=== PATIENT | male | born 1970 | race Caucasian/White ===

== ENCOUNTER → 2020-06-15 10:53 | Outpatient (BNVA) | payer MEDICARE, MEDICAID, SELFPAY | PROVIDERS: PCP Internal Medicine; Referring Provider Internal Medicine; Visit Provider Internal Medicine Gastroenterology | DX: Z76.89 Persons encountering health services in other specified circumstances (principal) | CPT/HCPCS: 99213 ==

== ENCOUNTER → 2020-07-08 14:54 | Outpatient (BNVA) | payer MEDICARE, MEDICAID, SELFPAY | PROVIDERS: PCP Internal Medicine; Referring Provider Internal Medicine; Visit Provider Surgery | DX: K40.90 Unilateral inguinal hernia, without obstruction or gangrene, not specified as recurrent (principal) | CPT/HCPCS: 99212 ==

== ENCOUNTER 2020-09-02 16:55 | Emergency (ER) | payer MEDICARE, MEDICAID, SELFPAY ==
[2020-09-02 16:59] VITALS: BP 176/66; PULSE 66; RESP 18; TEMP 36.9; O2SAT 95; BMI 48.8
--- NOTE | 2020-09-02 17:53 | ED_ITS ---
HPI - Extremity Problem General Chief complaint: Extremity Problem Stated complaint: leg numbness Time Seen by Provider: 09/02/20 17:50 Source: patient Mode of arrival: ambulatory Limitations: no limitations History of Present Illness HPI Narrative: 50yo male with past medical history of arthritis, chronic venous stasis, depression, diabetes, hypertension, obesiy, YANDY, here with right dorsal foot numbness since this morning. He tells me 2 days ago he completed a [address] No SOB/CP. H/o neuropathy, not on gabapentin. No h/o blood clots. MD Complaint: extremity pain Onset (ago): hour(s) Pain Consistency: other (improving) Location: right and lower extremity Quality: burning Radiation: none Relieving factors: nothing Exacerbating factors: nothing Associated symptoms: denies other symptoms Context: recent travel (long car drive >10 hrs 2 days ago) Related Data Home Medications Medication Instructions Recorded Confirmed albuterol sulfate 90 mcg/actuation 2 puff INHALATION Q4-6H PRN 06/13/20 08/04/20 aerosol inhaler atorvastatin 40 mg tablet 40 mg PO DAILY 06/13/20 08/04/20 bupropion HCl 150 mg tablet,12 hr 150 mg PO BID 06/13/20 08/04/20 sustained-release furosemide 20 mg tablet 40 mg PO DAILY 06/13/20 08/04/20 metformin 1,000 mg tablet 1,000 mg PO BID 06/13/20 08/04/20 methadone 40 mg soluble tablet 125 mg PO DAILY tab 06/13/20 08/04/20 Previous Rx's Medication Instructions Recorded bisacodyl 5 mg tablet,delayed 10 mg PO ONCE 1 Days #2 tab 08/05/20 release polyethylene glycol 3350 17 238 g PO .COMPLEX 1 Days #238 g 08/05/20 gram/dose oral powder Allergies Allergy/AdvReac Type Severity Reaction Status Date / Time No Known Allergies Allergy Unknown UNKNOWN Verified 07/08/20 15:17 Review of Systems Review of Systems: Yes all other systems are reviewed and are negative Constitutional: Constitutional: Reports no additional constitutional complaints, Denies body ache(s), Denies chills, Denies fever(s), Denies h eadache(s) and Denies weakness Eyes: Eyes: Reports no additional eye complaints and Denies change in vision ENT: Reports system reviewed and no additional complaints, except as documented, Denies dizziness, Denies headache(s), Denies nasal congestion, Denies nasal discharge and Denies neck pain Cardiovascular: Cardiovascular: Reports no additional cardiovascular complaints, Denies chest pain, Denies leg edema and Denies dyspnea Respiratory: Respiratory: Reports no additional respiratory complaints, Denies cough and Denies dyspnea Gastrointestinal: Gastrointestinal: Reports no additional gastrointestinal complaints, Denies abdominal pain, Denies diarrhea, Denies nausea and Denies vomiting Genitourinary: Genitourinary: Denies urinary incontinence Musculoskeletal: Musculoskeletal: Reports no additional musculoskeletal complaints, Denies back pain, Denies arthralgias, Denies joint swelling, Denies neck pain, Reports numbness and Denies tingling Integumentary/Breasts: Skin/Breast: Reports system reviewed and no additional complaints, except as docu and Denies rash Neurologic: Reports system reviewed and no additional complaints, except as documented, Denies Abnormal speech present, Denies dizziness, Denies headache(s), Reports numbness, Denies tingling and Denies weakness PMFSH Past Medical History Attestation statement: The following information was validated with the patient. Source: old records reviewed and nursing notes reviewed Medical History Arthritis Chronic venous stasis Depression Diabetes Exposure to COVID-19 virus Full dentures Hypertension Methadone use Morbid obesity Shortness of breath on exertion Sleep apnea Type 2 diabetes mellitus Wears partial dentures Surgical History H/O wisdom tooth extraction History of arthroscopic knee surgery History of carpal tunnel release History of umbilical hernia repair Family History Family History Father Diabetes Mother Diabetes 1.5, managed as type 2 HTN (hypertension) Hypercholesteremia Paternal Grandmother Diabetes 1.5, managed as type 2 Maternal Grandmother Lung cancer Maternal Grandfather Prostate cancer Sister No problems noted. Daughter No problems noted. Social History Social History Alcohol intake: never Smoking Status: Current every day smoker Tobacco Type: Cigarette Packs Per Day: 0.5 Cigarettes Per Day: 10.0 Years Smoked: 36 Substance Use Type: Marijuana and Opiates Advance Directives: No Advance Directives Information Provided: Yes Physical Exam Vital Signs: Vital Signs: Last Vital Signs Temp 98.3 F 09/02/20 18:09 Pulse 64 09/02/20 18:09 Resp 18 09/02/20 18:09 BP 131/51 L 09/02/20 18:09 Pulse Ox 94 09/02/20 18:09 Body Mass Index 48.8 Const: General: cooperative, healthy appearing, comfortable and no acute distress Orientation/consciousness: patient oriented x3 Limitations: no limitations HENMT: Head: Yes normal to inspection Ears: hearing grossly normal bilaterally General nose exam: Normal external nose present Face and si nus: Yes normal facial exam Mouth: Normal oral and palatal mucosa present Throat: Yes posterior oropharynx normal Eyes: General: appearance normal, both eyes and all related structures Pupils: Equal, round and reactive pupils present Neck: Neck: Yes normal visual inspection Chest: Chest palpation & inspection: normal inspection of the chest Resp: Effort & Inspection: normal respiratory effort Auscultation: clear to auscultation bilaterally Cardio: Rate: regular rate Rhythm: regular rhythm Peripheral pulses: Peripheral pulses 2+ throughout GI: Inspection: Yes normal to inspection Palpation (GI): Soft to palpation and nontender Auscultation: normal bowel sounds Back/Spine/Pelvis: Thoracic/Lumbar Spine: thoracic and lumbar spine normal to inspection Skin: General skin exam: no rashes or lesions noted Neuro: General: patient oriented x3, no focal motor deficits and normal sensation to monofilament Cranial nerves: Yes Equal, round and reactive pupils present Cognition (Neuro): normal cognition Speech: No Abnormal speech present Gait exam (Neuro): Normal gait present Motor exam (neuro): 5/5 motor strength present throughout Extrem: Other: chronic venous stasis changes bilateral LE, multiple varicose veins. No calf tenderness, swelling or redness. There is discoloration to both lower legs which appears chronic in nature. The patient is reporting some dorsal foot swelling on the right side over the 4th and 5th PIP. Palpable pedal pulses noted. Skin is warm pink and dry Course Reevaluation(s) Reevaluation #2: 50-year-old male here with right foot numbness noted this morning. Recent long travel in a car. Will check ultrasound to rule out DVT MDM - Extremity (Nontraumatic) Medical Records Attestation: I reviewed the patient's medical records. Lab Data Attestation: I reviewed the patient's lab results. Imaging Data Venous US: Attestation: I personally reviewed and interpreted this imaging study as follows: Radiologist's impression: EXAMINATION: US VENOUS ULTRASOUND WITH DOPPLER LOWER EXTREMITY, RIGHT CLINICAL INFORMATION: 50-year-old male patient with right lower extremity pain. COMPARISON: Last triplex scan of the right lower extremity on 07/08/2019. (No DVT). TECHNIQUE: Ultrasound of the deep veins is performed from the hip to the calf with compression sonography and color and pulse Doppler assessment. Spectral analysis with color-flow imaging is performed. FINDINGS: There is normal venous compression and respiratory variation and augmented flow. The visualized common femoral vein, superficial femoral vein, profunda femoral vein, popliteal vein, and the trifurcation region shows no evidence of deep venous thrombosis. A popliteal cyst is present measuring 2.3 x 1.2 x 6.2 cm. A compressible varicose vein is seen in the right thigh. US/US venous duplex LE RT IMPRESSION: No DVT demonstrated in the right lower extremity. Exam is positive for a right popliteal cyst. Discharge Plan Discharge Clinical Impression: Popliteal cyst Qualifiers: Laterality: right Qualified Code(s): M71.21 - Synovial cyst of popliteal space [[place]], right knee Patient Disposition: Home, Self-Care Instructions: Bakers Cyst (ED) Prescriptions: No Action polyethylene glycol 3350 [Miralax] 17 gram/dose powder 238 g PO .COMPLEX 1 Days Qty: 238 RF: 0 bisacodyl [Dulcolax (bisacodyl)] 5 mg tablet,delayed release (DR/EC) 10 mg PO ONCE 1 Days Qty: 2 RF: 0 albuterol sulfate 90 mcg/actuation HFA aerosol inhaler 2 puff inhalation Q4-6H PRN (Reason: Shortness Of Breath) RF: 0 bupropion HCl 150 mg tablet sustained-release 12 hr 150 mg PO BID RF: 0 metformin 1,000 mg tablet 1,000 mg PO BID RF: 0 furosemide 20 mg tablet 40 mg PO DAILY RF: 0 atorvastatin 40 mg tablet 40 mg PO DAILY RF: 0 methadone 40 mg tablet,soluble 125 mg PO DAILY RF: 0 Referrals: Moise Flaherty MD [Physician] - 2 days
--- NOTE | 2020-09-02 18:00 | US_ITS ---
EXAMINATION: US VENOUS ULTRASOUND WITH DOPPLER LOWER EXTREMITY, RIGHT CLINICAL INFORMATION: 50-year-old male patient with right lower extremity pain. COMPARISON: Last triplex scan of the right lower extremity on 07/08/2019. (No DVT). TECHNIQUE: Ultrasound of the deep veins is performed from the hip to the calf with compression sonography and color and pulse Doppler assessment. Spectral analysis with color-flow imaging is performed. FINDINGS: There is normal venous compression and respiratory variation and augmented flow. The visualized common femoral vein, superficial femoral vein, profunda femoral vein, popliteal vein, and the trifurcation region shows no evidence of deep venous thrombosis. A popliteal cyst is present measuring 2.3 x 1.2 x 6.2 cm. A compressible varicose vein is seen in the right thigh. US/US venous duplex LE RT IMPRESSION: No DVT demonstrated in the right lower extremity. Exam is positive for a right popliteal cyst.
[2020-09-02 18:09] VITALS: BP 131/51; PULSE 64; RESP 18; TEMP 36.8; O2SAT 94
--- NOTE | 2020-09-02 18:43 | PC.NURSE ---
patient returned from [facility]
--- NOTE | 2020-09-02 19:14 | PC.NURSE ---
pt had misunderstood radiology specialist and thought he was ok'd to discharge and left. provider called patient at home spoke with him about the radiology findings and gave verbal discharge instructions over the phone.
== END 2020-09-02 19:16 | disposition home or self-care (01) ==
PROVIDERS: Emergency Provider Emergency Medicine; PCP Internal Medicine
DX: M71.21 Synovial cyst of popliteal space [Baker], right knee (principal); M79.661 Pain in right lower leg; E11.9 Type 2 diabetes mellitus without complications; I10 Essential (primary) hypertension; Z79.899 Other long term (current) drug therapy; Z79.84 Long term (current) use of oral hypoglycemic drugs
CPT/HCPCS: 93971; 99284

== ENCOUNTER 2020-10-10 17:51 | Emergency (ER) | payer OTHER, SELFPAY ==
--- NOTE | 2020-10-10 | ECG_ITS ---
Test Reason : CHEST PAIN Blood Pressure : / mmHG Vent. Rate : 059 BPM Atrial Rate : 059 BPM P-R Int : 158 ms QRS Dur : 096 ms QT Int : 428 ms P-R-T Axes : 016 041 045 degrees QTc Int : 423 ms Sinus bradycardia Otherwise normal ECG When compared with ECG of 18-FEB-2015 15:43, No significant change was found Referred By: Generic ED Physician Electronically Signed By:Raghavendra Carlson
[2020-10-10 18:04] VITALS: BP 145/67; PULSE 60; RESP 18; TEMP 36.8; O2SAT 94; BMI 49.4
[2020-10-10 18:53] LABS: MANUAL DIFF FLAG NO
[2020-10-10 18:55] LABS: Basophils Percent Auto 0.1 % (0-2); Eosinophils Absolute Auto 0.2 X10*3/uL (0.0-0.4); Eosinophils Percent Auto 2.2 % (0-4); Hematocrit 48.3 % (42-52); Hemoglobin 16.1 g/dl (14.0-18.0); Imm Gran Abs Auto 0.05 X10*3/uL (0.00-0.03); Imm Gran Pct Auto 0.6 % (0.0-0.4); Lymphocytes Absolute Auto 1.7 X10*3/uL (1.2-4.9); Lymphocytes Percent Auto 20.8 % (20-40); Mean Corpuscular HGB Conc 33.3 g/dl (31.0-36.0); Mean Corpuscular Hemoglobin 31.1 pg (27.0-33.0); Mean Corpuscular Volume 93.2 fL (80-98); Mean Platelet Volume 10.8 fL (9.4-12.4); Monocytes Absolute Auto 0.6 X10*3/uL (0.1-1.2); Monocytes Percent Auto 7.6 % (2-11); Neutrophils Absolute Auto 5.6 X10*3/uL (2.0-8.3); Neutrophils Percent Auto 68.7 % (45-73); Platelet Count 171 X10*3/uL (160-400); Red Blood Count 5.18 X10*6/uL (4.60-5.80); Red Cell Distribution Width 13.7 % (11.0-16.0); White Blood Count 8.2 X10*3/uL (4.8-10.8)
[2020-10-10 19:20] LABS: Anion Gap 14 (12-20); Blood Urea Nitrogen 15 mg/dL (9-16); Calcium 9.3 mg/dL (8.4-10.2); Carbon Dioxide 33 mmol/L (22-29); Chloride 97 mmol/L (96-108); Creatinine Clr Calc Pharmacy 151.2; Estimated Glomerular Filt Rate > 60; Glucose Random 168 mg/dL (60-115); Potassium 4.2 mmol/L (3.3-5.1); Sodium 140 mmol/L (135-145)
[2020-10-10 19:25] LABS: Troponin-I High Sensitivity 5.7 ng/L (<3.5-35.0)
--- NOTE | 2020-10-10 20:43 | CT_ITS ---
EXAMINATION: CT ABDOMEN AND PELVIS WITHOUT CONTRAST CLINICAL INFORMATION: Right upper quadrant, left lower quadrant and left flank pain. COMPARISON: 04/02/2019 TECHNIQUE: Multidetector volumetric imaging was performed from the superior aspect of the liver through the pubic symphysis. Sagittal and coronal reformatted images were obtained on the technologist's workstation. This CT examination was performed using dose optimization techniques as appropriate, variously including the following: *Automated exposure control. *Adjustment of mA and/or kV according to patient size (this includes techniques or standardized protocols for targeted exams where dose is matched to indication/reason for exam; i.e. extremities or head). *Use of iterative reconstruction technique. DLP: 1507 mGy-cm FINDINGS: LUNG BASES: The visualized lung bases are unremarkable. LIVER, GALLBLADDER, AND BILIARY TREE: Hepatomegaly. Hepatic steatosis. No focal lesions. No biliary duct dilatation. Gallbladder appears unremarkable. PANCREAS: Unremarkable. SPLEEN: Unremarkable. ADRENAL GLANDS: Unremarkable. KIDNEYS AND URETERS: The kidneys are normal in size, shape, and attenuation. No hydronephrosis, hydroureter, or calculi seen. No perinephric stranding. BLADDER: Underdistended without gross abnormality. GASTROINTESTINAL TRACT: The small and large bowel are unremarkable. No acute inflammatory changes seen. The appendix is unremarkable. No free fluid. ABDOMINAL WALL: Small fat-containing umbilical hernia. There is induration in the periumbilical fat. LYMPH NODES: Normal. VASCULAR: Normal caliber aorta. Portal vein measures AP 2.1 cm today. As seen previously, there are collateral vessels noted in the anterior abdominal wall. PELVIC VISCERA: Unremarkable. OSSEOUS STRUCTURES: Thoracolumbar spondylosis. No acute fracture. CT/CT abdomen pelvis wo con IMPRESSION: 1. No acute findings identified in the abdomen or pelvis. 2. No evidence of renal or ureteral calculi. No hydronephrosis. 3. Hepatomegaly. Hepatic steatosis. Question of portal hypertension, with the prominence of the portal vein and some vessels in the abdominal wall. 4. Small fat-containing umbilical hernia. There is some induration in the fat adjacent to the hernia.
[2020-10-10 20:51] VITALS: BP 147/61; PULSE 53; RESP 19; TEMP 36.4; O2SAT 93
--- NOTE | 2020-10-10 21:07 | PC.NURSE ---
iv inserted labs drawn, ct scan came to take the patient prior to being medicated, pt will be medicated upon his return
[2020-10-10 21:15] LABS: INTERNATIONAL NORM RATIO 0.9 (0.9-1.1); Prothrombin Time 11.1 SEC (10.8-13.0)
[2020-10-10 21:17] LABS: Partial Thromboplastin Time 31.4 SEC (24.1-38.0)
[2020-10-10] MEDS: 0.9 % Sodium Chloride 1,000 ML 999 ML IVCONT (21:22)
[2020-10-10] MEDS: Ketorolac Tromethamine 30 MG/ML VIAL IVPUSH (21:22)
[2020-10-10] MEDS: Morphine Sulfate 2 MG/ML CARTRIDGE IVPUSH (21:23)
--- NOTE | 2020-10-10 21:24 | ED_ITS ---
HPI - Chest Pain General Chief Complaint: Chest Pain Stated Complaint: cp Time Seen by Provider: 10/10/20 20:33 Source: patient Mode of arrival: ambulatory Limitations: no limitations History of Present Illness HPI narrative: 50-year-old male with past medical history of arthritis, venous stasis, depression, type 2 diabetes, hypertension, on methadone, morbid obesity, obstructive sleep apnea on CPAP, presents with 3 days of left lower chest and arm pain accompanied with right upper quadrant, left lower quadrant and left flank abdominal pain. The pain has not resolved, has not increased in intensity since onset but changes when he moves his arm. He does not report any trauma, palpitations, shortness of breath, abdominal distention, dysuria, hematuria, fevers or chills. MD complaint: chest pain Onset (ago): day(s) (3) Timing of current episode: constant Prior episodes: No Onset: during rest Pain location: left chest Pain radiation: left arm Severity: moderate Pain scale (0-10): 5 Quality: aching Relieving factors: nothing Exacerbating factors: exertion and movement Associated symptoms: other Risk Factors Coronary artery disease risk factors: diabetes, hyperlipidemia and hypertension Thoracic aortic dissection risk factors: longstanding hypertension Related Data Home Medications Medication Instructions Recorded Confirmed albuterol sulfate 90 mcg/actuation 2 puff INHALATION Q4-6H PRN 06/13/20 08/04/20 aerosol inhaler atorvastatin 40 mg tablet 40 mg PO DAILY 06/13/20 08/04/20 bupropion HCl 150 mg tablet,12 hr 150 mg PO BID 06/13/20 08/04/20 sustained-release furosemide 20 mg tablet 40 mg PO DAILY 06/13/20 08/04/20 metformin 1,000 mg tablet 1,000 mg PO BID 06/13/20 08/04/20 methadone 40 mg soluble tablet 125 mg PO DAILY tab 06/13/20 08/04/20 Previous Rx's Medication Instructions Recorded bisacodyl 5 mg tablet,delayed 10 mg PO ONCE 1 Days #2 tab 08/05/20 release polyethylene glycol 3350 17 238 g PO .COMPLEX 1 Days #238 g 08/05/20 gram/dose oral powder Allergies Allergy/AdvReac Type Severity Reaction Status Date / Time No Known Allergies Allergy Unknown UNKNOWN Verified 07/08/20 15:17 Review of Systems Review of Systems: Constitutional: No Weight loss, No Fever, No Chills, No Night Sweats, No Fatigue, No Malaise ENT/Mouth: No Hearing loss, No Ear Pain, No Nasal Congestion, No Sinus Pain, No Hoarseness, No sore throat, No Rhinorrhea, No Swallowing Difficulty Eyes: No Eye Pain, No Swelling, No Redness, No Foreign Body, No Discharge, No Vision Changes Cardiovascular: Positive Chest Pain, no SOB, no Dyspnea on Exertion, No Orthopnea, No Edema, No Palpitations Respiratory: No Cough, No Sputum, No Wheezing, No Smoke Exposure, No Dyspnea Gastrointestinal: No Nausea, No Vomiting, No Diarrhea, positive abdominal Pain, No Hematochezia, No Melena Genitourinary: No irregular bleeding, No Dysuria, No Urinary Frequency, No Hematuria, No Urinary Incontinence, No Urgency, No Flank Pain, No Urinary Flow Changes, No Hesitancy Musculoskeletal: No joint pain, No Myalgias, No Joint Swelling Skin: No Skin Lesions, No rash Neuro: No Weakness, No Numbness, No Paresthesias, No Loss of Consciousness, No Dizziness, No Headache Psych: No Anxiety/Panic, No Depression, No SI/HI/AH/VH Heme/Lymph: No Bruising, No Bleeding,No Lymphadenopathy Endocrine: No Polyuria, No Polydipsia, No Temperature Intolerance Yes all other systems are reviewed and are negative PMFSH Past Medical History Attestation statement: The following information was validated with the patient. Source: old records reviewed Medical History Arthritis Chronic venous stasis Depression Diabetes Exposure to COVID-19 virus Full dentures Hypertension Methadone use Morbid obesity Shortness of breath on exertion Sleep apnea Type 2 diabetes mellitus Wears partial dentures Surgical History H/O wisdom tooth extraction History of arthroscopic knee surgery History of carpal tunnel release History of umbilical hernia repair Family History Family History Father Diabetes Mother Diabetes 1.5, managed as type 2 HTN (hypertension) Hypercholesteremia Paternal Grandmother Diabetes 1.5, managed as type 2 Maternal Grandmother Lung cancer Maternal Grandfather Prostate cancer Sister No problems noted. Daughter No problems noted. Social History Social History Alcohol intake: never Smoking Status: Current every day smoker Tobacco Type: Cigarette Packs Per Day: 0.5 Cigarettes Per Day: 10.0 Years Smoked: 36 Use of substances other than those prescribed or required for medical reasons: Yes Substance Use Type: Marijuana Substance Use Frequency: Occasionally Advance Directives: No Advance Directives Information Provided: No Physical Exam Vital Signs: Vital Signs: Last Vital Signs Temp 97.6 F 10/10/20 20:51 Pulse 53 10/10/20 20:51 Resp 19 10/10/20 20:51 BP 147/61 H 10/10/20 20:51 Pulse Ox 93 10/10/20 20:51 Body Mass Index 49.4 Appearance: Alert. Oriented X3. No acute distress. Eyes: Pupils equal, round and reactive to light. ENT: Pharynx normal. Neck: Normal inspection. Neck supple. CVS: Normal heart rate and rhythm. Pulses normal. Respiratory: No respiratory distress. Breath sounds normal. Abdomen: Soft and positive tenderness to palpation of the right upper and left lower quadrants. Skin: Skin warm and dry. Normal skin color. Normal skin turgor. Extremities: No lower extremity edema. Neuro: No motor deficit. No sensory deficit. Course Course Course Narrative: 50-year-old male with arthritis, venous stasis, depression, type 2 diabetes, hypertension on methadone for prior opioid addiction, morbid obesity, obstructive sleep apnea presents with 3 days of left-sided chest pain with right upper quadrant and left lower quadrant abdominal pain. Plan of care to rule out ACS and acute abdomen. Troponin 5.7 will repeat 2nd troponin time 9:45 p.m., CBC Chem 7 unremarkable. EKG sinus Aldo without indication of ST elevation or depression. Second troponin 6.8, CT scan of abdomen indicates hepato stasis with high suspicion portal hypertensive gastropathy. These findings were discussed in detail with the patient, he does understand that he must follow up with Gastroenterology for further study. Patient was referred to Dr. Gibbs. Patient verbalized understanding of and agrees plan of care discharge home. MDM - Chest Pain Differential Diagnosis Differential diagnosis: Likely fracture of rib, pneumothorax, stable angina, unstable angina pectoris, atypical chest pain, st elevation myocardial infarction, costochondritis, chest pain and biliary colic Medical Records Data Attestation: I reviewed the patient's medical records. Lab Data Attestation: I reviewed the patient's lab results. Result diagrams: 10/10/20 18:45 10/10/20 18:45 Labs: Lab Results 10/10/20 10/10/20 10/10/20 Range/Units 18:45 18:45 18:45 WBC 8.2 (4.8-10.8) X10*3/uL RBC 5.18 (4.60-5.80) X10*6/uL Hgb 16.1 (14.0-18.0) g/dl Hct 48.3 (42-52) % MCV 93.2 (80-98) fL MCH 31.1 (27.0-33.0) pg MCHC 33.3 (31.0-36.0) g/dl RDW 13.7 (11.0-16.0) % Plt Count 171 (160-400) X10*3/uL MPV 10.8 (9.4-12.4) fL Immature Gran % (Auto) 0.6 H (0.0-0.4) % Neut % (Auto) 68.7 (45-73) % Lymph % (Auto) 20.8 (20-40) % [place] % (Auto) 7.6 (2-11) % Eos % (Auto) 2.2 (0-4) % Baso % (Auto) 0.1 (0-2) % Lymph # (Auto) 1.7 (1.2-4.9) X10*3/uL [place] # (Auto) 0.6 (0.1-1.2) X10*3/uL Eos # (Auto) 0.2 (0.0-0.4) X10*3/uL Baso # (Auto) 0.0 (0.0-0.2) X10*3/uL Abs Immat Gran (auto) 0.05 H (0.00-0.03) X10*3/uL Absolute Neuts (auto) 5.6 (2.0-8.3) X10*3/uL Absolute Nucleated RBC 0.000 (0.0-0.012) X10*3/uL Nucleated RBC % (auto) 0.0 (0.0-0.2) /100WBC PT (10.8-13.0) SEC INR (0.9-1.1) APTT (24.1-38.0) SEC Hold Blue Top SEE NOTE Sodium 140 (135-145) mmol/L Potassium 4.2 (3.3-5.1) mmol/L Chloride 97 (96-108) mmol/L Carbon Dioxide 33 H (22-29) mmol/L Anion Gap 14 (12-20) BUN 15 (9-16) mg/dL Creatinine 0.98 (0.5-1.4) mg/dL Estim Creat Clear Calc 151.2 Estimated GFR > 60 Random Glucose 168 H (60-115) mg/dL Calcium 9.3 (8.4-10.2) mg/dL Total Bilirubin (0.0-1.0) mg/dL Direct Bilirubin (0.0-0.5) mg/dL AST (5-37) U/L ALT (0-40) U/L Alkaline Phosphatase (39-117) U/L Troponin I High Sens (<3.5-35.0) ng/L Total Protein (6.5-8.0) g/dL Albumin (3.5-5.0) g/dL Lipase (8-78) U/L 10/10/20 10/10/20 10/10/20 Range/Units 18:45 21:03 21:03 WBC (4.8-10.8) X10*3/uL RBC (4.60-5.80) X10*6/uL Hgb (14.0-18.0) g/dl Hct (42-52) % MCV (80-98) fL MCH (27.0-33.0) pg MCHC (31.0-36.0) g/dl RDW (11.0-16.0) % Plt Count (160-400) X10*3/uL MPV (9.4-12.4) fL Immature Gran % (Auto) (0.0-0.4) % Neut % (Auto) (45-73) % Lymph % (Auto) (20-40) % [place] % (Auto) (2-11) % Eos % (Auto) (0-4) % Baso % (Auto) (0-2) % Lymph # (Auto) (1.2-4.9) X10*3/uL [place] # (Auto) (0.1-1.2) X10*3/uL Eos # (Auto) (0.0-0.4) X10*3/uL Baso # (Auto) (0.0-0.2) X10*3/uL Abs Immat Gran (auto) (0.00-0.03) X10*3/uL Absolute Neuts (auto) (2.0-8.3) X10*3/uL Absolute Nucleated RBC (0.0-0.012) X10*3/uL Nucleated RBC % (auto) (0.0-0.2) /100WBC PT 11.1 (10.8-13.0) SEC INR 0.9 (0.9-1.1) APTT 31.4 (24.1-38.0) SEC Hold Blue Top Sodium (135-145) mmol/L Potassium (3.3-5.1) mmol/L Chloride (96-108) mmol/L Carbon Dioxide (22-29) mmol/L Anion Gap (12-20) BUN (9-16) mg/dL Creatinine (0.5-1.4) mg/dL Estim Creat Clear Calc Estimated GFR Random Glucose (60-115) mg/dL Calcium (8.4-10.2) mg/dL Total Bilirubin (0.0-1.0) mg/dL Direct Bilirubin (0.0-0.5) mg/dL AST (5-37) U/L ALT (0-40) U/L Alkaline Phosphatase (39-117) U/L Troponin I High Sens 5.7 6.8 (<3.5-35.0) ng/L Total Protein (6.5-8.0) g/dL Albumin (3.5-5.0) g/dL Lipase (8-78) U/L 10/10/20 Range/Units 21:03 WBC (4.8-10.8) X10*3/uL RBC (4.60-5.80) X10*6/uL Hgb (14.0-18.0) g/dl Hct (42-52) % MCV (80-98) fL MCH (27.0-33.0) pg MCHC (31.0-36.0) g/dl RDW (11.0-16.0) % Plt Count (160-400) X10*3/uL MPV (9.4-12.4) fL Immature Gran % (Auto) (0.0-0.4) % Neut % (Auto) (45-73) % Lymph % (Auto) (20-40) % [place] % (Auto) (2-11) % Eos % (Auto) (0-4) % Baso % (Auto) (0-2) % Lymph # (Auto) (1.2-4.9) X10*3/uL [place] # (Auto) (0.1-1.2) X10*3/uL Eos # (Auto) (0.0-0.4) X10*3/uL Baso # (Auto) (0.0-0.2) X10*3/uL Abs Immat Gran (auto) (0.00-0.03) X10*3/uL Absolute Neuts (auto) (2.0-8.3) X10*3/uL Absolute Nucleated RBC (0.0-0.012) X10*3/uL Nucleated RBC % (auto) (0.0-0.2) /100WBC PT (10.8-13.0) SEC INR (0.9-1.1) APTT (24.1-38.0) SEC Hold Blue Top Sodium (135-145) mmol/L Potassium (3.3-5.1) mmol/L Chloride (96-108) mmol/L Carbon Dioxide (22-29) mmol/L Anion Gap (12-20) BUN (9-16) mg/dL Creatinine (0.5-1.4) mg/dL Estim Creat Clear Calc Estimated GFR Random Glucose (60-115) mg/dL Calcium (8.4-10.2) mg/dL Total Bilirubin 0.4 (0.0-1.0) mg/dL Direct Bilirubin 0.2 (0.0-0.5) mg/dL AST 25 (5-37) U/L ALT 41 H (0-40) U/L Alkaline Phosphatase 92 (39-117) U/L Troponin I High Sens (<3.5-35.0) ng/L Total Protein 6.9 (6.5-8.0) g/dL Albumin 4.2 (3.5-5.0) g/dL Lipase 48 (8-78) U/L Imaging Data CT scan - abdomen: Attestation: I personally reviewed and interpreted this imaging study as follows: Radiologist's impression: EXAMINATION: CT ABDOMEN AND PELVIS WITHOUT CONTRAST CLINICAL INFORMATION: Right upper quadrant, left lower quadrant and left flank pain. COMPARISON: 04/02/2019 TECHNIQUE: Multidetector volumetric imaging was performed from the superior aspect of the liver through the pubic symphysis. Sagittal and coronal reformatted images were obtained on the technologist's workstation. This CT examination was performed using dose optimization techniques as appropriate, variously including the following: *Automated exposure control. *Adjustment of mA and/or kV according to patient size (this includes techniques or standardized protocols for targeted exams where dose is matched to indication/reason for exam; i.e. extremities or head). *Use of iterative reconstruction technique. DLP: 1507 mGy-cm FINDINGS: LUNG BASES: The visualized lung bases are unremarkable. LIVER, GALLBLADDER, AND BILIARY TREE: Hepatomegaly. Hepatic steatosis. No focal lesions. No biliary duct dilatation. Gallbladder appears unremarkable. PANCREAS: Unremarkable. SPLEEN: Unremarkable. ADRENAL GLANDS: Unremarkable. KIDNEYS AND URETERS: The kidneys are normal in size, shape, and attenuation. No hydronephrosis, hydroureter, or calculi seen. No perinephric stranding. BLADDER: Underdistended without gross abnormality. GASTROINTESTINAL TRACT: The small and large bowel are unremarkable. No acute inflammatory changes seen. The appendix is unremarkable. No free fluid. ABDOMINAL WALL: Small fat-containing umbilical hernia. There is induration in the periumbilical fat. LYMPH NODES: Normal. VASCULAR: Normal caliber aorta. Portal vein measures AP 2.1 cm today. As seen previously, there are collateral vessels noted in the anterior abdominal wall. PELVIC VISCERA: Unremarkable. OSSEOUS STRUCTURES: Thoracolumbar spondylosis. No acute fracture. CT/CT abdomen pelvis wo con IMPRESSION: 1. No acute findings identified in the abdomen or pelvis. 2. No evidence of renal or ureteral calculi. No hydronephrosis. 3. Hepatomegaly. Hepatic steatosis. Question of portal hypertension, with the prominence of the portal vein and some vessels in the abdominal wall. 4. Small fat-containing umbilical hernia. There is some induration in the fat adjacent to the hernia. ECG Data ECG #1: Attestation: I personally reviewed and interpreted this ECG as follows: ECG interpretation date: 10/10/20 ECG interpretation time: 17:58 Interpretation: Vent. rate 59 BPM MS interval 158 ms QRS duration 96 ms QT/QTc 428/423 ms P-R-T axes 16 41 45 Sinus bradycardia Otherwise normal ECG When compared with ECG of 18-FEB-2015 15:43, No significant change was found Discharge Plan Discharge Clinical Impression: Hepatomegaly, Portal hypertension, Morbid obesity Chest pain Qualifiers: Chest pain type: unspecified Qualified Code(s): R07.9 - Chest pain, unspecified Patient Disposition: Home, Self-Care Instructions: Portal Hypertension (ED), Noncardiac Chest Pain (ED) Additional Instructions: You were evaluated for chest pain. EKG is normal sinus rhythm, troponin was normal, CT scan of the abdomen shows enlarged liver with high suspicion for portal hypertensive gastropathy. You must follow-up with Gastroenterology. Please call and make an appointment. Thank you for choosing this emergency department for evaluation. Please follow-up with primary care physician as needed. Return to the emergency department for any new, concerning, or worsening symptoms. Prescriptions: No Action polyethylene glycol 3350 [Miralax] 17 gram/dose powder 238 g PO .COMPLEX 1 Days Qty: 238 RF: 0 bisacodyl [Dulcolax (bisacodyl)] 5 mg tablet,delayed release (DR/EC) 10 mg PO ONCE 1 Days Qty: 2 RF: 0 albuterol sulfate 90 mcg/actuation HFA aerosol inhaler 2 puff inhalation Q4-6H PRN (Reason: Shortness Of Breath) RF: 0 bupropion HCl 150 mg tablet sustained-release 12 hr 150 mg PO BID RF: 0 metformin 1,000 mg tablet 1,000 mg PO BID RF: 0 furosemide 20 mg tablet 40 mg PO DAILY RF: 0 atorvastatin 40 mg tablet 40 mg PO DAILY RF: 0 methadone 40 mg tablet,soluble 125 mg PO DAILY RF: 0 Referrals: Jorge Gibbs MD [Physician] - 2 days (Hepatomegaly with suspected portal hypertensive gastropathy on CT scan.) Interventions: ED Discharge Assessment Last Done: 10/10/20 22:46
--- NOTE | 2020-10-10 21:26 | PC.NURSE ---
patient a&ox3, hand flatwork finisher sinus quincy vss, ivf hanging per order, pt medicated per order, urine obtained, will continue to monitor.
[2020-10-10 21:40] LABS: Alanine Aminotransferase 41 U/L (0-40); Albumin Level 4.2 g/dL (3.5-5.0); Alkaline Phosphatase 92 U/L (39-117); Aspartate Amino Transferase 25 U/L (5-37); Bilirubin Direct 0.2 mg/dL (0.0-0.5); Bilirubin Total 0.4 mg/dL (0.0-1.0); Lipase 48 U/L (8-78); Total Protein 6.9 g/dL (6.5-8.0)
[2020-10-10 21:46] LABS: Troponin-I High Sensitivity 6.8 ng/L (<3.5-35.0)
== END 2020-10-10 23:02 | disposition home or self-care (01) ==
PROVIDERS: Nurse Practitioner Family; Emergency Provider Internal Medicine; PCP Internal Medicine
DX: R07.9 Chest pain, unspecified (principal); R16.0 Hepatomegaly, not elsewhere classified; K76.6 Portal hypertension; E66.01 Morbid (severe) obesity due to excess calories; E11.9 Type 2 diabetes mellitus without complications; I10 Essential (primary) hypertension; F11.20 Opioid dependence, uncomplicated; F17.210 Nicotine dependence, cigarettes, uncomplicated; Z79.84 Long term (current) use of oral hypoglycemic drugs; Z79.899 Other long term (current) drug therapy
CPT/HCPCS: 36415; 74176; 80048; 80076; 83690; 84484; 85025; 85610; 85730; 87086; 93005; 96361; 96374; 96375; 99284; J1885; J2270

== ENCOUNTER 2020-10-13 09:37 | Outpatient (REF) | payer OTHER, SELFPAY ==
--- NOTE | 2020-10-13 09:41 | FL_ITS ---
EXAMINATION: FL BARIUM SWALLOW CLINICAL INFORMATION: Dysphagia and hoarseness. COMPARISON: None TECHNIQUE: Barium swallow examination is performed using fluoroscopic evaluation in addition to multiple fluoroscopic spot views. The patient is imaged both upright and prone and using both thick and thin sulfate along with effervescent granules. Fluoroscopy time: 1.2 minutes DAP: 33.012 Gycm2 Images: 36 FINDINGS: Following oral administration of thick barium and barium-coated turkey, there is normal propagation of bolus from the oral cavity through the pharynx, esophagus into stomach without any evidence of obstruction, narrowing or stricture. Placing the patient supine and prone lying and oral administration of thin barium, there is good distention of the entire esophagus without an intrinsic or extrinsic impression. There is a small sliding hiatal hernia seen. No gastroesophageal reflux noted. FL/FL barium swallow IMPRESSION: Unremarkable barium swallow examination.
== END 2020-10-13 09:38 | disposition home or self-care (01) ==
LOC: HO.XRAY 09:37
PROVIDERS: PCP Internal Medicine; Visit Provider Otolaryngology
DX: R13.10 Dysphagia, unspecified (principal)
CPT/HCPCS: 74220

== ENCOUNTER 2020-10-15 07:49 | Outpatient (REF) | payer OTHER, SELFPAY | END 2020-10-15 07:50 | disposition home or self-care (01) | LOC: HO.HOSX 07:49 | PROVIDERS: Visit Provider Orthopaedic Surgery | DX: M71.21 Synovial cyst of popliteal space [Baker], right knee (principal); E66.01 Morbid (severe) obesity due to excess calories; Z68.42 Body mass index [BMI] 45.0-49.9, adult; E11.9 Type 2 diabetes mellitus without complications; I87.8 Other specified disorders of veins | CPT/HCPCS: 99202 ==

== ENCOUNTER → 2020-11-05 12:33 | Outpatient (BNVA) | payer OTHER, SELFPAY | PROVIDERS: PCP Internal Medicine; Visit Provider Surgery | DX: Z01.818 Encounter for other preprocedural examination (principal); E66.01 Morbid (severe) obesity due to excess calories; R06.02 Shortness of breath; Z68.43 Body mass index [BMI] 50.0-59.9, adult | CPT/HCPCS: 99202 ==

== ENCOUNTER → 2020-11-19 07:57 | Outpatient (BNVA) | payer OTHER, SELFPAY | PROVIDERS: PCP Internal Medicine; Visit Provider Surgery | DX: E66.01 Morbid (severe) obesity due to excess calories (principal); Z68.43 Body mass index [BMI] 50.0-59.9, adult | CPT/HCPCS: Q3014 ==

== ENCOUNTER → 2020-12-10 14:26 | Outpatient (BNVA) | payer OTHER, SELFPAY | PROVIDERS: PCP Internal Medicine; Visit Provider Dietitian, Registered ==

== ENCOUNTER → 2020-12-17 08:08 | Outpatient (BNVA) | payer OTHER, SELFPAY | PROVIDERS: PCP Internal Medicine; Visit Provider Dietitian, Registered | DX: E66.01 Morbid (severe) obesity due to excess calories (principal); Z68.43 Body mass index [BMI] 50.0-59.9, adult | CPT/HCPCS: 97802; 99212 ==

== ENCOUNTER → 2020-12-31 08:10 | Outpatient (BNVA) | payer OTHER, SELFPAY | PROVIDERS: PCP Internal Medicine; Visit Provider Dietitian, Registered ==

== ENCOUNTER 2021-01-07 09:52 | Outpatient (REF) | payer OTHER, SELFPAY ==
--- NOTE | ~2021-01-07 | XR_ITS ---
EXAMINATION: XR BILATERAL KNEES XR RIGHT KNEE CLINICAL INFORMATION: Pain COMPARISON: CT right femur 07/05/2017 TECHNIQUE: AP bilateral knees one view. Right knee 2 views. FINDINGS: Right Knee: Severe medial compartment arthritis, marked joint space loss, osteophytes. Mild patellofemoral arthritis. Marginal spurring in the lateral compartment. Genu varum. No acute fracture or dislocation. Left Knee: Mild medial compartment arthritis. XR/XR knee RT 2V IMPRESSION: Right Knee: Osteoarthritis present. Severe medial compartment arthritis. Left Knee: Mild medial compartment arthritis.
--- NOTE | ~2021-01-07 | XR_ITS ---
EXAMINATION: XR BILATERAL KNEES XR RIGHT KNEE CLINICAL INFORMATION: Pain COMPARISON: CT right femur 07/05/2017 TECHNIQUE: AP bilateral knees one view. Right knee 2 views. FINDINGS: Right Knee: Severe medial compartment arthritis, marked joint space loss, osteophytes. Mild patellofemoral arthritis. Marginal spurring in the lateral compartment. Genu varum. No acute fracture or dislocation. Left Knee: Mild medial compartment arthritis. XR/XR knee standing BI IMPRESSION: Right Knee: Osteoarthritis present. Severe medial compartment arthritis. Left Knee: Mild medial compartment arthritis.
[2021-01-07 10:45] LABS: MANUAL DIFF FLAG NO
[2021-01-07 10:51] LABS: Basophils Percent Auto 0.1 % (0-2); Eosinophils Absolute Auto 0.1 X10*3/uL (0.0-0.4); Eosinophils Percent Auto 1.8 % (0-4); Hematocrit 50.3 % (42-52); Hemoglobin 16.7 g/dl (14.0-18.0); Imm Gran Abs Auto 0.04 X10*3/uL (0.00-0.03); Imm Gran Pct Auto 0.6 % (0.0-0.4); Lymphocytes Absolute Auto 1.4 X10*3/uL (1.2-4.9); Lymphocytes Percent Auto 21.3 % (20-40); Mean Corpuscular HGB Conc 33.2 g/dl (31.0-36.0); Mean Corpuscular Volume 90.5 fL (80-98); Mean Platelet Volume 11.7 fL (9.4-12.4); Monocytes Absolute Auto 0.5 X10*3/uL (0.1-1.2); Monocytes Percent Auto 7.9 % (2-11); Neutrophils Absolute Auto 4.6 X10*3/uL (2.0-8.3); Neutrophils Percent Auto 68.3 % (45-73); Platelet Count 167 X10*3/uL (160-400); Red Blood Count 5.56 X10*6/uL (4.60-5.80); Red Cell Distribution Width 13.1 % (11.0-16.0); White Blood Count 6.7 X10*3/uL (4.8-10.8)
[2021-01-07 11:15] LABS: Alanine Aminotransferase 38 U/L (0-40); Albumin Level 4.3 g/dL (3.5-5.0); Alkaline Phosphatase 103 U/L (39-117); Anion Gap 14 (12-20); Aspartate Amino Transferase 27 U/L (5-37); Bilirubin Total 0.7 mg/dL (0.0-1.0); Blood Urea Nitrogen 17 mg/dL (9-16); C Reactive Protein 0.27 mg/dL (< or = 0.50); Calcium 9.6 mg/dL (8.4-10.2); Carbon Dioxide 32 mmol/L (22-29); Chloride 94 mmol/L (96-108); Cholesterol 223 mg/dL; Estimated Glomerular Filt Rate > 60; Glucose Fasting 361 mg/dL (60-99); HDL Cholesterol 28 mg/dL; Iron 121 mcg/dL (45-160); Percent Iron Saturation 32 % (15-50); Potassium 4.7 mmol/L (3.3-5.1); Sodium 135 mmol/L (135-145); Total Iron Binding Capacity 376 mcg/dL (228-428); Total Protein 7.1 g/dL (6.5-8.0); Triglycerides 534 mg/dL; Unsaturated Iron Binding 255 ug/dL
[2021-01-07 11:28] LABS: Thyroid Stimulating Hormone 0.72 uIU/mL (0.32-4.0); Vitamin D 25-OH Total 12.7 ng/mL (>30)
[2021-01-07 11:33] LABS: Estimated Average Glucose 295 mg/dL; Hemoglobin A1c % 11.9 %
[2021-01-07 11:39] LABS: Vitamin B12 246 pg/mL (200-900)
[2021-01-07 11:51] LABS: Glucose Urine UA 500 MG/DL (NEG); Leukocyte Esterase Urine NEG (NEG); Nitrite Urine NEG (NEG); Specific Gravity - Urine >= 1.030 (1.005-1.025); Urine Blood NEG (NEG); Urine Ketones NEG (NEG); Urine Protein NEG (NEG-TRACE)
[2021-01-07 11:53] LABS: Appearance Urine HAZY; Color Urine YELLOW
[2021-01-07 12:03] LABS: Bacteria Urine TRACE /LPF; RBC Urine 0 /HPF (0); Squamous Epithelial Cell Urine 4+ /LPF; WBC Urine 0-2 /HPF (0-4)
[2021-01-07 12:41] LABS: Creatinine Urine 249.45 mg/dL; Microalbum/Creatinine Ratio Ur 20.4 ug/mg cr
[2021-01-08 13:31] LABS: Calcium (PTHI) 9.8 mg/dL (8.6-10.3); PTHI 37 pg/mL (14-64)
[2021-01-10 15:52] LABS: Zinc 94 mcg/dL (60-130)
[2021-01-12 15:17] LABS: Vitamin A 46 mcg/dL (38-98)
[2021-01-13 13:51] LABS: Vitamin B1 8 nmol/L (8-30)
== END 2021-01-07 09:53 | disposition home or self-care (01) ==
LOC: HO.LAB 09:52
PROVIDERS: Absent Provider Internal Medicine; PCP Internal Medicine; Visit Provider Surgery
DX: E11.42 Type 2 diabetes mellitus with diabetic polyneuropathy (principal); F32.9 Major depressive disorder, single episode, unspecified; I83.813 Varicose veins of bilateral lower extremities with pain; M25.561 Pain in right knee
CPT/HCPCS: 36415; 73560; 73565; 80053; 80061; 81001; 82043; 82306; 82607; 83036; 83540; 83970; 84425; 84443; 84590; 84630; 85025; 86140

== ENCOUNTER → 2021-01-21 08:08 | Outpatient (BNVA) | payer OTHER, SELFPAY | PROVIDERS: PCP Internal Medicine; Visit Provider Dietitian, Registered ==

== ENCOUNTER 2021-01-22 22:06 | Emergency (ER) | payer OTHER, SELFPAY ==
--- NOTE | 2021-01-22 | ECG_ITS ---
Test Reason : DIZZINESS Blood Pressure : / mmHG Vent. Rate : 053 BPM Atrial Rate : 053 BPM P-R Int : 162 ms QRS Dur : 094 ms QT Int : 444 ms P-R-T Axes : 011 031 031 degrees QTc Int : 416 ms Sinus bradycardia with sinus arrhythmia Nonspecific T wave abnormality Abnormal ECG When compared with ECG of 10-OCT-2020 17:58, No significant change was found Referred By: Generic ED Physician Electronically Signed By:Raghavendra Carlson
--- NOTE | ~2021-01-22 | XR_ITS ---
EXAMINATION: XR CHEST CLINICAL INFORMATION: Dizziness COMPARISON: Previous chest x-ray October 2013 TECHNIQUE: 2 views of the chest were obtained. FINDINGS: The cardiac and mediastinal contours are stable. The lungs are clear. There is no pleural effusion or pneumothorax. Bony structures are unremarkable. XR/XR chest 2V IMPRESSION: Unremarkable examination.
--- NOTE | ~2021-01-22 | CT_ITS ---
EXAMINATION: CT HEAD WITHOUT CONTRAST CLINICAL INFORMATION: Left-sided headache with lightheadedness COMPARISON: 03/23/2017 TECHNIQUE: Contiguous axial imaging was performed from the skull base to vertex without intravenous administration of contrast. This CT examination was performed using dose optimization techniques as appropriate, variously including the following: *Automated exposure control *Adjustment of mA and/or kV according to patient size (this includes techniques or standardized protocols for targeted exams where dose is matched to indication/reason for exam; i.e. extremities or head) *Use of iterative reconstruction technique DLP: 790 mGy-cm FINDINGS: There is no evidence of acute intracranial hemorrhage or territorial infarction. No abnormal mass effect or midline shift is seen. [place] to white matter differentiation is well preserved. No extra-axial fluid collections are identified. The ventricles are normal in size. There is no abnormal attenuation within the brain parenchyma. The osseous structures and soft tissues are normal. The mastoid air cells and visualized portions of the paranasal sinuses are well aerated. CT/CT head/brain wo con IMPRESSION: No acute intracranial pathology.
[2021-01-22 22:20] VITALS: BP 132/42; PULSE 53; RESP 18; TEMP 36.6; O2SAT 92; BMI 52.1
[2021-01-22 22:45] LABS: MANUAL DIFF FLAG NO
[2021-01-22 22:46] LABS: Basophils Percent Auto 0.3 % (0-2); Eosinophils Absolute Auto 0.2 X10*3/uL (0.0-0.4); Eosinophils Percent Auto 2.6 % (0-4); Hematocrit 50.2 % (42-52); Hemoglobin 17.1 g/dl (14.0-18.0); Imm Gran Abs Auto 0.02 X10*3/uL (0.00-0.03); Imm Gran Pct Auto 0.3 % (0.0-0.4); Lymphocytes Absolute Auto 2.2 X10*3/uL (1.2-4.9); Lymphocytes Percent Auto 32.5 % (20-40); Mean Corpuscular HGB Conc 34.1 g/dl (31.0-36.0); Mean Corpuscular Hemoglobin 30.6 pg (27.0-33.0); Monocytes Absolute Auto 0.5 X10*3/uL (0.1-1.2); Monocytes Percent Auto 7.9 % (2-11); Neutrophils Absolute Auto 3.7 X10*3/uL (2.0-8.3); Neutrophils Percent Auto 56.4 % (45-73); Platelet Count 148 X10*3/uL (160-400); Red Blood Count 5.58 X10*6/uL (4.60-5.80); Red Cell Distribution Width 12.8 % (11.0-16.0); White Blood Count 6.6 X10*3/uL (4.8-10.8)
[2021-01-22 22:51] LABS: INTERNATIONAL NORM RATIO 0.9 (0.9-1.1); Prothrombin Time 11.2 SEC (10.8-13.0)
[2021-01-22 22:54] LABS: Partial Thromboplastin Time 30.7 SEC (24.1-38.0)
[2021-01-22 23:11] LABS: Alanine Aminotransferase 45 U/L (0-40); Albumin Level 4.2 g/dL (3.5-5.0); Alkaline Phosphatase 112 U/L (39-117); Anion Gap 12 (12-20); Aspartate Amino Transferase 19 U/L (5-37); Bilirubin Total 0.4 mg/dL (0.0-1.0); Blood Urea Nitrogen 17 mg/dL (9-16); Calcium 9.5 mg/dL (8.4-10.2); Carbon Dioxide 30 mmol/L (22-29); Chloride 96 mmol/L (96-108); Creatinine Clr Calc Pharmacy 140.2; Estimated Glomerular Filt Rate > 60; Glucose Random 333 mg/dL (60-115); Potassium 4.4 mmol/L (3.3-5.1); Sodium 134 mmol/L (135-145); Total Protein 7.1 g/dL (6.5-8.0)
[2021-01-22 23:17] LABS: Troponin-I High Sensitivity 8.4 ng/L (<3.5-35.0)
--- NOTE | 2021-01-22 23:39 | ED.DIZZY ---
HPI - Dizziness General Chief Complaint: Dizziness Stated Complaint: Dizziness/Blurry vision Time Seen by Provider: 01/22/21 23:39 Source: patient Mode of arrival: ambulatory Limitations: no limitations History of Present Illness HPI Narrative: Patient mostly with left sided headache with associated lightheadedness. patient denies prior history of headache, states that his sugars have been running high lately and he was just started on glyburide MD elicited complaint: dizziness Onset (ago): hour(s) Timing: sudden onset Severity: mild Description: lightheadedness Associated symptoms: nausea and other (headache) Related Data Home Medications Medication Instructions Recorded Confirmed albuterol sulfate 90 mcg/actuation 2 puff INHALATION Q4-6H PRN 06/13/20 12/17/20 aerosol inhaler atorvastatin 40 mg tablet 40 mg PO DAILY 06/13/20 12/17/20 bupropion HCl 150 mg tablet,12 hr 150 mg PO BID 06/13/20 12/17/20 sustained-release metformin 1,000 mg tablet 1,000 mg PO BID 06/13/20 12/17/20 methadone 40 mg soluble tablet 125 mg PO DAILY tab 06/13/20 12/17/20 furosemide 20 mg tablet 40 mg PO DAILY PRN 12/17/20 12/17/20 Previous Rx's Medication Instructions Recorded cholecalciferol (vitamin D3) 1,250 1,250 mcg PO QWEEK #4 cap 01/07/21 mcg (50,000 unit) capsule naproxen [Naprosyn] 500 mg PO BID #20 tab 01/23/21 Allergies Allergy/AdvReac Type Severity Reaction Status Date / Time No Known Allergies Allergy Unknown UNKNOWN Verified 01/22/21 22:20 Review of Systems Constitutional: Constitutional: Reports no additional constitutional complaints Eyes: Eyes: Reports no additional eye complaints ENT: Denies dizziness Cardiovascular: Cardiovascular: Reports no additional cardiovascular complaints Respiratory: Respiratory: Reports as per HPI Gastrointestinal: Gastrointestinal: Reports no additional gastrointestinal complaints Musculoskeletal: Musculoskeletal: Reports no additional musculoskeletal complaints Integumentary/Breasts: Skin/Breast: Denies rash Neurologic: Reports system reviewed and no additional complaints, except as documented, Denies dizziness and Denies Sensory deficit (Neuro) Psychiatric: Psychiatric: Denies anxiety PMFSH Past Medical History Medical History Arthritis Chronic venous stasis Depression Diabetes Exposure to COVID-19 virus Full dentures Hypertension Methadone use Morbid obesity Shortness of breath on exertion Sleep apnea Type 2 diabetes mellitus Wears partial dentures Surgical History H/O wisdom tooth extraction History of arthroscopic knee surgery History of carpal tunnel release History of retained foreign body fully removed History of umbilical hernia repair Status post ablation of incompetent vein using laser Family History Family History Father Diabetes Mother Diabetes 1.5, managed as type 2 HTN (hypertension) Hypercholesteremia Paternal Grandmother Diabetes 1.5, managed as type 2 Maternal Grandmother Lung cancer Maternal Grandfather Prostate cancer Sister No problems noted. Daughter No problems noted. Daughter No problems noted. Daughter No problems noted. Daughter No problems noted. Social History Social History Alcohol intake: never Smoking Status: Current every day smoker Tobacco Type: Cigarette Packs Per Day: 0.5 Cigarettes Per Day: 10.0 Years Smoked: 36 Substance Use Type: Marijuana Advance Directives: No Advance Directives Information Provided: No Current occupational status: disabled Current occupation: right handed Physical Exam Vital Signs: Vital Signs: Last Vital Signs Temp 97.8 F 01/22/21 22:20 Pulse 44 L 01/23/21 00:00 Resp 18 01/23/21 00:00 BP 119/53 L 01/23/21 00:00 Pulse Ox 93 01/23/21 00:00 Body Mass Index 52.1 Const: Other: obese male chronically ill Orientation/consciousness: oriented to person and patient oriented x3 Limitations: no limitations HENMT: Head: Yes normal to inspection Ears: external ears normal General nose exam: Normal external nose present Mouth: Normal oral and palatal mucosa present and oropharynx normal Throat: Yes posterior oropharynx normal Eyes: General: appearance normal, both eyes and all related structures Neck: Other: supple Neck: Yes normal visual inspection Chest: Chest palpation & inspection: normal inspection of the chest Resp: Auscultation: clear to auscultation bilaterally Cardio: Jugular venous distension: no JVD Rate: regular rate Rhythm: regular rhythm Heart sounds: S1 normal heart sound present and S2 normal heart sound present GI: Inspection: Yes normal to inspection Palpation (GI): Soft to palpation, nontender and No hepatosplenomegaly present Auscultation: normal bowel sounds : General: Yes no CVA tenderness Back/Spine/Pelvis: Back: no CVA tenderness Skin: General skin exam: no rashes or lesions noted Neuro: General: oriented to person and patient oriented x3 Cranial nerves: Yes CN's II-XII intact bilaterally Motor exam (neuro): 5/5 motor strength present throughout Sensory Exam: No Sensory deficit (Neuro) Extrem: General: Yes normal to inspection Psych: Appearance: grossly normal Course Course Course Narrative: sleeping, no headache MDM - Dizziness MDM Narrative Medical decision making narrative: Patient head ct is negative, headache improved with medication, Impression is migraine Lab Data Result diagrams: 01/22/21 22:39 01/22/21 22:39 Labs: Lab Results 01/22/21 01/22/21 01/22/21 Range/Units 22:39 22:39 22:39 WBC 6.6 (4.8-10.8) X10*3/uL RBC 5.58 (4.60-5.80) X10*6/uL Hgb 17.1 (14.0-18.0) g/dl Hct 50.2 (42-52) % MCV 90.0 (80-98) fL MCH 30.6 (27.0-33.0) pg MCHC 34.1 (31.0-36.0) g/dl RDW 12.8 (11.0-16.0) % Plt Count 148 L (160-400) X10*3/uL MPV 12.0 (9.4-12.4) fL Immature Gran % (Auto) 0.3 (0.0-0.4) % Neut % (Auto) 56.4 (45-73) % Lymph % (Auto) 32.5 (20-40) % [place] % (Auto) 7.9 (2-11) % Eos % (Auto) 2.6 (0-4) % Baso % (Auto) 0.3 (0-2) % Lymph # (Auto) 2.2 (1.2-4.9) X10*3/uL [place] # (Auto) 0.5 (0.1-1.2) X10*3/uL Eos # (Auto) 0.2 (0.0-0.4) X10*3/uL Baso # (Auto) 0.0 (0.0-0.2) X10*3/uL Abs Immat Gran (auto) 0.02 (0.00-0.03) X10*3/uL Absolute Neuts (auto) 3.7 (2.0-8.3) X10*3/uL Absolute Nucleated RBC 0.000 (0.0-0.012) X10*3/uL Nucleated RBC % (auto) 0.0 (0.0-0.2) /100WBC PT 11.2 (10.8-13.0) SEC INR 0.9 (0.9-1.1) APTT 30.7 (24.1-38.0) SEC Sodium 134 L (135-145) mmol/L Potassium 4.4 (3.3-5.1) mmol/L Chloride 96 (96-108) mmol/L Carbon Dioxide 30 H (22-29) mmol/L Anion Gap 12 (12-20) BUN 17 H (9-16) mg/dL Creatinine 1.03 (0.5-1.4) mg/dL Estim Creat Clear Calc 140.2 Estimated GFR > 60 Random Glucose 333 H D (60-115) mg/dL Calcium 9.5 (8.4-10.2) mg/dL Total Bilirubin 0.4 (0.0-1.0) mg/dL AST 19 (5-37) U/L ALT 45 H (0-40) U/L Alkaline Phosphatase 112 (39-117) U/L Troponin I High Sens (<3.5-35.0) ng/L Total Protein 7.1 (6.5-8.0) g/dL Albumin 4.2 (3.5-5.0) g/dL 01/22/21 Range/Units 22:39 WBC (4.8-10.8) X10*3/uL RBC (4.60-5.80) X10*6/uL Hgb (14.0-18.0) g/dl Hct (42-52) % MCV (80-98) fL MCH (27.0-33.0) pg MCHC (31.0-36.0) g/dl RDW (11.0-16.0) % Plt Count (160-400) X10*3/uL MPV (9.4-12.4) fL Immature Gran % (Auto) (0.0-0.4) % Neut % (Auto) (45-73) % Lymph % (Auto) (20-40) % [place] % (Auto) (2-11) % Eos % (Auto) (0-4) % Baso % (Auto) (0-2) % Lymph # (Auto) (1.2-4.9) X10*3/uL [place] # (Auto) (0.1-1.2) X10*3/uL Eos # (Auto) (0.0-0.4) X10*3/uL Baso # (Auto) (0.0-0.2) X10*3/uL Abs Immat Gran (auto) (0.00-0.03) X10*3/uL Absolute Neuts (auto) (2.0-8.3) X10*3/uL Absolute Nucleated RBC (0.0-0.012) X10*3/uL Nucleated RBC % (auto) (0.0-0.2) /100WBC PT (10.8-13.0) SEC INR (0.9-1.1) APTT (24.1-38.0) SEC Sodium (135-145) mmol/L Potassium (3.3-5.1) mmol/L Chloride (96-108) mmol/L Carbon Dioxide (22-29) mmol/L Anion Gap (12-20) BUN (9-16) mg/dL Creatinine (0.5-1.4) mg/dL Estim Creat Clear Calc Estimated GFR Random Glucose (60-115) mg/dL Calcium (8.4-10.2) mg/dL Total Bilirubin (0.0-1.0) mg/dL AST (5-37) U/L ALT (0-40) U/L Alkaline Phosphatase (39-117) U/L Troponin I High Sens 8.4 (<3.5-35.0) ng/L Total Protein (6.5-8.0) g/dL Albumin (3.5-5.0) g/dL Imaging Data CT scan - head: Radiologist's impression: no acute changes Discharge Plan Discharge Clinical Impression: Migraine Qualifiers: Migraine type: with aura Status migrainosus presence: without status migrainosus Intractability: intractable Qualified Code(s): G43.119 - Migraine with aura, intractable, without status migrainosus Patient Disposition: Home, Self-Care Instructions: Migraine Headache (ED) Prescriptions: New naproxen [Naprosyn] 500 mg tablet 500 mg PO BID Qty: 20 RF: 0 No Action cholecalciferol (vitamin D3) 1,250 mcg (50,000 unit) capsule 1,250 mcg PO QWEEK Qty: 4 RF: 2 albuterol sulfate 90 mcg/actuation HFA aerosol inhaler 2 puff inhalation Q4-6H PRN (Reason: Shortness Of Breath) RF: 0 bupropion HCl 150 mg tablet sustained-release 12 hr 150 mg PO BID RF: 0 metformin 1,000 mg tablet 1,000 mg PO BID RF: 0 atorvastatin 40 mg tablet 40 mg PO DAILY RF: 0 furosemide 20 mg tablet 40 mg PO DAILY PRNRF: 0 methadone 40 mg tablet,soluble 125 mg PO DAILY RF: 0 Referrals: Abe Rivero MD, DO [Primary Care Provider] - 1 week
[2021-01-23] VITALS: BP 119/53; PULSE 44; RESP 18; O2SAT 93
[2021-01-23] MEDS: 0.9 % Sodium Chloride 1,000 ML 999 ML IVCONT ×2 (00:23→01:24)
[2021-01-23] MEDS: Insulin Regular, Human 100 UNIT/ML 3 ML VIAL SUBCUT (00:30)
[2021-01-23] MEDS: Ketorolac Tromethamine 30 MG/ML VIAL IVPUSH (00:31)
== END 2021-01-23 02:33 | disposition home or self-care (01) ==
PROVIDERS: Emergency Provider Emergency Medicine; PCP Internal Medicine
DX: G43.119 Migraine with aura, intractable, without status migrainosus (principal); R42 Dizziness and giddiness; R11.0 Nausea; F17.210 Nicotine dependence, cigarettes, uncomplicated; Z79.899 Other long term (current) drug therapy; Z71.6 Tobacco abuse counseling
CPT/HCPCS: 36415; 70450; 71046; 80053; 84484; 85025; 85610; 85730; 93005; 96365; 96372; 96375; 99284; J1885; J2550

== ENCOUNTER → 2021-02-10 08:09 | Outpatient (BNVA) | payer OTHER, SELFPAY | PROVIDERS: PCP Internal Medicine; Visit Provider Dietitian, Registered ==

== ENCOUNTER 2021-03-11 14:17 | Emergency (ER) | payer OTHER, SELFPAY ==
[2021-03-11 14:39] VITALS: BP 119/78; PULSE 76; RESP 20; TEMP 37.1; O2SAT 96; BMI 47.5
[2021-03-11 14:51] LABS: Glucose, Whole Blood 319 mg/dL (60-115)
[2021-03-11 16:26] LABS: Hematocrit 48.5 % (42-52); Hemoglobin 16.4 g/dl (14.0-18.0); Mean Corpuscular HGB Conc 33.8 g/dl (31.0-36.0); Mean Corpuscular Hemoglobin 30.2 pg (27.0-33.0); Mean Corpuscular Volume 89.3 fL (80-98); Mean Platelet Volume 11.8 fL (9.4-12.4); Platelet Count 158 X10*3/uL (160-400); Red Blood Count 5.43 X10*6/uL (4.60-5.80); Red Cell Distribution Width 13.3 % (11.0-16.0); White Blood Count 7.7 X10*3/uL (4.8-10.8)
--- NOTE | 2021-03-11 16:30 | ED.GENADULT ---
HPI - General Adult General Chief complaint: Recheck/Abnormal Lab/Rx Stated complaint: elevated sugar Time Seen by Provider: 03/11/21 16:30 Source: patient Mode of arrival: ambulatory Limitations: no limitations History of Present Illness HPI narrative: patient's history of diabetes for last 2 years morbidly obese on metformin 1000 mg twice daily started on glipizide 10 mg twice daily 1 month ago for increased blood sugar comes here as blood sugar still running more than 300 all the time feels weak and tired increased thirst or increased urination no fever no chills no nausea no vomiting no abdominal pain no fever patient is fairly diet compliant. Patient PCP planning to start him on insulin Related Data Home Medications Medication Instructions Recorded Confirmed albuterol sulfate 90 mcg/actuation 2 puff INHALATION Q4-6H PRN 06/13/20 12/17/20 aerosol inhaler atorvastatin 40 mg tablet 40 mg PO DAILY 06/13/20 12/17/20 bupropion HCl 150 mg tablet,12 hr 150 mg PO BID 06/13/20 12/17/20 sustained-release metformin 1,000 mg tablet 1,000 mg PO BID 06/13/20 12/17/20 methadone 40 mg soluble tablet 125 mg PO DAILY tab 06/13/20 12/17/20 furosemide 20 mg tablet 40 mg PO DAILY PRN 12/17/20 12/17/20 Previous Rx's Medication Instructions Recorded cholecalciferol (vitamin D3) 1,250 1,250 mcg PO QWEEK #4 cap 01/07/21 mcg (50,000 unit) capsule naproxen [Naprosyn] 500 mg PO BID #20 tab 01/23/21 Allergies Allergy/AdvReac Type Severity Reaction Status Date / Time No Known Allergies Allergy Unknown UNKNOWN Verified 01/22/21 22:20 Review of Systems Review of Systems: Yes all other systems are reviewed and are negative PMFSH Past Medical History Medical History Arthritis Chronic venous stasis Depression Diabetes Exposure to COVID-19 virus Full dentures Hypertension Methadone use Morbid obesity Shortness of breath on exertion Sleep apnea Type 2 diabetes mellitus Wears partial dentures Surgical History H/O wisdom tooth extraction History of arthroscopic knee surgery History of carpal tunnel release History of retained foreign body fully removed History of umbilical hernia repair Status post ablation of incompetent vein using laser Family History Family History Father Diabetes Mother Diabetes 1.5, managed as type 2 HTN (hypertension) Hypercholesteremia Paternal Grandmother Diabetes 1.5, managed as type 2 Maternal Grandmother Lung cancer Maternal Grandfather Prostate cancer Sister No problems noted. Daughter No problems noted. Daughter No problems noted. Daughter No problems noted. Daughter No problems noted. Social History Social History Alcohol intake: never Cigarette Packs Per Day: 0.5 Cigarettes Per Day: 10.0 Years Smoked: 36 Substance Use Type: Marijuana Advance Directives: No Advance Directives Information Provided: Yes Current occupational status: disabled Current occupation: right handed Physical Exam Vital Signs: Vital Signs: Last Vital Signs Temp 98.7 F 03/11/21 14:39 Pulse 76 03/11/21 14:39 Resp 20 03/11/21 14:39 BP 119/78 03/11/21 14:39 Pulse Ox 96 03/11/21 14:39 Body Mass Index 47.5 Appearance: Alert. Oriented X3. No acute distress. morbidly obese Eyes: PERRLA, No Nystagmus ENT: Pharynx normal. Oral Mucosa moist Neck: Normal inspection. Neck supple. CVS: Normal heart rate and rhythm. Pulses normal. Respiratory: No respiratory distress. Equal air entry bilateral, no wheezing/rales/rhonchi Abdomen: Soft and nontender. Bowel sounds are present, no mass palpable, no CVA tenderness Skin: Skin warm and dry. Normal skin color. Normal skin turgor. Extremities: No lower extremity edema. No calf tenderness Neuro: Oriented X 3. No motor deficit. sensory intact Medical Decision Making MDM Narrative Medical decision making narrative: patient type 2 diabetic last HB A1c done on 01/07 was 11.9 patient fairly diet compliant on max dose of metformin and glipizide will start him on Lantus 20 units in the nighttime along with to continue his other medication. Patient advised to follow with his PCP Lab Data Lab results reviewed: Yes I reviewed the patient's lab results. Result diagrams: 03/11/21 16:19 03/11/21 16:19 Labs: Lab Results 03/11/21 03/11/21 03/11/21 Range/Units 14:46 16:19 16:19 WBC 7.7 (4.8-10.8) X10*3/uL RBC 5.43 (4.60-5.80) X10*6/uL Hgb 16.4 (14.0-18.0) g/dl Hct 48.5 (42-52) % MCV 89.3 (80-98) fL MCH 30.2 (27.0-33.0) pg MCHC 33.8 (31.0-36.0) g/dl RDW 13.3 (11.0-16.0) % Plt Count 158 L (160-400) X10*3/uL MPV 11.8 (9.4-12.4) fL Absolute Nucleated RBC 0.000 (0.0-0.012) X10*3/uL Nucleated RBC % (auto) 0.0 (0.0-0.2) /100WBC Sodium 135 (135-145) mmol/L Potassium 4.4 (3.3-5.1) mmol/L Chloride 94 L (96-108) mmol/L Carbon Dioxide 30 H (22-29) mmol/L Anion Gap 15 (12-20) BUN 13 (9-16) mg/dL Creatinine 1.05 (0.5-1.4) mg/dL Estim Creat Clear Calc 133.9 Estimated GFR > 60 POC Glucose 319 H (60-115) mg/dL Random Glucose 296 H (60-115) mg/dL Calcium 9.9 (8.4-10.2) mg/dL Acetone, Qual Negative (Negative) Discharge Plan Discharge Prescriptions: No Action cholecalciferol (vitamin D3) 1,250 mcg (50,000 unit) capsule 1,250 mcg PO QWEEK Qty: 4 RF: 2 naproxen [Naprosyn] 500 mg tablet 500 mg PO BID Qty: 20 RF: 0 albuterol sulfate 90 mcg/actuation HFA aerosol inhaler 2 puff inhalation Q4-6H PRN (Reason: Shortness Of Breath) RF: 0 bupropion HCl 150 mg tablet sustained-release 12 hr 150 mg PO BID RF: 0 metformin 1,000 mg tablet 1,000 mg PO BID RF: 0 atorvastatin 40 mg tablet 40 mg PO DAILY RF: 0 furosemide 20 mg tablet 40 mg PO DAILY PRNRF: 0 methadone 40 mg tablet,soluble 125 mg PO DAILY RF: 0
[2021-03-11 16:44] LABS: Acetone, serum QL Negative (Negative); Anion Gap 15 (12-20); Blood Urea Nitrogen 13 mg/dL (9-16); Calcium 9.9 mg/dL (8.4-10.2); Carbon Dioxide 30 mmol/L (22-29); Chloride 94 mmol/L (96-108); Creatinine Clr Calc Pharmacy 133.9; Estimated Glomerular Filt Rate > 60; Glucose Random 296 mg/dL (60-115); Potassium 4.4 mmol/L (3.3-5.1); Sodium 135 mmol/L (135-145)
[2021-03-11] MEDS: Insulin Glargine,Hum.rec.anlog 100 UNIT/ML 10 ML VIAL 20 UNIT SUBCUT (17:21)
== END 2021-03-11 17:59 | disposition home or self-care (01) ==
PROVIDERS: Emergency Provider Internal Medicine; PCP Internal Medicine
DX: E11.65 Type 2 diabetes mellitus with hyperglycemia (principal); I10 Essential (primary) hypertension; E66.01 Morbid (severe) obesity due to excess calories; Z68.42 Body mass index [BMI] 45.0-49.9, adult; Z79.84 Long term (current) use of oral hypoglycemic drugs; Z79.899 Other long term (current) drug therapy
CPT/HCPCS: 36415; 80048; 82009; 82947; 85027; 99282

== ENCOUNTER → 2021-03-19 14:53 | Outpatient (BNVA) | payer OTHER, SELFPAY | PROVIDERS: PCP Internal Medicine; Visit Provider Urology | DX: N52.01 Erectile dysfunction due to arterial insufficiency (principal) | CPT/HCPCS: 99202 ==

== ENCOUNTER 2021-04-20 09:44 | Emergency (ER) | payer OTHER, SELFPAY ==
--- NOTE | 2021-04-20 | ECG_ITS ---
Test Reason : DIZZINESS Blood Pressure : / mmHG Vent. Rate : 051 BPM Atrial Rate : 051 BPM P-R Int : 178 ms QRS Dur : 096 ms QT Int : 448 ms P-R-T Axes : 037 035 029 degrees QTc Int : 412 ms Sinus bradycardia Nonspecific ST abnormality Abnormal ECG When compared with ECG of 22-JAN-2021 22:49, No significant change was found Referred By: Generic ED Physician Electronically Signed By:CECELIA CA MD
--- NOTE | ~2021-04-20 | XR_ITS ---
EXAMINATION: XR CHEST CLINICAL INFORMATION: Cough and shortness of breath COMPARISON: Chest 01/22/2021 TECHNIQUE: 2 views of the chest were obtained. FINDINGS: The lungs are well-expanded and clear. The heart size and pulmonary vascularity is normal. No gross bony abnormality seen. XR/XR chest 2V IMPRESSION: Unremarkable chest exam.
[2021-04-20 11:31] VITALS: BP 121/58; PULSE 59; RESP 18; TEMP 36.6; O2SAT 94; BMI 47.0
[2021-04-20 11:44] LABS: Glucose, Whole Blood 407 mg/dL (60-115)
[2021-04-20 11:55] LABS: MANUAL DIFF FLAG NO
[2021-04-20 11:56] LABS: Basophils Percent Auto 0.3 % (0-2); Eosinophils Absolute Auto 0.2 X10*3/uL (0.0-0.4); Eosinophils Percent Auto 2.2 % (0-4); Hematocrit 46.2 % (42-52); Hemoglobin 15.6 g/dl (14.0-18.0); Imm Gran Abs Auto 0.06 X10*3/uL (0.00-0.03); Imm Gran Pct Auto 0.9 % (0.0-0.4); Lymphocytes Absolute Auto 1.5 X10*3/uL (1.2-4.9); Lymphocytes Percent Auto 21.8 % (20-40); Mean Corpuscular HGB Conc 33.8 g/dl (31.0-36.0); Mean Corpuscular Hemoglobin 30.6 pg (27.0-33.0); Mean Corpuscular Volume 90.6 fL (80-98); Mean Platelet Volume 11.3 fL (9.4-12.4); Monocytes Absolute Auto 0.5 X10*3/uL (0.1-1.2); Monocytes Percent Auto 7.4 % (2-11); Neutrophils Absolute Auto 4.6 X10*3/uL (2.0-8.3); Neutrophils Percent Auto 67.4 % (45-73); Platelet Count 165 X10*3/uL (160-400); Red Cell Distribution Width 13.8 % (11.0-16.0); White Blood Count 6.9 X10*3/uL (4.8-10.8)
[2021-04-20 12:02] LABS: Glucose Urine UA >=1000 MG/DL (NEG); Leukocyte Esterase Urine NEG (NEG); Nitrite Urine NEG (NEG); Urine Blood NEG (NEG); Urine Ketones NEG (NEG); Urine Protein NEG (NEG-TRACE)
[2021-04-20 12:03] LABS: Appearance Urine HAZY; Color Urine YELLOW
[2021-04-20 12:19] LABS: RBC Urine 0 /HPF (0); Squamous Epithelial Cell Urine 1+ /LPF; WBC Urine 0 /HPF (0-4)
[2021-04-20 12:23] LABS: Acetone, serum QL Negative (Negative)
--- NOTE | 2021-04-20 12:39 | ED_ITS ---
HPI - General Adult General Chief complaint: General Medical Stated complaint: Sugar level at 456 cant stay awake Time Seen by Provider: 04/20/21 12:16 Source: patient Mode of arrival: ambulatory Limitations: no limitations History of Present Illness HPI narrative: 51-year-old male who presents emergency department for evaluation of elevated glucose, sinus infection shortness of breath. The patient has a history of type 2 diabetes managed with metformin and glipizide. He states approximately 2 weeks prior he was seen here in the emergency department for elevated glucose. In reviewing the records, the patient was started on Lantus 20 units at night. Patient states that his glucose did come down to the 200 range but over the past week his glucose is now been in the 300-350 range. He has had increased thirst and increased urinary frequency. also states that over the past week he has had a sinus infection. He states that he has a postnasal discharge, rhinorrhea and pressure behind his anterior face in the maxillary area. He is also complaining of shortness of breath and a cough which is productive of mendez to brown sputum. He has had intermittent, pleuritic chest pain, which is worse with breathing and with movement. He denied fever, chills, nausea, vomiting. The patient states that his doctor sent him to [facility] for a chest x-ray and sinus x-rays. He also states that his PCP started him on an antibiotic she has not picked up yet at the pharmacy. Incidentally, patient states that he was having intercourse about 1 month prior and injured his penis The patient was seen by Dr. Grullon and diagnosed with a penile dysfunction. The patient states that his PCPs referring him to a another urologist for a 2nd opinion. Related Data Home Medications Medication Instructions Recorded Confirmed albuterol sulfate 90 mcg/actuation 2 puff INHALATION Q4-6H PRN 06/13/20 12/17/20 aerosol inhaler atorvastatin 40 mg tablet 40 mg PO DAILY 06/13/20 12/17/20 bupropion HCl 150 mg tablet,12 hr 150 mg PO BID 06/13/20 12/17/20 sustained-release metformin 1,000 mg tablet 1,000 mg PO BID 06/13/20 12/17/20 methadone 40 mg soluble tablet 125 mg PO DAILY tab 06/13/20 12/17/20 furosemide 20 mg tablet 40 mg PO DAILY PRN 12/17/20 12/17/20 Previous Rx's Medication Instructions Recorded cholecalciferol (vitamin D3) 1,250 1,250 mcg PO QWEEK #4 cap 01/07/21 mcg (50,000 unit) capsule naproxen 500 mg tablet (Naprosyn) 500 mg PO BID #20 tab 01/23/21 insulin glargine 100 unit/mL (3 20 unit SUBCUT QPM #15 ml 03/11/21 mL) subcutaneous pen (Lantus Solostar U-100 Insulin) tadalafil 5 mg tablet 5 mg PO DAILY PRN 90 Days #90 tab 03/19/21 Allergies Allergy/AdvReac Type Severity Reaction Status Date / Time No Known Allergies Allergy Unknown UNKNOWN Verified 03/19/21 15:12 Review of Systems Review of Systems: Yes all other systems are reviewed and are negative [facility] Past Medical History [facility] Narrative: Social history: The patient smokes 1/2 pack of cigarettes per day times 33 years, he denies alcohol use, patient states he is currently in a methadone program and in the past he used heroin and crack cocaine. He states in the past has also smoked marijuana. Medical History Arthritis Chronic venous stasis Depression Diabetes Exposure to COVID-19 virus Full dentures Hypertension Methadone use Morbid obesity Shortness of breath on exertion Sleep apnea Type 2 diabetes mellitus Wears partial dentures Surgical History H/O wisdom tooth extraction History of arthroscopic knee surgery History of carpal tunnel release History of retained foreign body fully removed History of umbilical hernia repair Status post ablation of incompetent vein using laser Family History Family History Father Diabetes Mother Diabetes 1.5, managed as type 2 HTN (hypertension) Hypercholesteremia Paternal Grandmother Diabetes 1.5, managed as type 2 Maternal Grandmother Lung cancer Maternal Grandfather Prostate cancer Sister No problems noted. Daughter No problems noted. Daughter No problems noted. Daughter No problems noted. Daughter No problems noted. Social History Social History Alcohol intake: never Cigarette Packs Per Day: 0.5 Cigarettes Per Day: 10.0 Years Smoked: 36 Substance Use Type: Marijuana Advance Directives: No Advance Directives Information Provided: No Current occupational status: disabled Current occupation: right handed Physical Exam Vital Signs: Vital Signs: Last Vital Signs Temp 97.8 F 04/20/21 15:45 Pulse 55 04/20/21 15:45 Resp 18 04/20/21 15:45 BP 134/73 04/20/21 15:45 Pulse Ox 95 04/20/21 15:45 Body Mass Index 47.0 Const: General: cooperative and no acute distress Nutritional Appearance: obese Orientation/consciousness: oriented to person and oriented to place Limitations: no limitations HENMT: Head: Yes normal to inspection, Yes normocephalic and Yes atraumatic Ears: external ears normal General nose exam: Normal external nose present Face and sinus: Yes sinuses nontender (Moderate bilateral maxillary sinus tenderness) Mouth: Normal oral and palatal mucosa present Throat: Yes posterior oropharynx normal Eyes: General: appearance normal, both eyes and all related structures Pupils: Equal, round and reactive pupils present Neck: Neck: Yes normal visual inspection, Yes no lymphadenopathy, Yes trachea midline and Yes supple Chest: Chest palpation & inspection: normal inspection of the chest and normal palpation of entire chest wall Resp: Effort & Inspection: normal respiratory effort and able to speak in complete sentences Auscultation: clear to auscultation bilaterally Cardio: Rate: regular rate Rhythm: regular rhythm Heart sounds: S1 normal heart sound present, S2 normal heart sound present and no murmurs GI: Inspection: Yes normal to inspection Palpation (GI): Soft to palpation, nontender and no guarding Auscultation: normal bowel sounds : General: Yes no CVA tenderness Back/Spine/Pelvis: Back: no CVA tenderness Skin: General skin exam: no rashes or lesions noted Neuro: General: oriented to person and oriented to place Cranial nerves: Yes CN's II-XII intact bilaterally and Yes Equal, round and reactive pupils present Cognition (Neuro): normal cognition Motor exam (neuro): 5/5 motor strength present throughout Extrem: General: Yes normal to inspection Psych: Appearance: grossly normal Speech and movement: Normal speech and movement present Affect: normal affect Attitude: cooperative Thought process: Normal thought process present Thought content: Normal thought content present Course Course Course Narrative: 51-year-old male who presents emergency department for evaluation of cough, shortness of breath, postnasal drip, sinus congestion, facial pain and elevated glucose x1 week. Vital signs were unremarkable. Physical exam did reveal tenderness palpation over his maxillary sinuses othe rwise was unremarkable. Revealed a normal CBC. The patient's CMP revealed an elevated glucose of 405, elevated ALT of 41 and elevated alk-phos of 118. Urinalysis was positive for glucose and negative ketones. Patient's point of care glucose was also elevated at 407. At this time I suspect the patient has a sinus infection and this may have caused his increased glucose over the past week. I ordered a chest x-ray and COVID-19/RSV/influenza test on the patient. Patient was ordered to get normal saline IV x2 L and regular insulin 10 units IV. 1631: The patient's repeat point of care glucose only improved slightly therefore he was given another L of normal saline IV (total 3 L). He was also given a another dose of regular insulin 10 units IV. His repeat point of care glucose was 192 which is reassuring. The patient's laboratory evaluation was otherwise unremarkable. Urinalysis was positive for glucose but no ketones. Chest x-ray revealed no evidence of pneumonia. COVID-19, influenza and RSV tests were negative. The patient was given Levaquin 500 mg orally. The patient was advised to take his prescribed antibiotic as directed by his PCP. The patient was given verbal and printed instructions prior to discharge. The patient was advised to follow-up with his PCP in 2 days and to return to the emergency department if his symptoms get worse or if he develops any new symp toms that are concerning to him. Medical Decision Making Lab Data Result diagrams: 04/20/21 11:49 04/20/21 11:46 Labs: Lab Results 04/20/21 04/20/21 04/20/21 Range/Units 11:39 11:43 11:45 WBC (4.8-10.8) X10*3/uL RBC (4.60-5.80) X10*6/uL Hgb (14.0-18.0) g/dl Hct (42-52) % MCV (80-98) fL MCH (27.0-33.0) pg MCHC (31.0-36.0) g/dl RDW (11.0-16.0) % Plt Count (160-400) X10*3/uL MPV (9.4-12.4) fL Immature Gran % (Auto) (0.0-0.4) % Neut % (Auto) (45-73) % Lymph % (Auto) (20-40) % [place] % (Auto) (2-11) % Eos % (Auto) (0-4) % Baso % (Auto) (0-2) % Lymph # (Auto) (1.2-4.9) X10*3/uL [place] # (Auto) (0.1-1.2) X10*3/uL Eos # (Auto) (0.0-0.4) X10*3/uL Baso # (Auto) (0.0-0.2) X10*3/uL Abs Immat Gran (auto) (0.00-0.03) X10*3/uL Absolute Neuts (auto) (2.0-8.3) X10*3/uL Absolute Nucleated RBC (0.0-0.012) X10*3/uL Nucleated RBC % (auto) (0.0-0.2) /100WBC Sodium (135-145) mmol/L Potassium (3.3-5.1) mmol/L Chloride (96-108) mmol/L Carbon Dioxide (22-29) mmol/L Anion Gap (12-20) BUN (9-16) mg/dL Creatinine (0.5-1.4) mg/dL Estim Creat Clear Calc Estimated GFR POC Glucose 407 H* (60-115) mg/dL Random Glucose (60-115) mg/dL Calcium (8.4-10.2) mg/dL Total Bilirubin (0.0-1.0) mg/dL AST (5-37) U/L ALT (0-40) U/L Alkaline Phosphatase (39-117) U/L Total Protein (6.5-8.0) g/dL Albumin (3.5-5.0) g/dL Urine Color YELLOW Urine Appearance HAZY Urine pH 6.0 (5.0-8.0) Ur Specific Lyle 1.010 (1.005-1.025) Urine Protein NEG (NEG-TRACE) MG/DL Urine Glucose (UA) >=1000 H (NEG) MG/DL Urine Ketones NEG (NEG) MG/DL Urine Blood NEG (NEG) Urine Nitrite NEG (NEG) Ur Leukocyte Esterase NEG (NEG) Urine RBC 0 (0) /HPF Urine WBC 0 (0-4) /HPF Ur Squamous Epith Cells 1+ /LPF Urine Bacteria NONE /LPF Acetone, Qual Negative (Negative) Coronavirus (PCR) (Negative) Influenza Type A (PCR) (Negative) Influenza Type B (PCR) (Negative) RSV RNA Qual (PCR) (Negative) 04/20/21 04/20/21 04/20/21 Range/Units 11:46 11:49 13:23 WBC 6.9 (4.8-10.8) X10*3/uL RBC 5.10 (4.60-5.80) X10*6/uL Hgb 15.6 (14.0-18.0) g/dl Hct 46.2 (42-52) % MCV 90.6 (80-98) fL MCH 30.6 (27.0-33.0) pg MCHC 33.8 (31.0-36.0) g/dl RDW 13.8 (11.0-16.0) % Plt Count 165 (160-400) X10*3/uL MPV 11.3 (9.4-12.4) fL Immature Gran % (Auto) 0.9 H (0.0-0.4) % Neut % (Auto) 67.4 (45-73) % Lymph % (Auto) 21.8 (20-40) % [place] % (Auto) 7.4 (2-11) % Eos % (Auto) 2.2 (0-4) % Baso % (Auto) 0.3 (0-2) % Lymph # (Auto) 1.5 (1.2-4.9) X10*3/uL [place] # (Auto) 0.5 (0.1-1.2) X10*3/uL Eos # (Auto) 0.2 (0.0-0.4) X10*3/uL Baso # (Auto) 0.0 (0.0-0.2) X10*3/uL Abs Immat Gran (auto) 0.06 H (0.00-0.03) X10*3/uL Absolute Neuts (auto) 4.6 (2.0-8.3) X10*3/uL Absolute Nucleated RBC 0.000 (0.0-0.012) X10*3/uL Nucleated RBC % (auto) 0.0 (0.0-0.2) /100WBC Sodium 132 L (135-145) mmol/L Potassium 5.2 H (3.3-5.1) mmol/L Chloride 96 (96-108) mmol/L Carbon Dioxide 24 (22-29) mmol/L Anion Gap 17 (12-20) BUN 13 (9-16) mg/dL Creatinine 1.00 (0.5-1.4) mg/dL Estim Creat Clear Calc 142.2 Estimated GFR > 60 POC Glucose (60-115) mg/dL Random Glucose 405 H* (60-115) mg/dL Calcium 9.3 D (8.4-10.2) mg/dL Total Bilirubin 0.2 (0.0-1.0) mg/dL AST 30 D (5-37) U/L ALT 41 H (0-40) U/L Alkaline Phosphatase 118 H (39-117) U/L Total Protein 7.1 (6.5-8.0) g/dL Albumin 3.9 (3.5-5.0) g/dL Urine Color Urine Appearance Urine pH (5.0-8.0) Ur Specific Lyle (1.005-1.025) Urine Protein (NEG-TRACE) MG/DL Urine Glucose (UA) (NEG) MG/DL Urine Ketones (NEG) MG/DL Urine Blood (NEG) Urine Nitrite (NEG) Ur Leukocyte Esterase (NEG) Urine RBC (0) /HPF Urine WBC (0-4) /HPF Ur Squamous Epith Cells /LPF Urine Bacteria /LPF Acetone, Qual (Negative) Coronavirus (PCR) NEGATIVE (Negative) Influenza Type A (PCR) NEGATIVE (Negative) Influenza Type B (PCR) NEGATIVE (Negative) RSV RNA Qual (PCR) NEGATIVE (Negative) 04/20/21 04/20/21 Range/Units 14:58 16:26 WBC (4.8-10.8) X10*3/uL RBC (4.60-5.80) X10*6/uL Hgb (14.0-18.0) g/dl Hct (42-52) % MCV (80-98) fL MCH (27.0-33.0) pg MCHC (31.0-36.0) g/dl RDW (11.0-16.0) % Plt Count (160-400) X10*3/uL MPV (9.4-12.4) fL Immature Gran % (Auto) (0.0-0.4) % Neut % (Auto) (45-73) % Lymph % (Auto) (20-40) % [place] % (Auto) (2-11) % Eos % (Auto) (0-4) % Baso % (Auto) (0-2) % Lymph # (Auto) (1.2-4.9) X10*3/uL [place] # (Auto) (0.1-1.2) X10*3/uL Eos # (Auto) (0.0-0.4) X10*3/uL Baso # (Auto) (0.0-0.2) X10*3/uL Abs Immat Gran (auto) (0.00-0.03) X10*3/uL Absolute Neuts (auto) (2.0-8.3) X10*3/uL Absolute Nucleated RBC (0.0-0.012) X10*3/uL Nucleated RBC % (auto) (0.0-0.2) /100WBC Sodium (135-145) mmol/L Potassium (3.3-5.1) mmol/L Chloride (96-108) mmol/L Carbon Dioxide (22-29) mmol/L Anion Gap (12-20) BUN (9-16) mg/dL Creatinine (0.5-1.4) mg/dL Estim Creat Clear Calc Estimated GFR POC Glucose 299 H 197 H (60-115) mg/dL Random Glucose (60-115) mg/dL Calcium (8.4-10.2) mg/dL Total Bilirubin (0.0-1.0) mg/dL AST (5-37) U/L ALT (0-40) U/L Alkaline Phosphatase (39-117) U/L Total Protein (6.5-8.0) g/dL Albumin (3.5-5.0) g/dL Urine Color Urine Appearance Urine pH (5.0-8.0) Ur Specific Lyle (1.005-1.025) Urine Protein (NEG-TRACE) MG/DL Urine Glucose (UA) (NEG) MG/DL Urine Ketones (NEG) MG/DL Urine Blood (NEG) Urine Nitrite (NEG) Ur Leukocyte Esterase (NEG) Urine RBC (0) /HPF Urine WBC (0-4) /HPF Ur Squamous Epith Cells /LPF Urine Bacteria /LPF Acetone, Qual (Negative) Coronavirus (PCR) (Negative) Influenza Type A (PCR) (Negative) Influenza Type B (PCR) (Negative) RSV RNA Qual (PCR) (Negative) Discharge Plan Discharge Clinical Impression: Acute bacterial sinusitis, Acute hyperglycemia, Acute dehydration Patient Disposition: Home, Self-Care Instructions: Sinusitis (ED) Additional Instructions: Your chest x-ray revealed no evidence of pneumonia. Your COVID-19, influenza and RSV tests were all negative. Your urine was unremarkable with no evidence for urine infection. The most likely have a bacterial sinus infection which is causing your sugar to get out of control. You were treated with 1 dose of Levaquin 500 mg orally. This will last for 24 hours. Make sure you cloth picker your prescription from your primary provider and start this medication tomorrow as directed by your doctor. Increase your fluid intake and dehydration. Continue taking your diabetic medicines as prescribed by your doctor Follow-up with your doctor in 2 days. Please return to the emergency department if your symptoms get worse or if you develop any symptoms that are concerning to you. Prescriptions: No Action cholecalciferol (vitamin D3) 1,250 mcg (50,000 unit) capsule 1,250 mcg PO QWEEK Qty: 4 RF: 2 naproxen [Naprosyn] 500 mg tablet 500 mg PO BID Qty: 20 RF: 0 Lantus Solostar U-100 Insulin 100 unit/mL (3 mL) insulin pen 20 unit subcut QPM Qty: 15 RF: 0 albuterol sulfate 90 mcg/actuation HFA aerosol inhaler 2 puff inhalation Q4-6H PRN (Reason: Shortness Of Breath) RF: 0 bupropion HCl 150 mg tablet sustained-release 12 hr 150 mg PO BID RF: 0 metformin 1,000 mg tablet 1,000 mg PO BID RF: 0 atorvastatin 40 mg tablet 40 mg PO DAILY RF: 0 furosemide 20 mg tablet 40 mg PO DAILY PRNRF: 0 methadone 40 mg tablet,soluble 125 mg PO DAILY RF: 0 tadalafil 5 mg tablet 5 mg PO DAILY PRN (Reason: sexual activity) 90 Days Qty: 90 RF: 0
[2021-04-20 12:49] LABS: Alanine Aminotransferase 41 U/L (0-40); Albumin Level 3.9 g/dL (3.5-5.0); Alkaline Phosphatase 118 U/L (39-117); Anion Gap 17 (12-20); Aspartate Amino Transferase 30 U/L (5-37); Bilirubin Total 0.2 mg/dL (0.0-1.0); Blood Urea Nitrogen 13 mg/dL (9-16); Calcium 9.3 mg/dL (8.4-10.2); Carbon Dioxide 24 mmol/L (22-29); Chloride 96 mmol/L (96-108); Creatinine Clr Calc Pharmacy 142.2; Estimated Glomerular Filt Rate > 60; Glucose Random 405 mg/dL (60-115); Potassium 5.2 mmol/L (3.3-5.1); Sodium 132 mmol/L (135-145); Total Protein 7.1 g/dL (6.5-8.0)
[2021-04-20] MEDS: 0.9 % Sodium Chloride 1,000 ML 999 ML IV ×3 (12:54→15:08)
[2021-04-20] MEDS: Insulin Regular, Human 100 UNIT/ML 3 ML VIAL 10 UNIT IVPUSH ×2 (13:04→15:17)
[2021-04-20 13:20] VITALS: BP 115/49; PULSE 55; RESP 18; O2SAT 95
--- NOTE | 2021-04-20 13:25 | PC.NURSE ---
Pt alert and oriented x3, vss, no c/o pain. Pt states he checked his blood glucose at home and it was high 470s. He is also complaining of shortness of breath and a cough which is productive of mendez to brown sputum. He denies fever, chills, nausea, vomiting. Pt states he was recently diagnosed with a sinus infection, his PCP started him on an antibiotic which he has not picked up yet. Pt in no apparent distress. IV was established, fluids started, med given as documented. Will recheck blood glucose and continue to monitor.
[2021-04-20 14:24] LABS: Influenza A PCR NEGATIVE (Negative); Influenza B PCR NEGATIVE (Negative); Resp Syncy Virus RNA Qual PCR NEGATIVE (Negative); SARS COV2 PCR INHOUSE NEGATIVE (Negative)
[2021-04-20 15:02] LABS: Glucose, Whole Blood 299 mg/dL (60-115)
[2021-04-20 15:45] VITALS: BP 134/73; PULSE 55; RESP 18; TEMP 36.6; O2SAT 95
[2021-04-20 16:30] LABS: Glucose, Whole Blood 197 mg/dL (60-115)
[2021-04-20] MEDS: levoFLOXacin 500 MG TABLET PO (16:39)
== END 2021-04-20 17:00 | disposition home or self-care (01) ==
PROVIDERS: Emergency Provider Emergency Medicine Emergency Medical Services; PCP Internal Medicine
DX: E11.65 Type 2 diabetes mellitus with hyperglycemia (principal); J01.90 Acute sinusitis, unspecified; E86.0 Dehydration; Z20.822 Contact with and (suspected) exposure to COVID-19; I10 Essential (primary) hypertension
CPT/HCPCS: 0241U; 36415; 71046; 80053; 81001; 81003; 82009; 82947; 85025; 93005; 96360; 96361; 96374; 96376; 99283; 99284

== ENCOUNTER 2021-05-24 21:00 | Emergency (ER) | payer OTHER, SELFPAY ==
--- NOTE | ~2021-05-24 | XR_ITS ---
EXAMINATION: XR CHEST CLINICAL INFORMATION: Chest pain. COMPARISON: Chest 12/19/2020 TECHNIQUE: Frontal view of the chest was obtained. FINDINGS: No significant abnormality is noted involving the heart, lungs, mediastinum, bony thorax or soft tissues. XR/XR chest 1V IMPRESSION: Unremarkable chest examination. No change from 04/20/2021
[2021-05-24 21:06] VITALS: BP 143/70; PULSE 54; RESP 16; TEMP 35.9; O2SAT 92; BMI 45.8
--- NOTE | 2021-05-24 21:11 | ECG_ITS ---
Test Reason : CHEST PAIN Blood Pressure : / mmHG Vent. Rate : 058 BPM Atrial Rate : 058 BPM P-R Int : 144 ms QRS Dur : 094 ms QT Int : 444 ms P-R-T Axes : 022 023 021 degrees QTc Int : 435 ms Sinus bradycardia Possible Left atrial enlargement Nonspecific T wave abnormality Abnormal ECG When compared with ECG of 20-APR-2021 10:24, No significant change was found Referred By: Generic ED Physician Electronically Signed By:MEGAN BHAKTA
[2021-05-24 22:24] LABS: Basophils Percent Auto 0.1 % (0-2); Eosinophils Absolute Auto 0.2 X10*3/uL (0.0-0.4); Eosinophils Percent Auto 2.8 % (0-4); Hemoglobin 14.7 g/dl (14.0-18.0); Imm Gran Abs Auto 0.07 X10*3/uL (0.00-0.03); Imm Gran Pct Auto 0.9 % (0.0-0.4); Lymphocytes Absolute Auto 2.1 X10*3/uL (1.2-4.9); Lymphocytes Percent Auto 28.3 % (20-40); MANUAL DIFF FLAG NO; Mean Corpuscular HGB Conc 33.4 g/dl (31.0-36.0); Mean Corpuscular Hemoglobin 30.3 pg (27.0-33.0); Mean Corpuscular Volume 90.7 fL (80-98); Mean Platelet Volume 10.8 fL (9.4-12.4); Monocytes Absolute Auto 0.6 X10*3/uL (0.1-1.2); Monocytes Percent Auto 7.6 % (2-11); Neutrophils Absolute Auto 4.5 X10*3/uL (2.0-8.3); Neutrophils Percent Auto 60.3 % (45-73); Platelet Count 161 X10*3/uL (160-400); Red Blood Count 4.85 X10*6/uL (4.60-5.80); White Blood Count 7.5 X10*3/uL (4.8-10.8)
[2021-05-24 22:40] LABS: Anion Gap 12 (12-20); Blood Urea Nitrogen 13 mg/dL (9-16); Calcium 9.6 mg/dL (8.4-10.2); Carbon Dioxide 31 mmol/L (22-29); Chloride 100 mmol/L (96-108); Creatinine Clr Calc Pharmacy 168.8; Estimated Glomerular Filt Rate > 60; Glucose Random 94 mg/dL (60-115); Potassium 4.2 mmol/L (3.3-5.1); Sodium 139 mmol/L (135-145)
[2021-05-24 22:45] LABS: Troponin-I High Sensitivity 5.8 ng/L (<3.5-35.0)
== END 2021-05-25 01:30 | disposition left against medical advice (07) ==
LOC: HO.ED 05-25 01:31
PROVIDERS: Emergency Provider Emergency Medicine; PCP Internal Medicine
DX: R07.81 Pleurodynia (principal); F41.1 Generalized anxiety disorder; F43.0 Acute stress reaction
CPT/HCPCS: 36415; 71045; 80048; 84484; 85025; 93005; 99283

== ENCOUNTER 2021-07-01 03:02 | Emergency (ER) | payer OTHER, SELFPAY ==
--- NOTE | ~2021-07-01 | XR_ITS ---
EXAMINATION: XR CHEST CLINICAL INFORMATION: Alkaline ingestion COMPARISON: 05/24/2021 TECHNIQUE: 2 views of the chest were obtained. FINDINGS: Lung volumes are symmetric. Mild somewhat streaky left basilar opacity is noted. No evidence of pneumothorax, pleural effusion, or pulmonary edema. The cardiomediastinal contour is unremarkable. No acute osseous findings are seen. XR/XR chest 2V IMPRESSION: Mild somewhat streaky left basilar opacity may reflect atelectasis or developing consolidation.
[2021-07-01 03:07] VITALS: BP 171/76; PULSE 70; RESP 22; TEMP 36.5; O2SAT 90; BMI 45.8
--- NOTE | 2021-07-01 03:17 | PC.NURSE ---
Report this happened just prior to arrival. Spit out the bleach, gargled, and took a sip of milk.
[2021-07-01] MEDS: Magnesium Hydrox/Alum Hydrox 30 ML ORAL.SUSP PO (03:28)
[2021-07-01] MEDS: Omeprazole 40 MG CAPSULE.DR PO (03:28)
--- NOTE | 2021-07-01 03:48 | ED.GENADULT ---
HPI - General Adult General Chief complaint: Upper Respiratory Symptoms Stated complaint: INGESTED BLEACH Time Seen by Provider: 07/01/21 03:07 Source: patient Mode of arrival: ambulatory Limitations: no limitations History of Present Illness HPI narrative: Patient by accident took a sip of household bleach in sleep spitted it out immediately rinsed his mouth with water and had some milk at this time patient is still slightly burning mouth and mid chest nothing else otherwise no significant increase in shortness of breath patient does have history of sleep apnea COPD does not use his machine for long-term usual pulse ox 80 9-90% Related Data Home Medications Medication Instructions Recorded Confirmed albuterol sulfate 90 mcg/actuation 2 puff INHALATION Q4-6H PRN 06/13/20 12/17/20 aerosol inhaler atorvastatin 40 mg tablet 40 mg PO DAILY 06/13/20 12/17/20 bupropion HCl 150 mg tablet,12 hr 150 mg PO BID 06/13/20 12/17/20 sustained-release metformin 1,000 mg tablet 1,000 mg PO BID 06/13/20 12/17/20 methadone 40 mg soluble tablet 125 mg PO DAILY tab 06/13/20 12/17/20 furosemide 20 mg tablet 40 mg PO DAILY PRN 12/17/20 12/17/20 Previous Rx's Medication Instructions Recorded cholecalciferol (vitamin D3) 1,250 1,250 mcg PO QWEEK #4 cap 01/07/21 mcg (50,000 unit) capsule naproxen 500 mg tablet (Naprosyn) 500 mg PO BID #20 tab 01/23/21 insulin glargine 100 unit/mL (3 20 unit SUBCUT QPM #15 ml 03/11/21 mL) subcutaneous pen (Lantus Solostar U-100 Insulin) tadalafil 5 mg tablet 5 mg PO DAILY PRN 90 Days #90 tab 03/19/21 omeprazole 40 mg capsule,delayed 40 mg PO DAILY #20 cap 07/01/21 release Allergies Allergy/AdvReac Type Severity Reaction Status Date / Time No Known Allergies Allergy Unknown UNKNOWN Verified 07/01/21 03:13 Review of Systems Review of Systems: Yes all other systems are reviewed and are negative PMFSH Past Medical History Medical History Arthritis Chronic venous stasis Depression Diabetes Exposure to COVID-19 virus Full dentures Hypertension Methadone use Morbid obesity Shortness of breath on exertion Sleep apnea Type 2 diabetes mellitus Wears partial dentures Surgical History H/O wisdom tooth extraction History of arthroscopic knee surgery History of carpal tunnel release History of retained foreign body fully removed History of umbilical hernia repair Status post ablation of incompetent vein using laser Family History Family History Father Diabetes Mother Diabetes 1.5, managed as type 2 HTN (hypertension) Hypercholesteremia Paternal Grandmother Diabetes 1.5, managed as type 2 Maternal Grandmother Lung cancer Maternal Grandfather Prostate cancer Sister No problems noted. Daughter No problems noted. Daughter No problems noted. Daughter No problems noted. Daughter No problems noted. Social History Social History Alcohol intake: never Cigarette Packs Per Day: 0.5 Cigarettes Per Day: 10.0 Years Smoked: 36 Substance Use Type: Marijuana Advance Directives: No Advance Directives Information Provided: Yes Current occupational status: disabled Current occupation: right handed Physical Exam Vital Signs: Vital Signs: Last Vital Signs Temp 97.6 F 07/01/21 04:03 Pulse 78 07/01/21 04:03 Resp 16 07/01/21 04:03 BP 118/47 L 07/01/21 04:03 Pulse Ox 94 07/01/21 04:03 Body Mass Index 45.8 Appearance: Alert. Oriented X3. No acute distress. Obese ENT: Pharynx normal. Oral Mucosa moist no significant erythema Neck: Normal inspection. Neck supple. CVS: Normal heart rate and rhythm. Pulses normal. Respiratory: No respiratory distress. Equal air entry bilateral, no wheezing/rales/rhonchi Abdomen: Soft and nontender. Bowel sounds are present, no mass palpable, no CVA tenderness Skin: Skin warm and dry. Normal skin color. Normal skin turgor. Extremities: No lower extremity edema. No calf tenderness Neuro: Oriented X 3. Medical Decision Making MDM Narrative Medical decision making narrative: Patient with minor nontoxic dose of bleach ingestion with her significant oral lesion chest x-ray and negative patient feeling much better discharge patient home Discharge Plan Discharge Clinical Impression: Accidental ingestion of caustic alkali Qualifiers: Encounter type: initial encounter Qualified Code(s): T54.3X1A - Toxic effect of corrosive alkalis and alkali-like substances, accidental (unintentional), initial encounter Patient Disposition: Home, Self-Care Instructions: Corrosive Esophagitis (ED) Additional Instructions: Drink plenty of fluids Prilosec/Maalox for heartburn as needed Report to the ER if any significant increase in pain Prescriptions: New omeprazole 40 mg capsule,delayed release(DR/EC) 40 mg PO DAILY Qty: 20 RF: 0 No Action cholecalciferol (vitamin D3) 1,250 mcg (50,000 unit) capsule 1,250 mcg PO QWEEK Qty: 4 RF: 2 naproxen [Naprosyn] 500 mg tablet 500 mg PO BID Qty: 20 RF: 0 Lantus Solostar U-100 Insulin 100 unit/mL (3 mL) insulin pen 20 unit subcut QPM Qty: 15 RF: 0 albuterol sulfate 90 mcg/actuation HFA aerosol inhaler 2 puff inhalation Q4-6H PRN (Reason: Shortness Of Breath) RF: 0 bupropion HCl 150 mg tablet sustained-release 12 hr 150 mg PO BID RF: 0 metformin 1,000 mg tablet 1,000 mg PO BID RF: 0 atorvastatin 40 mg tablet 40 mg PO DAILY RF: 0 furosemide 20 mg tablet 40 mg PO DAILY PRNRF: 0 methadone 40 mg tablet,soluble 125 mg PO DAILY RF: 0 tadalafil 5 mg tablet 5 mg PO DAILY PRN (Reason: sexual activity) 90 Days Qty: 90 RF: 0 Interventions: ED Discharge Assessment Last Done: 07/01/21 04:31 Discharge Date/Time: 07/01/21 04:37
[2021-07-01 04:03] VITALS: BP 118/47; PULSE 78; RESP 16; TEMP 36.4; O2SAT 94
== END 2021-07-01 04:37 | disposition home or self-care (01) ==
PROVIDERS: Emergency Provider Internal Medicine; PCP Internal Medicine
DX: T54.91XA Toxic effect of unspecified corrosive substance, accidental (unintentional), initial encounter (principal); Y92.9 Unspecified place or not applicable; F17.210 Nicotine dependence, cigarettes, uncomplicated; Z71.6 Tobacco abuse counseling; Z79.899 Other long term (current) drug therapy
CPT/HCPCS: 71046; 99212; 99283; 99284

== ENCOUNTER 2021-07-09 20:09 | Emergency (ER) | payer OTHER, SELFPAY ==
[2021-07-09 20:31] VITALS: BP 98/70; PULSE 57; RESP 20; TEMP 36.6; O2SAT 94; BMI 44.9
== END 2021-07-09 23:00 | disposition left against medical advice (07) ==
PROVIDERS: Emergency Provider Emergency Medicine; PCP Internal Medicine
DX: M54.2 Cervicalgia (principal)
CPT/HCPCS: 99281; 99282

== ENCOUNTER 2021-07-26 10:23 | Outpatient (REF) | payer OTHER, SELFPAY ==
--- NOTE | ~2021-07-26 | US_ITS ---
EXAMINATION: RIGHT and LEFT LOWER EXTREMITY VENOUS ULTRASOUND (Reflux Exam) CLINICAL INDICATION: leg pain and varicose veins. COMPARISON: Previous bilateral venous ultrasound June 2019 and right lower extremity venous ultrasound August 2020 TECHNIQUE: Color flow triplex imaging and compression Doppler was performed to evaluate both the deep and the superficial systems bilaterally. To evaluate the superficial system, the examination was performed in the upright position. Color-flow Doppler ultrasound and compression ultrasound were utilized. In addition, maneuvers were utilized to demonstrate reflux. FINDINGS: 1. DEEP VENOUS ULTRASOUND OF THE RIGHT LOWER EXTREMITY: Respiratory variation, normal compression and augmented flow are noted in the right common femoral vein as well as the right popliteal vein and there is no evidence of deep venous thrombosis at these locations. There is no evidence of reflux in the deep system in the common femoral vein. There is deep venous reflux in the mid femoral vein measuring 2.4 seconds and popliteal vein measuring 0.9 seconds.. There is no evidence of a De Santiago's cyst. 2. SUPERFICIAL ULTRASOUND WITH DOPPLER OF RIGHT LOWER EXTREMITY: The right great saphenous vein at the saphenofemoral junction measures 11 mm. The right greater saphenous vein appears obliterated from the proximal thigh just knee. Right greater saphenous vein measures 5 mm at the knee, [id number] 9 mm, at mid calf 4 mm and at the ankle measures 5 mm. There is right greater saphenous vein reflux from the knee to the mid calf measuring maximum 2.2 seconds at the knee. There is an accessory lateral greater saphenous vein that measures 8 mm and does not demonstrate reflux. The right small saphenous vein measures 3 mm and shows no reflux. There is a porcelain mixer at the knee that measures 3 mm and demonstrates 0.8 seconds reflux. There is a porcelain mixer in the proximal calf that measures 2 mm and does not demonstrate reflux. There are multiple varicosities in the thigh and calf. Largest varicosity in the thigh and measures 6 7 mm and demonstrates 2.8 seconds reflux. Largest varicosity in the calf arises from the lesser saphenous vein, measures 10 mm and demonstrates 2.9 seconds reflux. 3. DEEP VENOUS ULTRASOUND OF THE LEFT LOWER EXTREMITY: Respiratory variation, normal compression and augmented flow are noted in the left common femoral vein as well as the left popliteal vein and there is no evidence of deep venous thrombosis at these locations. There is no evidence of reflux in the deep system in either the common femoral vein or the mid femoral vein. There is a 1.2 seconds reflux in the popliteal vein.. There is no evidence of a De Santiago's cyst. 4. SUPERFICIAL ULTRASOUND WITH DOPPLER OF LEFT LOWER EXTREMITY: Left great saphenous vein at the saphenofemoral junction measures 11 mm, at the mid thigh 8 mm, [id number] 4 mm, [id number] 4 mm, at mid calf 5 mm and at the ankle measures 4 mm. There is diffuse left greater saphenous vein reflux measuring maximum 2.3 seconds in the mid calf. The left small saphenous vein measures 3-4 mm and shows no reflux. There is a porcelain mixer in the mid thigh that measures 3 mm and does not straight reflux. There are varicosities in the high measure maximum 8 mm and demonstrate reflux, maximum 3.3 seconds. US/US venous duplex LE BI IMPRESSION: Right: No evidence of DVT. Deep venous reflux in the right mid femoral and popliteal vein. Occluded right greater saphenous vein in the thigh post ablation. Right greater saphenous vein is patent from the knee to the ankle, is dilated measuring up to 9 mm and demonstrates reflux, maximum 2.2 seconds. There are multiple varicosities in the thigh and calf that demonstrate reflux, maximum measuring 7 mm in diameter and maximum reflux 3 seconds. There is a porcelain mixer at the knee demonstrate reflux. Left: No evidence of DVT. Deep venous reflux in the left popliteal vein. Diffuse left greater saphenous vein reflux. Multiple varicosities in the thigh measuring maximum 8 mm that demonstrate reflux maximum 3.3 seconds. .
== END 2021-07-26 10:24 | disposition home or self-care (01) ==
LOC: HO.US 10:23
PROVIDERS: PCP Internal Medicine; Visit Provider Surgery Vascular Surgery
DX: I83.11 Varicose veins of right lower extremity with inflammation (principal)
CPT/HCPCS: 93970

== ENCOUNTER → 2021-07-27 13:45 | Outpatient (BNVA) | payer OTHER, SELFPAY | PROVIDERS: PCP Internal Medicine; Visit Provider Surgery Vascular Surgery | DX: I83.11 Varicose veins of right lower extremity with inflammation (principal) | CPT/HCPCS: 99212 ==

== ENCOUNTER → 2021-08-13 07:20 | Outpatient (BNVA) | payer OTHER, SELFPAY | PROVIDERS: PCP Internal Medicine; Visit Provider Surgery Vascular Surgery | DX: I83.11 Varicose veins of right lower extremity with inflammation (principal) | CPT/HCPCS: 36482 ==

== ENCOUNTER 2021-08-25 15:44 | Outpatient (REF) | payer OTHER, SELFPAY ==
--- NOTE | ~2021-08-25 | XR_ITS ---
EXAMINATION: XR CHEST CLINICAL INFORMATION: Shortness of breath COMPARISON: Chest 07/01/2021 TECHNIQUE: 2 views of the chest were obtained. FINDINGS: The lungs are well-expanded and clear of acute process. The heart size and pulmonary vascularity is normal. No gross bony abnormality seen. XR/XR chest 2V IMPRESSION: Unremarkable chest exam.
--- NOTE | ~2021-08-25 | US_ITS ---
EXAMINATION: US VENOUS ULTRASOUND WITH DOPPLER LOWER EXTREMITY, RIGHT CLINICAL INFORMATION: Post vena seal. Rule out DVT. COMPARISON: Previous exam July 2021 TECHNIQUE: Ultrasound of the deep veins is performed from the hip to the calf with compression sonography and color and pulse Doppler assessment. Spectral analysis with color-flow imaging is performed. FINDINGS: There is normal venous compression and respiratory variation and augmented flow. The visualized common femoral vein, superficial femoral vein, profunda femoral vein, popliteal vein, and the trifurcation region shows no evidence of deep venous thrombosis. There is echogenic material seen in the right greater saphenous vein post vena seal procedure. This extends to 1.9 cm from the saphenofemoral junction. The right greater saphenous vein is closed. The patient complains of lumps in the medial knee and lower leg. These appear to correspond to thrombosed varicosities. US/US venous duplex LE RT IMPRESSION: No DVT demonstrated in the right lower extremity.
== END 2021-08-25 15:45 | disposition home or self-care (01) ==
LOC: HO.US 15:44
PROVIDERS: PCP Internal Medicine; Visit Provider Surgery Vascular Surgery
DX: R06.02 Shortness of breath (principal); I82.409 Acute embolism and thrombosis of unspecified deep veins of unspecified lower extremity
CPT/HCPCS: 71046; 93971

== ENCOUNTER → 2021-08-26 11:07 | Outpatient (BNVA) | payer OTHER, SELFPAY | PROVIDERS: PCP Internal Medicine; Visit Provider Surgery Vascular Surgery | DX: I83.12 Varicose veins of left lower extremity with inflammation (principal); F17.210 Nicotine dependence, cigarettes, uncomplicated | CPT/HCPCS: 99212 ==

== ENCOUNTER 2021-08-26 23:05 | Emergency (ER) | payer OTHER, SELFPAY ==
--- NOTE | ~2021-08-26 | XR_ITS ---
EXAMINATION: XR CHEST CLINICAL INFORMATION: Evaluate for rib fractures. COMPARISON: Multiple priors. Most recent chest radiograph dated from 08/25/2021. TECHNIQUE: 2 views of the chest were obtained. FINDINGS: Unchanged appearance of the cardiomediastinal silhouette. No focal airspace opacities, pleural effusions or pneumothorax. No evidence of acutely displaced rib fractures. XR/XR chest 2V IMPRESSION: No evidence of acutely displaced rib fractures. Minimal interstitial prominence, similar to priors. No superimposed focal airspace opacities.
[2021-08-26 23:26] VITALS: BP 123/65; PULSE 60; RESP 20; TEMP 36.4; O2SAT 92; BMI 51.2
[2021-08-27 00:57] VITALS: BP 135/55; PULSE 58; RESP 16; TEMP 36.5; O2SAT 91
== END 2021-08-27 02:46 | disposition left against medical advice (07) ==
PROVIDERS: Emergency Provider Emergency Medicine; PCP Internal Medicine
DX: R07.81 Pleurodynia (principal); R50.9 Fever, unspecified
CPT/HCPCS: 71046; 99283

== ENCOUNTER 2021-09-01 03:00 | Emergency (ER) | payer OTHER, SELFPAY ==
--- NOTE | ~2021-09-01 | US_ITS ---
EXAMINATION: US VENOUS ULTRASOUND WITH DOPPLER LOWER EXTREMITY, LEFT CLINICAL INFORMATION: Left lower extremity pain. COMPARISON: None TECHNIQUE: Ultrasound of the deep veins is performed from the hip to the calf with compression sonography and color and pulse Doppler assessment. Spectral analysis with color-flow imaging is performed. FINDINGS: There is normal venous compression and respiratory variation and augmented flow. The visualized common femoral vein, superficial femoral vein, profunda femoral vein, popliteal vein, and the trifurcation region shows no evidence of deep venous thrombosis. There is no significant popliteal fossa cyst. Note is made of noncompressible varicose veins in the upper leg. If the patient's symptoms persist, followup ultrasound in 5 days 7 days might be of value to exclude proximal propagation from a non-visualized calf vein. US/US venous duplex LE IMPRESSION: No DVT demonstrated in the left lower extremity. Evidence of superficial thrombophlebitis.
[2021-09-01 03:18] VITALS: BP 156/71; PULSE 70; RESP 20; TEMP 36.6; O2SAT 94; BMI 51.4
--- NOTE | 2021-09-01 03:46 | ED.EXTPRO ---
HPI - Extremity Problem General Chief complaint: Extremity Injury, Lower Stated complaint: L foot beginning to go numb Time Seen by Provider: 09/01/21 03:45 Source: patient Mode of arrival: ambulatory Limitations: no limitations History of Present Illness HPI Narrative: Patient with history of varicose veins noticed painful swelling of left calf varicose veins for last few days got worse in last 3 days with increased redness now, no history of deep vein thrombosis no shortness of breath no fever or chills Related Data Home Medications Medication Instructions Recorded Confirmed albuterol sulfate 90 mcg/actuation 2 puff INHALATION Q4-6H PRN 06/13/20 12/17/20 aerosol inhaler atorvastatin 40 mg tablet 40 mg PO DAILY 06/13/20 12/17/20 bupropion HCl 150 mg tablet,12 hr 150 mg PO BID 06/13/20 12/17/20 sustained-release metformin 1,000 mg tablet 1,000 mg PO BID 06/13/20 12/17/20 methadone 40 mg soluble tablet 125 mg PO DAILY tab 06/13/20 12/17/20 furosemide 20 mg tablet 40 mg PO DAILY PRN 12/17/20 12/17/20 atorvastatin 80 mg tablet 80 mg PO DAILY 07/01/21 blood sugar diagnostic (FreeStyle #10 ea 07/01/21 Lite Strips) glipizide 10 mg tablet 10 mg PO BID 07/01/21 pen needle, diabetic 32 gauge x #50 ea 07/01/21 (BD Mahi 2nd Gen Pen Needle) Previous Rx's Medication Instructions Recorded cholecalciferol (vitamin D3) 1,250 1,250 mcg PO QWEEK #4 cap 01/07/21 mcg (50,000 unit) capsule naproxen 500 mg tablet (Naprosyn) 500 mg PO BID #20 tab 01/23/21 insulin glargine 100 unit/mL (3 20 unit (0.2 mL) SUBCUT QPM #15 ml 03/11/21 mL) subcutaneous pen (Lantus Solostar U-100 Insulin) tadalafil 5 mg tablet 5 mg PO DAILY PRN 90 Days #90 tab 03/19/21 omeprazole 40 mg capsule,delayed 40 mg PO DAILY #20 cap 07/01/21 release cephalexin 500 mg capsule 500 mg PO QID 10 Days #40 cap 09/01/21 doxycycline hyclate 100 mg tablet 100 mg PO BID #20 tab 09/01/21 Allergies Allergy/AdvReac Type Severity Reaction Status Date / Time No Known Allergies Allergy Unknown UNKNOWN Verified 08/26/21 11:09 Review of Systems Review of Systems: Yes all other systems are reviewed and are negative [facility] Past Medical History Medical History Arthritis Chronic venous stasis Depression Diabetes Exposure to COVID-19 virus Full dentures Hypertension Methadone use Morbid obesity Shortness of breath on exertion Sleep apnea Type 2 diabetes mellitus Wears partial dentures Surgical History H/O wisdom tooth extraction History of arthroscopic knee surgery History of carpal tunnel release History of retained foreign body fully removed History of umbilical hernia repair Status post ablation of incompetent vein using laser Family History Family History Father Diabetes Mother Diabetes 1.5, managed as type 2 HTN (hypertension) Hypercholesteremia Paternal Grandmother Diabetes 1.5, managed as type 2 Maternal Grandmother Lung cancer Maternal Grandfather Prostate cancer Sister No problems noted. Daughter No problems noted. Daughter No problems noted. Daughter No problems noted. Daughter No problems noted. Social History Social History Alcohol intake: current Patient Tobacco Use Status: Current everyday Tobacco user Cigarette Packs Per Day: 0.5 Cigarettes Per Day: 10.0 Years Smoked: 36 Use of substances other than those prescribed or required for medical reasons: No Substance Use Type: Marijuana Advance Directives: No Current occupational status: disabled Current occupation: right handed Physical Exam Vital Signs: Vital Signs: Last Vital Signs Temp 98.4 F 09/01/21 06:14 Pulse 70 09/01/21 03:18 Resp 20 09/01/21 03:18 BP 128/108 H 09/01/21 06:14 Pulse Ox 92 09/01/21 06:14 BMI result Body Mass Index 51.4 Appearance: Alert. Oriented X3. No acute distress. Obese Neck: Normal inspection. Neck supple. CVS: Normal heart rate and rhythm. Pulses normal. Respiratory: No respiratory distress. Equal air entry bilateral, no wheezing/rales/rhonchi Abdomen: Soft and nontender. Bowel sounds are present, Skin: Skin warm and dry. Normal skin color. Normal skin turgor. Extremities: No lower extremity edema. Superficial palpable tender left varicose vein over the calf area with surrounding erythema Neuro: Oriented X 3. Neurovascular intact Extrem: Upper/lower leg/hip images: 1. Tender palpable varicose vein with surrounding erythema MDM - Extremity (Nontraumatic) MDM Narrative Medical decision making narrative: Patient with superficial thrombophlebitis of left lower extremity Doppler negative for DVT discharge patient home on doxycycline and Keflex for cellulitis Discharge Plan Discharge Clinical Impression: Cellulitis of left lower extremity Patient Disposition: Home, Self-Care Instructions: Cellulitis (ED), Superficial Thrombophlebitis (ED) Additional Instructions: Take antibiotics as advised Take baby aspirin daily Report to the ER/with PF increased pain swelling of the lower extremity Prescriptions: New cephalexin 500 mg capsule 500 mg PO QID 10 Days Qty: 40 RF: 0 doxycycline hyclate 100 mg tablet 100 mg PO BID Qty: 20 RF: 0 No Action cholecalciferol (vitamin D3) 1,250 mcg (50,000 unit) capsule 1,250 mcg PO QWEEK Qty: 4 RF: 2 naproxen [Naprosyn] 500 mg tablet 500 mg PO BID Qty: 20 RF: 0 Lantus Solostar U-100 Insulin 100 unit/mL (3 mL) insulin pen 20 unit subcut QPM Qty: 15 RF: 0 omeprazole 40 mg capsule,delayed release(DR/EC) 40 mg PO DAILY Qty: 20 RF: 0 albuterol sulfate 90 mcg/actuation HFA aerosol inhaler 2 puff inhalation Q4-6H PRN (Reason: Shortness Of Breath) RF: 0 bupropion HCl 150 mg tablet sustained-release 12 hr 150 mg PO BID RF: 0 metformin 1,000 mg tablet 1,000 mg PO BID RF: 0 atorvastatin 40 mg tablet 40 mg PO DAILY RF: 0 furosemide 20 mg tablet 40 mg PO DAILY PRNRF: 0 methadone 40 mg tablet,soluble 125 mg PO DAILY RF: 0 tadalafil 5 mg tablet 5 mg PO DAILY PRN (Reason: sexual activity) 90 Days Qty: 90 RF: 0 (DME) pen needle, diabetic [BD Mahi 2nd Gen Pen Needle] 32 gauge x 5/32 needle See Rx Instructions ea .ROUTE .MEDSUPPLY Qty: 50 RF: 0 (DME) FreeStyle Lite Strips Strip See Rx Instructions ea Not Applicable BID Qty: 10 RF: 0 atorvastatin 80 mg tablet 80 mg PO DAILY RF: 0 glipizide 10 mg tablet 10 mg PO BID RF: 0
[2021-09-01] MEDS: cephALEXin 500 MG CAPSULE PO (04:11)
--- NOTE | 2021-09-01 05:41 | PC.NURSE ---
Louis presents to the ED for evaluation of LLE redness/warmth/tenderness x 3-4 days - states he is concerned for the presence of a DVT. There is no shortness of breath: respirations spontaneous and non-labored, speech clear and appropriate, speaking in full sentences, no cyanosis. No chest pain. LLE appears mildly reddened and mildly edematous - pt admits to tenderness in this area. Both of his lower extremities appear to have chronic discoloration to them. Pt has been to U/S and has since returned, awaiting U/S result and MD dispo. Will continue to monitor.
[2021-09-01 06:14] VITALS: BP 128/108; TEMP 36.9; O2SAT 92
== END 2021-09-01 06:48 | disposition home or self-care (01) ==
PROVIDERS: Emergency Provider Internal Medicine; PCP Internal Medicine
DX: I80.3 Phlebitis and thrombophlebitis of lower extremities, unspecified (principal); R60.0 Localized edema; Z79.899 Other long term (current) drug therapy; F17.210 Nicotine dependence, cigarettes, uncomplicated; Z71.6 Tobacco abuse counseling
CPT/HCPCS: 93971; 99284

== ENCOUNTER → 2021-09-21 12:57 | Outpatient (BNVA) | payer OTHER, SELFPAY | PROVIDERS: PCP Internal Medicine; Visit Provider Surgery Vascular Surgery | DX: I83.12 Varicose veins of left lower extremity with inflammation (principal) | CPT/HCPCS: 99212 ==

== ENCOUNTER 2021-11-27 14:21 | Emergency (ER) | payer OTHER, SELFPAY ==
--- NOTE | ~2021-11-27 | US_ITS ---
EXAMINATION: US VENOUS ULTRASOUND WITH DOPPLER LOWER EXTREMITY, RIGHT CLINICAL INFORMATION: Pain and swelling. History of right venoseal. COMPARISON: Right lower extremity Doppler exam 08/25/2021 TECHNIQUE: Ultrasound of the deep veins is performed from the hip to the calf with compression sonography and color and pulse Doppler assessment. Spectral analysis with color-flow imaging is performed. FINDINGS: There is normal venous compression and respiratory variation and augmented flow. The visualized common femoral vein, superficial femoral vein, profunda femoral vein, popliteal vein, and the trifurcation region shows no evidence of deep venous thrombosis. Limited visualization of the posterior tibial vein and peroneal vein in the calf due to body habitus and swelling. No gross evidence of thrombus of these veins. There is a right-sided popliteal fossa cyst measuring 8.3 x 1.2 x 2.8 cm. There is a variously arising from the greater saphenous vein in the upper thigh extending into the mid thigh area. If the patient's symptoms persist, followup ultrasound in 5 days 7 days might be of value to exclude proximal propagation from a non-visualized calf vein. US/US venous duplex LE RT IMPRESSION: 1. No DVT demonstrated in the right lower extremity. 2. Popliteal fossa cyst.
[2021-11-27 14:31] VITALS: BP 128/60; PULSE 65; RESP 20; TEMP 36; O2SAT 92; BMI 50.8
--- NOTE | 2021-11-27 15:02 | ED.WOUNDLAC ---
HPI - Wound/Laceration General Chief Complaint: Wound/Laceration Stated Complaint: r leg infection wound Time Seen by Provider: 11/27/21 14:58 Source: patient Mode of arrival: ambulatory Limitations: no limitations History of Present Illness HPI narrative: Patient is a 51 year old male presenting to the emergency department today with a right lower leg wound. Patient states that he has a wound to his lower right leg after hitting it while moving furniture a couple of days ago. Patient states that he is a diabetic and has wounds on his legs all the time but this one seems to be worse. Patient denies any dizziness, lightheadedness, abdominal pain, nausea, vomiting, fever, chills, blurry vision, double vision, loss of vision, chest pain, difficulty breathing, shortness of breath, back pain, night sweats, pain with urination, increased urinary frequency, increased urinary urgency, blood in his urine or stool, syncope or a near syncopal episode, recent trauma or falls, bowel incontinence, bladder incontinence, bowel retention, bladder retention, or any other complaints at this time. Onset (ago): day(s) Location: other (right lower leg) Place: home Context: accidental Associated symptoms: none Related Data Home Medications Medication Instructions Recorded Confirmed albuterol sulfate 90 mcg/actuation 2 puff INHALATION Q4-6H PRN 06/13/20 12/17/20 aerosol inhaler atorvastatin 40 mg tablet 40 mg PO DAILY 06/13/20 12/17/20 bupropion HCl 150 mg tablet,12 hr 150 mg PO BID 06/13/20 12/17/20 sustained-release metformin 1,000 mg tablet 1,000 mg PO BID 06/13/20 12/17/20 methadone 40 mg soluble tablet 125 mg PO DAILY tab 06/13/20 12/17/20 furosemide 20 mg tablet 40 mg PO DAILY PRN 12/17/20 12/17/20 atorvastatin 80 mg tablet 80 mg PO DAILY 07/01/21 blood sugar diagnostic (FreeStyle #10 ea 07/01/21 Lite Strips) glipizide 10 mg tablet 10 mg PO BID 07/01/21 pen needle, diabetic 32 gauge x #50 ea 07/01/21 (BD Mahi 2nd Gen Pen Needle) Previous Rx's Medication Instructions Recorded cholecalciferol (vitamin D3) 1,250 1,250 mcg PO QWEEK #4 cap 01/07/21 mcg (50,000 unit) capsule naproxen 500 mg tablet (Naprosyn) 500 mg PO BID #20 tab 01/23/21 insulin glargine 100 unit/mL (3 20 unit (0.2 mL) SUBCUT QPM #15 ml 03/11/21 mL) subcutaneous pen (Lantus Solostar U-100 Insulin) tadalafil 5 mg tablet 5 mg PO DAILY PRN 90 Days #90 tab 03/19/21 omeprazole 40 mg capsule,delayed 40 mg PO DAILY #20 cap 07/01/21 release cephalexin 500 mg capsule 500 mg PO QID 10 Days #40 cap 09/01/21 doxycycline hyclate 100 mg tablet 100 mg PO BID #20 tab 09/01/21 tramadol 200 mg capsule 200 mg PO DAILY #10 cap 09/21/21 24h,extended release(25-75) cephalexin 500 mg capsule 500 mg PO Q6H 7 Days #28 cap 11/27/21 sulfamethoxazole 800 1 tab PO BID 7 Days #14 tab 11/27/21 mg-trimethoprim 160 mg tablet (Bactrim DS) Allergies Allergy/AdvReac Type Severity Reaction Status Date / Time No Known Allergies Allergy Unknown UNKNOWN Verified 09/21/21 13:03 Review of Systems Constitutional: Constitutional: Reports no additional constitutional complaints, Denies chills, Denies fever(s) and Denies night sweats Eyes: Eyes: Reports no additional eye complaints, Denies blurry vision, Denies change in vision, Denies diplopia, Denies eye discharge, Denies loss of vision and Denies eye pain ENT: Denies dizziness Cardiovascular: Cardiovascular: Reports no additional cardiovascular complaints, Denies chest pain, Denies lightheadedness, Denies Loss of Consciousness and Denies dyspnea Respiratory: Respiratory: Reports no additional respiratory complaints and Denies dyspnea Gastrointestinal: Gastrointestinal: Reports no additional gastrointestinal complaints, Denies abdominal pain, Denies melena, Denies hematochezia, Denies change in bowel habits and Denies change in stool character Genitourinary: Genitourinary: Reports no additional male genitourinary complaints, Denies hematuria, Denies oliguria, Denies difficulty urinating, Denies dysuria, Denies urinary frequency, Denies urinary hesitancy, Denies urinary incontinence and Denies urinary urgency Musculoskeletal: Musculoskeletal: Reports no additional musculoskeletal complaints, Denies numbness and Denies tingling Integumentary/Breasts: Comments: right lower leg wound Neurologic: Denies dizziness, Denies loss of vision, Denies numbness and Denies tingling Psychiatric: Psychiatric: Reports no additional psychiatric complaints Endocrine: Endocrine: Reports no additional endocrine complaints Hematologic/Lymphatic: Hematologic/Lymphatic: Reports no additional hematologic/lymphatic complaints Allergic/Immunologic: Allergic/Immunologic: Reports no additional allergic/immunologic complaints PMFSH Past Medical History Attestation statement: The following information was validated with the patient. Source: old records reviewed Medical History Arthritis Chronic venous stasis Depression Diabetes Exposure to COVID-19 virus Full dentures Hypertension Methadone use Morbid obesity Shortness of breath on exertion Sleep apnea Type 2 diabetes mellitus Wears partial dentures Surgical History H/O wisdom tooth extraction History of arthroscopic knee surgery History of carpal tunnel release History of retained foreign body fully removed History of umbilical hernia repair Status post ablation of incompetent vein using laser Family History Family History Father Diabetes Mother Diabetes 1.5, managed as type 2 HTN (hypertension) Hypercholesteremia Paternal Grandmother Diabetes 1.5, managed as type 2 Maternal Grandmother Lung cancer Maternal Grandfather Prostate cancer Sister No problems noted. Daughter No problems noted. Daughter No problems noted. Daughter No problems noted. Daughter No problems noted. Social History Social History Alcohol intake: current Patient Tobacco Use Status: Current everyday Tobacco user Cigarette Packs Per Day: 0.5 Cigarettes Per Day: 10.0 Years Smoked: 36 Substance Use Type: Marijuana Advance Directives: Yes Advance Directives Information Provided: Yes Advance Directives on File: No Current occupational status: disabled Current occupation: right handed Physical Exam Vital Signs: Vital Signs: Last Vital Signs Temp 96.8 F 11/27/21 14:31 Pulse 65 11/27/21 14:31 Resp 20 11/27/21 14:31 BP 128/60 11/27/21 14:31 Pulse Ox 92 11/27/21 14:31 BMI result Body Mass Index 50.8 Const: General: cooperative, no acute distress, alert and awake Nutritional Appearance: well nourished Orientation/consciousness: patient oriented x3 Limitations: no limitations HENMT: Head: Yes normal to inspection and Yes atraumatic Ears: hearing grossly normal bilaterally and external ears normal General nose exam: Normal external nose present, no nasal discharge noted and no epistaxis Face and sinus: Yes normal facial exam, No abrasion and No laceration Mouth: Normal oral and palatal mucosa present, no drooling and no muffled voice Eyes: General: appearance normal, both eyes and all related structures Periorbital: periorbital findings normal Eyelids: Yes eyelids normal Conjunctivae: conjunctivae normal Pupils: Equal, round and reactive pupils present EOM: EOMs intact bilaterally Neck: Neck: Yes normal visual inspection, Yes full ROM and Yes no lymphadenopathy Chest: Chest palpation & inspection: normal inspection of the chest Resp: Effort & Inspection: normal respiratory effort and able to speak in complete sentences Auscultation: clear to auscultation bilaterally Cardio: Rate: regular rate Rhythm: regular rhythm GI: Inspection: Yes normal to inspection Skin: Other: right lower leg wound with surrounding erythema and warmth, venous stasis changes to bilateral lower legs Neuro: General: patient oriented x3 and moves all extremities Cranial nerves: Yes Equal, round and reactive pupils present Cognition (Neuro): normal cognition Motor exam (neuro): 5/5 motor strength present throughout Sensory Exam: Normal double simultaneous stimulation for sensation Coordination: [id number] test normal Extrem: General: Yes normal to inspection, Yes full ROM and Yes capillary refill normal Psych: Appearance: grossly normal Mental Status: mental status grossly normal Affect: normal affect Attitude: cooperative Thought process: Normal thought process present Thought content: Normal thought content present Insight: Good insight present (Psych) MDM - Wound/Laceration MDM Narrative Medical decision making narrative: Patient is a 51 year old male presenting to the emergency department today with a wound to his right lower leg. Patient's physical exam showed a wound to his right lower leg with surrounding erythema and warmth as well as chronic venous stasis changes to his bilateral lower legs. Patient's venous doppler US of the right lower leg showed no acute process. I explained my physical exam findings as well as all test results to the patient. I answered all questions asked by the patient. I stressed the importance of the patient taking his medication as prescribed. I stressed the importance of the patient following up with his primary care provider. I stressed the importance of the patient returning to the emergency department immediately if his symptoms were to worsen or if he were to develop any dizziness, shortness of breath, difficulty breathing, chest pain, blurry vision, loss of vision, nausea, vomiting, abdominal pain, fever, chills, back pain, or any other complaints. Patient verbalized agreement and understanding with this treatment plan and discharge. Differential Diagnosis Differential diagnosis: Likely abscess Medical Records Attestation: I reviewed the patient's medical records. Imaging Data Venous US: Attestation: I personally reviewed and interpreted this imaging study as follows: My impression: No acute DVT. Radiologist's impression: EXAMINATION:? US VENOUS ULTRASOUND WITH DOPPLER LOWER EXTREMITY, RIGHT CLINICAL INFORMATION:? Pain and swelling. History of right venoseal. COMPARISON:? Right lower extremity Doppler exam 08/25/2021 TECHNIQUE: Ultrasound of the deep veins is performed from the hip to the calf with compression sonography and color and pulse Doppler assessment. Spectral analysis with color-flow imaging is performed. FINDINGS: There is normal venous compression and respiratory variation and augmented flow. The visualized common femoral vein, superficial femoral vein, profunda femoral vein, popliteal vein, and the trifurcation region shows no evidence of deep venous thrombosis. Limited visualization of the posterior tibial vein and peroneal vein in the calf due to body habitus and swelling. No gross evidence of thrombus of these veins. There is a right-sided popliteal fossa cyst measuring 8.3 x 1.2 x 2.8 cm. There is a variously arising from the greater saphenous vein in the upper thigh extending into the mid thigh area. If the patient's symptoms persist, followup ultrasound in 5 days 7 days might be of value to exclude proximal propagation from a non-visualized calf vein. US/US venous duplex LE RT IMPRESSION: 1. No DVT demonstrated in the right lower extremity. 2. Popliteal fossa cyst. Dictated By: NATALIA HOWARD MD Signed By: Electronically signed by NATALIA HOWARD MD 11/27/21 3956 Discharge Plan Discharge Clinical Impression: Cellulitis Patient Disposition: Home, Self-Care Instructions: Cellulitis (DC) Additional Instructions: Follow up with your primary care provider and the wound center. Return to the emergency department immediately if your symptoms worsen or if you develop any dizziness, shortness of breath, difficulty breathing, chest pain, blurry vision, loss of vision, nausea, vomiting, abdominal pain, fever, chills, back pain, or any other complaints. Prescriptions: New cephalexin 500 mg capsule 500 mg PO Q6H 7 Days Qty: 28 0RF sulfamethoxazole-trimethoprim [Bactrim DS] 800-160 mg tablet 1 tab PO BID 7 Days Qty: 14 0RF No Action cholecalciferol (vitamin D3) 1,250 mcg (50,000 unit) capsule 1,250 mcg PO QWEEK Qty: 4 2RF naproxen [Naprosyn] 500 mg tablet 500 mg PO BID Qty: 20 0RF Lantus Solostar U-100 Insulin 100 unit/mL (3 mL) insulin pen 20 unit subcut QPM Qty: 15 0RF omeprazole 40 mg capsule,delayed release(DR/EC) 40 mg PO DAILY Qty: 20 0RF cephalexin 500 mg capsule 500 mg PO QID 10 Days Qty: 40 0RF doxycycline hyclate 100 mg tablet 100 mg PO BID Qty: 20 0RF albuterol sulfate 90 mcg/actuation HFA aerosol inhaler 2 puff inhalation Q4-6H PRN (Reason: Shortness Of Breath) 0RF bupropion HCl 150 mg tablet sustained-release 12 hr 150 mg PO BID 0RF metformin 1,000 mg tablet 1,000 mg PO BID 0RF atorvastatin 40 mg tablet 40 mg PO DAILY 0RF furosemide 20 mg tablet 40 mg PO DAILY PRN0RF methadone 40 mg tablet,soluble 125 mg PO DAILY 0RF tadalafil 5 mg tablet 5 mg PO DAILY PRN (Reason: sexual activity) 90 Days Qty: 90 0RF (DME) pen needle, diabetic [BD Mahi 2nd Gen Pen Needle] 32 gauge x 5/32 needle See Rx Instructions ea .ROUTE .MEDSUPPLY Qty: 50 0RF Rx Instructions: As directed (DME) FreeStyle Lite Strips Strip See Rx Instructions ea Not Applicable BID Qty: 10 0RF Rx Instructions: As directed atorvastatin 80 mg tablet 80 mg PO DAILY 0RF glipizide 10 mg tablet 10 mg PO BID 0RF tramadol 200 mg capsule,ER biphase 24 hr 25-75 200 mg PO DAILY Qty: 10 0RF Referrals: Abe Rivero MD, DO [Primary Care Provider] - 2 days Rambissoon,Evangelina, MD [Physician] - 2 days Interventions: ED Discharge Assessment Last Done: 11/27/21 16:19 Discharge Date/Time: 11/27/21 16:20 Print Language: Maltese
== END 2021-11-27 16:20 | disposition home or self-care (01) ==
PROVIDERS: Emergency Provider Emergency Medicine Emergency Medical Services; PCP Internal Medicine
DX: L03.115 Cellulitis of right lower limb (principal); I87.8 Other specified disorders of veins; M79.661 Pain in right lower leg; E11.9 Type 2 diabetes mellitus without complications; I10 Essential (primary) hypertension; F17.200 Nicotine dependence, unspecified, uncomplicated; F12.90 Cannabis use, unspecified, uncomplicated; Z79.4 Long term (current) use of insulin
CPT/HCPCS: 93971; 99283; 99284

== ENCOUNTER 2021-12-06 08:06 | Outpatient (RCR) | payer OTHER, SELFPAY | END 2022-01-21 15:19 | disposition home or self-care (01) | LOC: HO.WCC 08:06 | PROVIDERS: PCP Internal Medicine; Visit Provider Physician Assistant | DX: E11.622 Type 2 diabetes mellitus with other skin ulcer (principal); I87.311 Chronic venous hypertension (idiopathic) with ulcer of right lower extremity; L97.811 Non-pressure chronic ulcer of other part of right lower leg limited to breakdown of skin; E11.65 Type 2 diabetes mellitus with hyperglycemia; Z79.84 Long term (current) use of oral hypoglycemic drugs; Z79.4 Long term (current) use of insulin; Z79.899 Other long term (current) drug therapy; Z79.2 Long term (current) use of antibiotics | CPT/HCPCS: 11042; 97597; 99212 ==

== ENCOUNTER → 2021-12-28 14:56 | Outpatient (BNVA) | payer OTHER, SELFPAY | PROVIDERS: PCP Internal Medicine; Visit Provider Surgery Vascular Surgery | DX: I83.12 Varicose veins of left lower extremity with inflammation (principal) | CPT/HCPCS: 99212 ==

== ENCOUNTER 2022-01-03 07:56 | Day surgery (SDC) | payer OTHER, SELFPAY ==
[2022-01-03] VITALS (8 sets, daily range): BP systolic 114–138; BP diastolic 49–90; PULSE 55–82; RESP 14–18; TEMP 36.7–36.8; O2SAT 90–96; BMI 49.3
[2022-01-03 08:21] LABS: Hematocrit 47.6 % (42.0-52.0); Hemoglobin 15.3 g/dl (14.0-18.0); Mean Corpuscular HGB Conc 32.1 g/dl (31.0-36.0); Mean Corpuscular Hemoglobin 29.3 pg (27.0-33.0); Mean Corpuscular Volume 91.2 fL (80.0-98.0); Mean Platelet Volume 10.5 fL (9.4-12.4); Platelet Count 171 X10*3/uL (160-400); Red Blood Count 5.22 X10*6/uL (4.60-5.80); Red Cell Distribution Width 13.9 % (11.0-16.0); White Blood Count 7.5 X10*3/uL (4.8-10.8)
[2022-01-03 08:23] LABS: Glucose, Whole Blood 119 mg/dL (60-115)
[2022-01-03 08:40] LABS: Anion Gap 13 (12-20); Blood Urea Nitrogen 15 mg/dL (9-16); Calcium 9.2 mg/dL (8.4-10.2); Carbon Dioxide 32 mmol/L (22-29); Chloride 98 mmol/L (96-108); Creatinine Clr Calc Pharmacy 155.6; Estimated Glomerular Filt Rate > 60; Glucose Random 121 mg/dL (60-115); Potassium 4.7 mmol/L (3.3-5.1); Sodium 138 mmol/L (135-145)
--- NOTE | 2022-01-03 10:10 | P.CONAN_ITS ---
[facility] Active Problems Active Problems: All Active Problems (Updated 11/28/21 @ 00:02 by Sudhir Muller) Varicose veins of left lower extremity with inflammation (Acute) Varicose veins of right lower extremity with inflammation (Acute) Erectile dysfunction due to arterial insufficiency (Acute) Penile pain (Acute) Vitamin D deficiency (Acute) Bipolar depression (Acute) BMI 50.0-59.9, adult (Acute) Morbid obesity due to excess calories (Acute) Shortness of breath (Acute) Preoperative examination (Acute) Chronic venous stasis (Acute) Hepatomegaly (Acute) Umbilical hernia (Acute) Ileitis, terminal (Acute) Portal hypertension (Acute) Left inguinal hernia (Acute) Morbid obesity (Acute) Past Medical History Medical History Arthritis Chronic venous stasis Depression Diabetes Exposure to COVID-19 virus Full dentures Hypertension Methadone use Morbid obesity Shortness of breath on exertion Sleep apnea Type 2 diabetes mellitus Wears partial dentures Family History Family History Father Diabetes Mother Diabetes 1.5, managed as type 2 HTN (hypertension) Hypercholesteremia Paternal Grandmother Diabetes 1.5, managed as type 2 Maternal Grandmother Lung cancer Maternal Grandfather Prostate cancer Sister No problems noted. Daughter No problems noted. Daughter No problems noted. Daughter No problems noted. Daughter No problems noted. Family history of problems with anesthesia: No Surgical History Surgical History H/O wisdom tooth extraction History of arthroscopic knee surgery History of carpal tunnel release History of retained foreign body fully removed History of umbilical hernia repair Status post ablation of incompetent vein using laser History of Problems with Anesthesia: No Social History Social History Alcohol intake: current Patient Tobacco Use Status: Current everyday Tobacco user Tobacco use type: Cigarette Cigarette Packs Per Day: 0.5 Cigarettes Per Day: 10.0 Years Smoked: 36 Use of substances other than those prescribed or required for medical reasons: Yes Substance Use Type: Marijuana Are you DNR?: No Advance Directives: No Advance Directives Information Provided: Yes Advance Directives on File: No Current occupational status: disabled Current occupation: right handed Meds Allergies Allergy/AdvReac Type Severity Reaction Status Date / Time No Known Allergies Allergy Unknown UNKNOWN Verified 12/28/21 14:59 Active Medications: Current Medications Lactated Ringer's (Lr) 1,000 mls @ 50 mls/hr IVCONT .Q20H LLOYD Home Medications Medication Instructions Recorded Confirmed Last Taken Type albuterol sulfate 90 mcg/actuation 2 puff INHALATION Q4-6H PRN 06/13/20 12/17/20 Unknown History aerosol inhaler atorvastatin 40 mg tablet 40 mg PO DAILY 06/13/20 12/17/20 Unknown History bupropion HCl 150 mg tablet,12 hr 150 mg PO BID 06/13/20 12/17/20 Unknown History sustained-release metformin 1,000 mg tablet 1,000 mg PO BID 06/13/20 12/17/20 Unknown History methadone 40 mg soluble tablet 125 mg PO DAILY tab 06/13/20 12/17/20 Unknown History furosemide 20 mg tablet 40 mg PO DAILY PRN 12/17/20 12/17/20 Unknown History atorvastatin 80 mg tablet 80 mg PO DAILY 07/01/21 Unknown History blood sugar diagnostic (FreeStyle #10 ea 07/01/21 Unknown History Lite Strips) glipizide 10 mg tablet 10 mg PO BID 07/01/21 Unknown History pen needle, diabetic 32 gauge x #50 ea 07/01/21 Unknown History (BD Mahi 2nd Gen Pen Needle) Exam Exam Date and Time: January 03, 2022 1010 Height,Weight and Vital Signs: Height 6 ft 1 in Weight 169.644 kg Last Vital Signs Temp 98.0 F 01/03/22 08:14 Pulse 55 01/03/22 08:14 Resp 16 01/03/22 08:14 BP 125/49 L 01/03/22 08:14 Pulse Ox 94 01/03/22 08:14 Pertinent Lab Results Pertinent Lab Results: Laboratory Tests 01/03/22 01/03/22 01/03/22 08:15 08:15 08:18 WBC 7.5 RBC 5.22 Hgb 15.3 Hct 47.6 MCV 91.2 MCH 29.3 MCHC 32.1 RDW 13.9 Plt Count 171 MPV 10.5 Absolute Nucleated RBC 0.000 Nucleated RBC % (auto) 0.0 Sodium 138 Potassium 4.7 Chloride 98 Carbon Dioxide 32 H Anion Gap 13 BUN 15 Creatinine 0.94 Estim Creat Clear Calc 155.6 Estimated GFR > 60 POC Glucose 119 H Random Glucose 121 H Calcium 9.2 Airway Mallampati Class: III TM Dist: >3cm Neck ROM: Full Denture: Upper Assessment and Plan Assessment Anesthesia Assessment: Anesthesia Plan Discussed, Smoking Cess. Discussed and Chart Reviewed Final Anesthetic Review Family History of Problems with Anesthesia: No History of Problems with Anesthesia: No NPO: Yes ASA Class: III Final Preanesthetic Review: No Changes in Pt Med Stat, Meds/Allgs Chart Reviewed, Consent Obtained/Reviewed and Anes Risks/Benef Reviewed Patient Risk: Intermediate Procedure Risk: Intermediate Anesthetic Plan Anesthetic Plan: GA Disposition: Standard PACU
--- NOTE | 2022-01-03 12:29 | P.OP_ITS ---
Operative Note Operative Note Date of Service: 01/03/22 Narrative: Operative note by [facility] Preoperative diagnosis: Left leg varicose veins with inflammation Postoperative diagnosis: Same Procedure:1. Left leg microphlebectomy (27) 2. Ligation of left leg venous clusters x2 Surgeon:Todd Gagnon M.D. Aviation Support Equipment Repairer: None Anesthesia: General Specimens: 1 Drains: None Estimated blood loss: 200 mL Indications: 51-year-old gentleman with significant varicosities that has had prior venous ulceration now presents for microphlebectomy. The patient has signed the informed consent after reviewing risks, complications, benefits, and alternatives previously discussed with the patient. The patient was given the opportunity to ask any additional questions or voice any concerns. All questions were answered to the patient's satisfaction. Procedure in detail:Varicose veins were marked in the standing position on the left leg and the patient was then placed in the supine position. The left lower extremity was prepared and draped to allow knee flexion in the sterile field. The patient had large superficial varicose veins with significant symptoms of pain. It was therefore determined to perform microphlebectomies of the clusters of varicose veins. The patient had bulging varicose veins which were previously marked in the standing position. A small stab incision was made longitudinally directly overlying the varicose vein in the calf and the varicose vein was grasped with a hemostat aided by a vein hook. It was then dissected as far proximally and distally as possible and avulsed. A total of 27 stab incisions were made and the procedure of stab phlebectomies was repeated 27 times. Once this was accomplished there was a cluster of varicosities in the left medial thigh and the left medial calf. The base of which was identified. This was then suture ligated with a 4-0 Monocryl suture. Residual varicosities were removed. And the incisions were then closed with the 4-0 Monocryl suture. Hemostasis was checked and stab incision sites were closed with steri-strips and sterile dressing was given with gauze and krilex wrap followed by an wilfrid bandage . There were no complications and blood loss was 200ml. Post-Op instructions were given and a follow-up appointment was recommended. This note is constructed using voice recognition software. While every effort has been made to ensure accuracy, chemical project engineer errors may have been included. Thank you for allowing me to participate in the care of your patient. Yours sincerely, Todd Gagnon MD, FACS, R.P.V.I.
--- NOTE | 2022-01-03 12:29 | MHC.SHP ---
Pre-Procedural Eval Section A Date of Service: 01/03/22 The patient is an INPATIENT: No Changes since office visit: Yes Patient answered all questions The History & Physical has been completed within 30 days and I have reviewed it.: Yes Section B Chief Complaint: vericose veins Allergies: Allergies Allergy/AdvReac Type Severity Reaction Status Date / Time No Known Allergies Allergy Unknown UNKNOWN Verified 12/28/21 14:59 Plan I have reviewed the history and physical and performed a pertinent physical examination on my patient. No changes have occurred unless specified.
[2022-01-03 12:40] LABS: Glucose, Whole Blood 102 mg/dL (60-115)
[2022-01-03] MEDS: oxyCODONE HCl Immed Release 5 MG TABLET 10 MG PO (12:51)
[2022-01-03] MEDS: fentaNYL citrate/PF 100 MCG/2 ML VIAL 50 MCG IVPUSH (12:56)
== END 2022-01-03 14:05 | disposition home or self-care (01) ==
PROVIDERS: PCP Internal Medicine; Visit Provider Surgery Vascular Surgery
PROC: (CPT 37766; principal; 2022-01-03 09:40)
DX: I83.12 Varicose veins of left lower extremity with inflammation (principal); I87.8 Other specified disorders of veins; E66.01 Morbid (severe) obesity due to excess calories; Z68.43 Body mass index [BMI] 50.0-59.9, adult; I10 Essential (primary) hypertension; E11.9 Type 2 diabetes mellitus without complications; Z79.84 Long term (current) use of oral hypoglycemic drugs; G47.30 Sleep apnea, unspecified; F32.9 Major depressive disorder, single episode, unspecified; Z98.890 Other specified postprocedural states; Z79.899 Other long term (current) drug therapy; F11.90 Opioid use, unspecified, uncomplicated; F17.210 Nicotine dependence, cigarettes, uncomplicated; F12.90 Cannabis use, unspecified, uncomplicated; Z97.2 Presence of dental prosthetic device (complete) (partial)
CPT/HCPCS: 37766; 37785; 36415; 80048; 82947; 85027; 88304; J0690; J2250; J2405; J2795; J3010

== ENCOUNTER 2022-01-12 11:37 | Outpatient (REF) | payer OTHER, SELFPAY ==
[2022-01-12 12:02] LABS: MANUAL DIFF FLAG NO
[2022-01-12 12:33] LABS: Basophils Percent Auto 0.1 % (0-2); Eosinophils Absolute Auto 0.2 X10*3/uL (0.0-0.4); Eosinophils Percent Auto 2.3 % (0-4); Hematocrit 43.2 % (42.0-52.0); Hemoglobin 13.7 g/dl (14.0-18.0); Imm Gran Abs Auto 0.07 X10*3/uL (0.00-0.03); Imm Gran Pct Auto 0.9 % (0.0-0.4); Lymphocytes Absolute Auto 2.2 X10*3/uL (1.2-4.9); Lymphocytes Percent Auto 29.1 % (20-40); Mean Corpuscular HGB Conc 31.7 g/dl (31.0-36.0); Mean Corpuscular Volume 91.3 fL (80.0-98.0); Mean Platelet Volume 11.3 fL (9.4-12.4); Monocytes Absolute Auto 0.5 X10*3/uL (0.1-1.2); Monocytes Percent Auto 6.5 % (2-11); Neutrophils Absolute Auto 4.7 x10*3/uL (2.0-8.3); Neutrophils Percent Auto 61.1 % (45-73); Platelet Count 201 X10*3/uL (160-400); Red Blood Count 4.73 X10*6/uL (4.60-5.80); Red Cell Distribution Width 14.3 % (11.0-16.0); White Blood Count 7.7 X10*3/uL (4.8-10.8)
[2022-01-12 12:38] LABS: Appearance Urine CLEAR; Color Urine YELLOW; Glucose Urine UA NEG (NEG); Leukocyte Esterase Urine NEG (NEG); Nitrite Urine NEG (NEG); Specific Gravity - Urine >= 1.030 (1.005-1.025); Urine Blood NEG (NEG); Urine Ketones NEG (NEG); Urine Protein NEG (NEG-TRACE)
[2022-01-12 12:43] LABS: Estimated Average Glucose 137 mg/dL; Hemoglobin A1c % 6.4 %
[2022-01-12 12:54] LABS: Microalbum/Creatinine Ratio Ur 5.9 ug/mg cr
[2022-01-12 13:06] LABS: Alanine Aminotransferase 41 U/L (0-40); Albumin Level 3.9 g/dL (3.5-5.0); Alkaline Phosphatase 84 U/L (39-117); Anion Gap 12 (12-20); Aspartate Amino Transferase 27 U/L (5-37); Bilirubin Total 0.4 mg/dL (0.0-1.0); Blood Urea Nitrogen 13 mg/dL (9-16); Calcium 9.4 mg/dL (8.4-10.2); Carbon Dioxide 30 mmol/L (22-29); Chloride 102 mmol/L (96-108); Cholesterol 127 mg/dL; Estimated Glomerular Filt Rate > 60; Glucose Fasting 86 mg/dL (60-99); HDL Cholesterol 30 mg/dL; LDL Cholesterol Calculated 69 mg/dl; Potassium 4.6 mmol/L (3.3-5.1); Sodium 139 mmol/L (135-145); Total Protein 6.6 g/dL (6.5-8.0); Triglycerides 144 mg/dL
== END 2022-01-12 11:38 | disposition home or self-care (01) ==
LOC: HO.LAB 11:37
PROVIDERS: PCP Internal Medicine; Visit Provider Internal Medicine
DX: E11.42 Type 2 diabetes mellitus with diabetic polyneuropathy (principal)
CPT/HCPCS: 36415; 80053; 80061; 81003; 82043; 83036; 85025

== ENCOUNTER → 2022-01-27 14:10 | Outpatient (BNVA) | payer OTHER, SELFPAY | PROVIDERS: PCP Internal Medicine; Visit Provider Surgery Vascular Surgery | DX: I83.12 Varicose veins of left lower extremity with inflammation (principal) | CPT/HCPCS: 99212 ==

== ENCOUNTER → 2022-02-04 09:01 | Outpatient (BNVA) | payer OTHER, SELFPAY | PROVIDERS: PCP Internal Medicine; Visit Provider Surgery Vascular Surgery | DX: I83.12 Varicose veins of left lower extremity with inflammation (principal) | CPT/HCPCS: 36475 ==

== ENCOUNTER → 2022-02-17 15:07 | Outpatient (BNVA) | payer OTHER, SELFPAY | PROVIDERS: PCP Internal Medicine; Visit Provider Surgery Vascular Surgery | DX: I83.11 Varicose veins of right lower extremity with inflammation (principal) | CPT/HCPCS: 99212 ==

== ENCOUNTER 2022-02-21 08:19 | Day surgery (SDC) | payer OTHER, SELFPAY ==
--- NOTE | 2022-02-18 12:30 | HO.ANESPROP2 ---
Documented by User: Melinda Perry NP 02/18/22 12:34 HPI - Anesthesia Eval Consult details Narrative: 51yo M for Right Micro Phlebectomy s/p phlebectomy 12/2021 with LMA to GA-ETT 7.5 Methadone daily PMFSH Active Problems Active Problems: All Active Problems (Updated 11/28/21 @ 00:02 by Sudhir Muller) Varicose veins of left lower extremity with inflammation (Acute) Varicose veins of right lower extremity with inflammation (Acute) Erectile dysfunction due to arterial insufficiency (Acute) Penile pain (Acute) Vitamin D deficiency (Acute) Bipolar depression (Acute) BMI 50.0-59.9, adult (Acute) Morbid obesity due to excess calories (Acute) Shortness of breath (Acute) Preoperative examination (Acute) Chronic venous stasis (Acute) Hepatomegaly (Acute) Umbilical hernia (Acute) Ileitis, terminal (Acute) Portal hypertension (Acute) Left inguinal hernia (Acute) Morbid obesity (Acute) Past Medical History Medical History Arthritis Chronic venous stasis Depression Diabetes Exposure to COVID-19 virus Full dentures Hypertension Methadone use Morbid obesity Shortness of breath on exertion Sleep apnea Type 2 diabetes mellitus Wears partial dentures Family History Family History Father Diabetes Mother Diabetes 1.5, managed as type 2 HTN (hypertension) Hypercholesteremia Paternal Grandmother Diabetes 1.5, managed as type 2 Maternal Grandmother Lung cancer Maternal Grandfather Prostate cancer Sister No problems noted. Daughter No problems noted. Daughter No problems noted. Daughter No problems noted. Daughter No problems noted. Family history of problems with anesthesia: No Surgical History Surgical History H/O wisdom tooth extraction History of arthroscopic knee surgery History of carpal tunnel release History of retained foreign body fully removed History of umbilical hernia repair Status post ablation of incompetent vein using laser History of Problems with Anesthesia: No Social History Social History Alcohol intake: current Alcohol intake frequency: does not drink Patient Tobacco Use Status: Current everyday Tobacco user Tobacco use type: Cigarette Cigarette Packs Per Day: 0.5 Cigarettes Per Day: 10.0 Years Smoked: 36 Use of substances other than those prescribed or required for medical reasons: Yes Substance Use Type: Marijuana Are you DNR?: No Advance Directives: No Advance Directives Information Provided: Yes Advance Directives on File: No Current occupational status: disabled Current occupation: right handed Meds Allergies Allergy/AdvReac Type Severity Reaction Status Date / Time No Known Allergies Allergy Unknown UNKNOWN Verified 02/17/22 15:11 Home Medications Medication Instructions Recorded Confirmed Last Taken Type albuterol sulfate 90 mcg/actuation 2 puff inhalation Q4-6H PRN 06/13/20 12/17/20 Unknown History aerosol inhaler Shortness Of Breath bupropion HCl 150 mg tablet,12 hr 150 mg PO BID 06/13/20 12/17/20 02/21/22 History sustained-release metformin 1,000 mg tablet 1,000 mg PO BID 06/13/20 12/17/20 02/21/22 History methadone 40 mg soluble tablet 125 mg PO DAILY 06/13/20 12/17/20 02/21/22 History furosemide 20 mg tablet 40 mg PO DAILY PRN 12/17/20 12/17/20 Unknown History atorvastatin 80 mg tablet 80 mg PO DAILY 07/01/21 Unknown History blood sugar diagnostic (FreeStyle #10 ea 07/01/21 Unknown History Lite Strips) glipizide 10 mg tablet 10 mg PO BID 07/01/21 02/21/22 History pen needle, diabetic 32 gauge x #50 ea 07/01/21 Unknown History (BD Mahi 2nd Gen Pen Needle) gabapentin 300 mg capsule 300 mg PO DAILY 01/27/22 02/21/22 History Exam Exam Date and Time: February 18, 2022 1230 Pertinent Lab Results Pertinent Lab Results: Laboratory Tests 01/12/22 01/12/22 12:01 12:01 WBC 7.7 Hgb 13.7 L Hct 43.2 Plt Count 201 Sodium 139 Potassium 4.6 Chloride 102 Carbon Dioxide 30 H BUN 13 Creatinine 0.81 Narrative Narrative: EKG 05/2021 Vent. Rate : 058 BPM ? ? Atrial Rate : 058 BPM ?? P-R Int : 144 ms? QRS Dur : 094 ms ? ? QT Int : 444 ms ? ? ? P-R-T Axes : 022 023 021 degrees ?? QTc Int : 435 ms ? Sinus bradycardia Possible Left atrial enlargement Nonspecific T wave abnormality Abnormal ECG When compared with ECG of 20-APR-2021 10:24, No significant change was found Assessment and Plan Assessment Anesthesia Assessment: Chart Reviewed Final Anesthetic Review Family History of Problems with Anesthesia: No History of Problems with Anesthesia: No Documented by User: Kriss Marquez MD 02/21/22 09:59 [facility] Active Problems Active Problems: All Active Problems (Updated 11/28/21 @ 00:02 by Sudhir Muller) Varicose veins of left lower extremity with inflammation (Acute) Varicose veins of right lower extremity with inflammation (Acute) Erectile dysfunction due to arterial insufficiency (Acute) Penile pain (Acute) Vitamin D deficiency (Acute) Bipolar depression (Acute) BMI 50.0-59.9, adult (Acute) Morbid obesity due to excess calories (Acute) Shortness of breath (Acute) Preoperative examination (Acute) Chronic venous stasis (Acute) Hepatomegaly (Acute) Umbilical hernia (Acute) Ileitis, terminal (Acute) Portal hypertension (Acute) Left inguinal hernia (Acute) Morbid obesity (Acute) YANDY not using CPAP Took his methadone this am Took metformin and glipizide this am. BS 133 Past Medical History Medical History Arthritis Chronic venous stasis Depression Diabetes Exposure to COVID-19 virus Full dentures Hypertension Methadone use Morbid obesity Shortness of breath on exertion Sleep apnea Type 2 diabetes mellitus Wears partial dentures Family History Family History Father Diabetes Mother Diabetes 1.5, managed as type 2 HTN (hypertension) Hypercholesteremia Paternal Grandmother Diabetes 1.5, managed as type 2 Maternal Grandmother Lung cancer Maternal Grandfather Prostate cancer Sister No problems noted. Daughter No problems noted. Daughter No problems noted. Daughter No problems noted. Daughter No problems noted. Surgical History Surgical History H/O wisdom tooth extraction History of arthroscopic knee surgery History of carpal tunnel release History of retained foreign body fully removed History of umbilical hernia repair Status post ablation of incompetent vein using laser Social History Social History Alcohol intake: current Alcohol intake frequency: does not drink Patient Tobacco Use Status: Current everyday Tobacco user Tobacco use type: Cigarette Cigarette Packs Per Day: 0.5 Cigarettes Per Day: 10.0 Years Smoked: 36 Use of substances other than those prescribed or required for medical reasons: Yes Substance Use Type: Marijuana Are you DNR?: No Advance Directives: No Advance Directives Information Provided: Yes Advance Directives on File: No Current occupational status: disabled Current occupation: right handed Meds Allergies Allergy/AdvReac Type Severity Reaction Status Date / Time No Known Allergies Allergy Unknown UNKNOWN Verified 02/17/22 15:11 Home Medications Medication Instructions Recorded Confirmed Last Taken Type albuterol sulfate 90 mcg/actuation 2 puff inhalation Q4-6H PRN 06/13/20 12/17/20 Unknown History aerosol inhaler Shortness Of Breath bupropion HCl 150 mg tablet,12 hr 150 mg PO BID 06/13/20 12/17/20 02/21/22 History sustained-release metformin 1,000 mg tablet 1,000 mg PO BID 06/13/20 12/17/20 02/21/22 History methadone 40 mg soluble tablet 125 mg PO DAILY 06/13/20 12/17/20 02/21/22 History furosemide 20 mg tablet 40 mg PO DAILY PRN 12/17/20 12/17/20 Unknown History atorvastatin 80 mg tablet 80 mg PO DAILY 07/01/21 Unknown History blood sugar diagnostic (FreeStyle #10 ea 07/01/21 Unknown History Lite Strips) glipizide 10 mg tablet 10 mg PO BID 07/01/21 02/21/22 History pen needle, diabetic 32 gauge x #50 ea 07/01/21 Unknown History (BD Mahi 2nd Gen Pen Needle) gabapentin 300 mg capsule 300 mg PO DAILY 01/27/22 02/21/22 History Exam Height,Weight and Vital Signs: Height 6 ft 5 in Weight 174.633 kg Vital Signs Temp Pulse Resp BP Pulse Ox O2 Del Method 02/21/22 08:41 97.6 F 60 18 107/49 L 94 Room Air Airway Mallampati Class: II TM Dist: >3cm Neck ROM: Full Denture: Upper Loose/Missing/Broken Teeth: Yes (Only few teeth in bottom. None broken or loose ) Heart: RRR Lungs: CTAB Assessment and Plan Assessment Anesthesia Assessment: Anesthesia Plan Discussed Final Anesthetic Review NPO: Yes ASA Class: III Final Preanesthetic Review: No Changes in Pt Med Stat, Meds/Allgs Chart Reviewed, Consent Obtained/Reviewed and Anes Risks/Benef Reviewed Patient Risk: Intermediate Procedure Risk: Low Assessment/Block/Sedation in SS: Assess/Block/Sedation-SS Anesthetic Plan Anesthetic Plan: GA Disposition: Standard PACU
[2022-02-21] VITALS (12 sets, daily range): BP systolic 107–161; BP diastolic 46–84; PULSE 54–93; RESP 16–22; TEMP 36.2–36.4; O2SAT 90–98; BMI 45.6
[2022-02-21 08:53] LABS: Glucose, Whole Blood 133 mg/dL (60-115)
--- NOTE | 2022-02-21 10:29 | P.OP_ITS ---
Operative Note Operative Note Date of Service: 02/21/22 Narrative: Operative note by [facility] Preoperative diagnosis: Right leg varicose veins with inflammation Postoperative diagnosis: Same Procedure:1. Right leg microphlebectomy (23) 2. Ligation of right leg venous cluster Surgeon:Todd Gagnon M.D. Patternator: Charlene Anesthesia: General Specimens: 1 Drains: None Estimated blood loss: Minimal Indications: 51-year-old gentleman with history venous insufficiency. He has had a prior all right leg venous ablation. He now presents for microphlebectomy. The patient has signed the informed consent after reviewing risks, complications, benefits, and alternatives previously discussed with the patient. The patient was given the opportunity to ask any additional questions or voice any concerns. All questions were answered to the patient's satisfaction. Procedure in detail: Varicose veins were marked in the standing position on the right leg and the patient was then placed in the supine position. The right lower extremity was prepared and draped to allow knee flexion in the sterile field. The patient had large superficial varicose veins with significant symptoms of pain. It was therefore determined to perform microphlebectomies of the clusters of varicose veins. The patient had bulging varicose veins which were previously marked in the standing position. A small stab incision was made longitudinally directly overlying the varicose vein in the calf and the varicose vein was grasped with a hemostat aided by a vein hook. It was then dissected as far proximally and distally as possible and avulsed. A total of 23 stab incisions were made and the procedure of stab phlebectomies was repeated 23 times. In addition there was a large cluster of varicosities noted in the right posterior calf. Incision was made over the base of the cluster. This was suture ligated with a 3-0 poly Sorb tie. Residual varicosities were removed with microphlebectomy Hawks and mosquitos. Once again direct pressure was held to obtain hemostasis. Stitch had to be placed in the skin in order to obtain closure. Hemostasis was checked and stab incision sites were closed with steri-strips and sterile dressing was given with gauze and krilex wrap followed by an wilfrid bandage. There were no complications and blood loss was minimal. Post-Op instructions were given and a follow-up appointment was recommended. This note is constructed using voice recognition software. While every effort has been made to ensure accuracy, documentation spec errors may have been included. Thank you for allowing me to participate in the care of your patient. Yours sincerely, Todd Gagnon MD, FACS, R.P.V.I.
--- NOTE | 2022-02-21 10:29 | MHC.SHP ---
Pre-Procedural Eval Section A Date of Service: 02/21/22 The patient is an INPATIENT: No Changes since office visit: Yes Patient answered all questions The History & Physical has been completed within 30 days and I have reviewed it.: Yes Section B Chief Complaint: Varicose veins of right lower extremity with infla Allergies: Allergies Allergy/AdvReac Type Severity Reaction Status Date / Time No Known Allergies Allergy Unknown UNKNOWN Verified 02/17/22 15:11 Plan I have reviewed the history and physical and performed a pertinent physical examination on my patient. No changes have occurred unless specified.
[2022-02-21 11:04] LABS: Glucose, Whole Blood 105 mg/dL (60-115)
== END 2022-02-21 13:20 | disposition home or self-care (01) ==
PROVIDERS: PCP Internal Medicine; Visit Provider Surgery Vascular Surgery
PROC: (CPT 37766; principal; 2022-02-21 09:50)
DX: I83.11 Varicose veins of right lower extremity with inflammation (principal); M19.90 Unspecified osteoarthritis, unspecified site; F32.9 Major depressive disorder, single episode, unspecified; G47.30 Sleep apnea, unspecified; R06.02 Shortness of breath; E11.9 Type 2 diabetes mellitus without complications; Z79.84 Long term (current) use of oral hypoglycemic drugs; E66.01 Morbid (severe) obesity due to excess calories; Z68.43 Body mass index [BMI] 50.0-59.9, adult; Z97.2 Presence of dental prosthetic device (complete) (partial); F17.210 Nicotine dependence, cigarettes, uncomplicated; F11.90 Opioid use, unspecified, uncomplicated; Z98.890 Other specified postprocedural states
CPT/HCPCS: 37766; 37785; 82947; 88304; 94660; J0690; J2250; J2405; J2795; J3010

== ENCOUNTER → 2022-03-17 15:01 | Outpatient (BNVA) | payer OTHER, SELFPAY | PROVIDERS: PCP Internal Medicine; Visit Provider Surgery Vascular Surgery | DX: I83.11 Varicose veins of right lower extremity with inflammation (principal) | CPT/HCPCS: 99212 ==

== ENCOUNTER 2022-05-27 14:07 | Outpatient (REF) | payer OTHER, SELFPAY ==
--- NOTE | ~2022-05-27 | US_ITS ---
EXAMINATION: US THYROID CLINICAL INFORMATION: Right supraclavicular mass. COMPARISON: None TECHNIQUE: Linear transducer grayscale and color Doppler examination with attention to the region of the thyroid. FINDINGS: SIZE: Measurements of the thyroid lobes and nodules are given in sagittal, anteroposterior and transverse dimensions respectively. Right Thyroid Lobe: 5.08 x 2.60 x 1.14 cm, volume 7.92 mL. Parenchyma: The gland echotexture is homogeneous. Thyroid vascularity is normal. Left Thyroid Lobe: 4.92 x 2.01 x 1.99 cm, volume 10.3 mL. Parenchyma: The gland echotexture is homogeneous. Thyroid vascularity is normal. Isthmus: 0.79 cm in maximum AP dimension. Estimated total number of nodules greater than or equal to 1 cm: 1. 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 Location: Right superior. Size: 1.2 x 1.01 x 1.33 cm, volume 0.83 mL. Nodule characteristics: Composition: Cannot be determined (2). Echogenicity: Very hypoechoic (3). Shape: Not taller than wide (0). Margins: Smooth (0). Echogenic Foci: Peripheral calcifications (2). ACR TI-RADS total points: 7 ACR TI-RADS category: 5 NODES: No lymphadenopathy is seen in the tissue surrounding the thyroid gland. US/US thyroid IMPRESSION: 1.3 cm TR 5 nodule of the right thyroid lobe. FNA recommended. ACR TI-RADS RECOMMENDATION REFERENCE: Ultrasound-guided fine-needle aspiration, followup ultrasound, no further follow up. * TR5 (more than or equal to 7 points): FNA if more than or equal to 1 cm in maximum dimension, followup ultrasound every year for 5 years if 0.5 to 0.9 cm in maximum dimension. * TR3, TR4 or TR5 nodules that are below the size threshold for followup receive no follow up.
== END 2022-05-27 14:08 | disposition home or self-care (01) ==
LOC: HO.HMGCX 14:07
DX: R22.2 Localized swelling, mass and lump, trunk (principal)
CPT/HCPCS: 76536

== ENCOUNTER → 2022-06-16 15:44 | Outpatient (BNVA) | payer OTHER, SELFPAY | PROVIDERS: PCP Internal Medicine; Visit Provider Surgery Vascular Surgery | DX: I83.11 Varicose veins of right lower extremity with inflammation (principal); I83.12 Varicose veins of left lower extremity with inflammation; R09.89 Other specified symptoms and signs involving the circulatory and respiratory systems; E66.01 Morbid (severe) obesity due to excess calories | CPT/HCPCS: 99212 ==

== ENCOUNTER 2022-07-11 14:13 | Outpatient (REF) | payer OTHER, SELFPAY ==
[2022-07-11 16:42] LABS: Free T4 (Free Thyroxine) 0.95 ng/dL (0.71-1.85); Thyroid Stimulating Hormone 1.28 uIU/mL (0.32-4.0)
== END 2022-07-11 14:14 | disposition home or self-care (01) ==
LOC: HO.LAB 14:13
PROVIDERS: PCP Internal Medicine; Visit Provider Internal Medicine
DX: E04.2 Nontoxic multinodular goiter (principal)
CPT/HCPCS: 36415; 84439; 84443; 99202

== ENCOUNTER 2022-07-18 13:22 | Outpatient (REF) | payer OTHER, SELFPAY ==
--- NOTE | ~2022-07-18 | CT_ITS ---
CT SOFT TISSUE NECK WITHOUT CONTRAST CLINICAL INFORMATION: Nontoxic multinodular goiter. COMPARISON: Thyroid ultrasound 05/27/2022. TECHNIQUE: Helical imaging was performed in the axial plane with generation of coronal and sagittal reformatted images. This CT examination was performed using dose optimization techniques as appropriate, variously including the following: *Automated exposure control *Adjustment of mA and/or kV according to patient size (this includes techniques or standardized protocols for targeted exams where dose is matched to indication/reason for exam; i.e. extremities or head) *Use of iterative reconstruction technique FINDINGS: Limited noncontrast CT of the neck. A right thyroid lobe nodule seen on the prior thyroid ultrasound is not well appreciated on this noncontrast neck CT. Artifact significantly obscures the visceral space of the neck. There is no pathologic size criteria lymphadenopathy within the neck. There is no mass effect on the trachea nor the esophagus. The unenhanced submandibular glands, parotid glands, and orbital soft tissues are unremarkable. Calcified tonsilloliths within the palatine tonsils bilaterally. Atherosclerotic calcification involving the carotid bifurcations bilaterally. The orbital soft tissues are unremarkable. There is multilevel cervical spondylosis. There is significant rightward deviation of the nasal septum. There is mild mucosal thickening throughout the ethmoid air cells bilaterally. Chronic traumatic deformity of the right lamina papyracea. Imaged upper lungs are clear. Imaged upper mediastinum is unremarkable. CT/CT soft tissue neck wo IV con IMPRESSION: - Limited noncontrast CT of the neck. A right thyroid lobe nodule seen on the prior thyroid ultrasound is not well appreciated on this noncontrast neck CT. Artifact significantly obscures the visceral space of the neck. There is no pathologic size criteria lymphadenopathy within the neck. There is no mass effect on the trachea nor the esophagus. - A palpable marker has been placed within the right supraclavicular region above the level of the thyroid. No definite discrete mass lesion is identified in this location though assessment is limited without contrast. Consider a postcontrast neck CT for further assessment as clinically indicated.
== END 2022-07-18 13:23 | disposition home or self-care (01) ==
LOC: HO.CT 13:22
PROVIDERS: PCP Internal Medicine; Visit Provider Internal Medicine
DX: E04.2 Nontoxic multinodular goiter (principal)
CPT/HCPCS: 70490

== ENCOUNTER 2022-08-10 14:28 | Outpatient (REF) | payer OTHER, SELFPAY ==
--- NOTE | ~2022-08-10 | US_ITS ---
EXAMINATION: US EXTRACRANIAL CAROTID DUPLEX, BILATERAL CLINICAL INFORMATION: Bruit COMPARISON: None TECHNIQUE: Real-time ultrasound and Doppler techniques (integrating B-mode 2-D vascular images, Doppler spectral analysis and color-flow Doppler imaging) were utilized to interrogate the extracranial carotid arteries, the vertebral arteries and proximal subclavian arteries bilaterally. The degree of stenosis is determined by criteria similar to NASCET. FINDINGS: Right Side: 1. There is no significant atherosclerotic plaque seen in the bifurcation/proximal ICA region. 2. The common carotid artery PSV proximally is 144 cm/s and distally 96 cm/s. 3. The proximal internal carotid artery velocities are 81 cm/s systolic and 20 cm/s diastolic. 4. The proximal external carotid artery PSV is 139 cm/s. 5. The vertebral artery shows antegrade flow. 6. The subclavian artery waveforms are normal. Left Side: 1. There is no significant atherosclerotic plaque seen in the bifurcation/proximal ICA region. 2. The common carotid artery PSV proximally is 127 cm/s and distally 81 cm/s. 3. The proximal internal carotid artery velocities are 65 cm/s systolic and 14 cm/s diastolic. 4. The proximal external carotid artery PSV is 99 cm/s. 5. The vertebral artery shows antegrade flow. 6. The subclavian artery waveforms are normal. US/US carotid duplex BI IMPRESSION: 1. RIGHT: Normal right internal carotid artery without atherosclerotic plaque or hemodynamically significant stenosis. 2. LEFT: Normal left internal carotid artery without atherosclerotic plaque or hemodynamically significant stenosis.
== END 2022-08-10 14:29 | disposition home or self-care (01) ==
LOC: HO.HMGCX 14:28
PROVIDERS: PCP Internal Medicine; Visit Provider Surgery Vascular Surgery
DX: R09.89 Other specified symptoms and signs involving the circulatory and respiratory systems (principal)
CPT/HCPCS: 93880

== ENCOUNTER 2022-08-19 09:44 | Outpatient (REF) | payer OTHER, SELFPAY ==
--- NOTE | 2022-08-19 | PFT_ITS ---
Forced vital capacity 80%, FEV1 76%, FEV1/FVC ratio is 74. [id number] 70% and MVV 62%. Post bronchodilator therapy, there is no significant change. Total lung capacity 94%. Residual volume 129%. Diffusion capacity 95% CONCLUSION: Normal pulmonary function test, and there is no evidence of any obstructive or restrictive pulmonary disorder. MD SARAH Tan/CRISTOBAL / [id number]
== END 2022-08-19 09:45 | disposition home or self-care (01) ==
LOC: HO.RESP 09:44
PROVIDERS: PCP Internal Medicine; Visit Provider Internal Medicine
DX: J45.20 Mild intermittent asthma, uncomplicated (principal)
CPT/HCPCS: 94060; 94727; 94729

== ENCOUNTER → 2022-10-13 15:19 | Outpatient (BNVA) | payer OTHER, SELFPAY | PROVIDERS: PCP Internal Medicine; Visit Provider Surgery Vascular Surgery | DX: R01.1 Cardiac murmur, unspecified (principal); I83.11 Varicose veins of right lower extremity with inflammation; I83.12 Varicose veins of left lower extremity with inflammation; E66.01 Morbid (severe) obesity due to excess calories; F17.210 Nicotine dependence, cigarettes, uncomplicated; Z68.43 Body mass index [BMI] 50.0-59.9, adult | CPT/HCPCS: 99212 ==

== ENCOUNTER 2022-12-01 10:47 | Outpatient (REF) | payer OTHER, SELFPAY ==
--- NOTE | 2022-12-01 11:25 | P.BOP_ITS ---
Brief Operative Note Date of Service: 12/01/22 Pre-op diagnosis: Multinodular Thyroid Procedure: EXAMINATION: US THYROID CLINICAL INFORMATION: Multinodular Thyroid COMPARISON: Prior TECHNIQUE: Linear transducer mendez-scale and color Doppler examination with attention to the region of the thyroid. FINDINGS: SIZE: Measurements of the thyroid lobes and nodules are given in sagittal, anteroposterior and transverse dimensions respectively. Right Thyroid Lobe: 5.3 x 2.2 x 2.1 cm, volume 12.8 mL. Parenchyma: The gland echotexture is diffusely heterogenous. Thyroid vascularity is normal. Left Thyroid Lobe: 4.7 x 2.0 x 2.3 cm, volume 11.3 mL. Parenchyma: The gland echotexture is diffusely heterogenous. Thyroid vascularity is normal. Isthmus: 0.5 cm in maximum AP dimension. There are no nodules visualized. NODES: No lymph nodes were assessed during today's visit. Surgeon: Korina Burgos, DO Was an Table Runner used for this Procedure?: No Estimated blood loss (mL): 0
== END 2022-12-01 10:48 | disposition home or self-care (01) ==
LOC: HO.US 10:47
PROVIDERS: Visit Provider Internal Medicine
DX: E04.2 Nontoxic multinodular goiter (principal)
CPT/HCPCS: 76536

== ENCOUNTER 2022-12-09 14:01 | Outpatient (REF) | payer OTHER, SELFPAY ==
--- NOTE | ~2022-12-09 | CT_ITS ---
EXAMINATION: CT CHEST SCREENING CLINICAL INFORMATION: Nicotine dependence. Current smoker one pack per day for 40 years. COMPARISON: None available. TECHNIQUE: Multidetector volumetric CT imaging of the chest is performed without contrast using low dose technique. Additional 2D coronal and sagittal reformatted images and axial 3D maximum intensity projection (MIP) images are generated on the CT workstation. This CT examination was performed using dose optimization techniques as appropriate, variously including the following: *Automated exposure control *Adjustment of mA and/or kV according to patient size (this includes techniques or standardized protocols for targeted exams where dose is matched to indication/reason for exam; i.e. extremities or head) *Use of iterative reconstruction technique DLP: 143 mGy-cm FINDINGS: LUNGS: The lungs are well-expanded and clear of acute process. The heart size and pulmonary vascularity is normal. MEDIASTINUM: The thyroid lobes are symmetric and normal. The central trachea and the bronchi are widely patent. No abnormal mediastinal adenopathy. Heart size and great vessels are normal caliber. CORONARY ARTERY CALCIFICATION: None visualized on this study. PLEURA: There is no pleural effusion. No pleural mass or thickening. AXILLA: No lymphadenopathy. UPPER ABDOMEN: Visualized liver, spleen, pancreas and bilateral adrenal glands are unremarkable. OSSEOUS STRUCTURES: No aggressive lytic or sclerotic process seen. There is mild ventral spondylosis lower dorsal spine. CT/CT lung screening IMPRESSION: Unremarkable CT chest exam. No pulmonary nodule, mass or abnormal chest lymphadenopathy. ASSESSMENT: Lung-RADS category 1: Negative. RECOMMENDATION: Low-dose annual CT chest.
== END 2022-12-09 14:02 | disposition home or self-care (01) ==
LOC: HO.CT 14:01
PROVIDERS: PCP Internal Medicine; Visit Provider Physician Assistant Medical
DX: Z12.2 Encounter for screening for malignant neoplasm of respiratory organs (principal); F17.210 Nicotine dependence, cigarettes, uncomplicated
CPT/HCPCS: 71271; G0296

== ENCOUNTER → 2022-12-15 13:11 | Outpatient (BNVA) | payer OTHER, SELFPAY | PROVIDERS: PCP Internal Medicine; Visit Provider Internal Medicine | DX: E04.2 Nontoxic multinodular goiter (principal) | CPT/HCPCS: 99212 ==

== ENCOUNTER 2023-03-08 07:41 | Outpatient (REF) | payer OTHER, SELFPAY ==
[2023-03-08 11:16] LABS: MANUAL DIFF FLAG NO
[2023-03-08 11:21] LABS: Basophils Percent Auto 0.3 % (0-2); Eosinophils Absolute Auto 0.2 X10*3/uL (0.0-0.4); Eosinophils Percent Auto 2.8 % (0-4); Hematocrit 47.1 % (42.0-52.0); Hemoglobin 15.4 g/dl (14.0-18.0); Imm Gran Abs Auto 0.04 X10*3/uL (0.00-0.03); Imm Gran Pct Auto 0.6 % (0.0-0.4); Lymphocytes Absolute Auto 2.4 X10*3/uL (1.2-4.9); Lymphocytes Percent Auto 35.2 % (20-40); Mean Corpuscular HGB Conc 32.7 g/dl (31.0-36.0); Mean Corpuscular Volume 91.6 fL (80.0-98.0); Mean Platelet Volume 12.7 fL (9.4-12.4); Monocytes Absolute Auto 0.5 X10*3/uL (0.1-1.2); Monocytes Percent Auto 7.4 % (2-11); Neutrophils Absolute Auto 3.7 x10*3/uL (2.0-8.3); Neutrophils Percent Auto 53.7 % (45-73); Platelet Count 173 X10*3/uL (160-400); Red Blood Count 5.14 X10*6/uL (4.60-5.80); Red Cell Distribution Width 13.4 % (11.0-16.0); White Blood Count 6.8 X10*3/uL (4.8-10.8)
[2023-03-08 11:31] LABS: Estimated Average Glucose 151 mg/dL; Hemoglobin A1c % 6.9 %
[2023-03-08 11:36] LABS: Appearance Urine Clear; Color Urine Yellow; Glucose Urine UA Negative (Negative); Leukocyte Esterase Urine Trace (Negative); Nitrite Urine Negative (Negative); Specific Gravity - Urine 1.015 (1.005-1.025); UMIC TRIGGER UA YES; Urine Blood Negative (Negative); Urine Ketones Negative (Negative); Urine Protein Negative (Neg-Trace)
[2023-03-08 11:40] LABS: Bacteria Urine Trace (None Seen); Hyaline Casts Urine 0-2 /LPF (0-2); RBC Urine 0-2 /HPF (0-2); WBC Urine 0-5 /HPF (0-5)
[2023-03-08 11:58] LABS: Alanine Aminotransferase 68 U/L (0-40); Albumin Level 3.9 g/dL (3.5-5.0); Alkaline Phosphatase 87 U/L (39-117); Anion Gap 12 (12-20); Aspartate Amino Transferase 39 U/L (5-37); Bilirubin Total 0.5 mg/dL (0.0-1.0); Blood Urea Nitrogen 10 mg/dL (9-16); Calcium 9.7 mg/dL (8.4-10.2); Carbon Dioxide 28 mmol/L (22-29); Chloride 98 mmol/L (96-108); Cholesterol 166 mg/dL; Estimated Glomerular Filt Rate > 60; Glucose Fasting 134 mg/dL (60-99); HDL Cholesterol 30 mg/dL; LDL Cholesterol Calculated 63 mg/dl; Potassium 4.1 mmol/L (3.3-5.1); Sodium 134 mmol/L (135-145); Triglycerides 365 mg/dL
[2023-03-08 12:00] LABS: Vitamin D 25-OH Total 28.2 ng/mL (>30)
[2023-03-08 12:15] LABS: Creatinine Urine 140.88 mg/dL; Microalbum/Creatinine Ratio Ur 3.5 ug/mg cr
[2023-03-08 12:17] LABS: PSA,Total (Free>4and<10) 0.11 ng/mL (0.00-4.00)
== END 2023-03-08 07:42 | disposition home or self-care (01) ==
LOC: HO.HMGCLDS 07:41
PROVIDERS: PCP Internal Medicine; Visit Provider Internal Medicine
DX: E11.42 Type 2 diabetes mellitus with diabetic polyneuropathy (principal); Z12.5 Encounter for screening for malignant neoplasm of prostate; E55.9 Vitamin D deficiency, unspecified
CPT/HCPCS: 36415; 80053; 80061; 81001; 82043; 82306; 83036; 84153; 85025

== ENCOUNTER 2023-03-11 11:21 | Emergency (ER) | payer OTHER, SELFPAY ==
[2023-03-11 11:24] VITALS: BP 133/51; PULSE 64; RESP 19; TEMP 36.6; O2SAT 94; BMI 50.9
--- NOTE | 2023-03-11 11:28 | ED.GENADULT ---
HPI - General Adult General Chief complaint: Abdominal Pain Stated complaint: ? hernia Time Seen by Provider: 03/11/23 12:11 Source: patient, RN notes reviewed and old records reviewed Mode of arrival: ambulatory History of Present Illness HPI narrative: 52-year-old male with a past medical history of depression, diabetes, HTN, sleep apnea, presenting to ED complaining of lower abdominal pain, constipation, and small BMs x few weeks. Admits pain radiates to testicles. Reports increased straining to have bowel movements, and stools are smaller than normal. Denies injury, fall, nausea/vomiting, dysuria/hematuria, fever/chills Onset (ago): day(s) Related Data Home Medications Medication Instructions Recorded Confirmed albuterol sulfate 90 mcg/actuation 2 puff inhalation Q4-6H PRN 06/13/20 12/15/22 aerosol inhaler Shortness Of Breath bupropion HCl 150 mg tablet,12 hr 150 mg PO BID 06/13/20 12/15/22 sustained-release metformin 1,000 mg tablet 1,000 mg PO BID 06/13/20 12/15/22 methadone 40 mg soluble tablet 125 mg PO DAILY 06/13/20 12/15/22 furosemide 20 mg tablet 40 mg PO DAILY PRN 12/17/20 12/15/22 atorvastatin 80 mg tablet 80 mg PO DAILY 07/01/21 12/15/22 blood sugar diagnostic (FreeStyle #10 ea 07/01/21 12/15/22 Lite Strips) glipizide 10 mg tablet 10 mg PO BID 07/01/21 12/15/22 pen needle, diabetic 32 gauge x #50 ea 07/01/21 12/15/22 (BD Mahi 2nd Gen Pen Needle) gabapentin 300 mg capsule 300 mg PO DAILY 01/27/22 12/15/22 Previous Rx's Medication Instructions Recorded cholecalciferol (vitamin D3) 1,250 1,250 mcg PO QWEEK #4 caps 01/07/21 mcg (50,000 unit) capsule naproxen 500 mg tablet (Naprosyn) 500 mg PO BID #20 tabs 01/23/21 insulin glargine 100 unit/mL (3 20 unit (0.2 mL) subcut QPM #15 mL 03/11/21 mL) subcutaneous pen (Lantus Solostar U-100 Insulin) tadalafil 5 mg tablet 5 mg PO DAILY PRN sexual activity 03/19/21 90 days #90 tabs omeprazole 40 mg capsule,delayed 40 mg PO DAILY #20 caps 07/11/22 release Allergies Allergy/AdvReac Type Severity Reaction Status Date / Time No Known Allergies Allergy Unknown UNKNOWN Verified 03/11/23 11:23 Review of Systems Review of Systems: Constitutional: No Fever, No Chills, No Fatigue, No Malaise ENT/Mouth: No Ear Pain, No sore throat, No Rhinorrhea, No Swallowing Difficulty Eyes: No Eye Pain, No Swelling, No Redness, No Vision Changes Cardiovascular: No Chest Pain, No SOB, No Edema, No Palpitations Respiratory: No Cough, No Sputum, No Dyspnea Gastrointestinal: No Nausea, No Vomiting, No Diarrhea, + Constipation, +o Abdominal pain Genitourinary: No Dysuria, No Urinary Frequency, No Hematuria, No Urinary Incontinence/retention, No Urgency, No Flank Pain Musculoskeletal: No joint pain, No Myalgias, No Joint Swelling Skin: No Skin Lesions, No rash Neuro: No Weakness, No Dizziness, No Headache Yes all other systems are reviewed and are negative Constitutional: Constitutional: Reports as per [facility] Past Medical History Attestation statement: The following information was validated with the patient. Source: old records reviewed Medical History Arthritis Chronic venous stasis Depression Diabetes (~2016) Full dentures Hypertension Methadone maintenance therapy patient Morbid obesity due to excess calories Multinodular thyroid (~2021) Nicotine dependence, cigarettes, uncomplicated Shortness of breath on exertion Sleep apnea Supraclavicular mass Wears partial dentures Surgical History History of arthroscopic knee surgery History of carpal tunnel surgery of left wrist History of retained foreign body fully removed History of umbilical hernia repair History of wisdom tooth extraction Status post ablation of incompetent vein using laser Status post phlebectomy Family History Family History Father Diabetes Mother Diabetes 1.5, managed as type 2 HTN (hypertension) Hypercholesteremia Paternal Grandmother Diabetes 1.5, managed as type 2 Maternal Grandmother Lung cancer Maternal Grandfather Prostate cancer Sister No problems noted. Daughter No problems noted. Daughter No problems noted. Daughter No problems noted. Daughter No problems noted. Social History Social History Alcohol intake: never Patient Tobacco Use Status: Current everyday Tobacco user Tobacco use type: Cigarette Cigarette Packs Per Day: 0.5 Cigarettes Per Day: 10.0 Years Smoked: (current smoker - onset 13yo - 1/2-1ppd x 39yrs - 30pyh) Smoked in Last 30 Days: Yes Use of substances other than those prescribed or required for medical reasons: No Substance Use Type: Marijuana Substance Use Frequency: Chronic Longstanding Advance Directives: No Current occupational status: disabled Current occupation: right handed Physical Exam ED Vital Signs: Vital Signs - 24 hr 03/11/23 11:24 03/11/23 11:33 03/11/23 11:47 Temperature 98 F 99.0 F Pulse Rate 64 60 82 Respiratory Rate 19 22 H 18 Blood Pressure 133/51 L 122/65 122/65 Pulse Oximetry 94 88 L 98 Oxygen Delivery Method Room Air Room Air Room Air 03/11/23 13:54 03/11/23 16:17 Temperature Pulse Rate 68 90 Respiratory Rate 18 14 Blood Pressure 126/39 L 99/63 Pulse Oximetry 93 98 Oxygen Delivery Method Room Air Room Air BMI result Body Mass Index 50.9 Const General: cooperative, healthy appearing and no acute distress Orientation/consciousness: patient oriented x3 Limitations: no limitations HENMT Head: Yes normal to inspection and Yes atraumatic Ears: hearing grossly normal bilaterally General nose exam: Normal external nose present Face and sinus: Yes normal facial exam Eyes General: appearance normal, both eyes and all related structures EOM: EOMs intact bilaterally Neck Neck: Yes normal visual inspection and Yes no meningeal signs Resp Effort & Inspection: normal respiratory effort and no respiratory distress Cardio Rate: regular rate Heart sounds: S1 normal heart sound present and S2 normal heart sound present GI Inspection: Yes normal to inspection Palpation (GI): Soft to palpation, Tenderness to palpation present (GI) (Lower abdominal) with no rebound tenderness, no guarding and not rigid General: Yes no CVA tenderness Scrotum: scrotum normal, no ecchymosis, not edematous and not erythematous Testes: Testes normal, no testicular swelling and no testicular tenderness Back/Spine/Pelvis Back: no CVA tenderness Skin Rashes: no rashes Wounds: no wounds Neuro General: patient oriented x3, tone normal and no meningeal signs Gait exam (Neuro): Normal gait present Extrem Other: Chronic PVD General: Yes normal to inspection Course Course Course Narrative: RME performed by Rebekah Piña PA-C. Patient is a 52 year old assigned male at presenting to the emergency department with lower abdominal pain and concern of a hernia. Patient has been constipated for weeks, pushing much more, now feels like his lower abdomen has a hernia. Patient states that he has had hernia repairs in the past through [facility]. Labs ordered. Patient placed back in the waiting room pending room availability and results. -[id number]--no leukocytosis. Lactic acid negative. Labs otherwise reassuring. UA not infected CT abdomen pelvis w IV con IMPRESSION: 1.? No CT evidence for acute abnormality within the abdomen or pelvis. 2.? Diffusely decreased liver attenuation suggesting hepatic steatosis. Correlation with liver enzymes recommended. ? Fleischner guidelines were followed. > results discussed with patient. Reports symptomatic improvement. Is tolerating p.o. in the ED. Recommended General surgery follow-up Results discussed with patient including worrisome signs and symptoms and strict return precautions, and when to return to the emergency department. They verbalized understanding and feel safe for discharge at this time. Medications Administered Discontinued Medications Generic Name Dose Route Start Last Admin Trade Name Freq PRN Reason Stop Dose Admin Sodium Chloride 1,000 mls @ 999 mls/hr 03/11/23 12:30 03/11/23 13:55 Ns IV 03/11/23 13:30 Infused .Q1H1M L[facility]YD Infusion Iohexol 100 ml 03/11/23 13:49 03/11/23 13:49 Iohexol 350 Mg/Ml 100 Ml Infus..Btl IV 03/11/23 13:50 100 ml ONCE ONE Administration Medical Decision Making Medical Decision Making MDM Narrative: 52-year-old male with a past medical history of depression, diabetes, HTN, sleep apnea, presenting to ED complaining of lower abdominal pain, constipation, and small BMs x few weeks. On exam vital signs stable, NAD, nontoxic appearing, abdomen soft with lower tenderness, no rebound or guarding. Testicular exam WNL. Concern for hernia vs diverticulitis/appendicitis or colitis. Lower suspicion for testicular torsion, UTI, pancreatitis, cholecystitis or lithiasis. Unlikely dissection Plan: Labs, UA, CT AP, IVF Please refer to course for remaining clinical decision making, interpretation of labs/imaging results, and discussions with consultants and/or family members. Differential Diagnosis Differential Diagnoses: The differential diagnosis associated with the presentation includes As above Admission/Observation Consideration of admission/observation: Escalation of care including admission/observation considered Lab Data MDM Lab Attestation statement: I reviewed the patient's lab results. 03/11/23 11:41 03/11/23 11:41 Labs: Lab Results 03/11/23 03/11/23 03/11/23 Range/Units 11:33 11:41 11:41 WBC 7.1 (4.8-10.8) X10*3/uL RBC 5.02 (4.60-5.80) X10*6/uL Hgb 15.2 (14.0-18.0) g/dl Hct 45.2 (42.0-52.0) % MCV 90.0 (80.0-98.0) fL MCH 30.3 (27.0-33.0) pg MCHC 33.6 (31.0-36.0) g/dl RDW 13.6 (11.0-16.0) % Plt Count 166 (160-400) X10*3/uL MPV 11.5 (9.4-12.4) fL Immature Gran % (Auto) 0.4 (0.0-0.4) % Neut % (Auto) 66.0 (45-73) % Lymph % (Auto) 23.4 (20-40) % Ada % (Auto) 7.5 (2-11) % Eos % (Auto) 2.4 (0-4) % Baso % (Auto) 0.3 (0-2) % Lymph # (Auto) 1.7 (1.2-4.9) X10*3/uL Ada # (Auto) 0.5 (0.1-1.2) X10*3/uL Eos # (Auto) 0.2 (0.0-0.4) X10*3/uL Baso # (Auto) 0.0 (0.0-0.2) X10*3/uL Abs Immat Gran (auto) 0.03 (0.00-0.03) X10*3/uL Absolute Neuts (auto) 4.7 (2.0-8.3) x10*3/uL Absolute Nucleated RBC 0.000 (0.0-0.012) X10*3/uL Nucleated RBC % (auto) 0.0 (0.0-0.2) /100WBC Sodium 140 (135-145) mmol/L Potassium 4.9 (3.3-5.1) mmol/L Chloride 104 (96-108) mmol/L Carbon Dioxide 28 (22-29) mmol/L Anion Gap 13 (12-20) BUN 9 (9-16) mg/dL Creatinine 0.84 (0.5-1.4) mg/dL Estim Creat Clear Calc 170.5 Estimated GFR > 60 Random Glucose 153 H (60-115) mg/dL Lactic Acid (0.5-2.0) mmol/L Calcium 9.6 (8.4-10.2) mg/dL Magnesium 1.8 (1.6-2.6) mg/dL Total Bilirubin 0.6 (0.0-1.0) mg/dL AST 35 (5-37) U/L ALT 67 H (0-40) U/L Alkaline Phosphatase 90 (39-117) U/L Total Protein 6.8 (6.5-8.0) g/dL Albumin 3.9 (3.5-5.0) g/dL Lipase 56 (8-78) U/L Urine Color Yellow Urine Appearance Clear Urine pH 5.5 (5.0-9.0) Ur Specific Bridgman 1.020 (1.005-1.025) Urine Protein Negative (Neg-Trace) mg/dL Urine Glucose (UA) Negative (Negative) mg/dL Urine Ketones Negative (Negative) mg/dL Urine Blood Negative (Negative) Urine Nitrite Negative (Negative) Ur Leukocyte Esterase Negative (Negative) 03/11/23 Range/Units 12:34 WBC (4.8-10.8) X10*3/uL RBC (4.60-5.80) X10*6/uL Hgb (14.0-18.0) g/dl Hct (42.0-52.0) % MCV (80.0-98.0) fL MCH (27.0-33.0) pg MCHC (31.0-36.0) g/dl RDW (11.0-16.0) % Plt Count (160-400) X10*3/uL MPV (9.4-12.4) fL Immature Gran % (Auto) (0.0-0.4) % Neut % (Auto) (45-73) % Lymph % (Auto) (20-40) % Ada % (Auto) (2-11) % Eos % (Auto) (0-4) % Baso % (Auto) (0-2) % Lymph # (Auto) (1.2-4.9) X10*3/uL Ada # (Auto) (0.1-1.2) X10*3/uL Eos # (Auto) (0.0-0.4) X10*3/uL Baso # (Auto) (0.0-0.2) X10*3/uL Abs Immat Gran (auto) (0.00-0.03) X10*3/uL Absolute Neuts (auto) (2.0-8.3) x10*3/uL Absolute Nucleated RBC (0.0-0.012) X10*3/uL Nucleated RBC % (auto) (0.0-0.2) /100WBC Sodium (135-145) mmol/L Potassium (3.3-5.1) mmol/L Chloride (96-108) mmol/L Carbon Dioxide (22-29) mmol/L Anion Gap (12-20) BUN (9-16) mg/dL Creatinine (0.5-1.4) mg/dL Estim Creat Clear Calc Estimated GFR Random Glucose (60-115) mg/dL Lactic Acid 1.3 (0.5-2.0) mmol/L Calcium (8.4-10.2) mg/dL Magnesium (1.6-2.6) mg/dL Total Bilirubin (0.0-1.0) mg/dL AST (5-37) U/L ALT (0-40) U/L Alkaline Phosphatase (39-117) U/L Total Protein (6.5-8.0) g/dL Albumin (3.5-5.0) g/dL Lipase (8-78) U/L Urine Color Urine Appearance Urine pH (5.0-9.0) Ur Specific Bridgman (1.005-1.025) Urine Protein (Neg-Trace) mg/dL Urine Glucose (UA) (Negative) mg/dL Urine Ketones (Negative) mg/dL Urine Blood (Negative) Urine Nitrite (Negative) Ur Leukocyte Esterase (Negative) Radiology Impression Discussion of test interpretation with radiology: I have reviewed the radiologist's reading. Independent Historian Clinical information obtained from an independent historian. History obtained from or confirmed by: Spouse External Record Review External record reviewed: Inpatient record, Office record, Outpatient record, Prior outpatient labs, Prior outpatient radiology, Primary care record and Outside ED record Tests considered The following testing was considered but not selected: As above Prescription Management I considered prescription management with: Pain Medication Chronic Conditions Patient?s care impacted by: Other (Obesity) Discharge Plan Discharge Clinical Impression: Abdominal pain, lower Patient Disposition: Home, Self-Care Instructions: Abdominal Pain (ED) Additional Instructions: Your blood work was reassuring Your CT scan shows some fatty liver, otherwise is unremarkable Avoid straining, increase fiber in your diet Increase fluid intake If you develop constant or worsening pain, nausea/vomiting, you are unable to have a bowel movement or urinate or have fever return to the ED immediately You should follow-up with your doctor in general surgery as needed Prescriptions: No Action cholecalciferol (vitamin D3) 1,250 mcg (50,000 unit) capsule 1,250 mcg PO QWEEK Qty: 4 2RF naproxen [Naprosyn] 500 mg tablet 500 mg PO BID Qty: 20 0RF Lantus Solostar U-100 Insulin 100 unit/mL (3 mL) insulin pen 20 unit subcut QPM Qty: 15 0RF albuterol sulfate 90 mcg/actuation HFA aerosol inhaler 2 puff inhalation Q4-6H PRN (Reason: Shortness Of Breath) bupropion HCl 150 mg tablet sustained-release 12 hr 150 mg PO BID metformin 1,000 mg tablet 1,000 mg PO BID furosemide 20 mg tablet 40 mg PO DAILY PRN methadone 40 mg tablet,soluble 125 mg PO DAILY tadalafil 5 mg tablet 5 mg PO DAILY PRN (Reason: sexual activity) 90 Days Qty: 90 0RF (DME) pen needle, diabetic [BD Mahi 2nd Gen Pen Needle] 32 gauge x 5/32 needle See Rx Instructions .ROUTE .MEDSUPPLY Qty: 50 Rx Instructions: As directed (DME) FreeStyle Lite Strips Strip See Rx Instructions Not Applicable BID Qty: 10 Rx Instructions: As directed atorvastatin 80 mg tablet 80 mg PO DAILY glipizide 10 mg tablet 10 mg PO BID gabapentin 300 mg capsule 300 mg PO DAILY omeprazole 40 mg capsule,delayed release(DR/EC) 40 mg PO DAILY Qty: 20 0RF Referrals: [facility] Gastroenterology Services [Provider Group] [facility] General Surgeons [Provider Group] Abe Rivero DO [Primary Care Provider] - Interventions: ED Discharge Assessment Last Done: 03/11/23 16:53 Discharge Date/Time: 03/11/23 16:54
[2023-03-11 11:33] VITALS: BP 122/65; PULSE 60; RESP 22; TEMP 37.2; O2SAT 88
[2023-03-11 11:47] VITALS: BP 122/65; PULSE 82; RESP 18; O2SAT 98
--- NOTE | 2023-03-11 11:51 | PC.NURSE ---
Alert and oriented, arrived from home stating that about 2 weeks ago he was going to the bathroom and was pushing when he heard a pop. Since then he states he has had constant 7/10 lower abdominal pain. States that for the past few days he has only been able to have some pasty BM`s. Denies pain or blood with urination. Reports pain is worse when walking than at rest. VSS. Denies sob, chest pain or headache.
[2023-03-11 13:54] VITALS: BP 126/39; PULSE 68; RESP 18; O2SAT 93
--- NOTE | 2023-03-11 13:55 | PC.NURSE ---
Back from CT, IV fluids completed, resting comfortably in bed
[2023-03-11 16:17] VITALS: BP 99/63; PULSE 90; RESP 14; O2SAT 98
--- NOTE | 2023-03-11 16:54 | PC.NURSE ---
Reviewed discharge plan with patient and spouse who verbalized understanding
== END 2023-03-11 16:54 | disposition home or self-care (01) ==
PROVIDERS: Emergency Provider Emergency Medicine Emergency Medical Services; PCP Internal Medicine
DX: R10.30 Lower abdominal pain, unspecified (principal); E11.9 Type 2 diabetes mellitus without complications; I10 Essential (primary) hypertension; F17.210 Nicotine dependence, cigarettes, uncomplicated; F12.90 Cannabis use, unspecified, uncomplicated; F11.20 Opioid dependence, uncomplicated; E66.01 Morbid (severe) obesity due to excess calories; Z68.43 Body mass index [BMI] 50.0-59.9, adult; Z79.899 Other long term (current) drug therapy; Z79.4 Long term (current) use of insulin
CPT/HCPCS: 36415; 74177; 80053; 81003; 83605; 83690; 83735; 85025; 96360; 99284; Q9967

== ENCOUNTER 2023-04-27 12:36 | Outpatient (RCR) | payer OTHER, SELFPAY | END 2023-05-11 16:00 | disposition home or self-care (01) | LOC: HO.WCC 12:36 | PROVIDERS: PCP Internal Medicine; Visit Provider Surgery | DX: E11.22 Type 2 diabetes mellitus with diabetic chronic kidney disease (principal); L97.812 Non-pressure chronic ulcer of other part of right lower leg with fat layer exposed; I87.331 Chronic venous hypertension (idiopathic) with ulcer and inflammation of right lower extremity; E11.51 Type 2 diabetes mellitus with diabetic peripheral angiopathy without gangrene; E11.40 Type 2 diabetes mellitus with diabetic neuropathy, unspecified; Q82.0 Hereditary lymphedema; F17.210 Nicotine dependence, cigarettes, uncomplicated; Z79.4 Long term (current) use of insulin; Z79.84 Long term (current) use of oral hypoglycemic drugs; Z79.891 Long term (current) use of opiate analgesic; Z79.899 Other long term (current) drug therapy; Z86.718 Personal history of other venous thrombosis and embolism | CPT/HCPCS: 11042; 97597; 99212 ==

== ENCOUNTER 2023-08-14 | Outpatient (RCR) | payer OTHER, SELFPAY | END 2023-12-18 11:44 | disposition home or self-care (01) | LOC: HO.WCC | PROVIDERS: PCP Internal Medicine; Visit Provider Physician Assistant | DX: E11.622 Type 2 diabetes mellitus with other skin ulcer (principal); E11.51 Type 2 diabetes mellitus with diabetic peripheral angiopathy without gangrene; L97.812 Non-pressure chronic ulcer of other part of right lower leg with fat layer exposed; I89.0 Lymphedema, not elsewhere classified; I87.2 Venous insufficiency (chronic) (peripheral); E11.40 Type 2 diabetes mellitus with diabetic neuropathy, unspecified; F17.210 Nicotine dependence, cigarettes, uncomplicated; Z86.718 Personal history of other venous thrombosis and embolism | CPT/HCPCS: 11042; 11045; 29581; 97597; 99211; 99212; 99213 ==

== ENCOUNTER 2023-12-19 13:21 | Outpatient (AMB) | payer OTHER, SELFPAY ==
--- NOTE | 2023-12-19 13:22 | MHC.OFFVIS ---
Intake Vital Signs 12/19/23 13:25 Height 6 ft Weight 390 lb BMI 52.9 Intake Visit Reasons: re-ref/follow up LE non-healing wound & VV Intake Note: Pt presents to the office today for a re-referral and follow up LE non healing wound and VV. Pt states he no longer has an open wound but he states he is having bad leg pain and cramping especially when walking and first thing in the morning when he gets out of bed. Pt states he is also having left leg numbness in his thigh constantly. He states he does wear compression socks. Allergies No Known Allergies Allergy (Unknown, Verified 12/19/23 13:25) UNKNOWN HPI re-ref/follow up LE non-healing wound & VV HPI Details Super morbidly obese 53-year-old gentleman presents for follow-up regarding lower extremity swelling. He has been doing relatively well and we had treated him previously for his venous disease. He has significant swelling right more so than left. It has become a source of discomfort for him. He also notes back pain issues. He now presents to us for vascular follow-up. Of note does have lymphedema pumps but has been semi compliant with them as he has difficulty wearing the upper portion of it. [facility] Medical History Methadone maintenance therapy patient Nicotine dependence, cigarettes, uncomplicated Multinodular thyroid (~2021) Supraclavicular mass Morbid obesity due to excess calories Wears partial dentures Full dentures Arthritis Diabetes (~2017) Depression Sleep apnea Shortness of breath on exertion Chronic venous stasis Hypertension Surgical History Status post phlebectomy History of wisdom tooth extraction History of carpal tunnel surgery of left wrist Status post ablation of incompetent vein using laser History of retained foreign body fully removed History of arthroscopic knee surgery History of umbilical hernia repair Family History Father Diabetes Mother Diabetes 1.5, managed as type 2 HTN (hypertension) Hypercholesteremia Paternal Grandmother Diabetes 1.5, managed as type 2 Maternal Grandmother Lung cancer Maternal Grandfather Prostate cancer Sister No problems noted. Daughter No problems noted. Daughter No problems noted. Daughter No problems noted. Daughter No problems noted. Social History Alcohol intake: never Patient Tobacco Use Status: Current everyday Tobacco user Tobacco use type: Cigarette Cigarette Packs Per Day: 0.5 Cigarettes Per Day: 10.0 Years Smoked: (current smoker - onset 13yo - 1/2-1ppd x 39yrs - 30pyh) Substance Use Type: Marijuana Current occupational status: disabled Current occupation: right handed Review of Systems Const Reports as per HPI ENT Reports no additional complaints Card Denies chest pain, Denies chest pain at rest and Denies chest pain with activity Resp Denies chest congestion and Denies cough GI Reports no additional complaints Musc Details: pain over varicosities, aching of lower extremities, swelling, cramping, heaviness and tiredness, itching Denies abnormal gait Skin/Breast Reports pruritus and Denies wounds Neuro Reports no additional complaints and Denies abnormal gait Psych Denies no additional complaints Physical Exam Vital Signs: BMI result Body Mass Index 52.9 Const General: cooperative, healthy appearing and comfortable Orientation/consciousness: oriented to person, oriented to place and oriented to time Neck Carotids: no bruits Chest Chest palpation & inspection: normal inspection of the chest and normal palpation of entire chest wall Resp Effort & Inspection: normal respiratory effort and able to speak in complete sentences Cardio Rate: regular rate Heart sounds: S1 normal heart sound present and S2 normal heart sound present Peripheral pulses: Peripheral pulses 2+ throughout GI Inspection: Yes normal to inspection Skin Other: +2 edema, large rope-like varicosities greater than 4 mm CEAP Classification C4 - skin color changes Ep - Etiology Primary As - superficial veins P - reflux General skin exam: dry skin Neuro General: oriented to person, oriented to place and oriented to time Extrem Right lower extremity: full ROM, normal capillary refill and edema Left lower extremity: full ROM, normal capillary refill and edema Psych Mental Status: mental status grossly normal Assessment & Plan Assessment & Plan (1) Varicose veins of right lower extremity with inflammation: Comment: 08/13/2021 - right great saphenous vein Cyanoacralate ablation 02/21/2022 - right leg microphlebectomy Code(s): I83.11 - Varicose veins of right lower extremity with inflammation Plan: It has been some time since we have assessed his lower extremities and vein issues. I have taken the liberty of ordering repeat venous insufficiency testing. Patient will follow up with us after testing it. Thank you for allowing us to assist in care. If there are any questions or concerns please do not hesitate to contact us. (2) Varicose veins of left lower extremity with inflammation: Comment: 01/03/2022 - left leg microphlebectomy 02/04/2022 - left great Radiofrequency ablation Code(s): I83.12 - Varicose veins of left lower extremity with inflammation Plan: See above (3) Lymphedema: Code(s): I89.0 - Lymphedema, not elsewhere classified Plan: The patient does have lymphedema pumps. I did encourage the patient to use him even if it is of partial and not complete for at least 2 times a day for 45 minutes. He said he will try. We will reassess the status of this on his follow-up after his venous insufficiency testing. (4) Back pain: Code(s): M54.9 - Dorsalgia, unspecified Qualifiers: Back pain location: low back pain Chronicity: chronic Back pain laterality: bilateral Sciatica presence: unspecified whether sciatica present Qualified Code(s): M54.50 - Low back pain, unspecified; G89.29 - Other chronic pain Plan: He does have back pain issues. I do suspect a good amount of this is related to his super morbid obesity. We will workup his lower extremities but will refer him to pain management for evaluation as well. Thank you for allowing us to assist in his care. If there are any questions or concerns please do not hesitate to contact us. Orders: Orders US venous duplex LE BI 1 Week I83.11 - Varicose veins of right lower extremity with inflammation Referrals Pain Management Referral M54.9 - Dorsalgia, unspecified Coding Level of Care Code Est Pt Level 4 (58047) Diagnoses Varicose veins of right lower extremity with inflammation I83.11 Varicose veins of left lower extremity with inflammation I83.12 Lymphedema I89.0 Chronic bilateral low back pain, unspecified whether sciatica present M54.50; G89.29 Back pain location: low back pain Chronicity: chronic Back pain laterality: bilateral Sciatica presence: unspecified whether sciatica present
[2023-12-19 13:25] VITALS: BMI 52.9
== END 2023-12-19 13:51 | disposition home or self-care (01) ==
PROVIDERS: PCP Internal Medicine; Visit Provider Surgery Vascular Surgery
DX: I83.11 Varicose veins of right lower extremity with inflammation (principal); I83.12 Varicose veins of left lower extremity with inflammation; I89.0 Lymphedema, not elsewhere classified; M54.50 Low back pain, unspecified; G89.29 Other chronic pain
CPT/HCPCS: 99214

== ENCOUNTER → 2023-12-19 13:21 | Outpatient (BNVA) | payer OTHER, SELFPAY | PROVIDERS: PCP Internal Medicine; Visit Provider Surgery Vascular Surgery | DX: I83.11 Varicose veins of right lower extremity with inflammation (principal); I83.12 Varicose veins of left lower extremity with inflammation; I89.0 Lymphedema, not elsewhere classified; M54.50 Low back pain, unspecified; G89.29 Other chronic pain | CPT/HCPCS: 99212 ==

== ENCOUNTER 2024-01-04 10:21 | Outpatient (REF) | payer OTHER, SELFPAY ==
--- NOTE | ~2024-01-04 | US_ITS ---
EXAMINATION: US LOWER EXTREMITY VENOUS (REFLUX EXAM), BILATERAL CLINICAL INDICATION: Chronic venous insufficiency with lower extremity varicose veins and inflammation. History of prior great saphenous vein ablation COMPARISON: Multiple prior ultrasounds including , 09/01/2021 and 07/26/2021 TECHNIQUE: Color flow triplex imaging and compression Doppler was performed to evaluate both the deep and the superficial systems bilaterally. To evaluate the superficial system, the examination was performed in the upright position. Color-flow Doppler ultrasound and compression ultrasound were utilized. In addition, maneuvers were utilized to demonstrate reflux. FINDINGS: 1. DEEP VENOUS ULTRASOUND OF THE RIGHT LOWER EXTREMITY: Common Femoral Vein: Compressible, normal respiratory variation and augmented flow. Femoral Vein: Compressible, normal color flow and augmentation. Popliteal Vein: Compressible, normal augmentation. Deep Reflux: Deep venous reflux seen in the common femoral vein measuring 1004 ms and within the popliteal vein measuring 2696 ms There is a De Santiago's cyst in the popliteal fossa measuring 2.4 x 6.2 x 1.2 cm Enlarged lymph node in the right groin measuring 4.5 x 1.0 x 1.8 cm per 2. SUPERFICIAL ULTRASOUND WITH DOPPLER OF RIGHT LOWER EXTREMITY: GREAT SAPHENOUS VEIN: Saphenofemoral Junction: 1.0 cm; Reflux: 0 ms Proximal Thigh: 0.3 cm; occluded Mid Thigh: Not visualized Above Knee: 0.2 cm; occluded At Knee: 0.4 cm; occluded Below Knee: 1.2 cm; Reflux: 2376 ms Mid Calf: 0.4 cm; Reflux: 2252 ms. Partially compressible with wall adherent thrombus Ankle: 0.3 cm; Reflux: 1324 ms. Partially compressible with wall adherent thrombus DUPLICATED MEDIAL GREAT SAPHENOUS VEIN: Diameter: None imaged Reflux: NA DUPLICATED LATERAL GREAT SAPHENOUS VEIN: Diameter: 0.8 cm Reflux: 2432 ms SMALL SAPHENOUS VEIN: Saphenopopliteal Junction: 0.4 cm; Reflux: 0 ms Proximal: 0.4 cm; Reflux: 0 ms Distal: 0.4 cm; Reflux: 0 ms VEIN OF GIACOMINI: Size: NA Reflux: NA PERFORATORS: Location: Proximal and distal calf Size: Ranging from 0.2 to 0.5 cm Reflux: Ranging from 792 ms to 1556 ms VARICOSITIES: Location: Posterior knee directly off the popliteal vein Size: 1.4 cm Reflux: 1828 ms Location: Mid thigh off the lateral duplicated saphenous vein Size: 0.3 to 1.0 cm Reflux: 2500 ms Location: Medial knee, throughout the calf Size: 0.6 to 0.8 cm Reflux: Ranging from 1040 ms to 2648 ms 3. DEEP VENOUS ULTRASOUND OF THE LEFT LOWER EXTREMITY: Common Femoral Vein: Compressible, normal respiratory variation and augmented flow. Femoral Vein: Compressible, normal color flow and augmentation. Popliteal Vein: Compressible, normal augmentation. Deep Reflux: Deep venous reflux seen in the superficial femoral vein measuring 1724 ms and in the popliteal vein measuring 1792 ms There is no evidence of a De Santiago's cyst. 4. SUPERFICIAL ULTRASOUND WITH DOPPLER OF LEFT LOWER EXTREMITY: GREAT SAPHENOUS VEIN: Saphenofemoral Junction: 0.7 cm; Reflux: 2528 ms Proximal Thigh: 1.0 cm; Reflux: 2136 ms Mid Thigh: 0.3 cm; occluded Above Knee: Not visualized At Knee: 0.1 cm; Reflux: 0 ms Below Knee: 0.3 cm; Reflux: 2160 ms Mid Calf: 0.4 cm; Reflux: 1972 ms Ankle: 0.3 cm; Reflux: 824 ms DUPLICATED MEDIAL GREAT SAPHENOUS VEIN: Diameter: None imaged Reflux: NA DUPLICATED LATERAL GREAT SAPHENOUS VEIN: Diameter: None imaged Reflux: NA SMALL SAPHENOUS VEIN: Saphenopopliteal Junction: 0.3 cm; Reflux: 836 ms Proximal: 0.4 cm; Reflux: 1160 ms Distal: 0.4 cm; Reflux: 812 ms VEIN OF GIACOMINI: Size: NA Reflux: NA PERFORATORS: Location: Proximal mid calf extending to the great saphenous vein and varicose veins Size: Ranging from 0.3 to 0.6 cm Reflux: Ranging from 1940 ms to 2444 ms VARICOSITIES: Location: Posterior calf off the proximal, mid and distal small saphenous vein Size: 0.3 to 0.5 cm Reflux: Ranging from 1272 ms to 2548 ms Location: Proximal thigh arising from the residual great saphenous vein extending through the mid and distal thigh Size: 0.4 to 0.5 seconds Reflux: 2464 ms Location: Medial proximal and mid calf from the residual great saphenous vein and cushion gum applicator veins Size: Ranging from 0.3 to 0.4 cm Reflux: Ranging from 2032 ms to 2484 ms US/US venous duplex LE BI IMPRESSION: Right: Great saphenous vein within the proximal thigh to the knee is occluded consistent with prior ablation. Residual great saphenous vein in the calf demonstrates severe reflux. There is also severe reflux in the lateral duplicated great saphenous vein in the thigh. Deep venous reflux is seen in the right lower extremity as described above. Multiple refluxing varicose veins throughout the right lower extremity as described above Left: Great saphenous vein in the mid to distal thigh is occluded. Residual great saphenous vein in the proximal thigh and calf with severe reflux as described above. Severe reflux in the left small saphenous vein. Deep venous reflux in the left lower extremity as described above. Multiple refluxing varicose veins throughout the left lower extremity as described above
== END 2024-01-04 10:22 | disposition home or self-care (01) ==
LOC: HO.US 10:21
PROVIDERS: PCP Internal Medicine; Visit Provider Surgery Vascular Surgery
DX: I83.11 Varicose veins of right lower extremity with inflammation (principal)
CPT/HCPCS: 93970

== ENCOUNTER 2024-01-19 09:52 | Outpatient (AMB) | payer OTHER, SELFPAY ==
--- NOTE | 2024-01-19 09:53 | A.OFFVIS_ITS ---
Vital Signs 01/19/24 09:54 Height 6 ft Weight 382 lb BMI 51.8 BP 136/64 Blood Pressure Location Lt radial Position Sitting Respiration 14 Pulse 57 Pulse Source Pulse Oximeter Pulse Oximetry (%) 90 L Oxygen Delivery Method Room Air Intake Visit Reasons: Dorsalgia Allergies No Known Allergies Allergy (Unknown, Verified 01/19/24 09:57) UNKNOWN Medication List - Last Reconciled 01/19/24 by Rebekah Marie LPN albuterol sulfate 90 mcg/actuation 2 puffs inhalation Q4-6H PRN atorvastatin 80 mg PO DAILY blood sugar diagnostic (FreeStyle Lite Strips) As directed bupropion HCl SR 150 mg PO BID cholecalciferol (vitamin D3) 1,250 mcg PO QWEEK furosemide 40 mg PO DAILY PRN gabapentin 300 mg PO DAILY glipizide 10 mg PO BID insulin glargine (Lantus Solostar U-100 Insulin) 20 units (0.2 mL) subcut QPM metformin 1,000 mg PO BID methadone 125 mg PO DAILY pen needle, diabetic (BD Mahi 2nd Gen Pen Needle) As directed HPI HPI Dorsalgia: Details: 53-year-old male who presents today to the office for an evaluation of low back pain. He reports back pain that radiates down to his lower extremities. He describes his pain as a numbing and stabbing sensation that radiates down to the thighs and knees. He has low extremity swelling (R>L). He has a history of venous disease. He reports difficulty getting out of bed in the morning. He has to roll over to his sides. He spends about 15 minutes trying to get out of bed every morning. He has tried stretching exercises at home with mild relief. He was started on methadone for substance abuse problems. He was on methadone and noticed a weight gain of more than 100 pounds, so he eventually discontinued taking it. He is trying to lose weight. [facility] Medical History Methadone maintenance therapy patient Nicotine dependence, cigarettes, uncomplicated Multinodular thyroid (~2021) Supraclavicular mass Morbid obesity due to excess calories Wears partial dentures Full dentures Arthritis Diabetes (~2016) Depression Sleep apnea Shortness of breath on exertion Chronic venous stasis Hypertension Surgical History Status post phlebectomy History of wisdom tooth extraction History of carpal tunnel surgery of left wrist Status post ablation of incompetent vein using laser History of retained foreign body fully removed History of arthroscopic knee surgery History of umbilical hernia repair Family History Father Diabetes Mother Diabetes 1.5, managed as type 2 HTN (hypertension) Hypercholesteremia Paternal Grandmother Diabetes 1.5, managed as type 2 Maternal Grandmother Lung cancer Maternal Grandfather Prostate cancer Sister No problems noted. Daughter No problems noted. Daughter No problems noted. Daughter No problems noted. Daughter No problems noted. Social History Alcohol intake: never Patient Tobacco Use Status: Current everyday Tobacco user Tobacco use type: Cigarette Cigarette Packs Per Day: 0.5 Cigarettes Per Day: 10.0 Years Smoked: (current smoker - onset 13yo - 1/2-1ppd x 39yrs - 30pyh) Substance Use Type: Marijuana Current occupational status: disabled Current occupation: right handed Review of Systems Const All systems reviewed & are unremarkable except as noted in HPI and below Physical Exam Vital Signs: Last Vital Signs Pulse 57 01/19/24 09:54 Resp 14 01/19/24 09:54 BP 136/64 01/19/24 09:54 Pulse Ox 90 L 01/19/24 09:54 Oxygen Delivery Method Room Air 01/19/24 09:54 BMI result Body Mass Index 51.8 General: Morbidly obese gentleman sitting comfortably on the exam table. Appears afebrile. Alert and oriented. Mood and affect appropriate. Follows and participates in conversation appropriately. Respiratory effort is unlabored. Able to transition from sit to stand unassisted. Ambulates with bilaterally normal heel strike and toe off. Results Reviewed Results Reviewed: CT of the abdomen pelvis does not reveal any obvious deformity of the lumbar spine. Assessment & Plan Assessment & Plan (1) Back pain: Code(s): M54.9 - Dorsalgia, unspecified Category: Medical Qualifiers: Back pain location: low back pain Chronicity: chronic Back pain laterality: bilateral Sciatica presence: unspecified whether sciatica present Qualified Code(s): M54.50 - Low back pain, unspecified; G89.29 - Other chronic pain Plan We we had an extensive discussion regarding the biomechanical causes of his pain symptoms. I explained to the patient that any intervention we undertake now will have a short-term response until he loses significant weight. Given his relatively young age, short-term interventions will not be meaningful. He needs a long-term strategy for biomechanical well-being and remaining symptom-free. I recommended considering the use of a weight-loss medication such as GLP-1 analogs until he waits for his gastric sleeve surgery. I recommended home exercising including stretching and strengthening of muscles. I advised the patient to call us if his symptoms flared up in the meantime for short-term symptomatic relief. The patient is in agreement. Follow up as needed. Scribed for Dr. Lorenz by Robert Merida, medical cost consultant, on 01/19/2024. I, Dr. Lorenz, have personally reviewed and agree with the information entered by the scribe. Coding Level of Care Code New Pt Level 4 (12585) Diagnoses Chronic bilateral low back pain, unspecified whether sciatica present M54.50; G89.29 Back pain location: low back pain Chronicity: chronic Back pain laterality: bilateral Sciatica presence: unspecified whether sciatica present
[2024-01-19 09:54] VITALS: BP 136/64; PULSE 57; RESP 14; O2SAT 90; BMI 51.8
== END 2024-01-19 11:02 | disposition home or self-care (01) ==
PROVIDERS: PCP Internal Medicine; Referring Provider Surgery Vascular Surgery; Visit Provider Internal Medicine
DX: M54.50 Low back pain, unspecified (principal); G89.29 Other chronic pain
CPT/HCPCS: 99203

== ENCOUNTER → 2024-01-19 09:52 | Outpatient (BNVA) | payer OTHER, SELFPAY | PROVIDERS: PCP Internal Medicine; Referring Provider Surgery Vascular Surgery; Visit Provider Internal Medicine | DX: M54.50 Low back pain, unspecified (principal); G89.29 Other chronic pain | CPT/HCPCS: 99202 ==

== ENCOUNTER 2024-02-22 08:29 | Outpatient (REF) | payer OTHER, SELFPAY ==
[2024-02-22 10:22] LABS: MANUAL DIFF FLAG NO
[2024-02-22 10:42] LABS: Basophils Percent Auto 0.2 % (0-2); Eosinophils Absolute Auto 0.2 X10*3/uL (0.0-0.4); Eosinophils Percent Auto 3.5 % (0-4); Hematocrit 41.6 % (42.0-52.0); Hemoglobin 13.7 g/dl (14.0-18.0); Imm Gran Abs Auto 0.05 X10*3/uL (0.00-0.03); Imm Gran Pct Auto 0.8 % (0.0-0.4); Lymphocytes Percent Auto 29.8 % (20-40); Mean Corpuscular HGB Conc 32.9 g/dl (31.0-36.0); Mean Corpuscular Volume 91.2 fL (80.0-98.0); Mean Platelet Volume 11.7 fL (9.4-12.4); Monocytes Absolute Auto 0.5 X10*3/uL (0.1-1.2); Monocytes Percent Auto 7.6 % (2-11); Neutrophils Absolute Auto 3.8 x10*3/uL (2.0-8.3); Neutrophils Percent Auto 58.1 % (45-73); Platelet Count 180 X10*3/uL (160-400); Red Blood Count 4.56 X10*6/uL (4.60-5.80); Red Cell Distribution Width 13.8 % (11.0-16.0); White Blood Count 6.6 X10*3/uL (4.8-10.8)
[2024-02-22 10:47] LABS: Estimated Average Glucose 212 mg/dL
[2024-02-22 11:01] LABS: Alanine Aminotransferase 36 U/L (0-40); Albumin Level 3.8 g/dL (3.5-5.0); Alkaline Phosphatase 106 U/L (39-117); Anion Gap 11 (12-20); Appearance Urine Clear; Aspartate Amino Transferase 22 U/L (5-37); Bilirubin Total 0.3 mg/dL (0.0-1.0); Blood Urea Nitrogen 7 mg/dL (9-16); Calcium 8.7 mg/dL (8.4-10.2); Carbon Dioxide 30 mmol/L (22-29); Chloride 100 mmol/L (96-108); Cholesterol 134 mg/dL (<200); Color Urine Dark Yellow; Estimated Glomerular Filt Rate > 60; Glucose Fasting 297 mg/dL (60-99); Glucose Urine UA >=1000 mg/dL (Negative); HDL Cholesterol 36 mg/dL (>40); LDL Cholesterol Calculated 70 mg/dL (<100); Leukocyte Esterase Urine Negative (Negative); Nitrite Urine Negative (Negative); PH 5.5 (5.0-9.0); Potassium 4.4 mmol/L (3.3-5.1); Sodium 137 mmol/L (135-145); Specific Gravity - Urine >= 1.030 (1.005-1.025); Total Protein 6.5 g/dL (6.5-8.0); Triglycerides 141 mg/dL (<150); UMIC TRIGGER UA YES; Urine Blood Negative (Negative); Urine Ketones Negative (Negative); Urine Protein Negative (Neg-Trace)
[2024-02-22 11:06] LABS: Creatinine Urine 177.67 mg/dL
[2024-02-22 11:08] LABS: Bacteria Urine None Seen (None Seen); Hyaline Casts Urine 0-2 /LPF (0-2); RBC Urine 0-2 /HPF (0-2); WBC Urine 0-5 /HPF (0-5)
[2024-02-22 11:21] LABS: Vitamin D 25-OH Total 16.3 ng/mL (>30)
== END 2024-02-22 08:30 | disposition home or self-care (01) ==
LOC: HO.HMGCLDS 08:29
PROVIDERS: PCP Internal Medicine; Visit Provider Internal Medicine
DX: E11.42 Type 2 diabetes mellitus with diabetic polyneuropathy (principal); E66.01 Morbid (severe) obesity due to excess calories; F19.10 Other psychoactive substance abuse, uncomplicated; F32.9 Major depressive disorder, single episode, unspecified; R60.0 Localized edema; H10.9 Unspecified conjunctivitis
CPT/HCPCS: 36415; 80053; 80061; 81001; 82043; 82306; 82570; 83036; 84443; 85025

== ENCOUNTER 2024-02-27 08:32 | Outpatient (AMB) | payer OTHER, SELFPAY ==
--- NOTE | 2024-02-27 08:52 | MHC.OFFVIS ---
Vital Signs 02/27/24 08:55 Height 6 ft Weight 382 lb BMI 51.8 Intake Visit Reasons: f/u s/p 01/04/24 Intake Note: follow up for 01/04/24, pt statesLeft LE is worse than the right LE w/ cramping and numbness. Does wear compression daily and has lymphedema pump which he is not able to use regularly due to caring for his . Hx of wounds and states he has some new wounds caused by blisters. Hx of Right GSV Venaseal 08/13/21, Right Micro 02/21/22, Left LE Micro 01/03/22 and Left GSV RFA 02/04/22 Accompanied by: Self / Same As Patient Allergies No Known Allergies Allergy (Unknown, Verified 02/27/24 08:59) UNKNOWN HPI HPI f/u s/p 01/04/24: Details: Very pleasant 53-year-old gentleman presents for follow-up regarding swelling and discomfort of the lower extremities. Of note he is a morbidly obese gentleman with a BMI of 51. He has the swollen lower extremities. He has had previous venous treatment by us but now presents for follow-up with repeat evaluation of his venous insufficiency. He notes that his left is causing him more problems than his right. [facility] Medical History Methadone maintenance therapy patient Nicotine dependence, cigarettes, uncomplicated Multinodular thyroid (~2021) Supraclavicular mass Morbid obesity due to excess calories Wears partial dentures Full dentures Arthritis Diabetes (~2016) Depression Sleep apnea Shortness of breath on exertion Chronic venous stasis Hypertension Surgical History Status post phlebectomy History of wisdom tooth extraction History of carpal tunnel surgery of left wrist Status post ablation of incompetent vein using laser History of retained foreign body fully removed History of arthroscopic knee surgery History of umbilical hernia repair Family History Father Diabetes Mother Diabetes 1.5, managed as type 2 HTN (hypertension) Hypercholesteremia Paternal Grandmother Diabetes 1.5, managed as type 2 Maternal Grandmother Lung cancer Maternal Grandfather Prostate cancer Sister No problems noted. Daughter No problems noted. Daughter No problems noted. Daughter No problems noted. Daughter No problems noted. Social History Alcohol intake: never Patient Tobacco Use Status: Current everyday Tobacco user Tobacco use type: Cigarette Cigarette Packs Per Day: 0.5 Cigarettes Per Day: 10.0 Years Smoked: (current smoker - onset 13yo - 1/2-1ppd x 39yrs - 30pyh) Substance Use Type: Marijuana Current occupational status: disabled Current occupation: right handed Review of Systems Const Reports as per HPI ENT Reports no additional complaints Card Denies chest pain, Denies chest pain at rest and Denies chest pain with activity Resp Denies chest congestion and Denies cough GI Reports no additional complaints Musc Details: pain over varicosities, aching of lower extremities, swelling, cramping, heaviness and tiredness, itching Denies abnormal gait Skin/Breast Reports pruritus and Denies wounds Neuro Reports no additional complaints and Denies abnormal gait Psych Denies no additional complaints Physical Exam Vital Signs: BMI result Body Mass Index 51.8 Const General: cooperative, healthy appearing and comfortable Orientation/consciousness: oriented to person, oriented to place and oriented to time Neck Carotids: no bruits Chest Chest palpation & inspection: normal inspection of the chest and normal palpation of entire chest wall Resp Effort & Inspection: normal respiratory effort and able to speak in complete sentences Cardio Rate: regular rate Heart sounds: S1 normal heart sound present and S2 normal heart sound present Peripheral pulses: Peripheral pulses 2+ throughout GI Inspection: Yes normal to inspection Skin Other: +2 edema, large rope-like varicosities greater than 4 mm CEAP Classification C4 - skin color changes Ep - Etiology Primary As - superficial veins P - reflux General skin exam: dry skin Neuro General: oriented to person, oriented to place and oriented to time Extrem Right lower extremity: full ROM, normal capillary refill and edema Left lower extremity: full ROM, normal capillary refill and edema Psych Mental Status: mental status grossly normal Results Reviewed Results Reviewed: Brief summary of venous insufficiency testing is as follows: right great saphenous vein: Positive at calf right small saphenous vein: negative right accessory vein: none present left great saphenous vein: Positive above and below left small saphenous vein: Positive left accessory vein: none present Please note there is no evidence of any venous aneurysms or significant tortuosity Assessment & Plan Assessment & Plan (1) Varicose veins of left lower extremity with inflammation: Comment: 01/03/2022 - left leg microphlebectomy 02/04/2022 - left great Radiofrequency ablation Code(s): I83.12 - Varicose veins of left lower extremity with inflammation Category: Medical Plan: In short patient does have recurrent venous disease. I do believe his swelling is multifactorial in addition to his morbid obesity. I did discuss these findings with him. At the current time he has elected to manage this conservatively as he does have multiple life issues going on. He will follow up with us in approximately 3 months' time for repeat leg re-evaluation. At that time we will consider left lower extremity endovenous procedures for him. Thank you for allowing us to assist in his care Coding Level of Care Code Est Pt Level 4 (87623) Diagnoses Varicose veins of left lower extremity with inflammation I83.12
[2024-02-27 08:55] VITALS: BMI 51.8
== END 2024-02-27 09:24 | disposition home or self-care (01) ==
PROVIDERS: PCP Internal Medicine; Visit Provider Surgery Vascular Surgery
DX: I83.12 Varicose veins of left lower extremity with inflammation (principal)
CPT/HCPCS: 99213

== ENCOUNTER → 2024-02-27 08:32 | Outpatient (BNVA) | payer OTHER, SELFPAY | PROVIDERS: PCP Internal Medicine; Visit Provider Surgery Vascular Surgery | DX: I83.12 Varicose veins of left lower extremity with inflammation (principal) | CPT/HCPCS: 99212 ==

== ENCOUNTER 2024-04-09 08:06 | Outpatient (RCR) | payer OTHER, SELFPAY | END 2024-08-02 13:38 | disposition home or self-care (01) | LOC: HO.WCC 08:06 | PROVIDERS: PCP Internal Medicine; Visit Provider Physician Assistant | DX: E11.622 Type 2 diabetes mellitus with other skin ulcer (principal); I87.332 Chronic venous hypertension (idiopathic) with ulcer and inflammation of left lower extremity; L97.822 Non-pressure chronic ulcer of other part of left lower leg with fat layer exposed; S80.822D Blister (nonthermal), left lower leg, subsequent encounter; Q82.0 Hereditary lymphedema; I87.301 Chronic venous hypertension (idiopathic) without complications of right lower extremity; X58.XXXD Exposure to other specified factors, subsequent encounter; Z72.0 Tobacco use; Z79.84 Long term (current) use of oral hypoglycemic drugs; Z79.4 Long term (current) use of insulin; Z79.899 Other long term (current) drug therapy | CPT/HCPCS: 11042; 11045; 97597; 97598; 99212; 99213 ==

== ENCOUNTER 2024-06-10 10:16 | Outpatient (AMB) | payer OTHER, MEDICAID, SELFPAY ==
--- NOTE | 2024-06-10 10:26 | A.OFFVIS_ITS ---
Vital Signs 06/10/24 10:27 Height 6 ft Weight 385 lb BMI 52.2 BP 130/64 Blood Pressure Location Lt brachial Position Sitting Respiration 15 Pulse 50 Pulse Source Pulse Oximeter Pulse Oximetry (%) 95 Oxygen Delivery Method Room Air Intake Visit Reasons: Low Back Pain (TREMAINE: 01/19/24) Allergies No Known Allergies Allergy (Unknown, Verified 06/10/24 10:28) UNKNOWN Medication List - Last Reconciled 06/10/24 by Rebekah Marie LPN albuterol sulfate 90 mcg/actuation 2 puffs inhalation Q4-6H PRN atorvastatin 80 mg PO DAILY blood sugar diagnostic (FreeStyle Lite Strips) As directed bupropion HCl SR 150 mg PO BID cholecalciferol (vitamin D3) 1,250 mcg PO QWEEK furosemide 40 mg PO DAILY PRN gabapentin 300 mg PO DAILY glipizide 10 mg PO BID insulin glargine (Lantus Solostar U-100 Insulin) 20 units (0.2 mL) subcut QPM metformin 1,000 mg PO BID methadone 125 mg PO DAILY pen needle, diabetic (BD Mahi 2nd Gen Pen Needle) As directed HPI HPI Low Back Pain (TREMAINE: 01/19/24): Details: 54-year-old male who presents today to the office for a low back pain. He continues to experience the same pain symptoms. He reports back pain that radiates down to his lower extremities. He reports numbness and paresthesia in his hands and neck pain. He has difficulty doing minimal stretching exercises at home. He has not tried weight-loss medications yet. He has a scheduled appointment with his primary care physician and will discuss starting Ozempic for weight loss. He was started on methadone for substance abuse problems. He states that methadone provides some pain relief. He reports feeling weakness in his legs and knees. [facility] Medical History Methadone maintenance therapy patient Nicotine dependence, cigarettes, uncomplicated Multinodular thyroid (~2021) Supraclavicular mass Morbid obesity due to excess calories Wears partial dentures Full dentures Arthritis Diabetes (~2016) Depression Sleep apnea Shortness of breath on exertion Chronic venous stasis Hypertension Surgical History Status post phlebectomy History of wisdom tooth extraction History of carpal tunnel surgery of left wrist Status post ablation of incompetent vein using laser History of retained foreign body fully removed History of arthroscopic knee surgery History of umbilical hernia repair Family History Father Diabetes Mother Diabetes 1.5, managed as type 2 HTN (hypertension) Hypercholesteremia Paternal Grandmother Diabetes 1.5, managed as type 2 Maternal Grandmother Lung cancer Maternal Grandfather Prostate cancer Sister No problems noted. Daughter No problems noted. Daughter No problems noted. Daughter No problems noted. Daughter No problems noted. Social History Alcohol intake: never Patient Tobacco Use Status: Current everyday Tobacco user Tobacco use type: Cigarette Cigarette Packs Per Day: 0.5 Cigarettes Per Day: 10.0 Years Smoked: (current smoker - onset 13yo - 1/2-1ppd x 39yrs - 30pyh) Substance Use Type: Marijuana Current occupational status: disabled Current occupation: right handed Review of Systems Const All systems reviewed & are unremarkable except as noted in HPI and below Physical Exam Vital Signs: Last Vital Signs Pulse 50 06/10/24 10:27 Resp 15 06/10/24 10:27 BP 130/64 06/10/24 10:27 Pulse Ox 95 06/10/24 10:27 Oxygen Delivery Method Room Air 06/10/24 10:27 BMI result Body Mass Index 52.2 General: Appears afebrile. Alert and oriented. Mood and affect appropriate. Follows and participates in conversation appropriately. Respiratory effort is unlabored. Able to transition from sit to stand unassisted. Ambulates with bilaterally normal heel strike and toe off. Results Reviewed Results Reviewed: No imaging is available for review. Assessment & Plan Assessment & Plan (1) Lumbar spinal stenosis: Code(s): M48.061 - Spinal stenosis, lumbar region without neurogenic claudication Category: Medical Plan 55-year-old male presented with a longstanding history of drug use currently on methadone therapy. I advised him to check with his counselor if it is possible to split his maintenance dose that may help with his pain symptoms. He also states that his main issue right now is buckling in his legs that has been slowly getting worse associated with numbness. He is obviously concerned about falling given his weight and potential inability to get up if he does. I ordered an MRI of the lumbar spine for lumbar spinal stenosis to assess the source of his symptoms. I also explained to him to follow up with his PCP for consideration of a weight loss medication regimen to help lose weight prior to undergoing any kind of spinal decompression surgery to optimize his chances of better outcomes. The patient expressed understanding and will follow up with his primary care provider at the earliest available appointment. I will review his MRI when it is done to plan for appropriate procedure planning based on his size and weight. Scribed for Dr. Lorenz by Robert Merida, pediatric medical assistant, on 06/10/2024. I, Dr. Lorenz, have personally reviewed and agree with the information entered by the scribe. Orders: Orders MR lumbar spine wo con 06/10/24 M48.061 - Spinal stenosis, lumbar region without neurogenic claudication Coding Level of Care Code New Pt Level 4 (10999) Diagnoses Lumbar spinal stenosis M48.061
[2024-06-10 10:27] VITALS: BP 130/64; PULSE 50; RESP 15; O2SAT 95; BMI 52.2
== END 2024-06-10 10:42 | disposition home or self-care (01) ==
PROVIDERS: PCP Internal Medicine; Visit Provider Internal Medicine
DX: M48.061 Spinal stenosis, lumbar region without neurogenic claudication (principal)
CPT/HCPCS: 99214

== ENCOUNTER → 2024-06-10 10:16 | Outpatient (BNVA) | payer OTHER, MEDICAID, SELFPAY | PROVIDERS: PCP Internal Medicine; Visit Provider Internal Medicine | DX: M48.061 Spinal stenosis, lumbar region without neurogenic claudication (principal) | CPT/HCPCS: 99212 ==

== ENCOUNTER 2024-07-02 10:08 | Outpatient (REF) | payer OTHER, SELFPAY ==
[2024-07-02 13:11] LABS: MANUAL DIFF FLAG NO
[2024-07-02 13:29] LABS: Basophils Percent Auto 0.3 % (0-2); Eosinophils Absolute Auto 0.2 X10*3/uL (0.0-0.4); Hematocrit 43.8 % (42.0-52.0); Hemoglobin 14.5 g/dl (14.0-18.0); Imm Gran Abs Auto 0.05 X10*3/uL (0.00-0.03); Imm Gran Pct Auto 0.6 % (0.0-0.4); Lymphocytes Absolute Auto 2.2 X10*3/uL (1.2-4.9); Lymphocytes Percent Auto 27.4 % (20-40); Mean Corpuscular HGB Conc 33.1 g/dl (31.0-36.0); Mean Corpuscular Hemoglobin 29.4 pg (27.0-33.0); Mean Corpuscular Volume 88.8 fL (80.0-98.0); Mean Platelet Volume 12.1 fL (9.4-12.4); Monocytes Absolute Auto 0.6 X10*3/uL (0.1-1.2); Monocytes Percent Auto 7.4 % (2-11); Neutrophils Percent Auto 62.3 % (45-73); Platelet Count 175 X10*3/uL (160-400); Red Blood Count 4.93 X10*6/uL (4.60-5.80); Red Cell Distribution Width 14.3 % (11.0-16.0)
[2024-07-02 13:37] LABS: Appearance Urine Clear; Color Urine Yellow; Glucose Urine UA >=1000 mg/dL (Negative); Leukocyte Esterase Urine Negative (Negative); Nitrite Urine Negative (Negative); PH 5.5 (5.0-9.0); Specific Gravity - Urine >= 1.030 (1.005-1.025); UMIC TRIGGER UA YES; Urine Blood Negative (Negative); Urine Ketones Negative (Negative); Urine Protein Negative (Neg-Trace)
[2024-07-02 13:38] LABS: Alanine Aminotransferase 60 U/L (0-40); Albumin Level 3.9 g/dL (3.5-5.0); Alkaline Phosphatase 104 U/L (39-117); Anion Gap 12 (12-20); Aspartate Amino Transferase 36 U/L (5-37); Bilirubin Total 0.5 mg/dL (0.0-1.0); Blood Urea Nitrogen 10 mg/dL (9-16); Calcium 9.4 mg/dL (8.4-10.2); Carbon Dioxide 30 mmol/L (22-29); Chloride 100 mmol/L (96-108); Estimated Glomerular Filt Rate > 60; Glucose Fasting 344 mg/dL (60-99); Potassium 4.5 mmol/L (3.3-5.1); Sodium 137 mmol/L (135-145)
[2024-07-02 13:42] LABS: Bacteria Urine None Seen (None Seen); Hyaline Casts Urine 0-2 /LPF (0-2); RBC Urine 0-2 /HPF (0-2); WBC Urine 0-5 /HPF (0-5)
[2024-07-02 13:51] LABS: Estimated Average Glucose 255 mg/dL; Hemoglobin A1C 343.3302 umol/L; Hemoglobin A1c % 10.5 % (<6.0); Total Hemoglobin (HGBA1C) 3769.7962 umol/L
[2024-07-02 13:59] LABS: Vitamin D 25-OH Total 41.3 ng/mL (>30)
[2024-07-02 14:02] LABS: Creatinine Urine 138.63 mg/dL; Microalbum/Creatinine Ratio Ur 5.7 ug/mg cr (<30)
== END 2024-07-02 10:09 | disposition home or self-care (01) ==
LOC: HO.HMGCLDS 10:08
PROVIDERS: PCP Internal Medicine; Visit Provider Internal Medicine
DX: E11.42 Type 2 diabetes mellitus with diabetic polyneuropathy (principal); E66.01 Morbid (severe) obesity due to excess calories; R60.0 Localized edema
CPT/HCPCS: 36415; 80053; 81001; 82043; 82306; 82570; 83036; 85025

== ENCOUNTER → 2024-07-15 07:20 | Outpatient (BNV) | payer OTHER, SELFPAY | PROVIDERS: PCP Internal Medicine; Visit Provider Radiology Diagnostic Radiology | DX: M48.061 Spinal stenosis, lumbar region without neurogenic claudication (principal) | CPT/HCPCS: 72148 ==

== ENCOUNTER 2024-07-15 07:26 | Outpatient (REF) | payer OTHER, SELFPAY ==
--- NOTE | ~2024-07-15 | MR_ITS ---
EXAMINATION: MR LUMBAR SPINE WITHOUT CONTRAST CLINICAL INFORMATION: Lower extremity weakness and numbness. Spinal stenosis, lumbar spine without neurogenic claudication. COMPARISON: None available. TECHNIQUE: MRI of the lumbar spine was obtained using routine sequences without contrast. FINDINGS: Last rib-bearing vertebra labeled T12. No bone marrow STIR signal abnormality. Modic type II endplate changes, L1-2. Multilevel marginal osteophyte formation and disc desiccation more conspicuous at L1-2. Grade 1 retrolisthesis, L1 to and L4-5. Grade 1 anterolisthesis, L5-S1. Conus medullaris ends at inferior endplate of T12 with normal signal. T11-12: Broad-based disc bulging. Facet joint hypertrophy. No compression upon neural elements. T12-L1: No compression upon neural elements. L1-2: Facet joint and ligamentum flavum hypertrophy. Broad-based disc bulging. No central spinal canal stenosis. Right neural foramina narrowing on a degenerative basis. L2-3: Broad-based disc bulging. Facet joint and ligamentum flavum hypertrophy. Reduced AP diameter of the thecal sac and bilateral neuroforamina narrowing. L3-4: Broad-based disc bulging. Facet joint hypertrophy as well as ligamentum flavum. Reduced AP diameter of the thecal sac. Bilateral neuroforamina narrowing encroaching the exiting nerve roots. L4-5: Broad-based disc bulging. Facet joint and ligamentum flavum hypertrophy. Reduced AP and matter of the thecal sac and bilateral neuroforamina narrowing encroaching the exiting nerve roots. L5-S1: Bilateral neuroforamina stenosis compressing the exiting nerve roots. Facet joint hypertrophy. No central spinal canal stenosis. No prevertebral compartment hematoma, mass or fluid collection. MR/MR lumbar spine wo con IMPRESSION: Multilevel spondylosis from L1-L2 to L5-S1 compressing the L5 and encroaching the S1 nerve roots and encroaching the L3 and L4 exiting nerve roots. Electronically signed by: Silas العلي MD 07/15/2024 09:50 AM EST
== END 2024-07-15 07:27 | disposition home or self-care (01) ==
LOC: HO.MRI 07:26
PROVIDERS: PCP Internal Medicine; Visit Provider Internal Medicine
DX: M48.061 Spinal stenosis, lumbar region without neurogenic claudication (principal)
CPT/HCPCS: 72148

== ENCOUNTER 2024-07-16 09:03 | Outpatient (AMB) | payer OTHER, SELFPAY ==
[2024-07-16 09:07] VITALS: BP 158/80; PULSE 66; BMI 50.1
--- NOTE | 2024-07-16 09:07 | A.OFFVIS_ITS ---
Vital Signs 07/16/24 09:07 Height 6 ft Weight 369 lb 11.443 oz BMI 50.1 BP 158/80 H Blood Pressure Location Lt brachial Position Sitting Pulse 66 Pulse Source Pulse Oximeter Intake Visit Reasons: Thyroid nodule, Type 2 DM-conf Intake Note: New patient presents today for D2MT and Thyroid nodule office visit. Last Diabetic Eye exam: Over 2 years ago Last Podiatry Visit: Doesn't have one Random Glucose: 295 mg/dl HgA1c: 10.5% 07/02/24 King Maker Required: No Accompanied by: Self / Same As Patient Allergies No Known Allergies Allergy (Unknown, Verified 07/16/24 09:13) UNKNOWN Medication List - Last Reconciled 07/16/24 by Ingrid Cooper MD albuterol sulfate 90 mcg/actuation 2 puffs inhalation Q4-6H PRN atorvastatin 80 mg PO DAILY blood sugar diagnostic (FreeStyle Lite Strips) As directed bupropion HCl SR 150 mg PO BID cholecalciferol (vitamin D3) 1,250 mcg PO QWEEK cyanocobalamin (vitamin B-12) 1,000 mcg PO DAILY furosemide 40 mg PO DAILY PRN gabapentin 300 mg PO DAILY glipizide 10 mg PO BID insulin glargine (Lantus Solostar U-100 Insulin) 20 units (0.2 mL) subcut QPM metformin 1,000 mg PO BID methadone 125 mg PO DAILY pen needle, diabetic (BD Mahi 2nd Gen Pen Needle) As directed HPI Comments Details: 54-year-old male coming in today for initial evaluation of type 2 diabetes mellitus and multinodular goiter. Type 2 diabetes mellitus History of diabetes Diagnosed , on regular blood work Was initally just on oral mes, started on insulin in 2020 when A1c hit 11.9% Was able to go down to 7% in 2022 and then summer 2023 A1c went up to 9% in 03/04 , with lots of health issues recently and he wasnt getting a chnace to take care of himself Prior therapy: No other tried meds Current regimen: Metformin 1000 BID Glipizide 10 mg BID Lantus 20 units HS ( was missing doses earlier this year but now taking regularly) Getting evaluated by bariatric surgery in 2020, was still smoking so couldnt through with it apparently Now smoking half a pack a day Uses smokes marijuana as well Denies alcohol use Morbid obesity, BMI 50.1 kg per m2. Current weight 369 lb. Weight has fluctuated around 360 to 370 lb in the past few months. Next Diet : Breakfast at 7 AM: sausage egg and cheese on croissant , sometimes eggs and toast , sometimes toast and eggs , coffee with non dairy cream and one teaspoon sugar USually snack on yogurt ( low fat ) or oatmeal around noon Supper at 6 PM : chicken paaties , chicken soup , chilli , with potatoes , rice , not so much veggies Exercise : walks 2 city blocks daily , does work on disability , but active around the house Lives with , has been taking care of her Denies any symptoms of hyperglycemia including polyphagia, polyuria, polydipsia. Denies any hypoglycemic symptoms. SMBG's USing 's meter : Checks once daily in AM fasting anywhere between 180 to 210. Random Glucose: 295 mg/dl HgA1c: 10.5% 07/02/24 Complications Last Diabetic Eye exam: Over 2 years ago, he has referral just has to make appointment , no retinopathy Last Podiatry Visit: Doesn't have one Gabapaetnine 300 mg twice daily for neuropathy , really helps Kidney disease: no history of kidney disease Macrovascular complications: No history of macrovascular complications. Statin: on atorvastain 80 mg daily GABRIEL/ARB: none No history of HTN BP elevated tpday at 158 systolic but prior visits was normal at 130 systolic , no microalbuminuria He is on Lasix for pedal edema. Has chronic venous stasis. He tells me gets an annual echocardiogram at at the methadone clinic which was okay per patient He has never had any hospitalizations for hypoglycemia. No history of DKA Multinodular goiter/ PSeudonodules: no need to follow unless has clinical changes He has been seen in our practice in the past in [address] goiter [address] Ring. Was initially diagnosed with multinodular thyroid in 2021 after he began complaining of dysphagia. Dr. Ring repeated his US of the thyroid myself 12/01/2022, and this revealed a diffusely heterogenous thyroid gland with no true nodules, only pseudnodules. He was mentioning dysphagia and hoarseness of voice. A CT of the neck in 2021 was completed which was largely WNL. TSH 1.2 03/04 He denies any compressive sx Denies any history of head or neck irradiation. Denies any family history of thyroid cancer. Physical exam General: sitting comfortably in no acute distress HEENT: normocephalic/atraumatic, , moist oral mucosa Neck: supple, symmetrical, no thyromegaly , no dorsocervical or supraclavicular fat pads Cardiac: normal heart sounds Pulm: normal breath sounds B/L, no added breath sounds Abd: not distended, no tenderness Extremities: B/L pitting edema, chronic venous tstais skin chnages noted Neuro: AAO x3, Speech: normal, no facial droop, moving all 4 extremities Skin: no rash Foot exam: diminshed sensation to monofilament, intact pulses, intact vibration Laboratory Tests 01/07/21 01/12/22 07/11/22 10:16 12:01 15:13 Plt Count Creatinine Estimated GFR Fasting Glucose Hemoglobin A1c % 11.9 6.4 AST ALT Triglycerides Cholesterol LDL Cholesterol, Calc HDL Cholesterol TSH 1.28 Urine Creatinine Urine Microalbumin Microalb/Creat Ratio 03/08/23 02/22/24 07/02/24 07:48 08:38 10:51 Plt Count 175 Creatinine Estimated GFR Fasting Glucose 297 H Hemoglobin A1c % 6.9 9.0 H 10.5 H AST ALT Triglycerides 141 Cholesterol 134 LDL Cholesterol, Calc 70 HDL Cholesterol 36 L TSH 1.20 Urine Creatinine 138.63 Urine Microalbumin 8.0 Microalb/Creat Ratio 5.7 07/02/24 10:57 Plt Count Creatinine 0.91 Estimated GFR > 60 Fasting Glucose 344 H Hemoglobin A1c % AST 36 ALT 60 H Triglycerides Cholesterol LDL Cholesterol, Calc HDL Cholesterol TSH Urine Creatinine Urine Microalbumin Microalb/Creat Ratio Imaging Thyroid US: 12/01/2022 Right Thyroid Lobe: 5.3 x 2.2 x 2.1 cm, volume 12.8 mL. Parenchyma: The gland echotexture is diffusely heterogenous. Thyroid vascularity is normal. Left Thyroid Lobe: 4.7 x 2.0 x 2.3 cm, volume 11.3 mL. Parenchyma: The gland echotexture is diffusely heterogenous. Thyroid vascularity is normal. Isthmus: 0.5 cm in maximum AP dimension. There are no nodules visualized. NODES: No lymph nodes were assessed during today's visit. US THYROID 05/27/22 CLINICAL INFORMATION: Right supraclavicular mass. COMPARISON: None TECHNIQUE: Linear transducer grayscale and color Doppler examination with attention to the region of the thyroid. FINDINGS: SIZE: Measurements of the thyroid lobes and nodules are given in sagittal, anteroposterior and transverse dimensions respectively. Right Thyroid Lobe: 5.08 x 2.60 x 1.14 cm, volume 7.92 mL. Parenchyma: The gland echotexture is homogeneous. Thyroid vascularity is normal. Left Thyroid Lobe: 4.92 x 2.01 x 1.99 cm, volume 10.3 mL. Parenchyma: The gland echotexture is homogeneous. Thyroid vascularity is normal. Isthmus: 0.79 cm in maximum AP dimension. Estimated total number of nodules greater than or equal to 1 cm: 1. Almond Pan Finisher nodules are described as follows: 1. Location: Right superior. Size: 1.2 x 1.01 x 1.33 cm, volume 0.83 mL. Nodule characteristics: Composition: Cannot be determined (2). Echogenicity: Very hypoechoic (3). Shape: Not taller than wide (0). Margins: Smooth (0). Echogenic Foci: Peripheral calcifications (2). ACR TI-RADS total points: 7 ACR TI-RADS category: 5 NODES: No lymphadenopathy is seen in the tissue surrounding the thyroid gland. CT SOFT TISSUE NECK WITHOUT CONTRAST 07/18/22 CLINICAL INFORMATION: Nontoxic multinodular goiter. COMPARISON: Thyroid ultrasound 05/27/2022. TECHNIQUE: Helical imaging was performed in the axial plane with generation of coronal and sagittal reformatted images. This CT examination was performed using dose optimization techniques as appropriate, variously including the following: *Automated exposure control *Adjustment of mA and/or kV according to patient size (this includes techniques or standardized protocols for targeted exams where dose is matched to indication/reason for exam; i.e. extremities or head) *Use of iterative reconstruction technique FINDINGS: Limited noncontrast CT of the neck. A right thyroid lobe nodule seen on the prior thyroid ultrasound is not well appreciated on this noncontrast neck CT. Artifact significantly obscures the visceral space of the neck. There is no pathologic size criteria lymphadenopathy within the neck. There is no mass effect on the trachea nor the esophagus. The unenhanced submandibular glands, parotid glands, and orbital soft tissues are unremarkable. Calcified tonsilloliths within the palatine tonsils bilaterally. Atherosclerotic calcification involving the carotid bifurcations bilaterally. The orbital soft tissues are unremarkable. There is multilevel cervical spondylosis. There is significant rightward deviation of the nasal septum. There is mild mucosal thickening throughout the ethmoid air cells bilaterally. Chronic traumatic deformity of the right lamina papyracea. Imaged upper lungs are clear. Imaged upper mediastinum is unremarkable. CT/CT soft tissue neck wo IV con IMPRESSION: - Limited noncontrast CT of the neck. A right thyroid lobe nodule seen on the prior thyroid ultrasound is not well appreciated on this noncontrast neck CT. Artifact significantly obscures the visceral space of the neck. There is no pathologic size criteria lymphadenopathy within the neck. There is no mass effect on the trachea nor the esophagus. - A palpable marker has been placed within the right supraclavicular region above the level of the thyroid. No definite discrete mass lesion is identified in this location though assessment is limited without contrast. Consider a postcontrast neck CT for further assessment as clinically indicated. US/US thyroid IMPRESSION: 1.3 cm TR 5 nodule of the right thyroid lobe. FNA recommended. [facility] Medical History (Updated 07/16/24 @ 10:08 by Ingrid Cooper MD) Elevated blood pressure reading HLD (hyperlipidemia) Methadone maintenance therapy patient Nicotine dependence, cigarettes, uncomplicated Multinodular thyroid (~2021) Supraclavicular mass Morbid obesity due to excess calories Wears partial dentures Full dentures Arthritis Diabetes (~2016) Depression Sleep apnea Shortness of breath on exertion Chronic venous stasis Hypertension Surgical History Status post phlebectomy History of wisdom tooth extraction History of carpal tunnel surgery of left wrist Status post ablation of incompetent vein using laser History of retained foreign body fully removed History of arthroscopic knee surgery History of umbilical hernia repair Family History Father Diabetes Mother Diabetes 1.5, managed as type 2 HTN (hypertension) Hypercholesteremia Paternal Grandmother Diabetes 1.5, managed as type 2 Maternal Grandmother Lung cancer Maternal Grandfather Prostate cancer Sister No problems noted. Daughter No problems noted. Daughter No problems noted. Daughter No problems noted. Daughter No problems noted. Social History Alcohol intake: never Patient Tobacco Use Status: Current everyday Tobacco user Tobacco use type: Cigarette Cigarette Packs Per Day: 0.5 Cigarettes Per Day: 10.0 Years Smoked: (current smoker - onset 13yo - 1/2-1ppd x 39yrs - 30pyh) Substance Use Type: Marijuana Current occupational status: disabled Current occupation: right handed Physical Exam Vital Signs: Last Vital Signs Pulse 66 07/16/24 09:07 BP 158/80 H 07/16/24 09:07 BMI result Body Mass Index 50.1 Assessment & Plan Assessment & Plan (1) Diabetes: Onset Date: ~2016 Comment: (T2DM - dx 2017 Code(s): E11.9 - Type 2 diabetes mellitus without complications Category: Medical Qualifiers: Diabetes mellitus type: type 2 Diabetes mellitus halfway insulin use: with halfway use Diabetes mellitus complication status: with hyperglycemia Qualified Code(s): E11.65 - Type 2 diabetes mellitus with hyperglycemia; Z79.4 - [facility] (current) use of insulin Plan: Patient with type 2 diabetes mellitus diagnosed in 2017 who is now on long-term insulin use with complications of hyperglycemia. A1c in June 2024 up at 10.5% from 9.9% in February 2024. He has had worsened control over this past year due to multiple stressors at home with his 's health deteriorating. He is currently on Lantus 20 units daily, metformin 1000 b.i.d. and glipizide 10 mg b.i.d.. He checks fasting blood sugars daily and they have been anywhere from [id number] mg/dL. We will definitely up titrate his Lantus. I will also start him on a GLP 1 agonist. He does not have any family history of medullary thyroid cancer, denies any history of pancreatitis, no alcohol use. He would be an excellent candidate for GLP 1 agonist specially given his morbid obesity with BMI 51 kg per m2. Plan: -start Ozempic 0.25 mg weekly for 4 weeks and then titrate up to 0.5 mg weekly -we will stop glipizide to avoid risk of hypoglycemia -continue metformin 1000 b.i.d. -increase Lantus to 22 units daily and if over the next week continues to have fasting blood glucose levels greater than 140 mg/dL, go up to 24 units daily -I discussed with him complications of uncontrolled hyperglycemia including microvascular complications as well as macrovascular complications. Discussed with him importance of tight blood sugar control. -he has not seen an grinding machine operator in 2 years, he has a referral, advised to schedule eye visit -he has lymphedema, with a history of neuropathy on gabapentin, referral for podiatry placed -lifestyle modification advised with 150 minutes of exercise per week -I will also prescribe him a continuous glucose monitor, he is on insulin, with worsened blood sugar control. Freestyle Atul prescribed -tell you get your sensor, continue to monitor blood sugars through fingersticks at least twice a day. Fasting target and post meal targets provided. -placed referrals for diabetes education and nutrition (2) Morbid obesity due to excess calories: Code(s): E66.01 - Morbid (severe) obesity due to excess calories Category: Medical Plan: Patient with BMI 50.1 kg per m2. Weight has fluctuated in between 350-380 lb recently. He has been walking 2 blocks daily, plus trying to avoid excess calories. He qualifies for bariatric surgery with a his BMI criteria, we will place referral for bariatric surgery. He has been evaluated by them in the past in 2020, however then was lost to follow up. I reviewed with patient the importance of weight loss as it relates to decreas ing the risk of diabetes, cardiovascular disease, obstructive sleep apnea,PCOS, arthritis. We reviewed the importance of decreasing total calorie consumption, minimizing fats and carbohydrates. She was advised to start exercising 30-45 mins a day Or walking more than 10,000 steps a day. Plan: -placed referral for bariatric surgery -start Ozempic 0.25 mg weekly for 4 weeks and titrate up to 0.5 mg weekly -lifestyle modification advised as below (3) Multinodular thyroid: Onset Date: ~2021 Code(s): E04.2 - Nontoxic multinodular goiter Category: Medical Plan: Patient with a history of multinodular goiter diagnosed on thyroid ultrasound in 2021 and he was reporting dysphagia. Dr. Ring repeated the ultrasound herself in 2022 which only noted pseudonodules. No need to follow up on this unless he has any clinical changes. Today he denies any compressive symptoms, TSH was normal. (4) HLD (hyperlipidemia): Code(s): E78.5 - Hyperlipidemia, unspecified Category: Medical Qualifiers: Hyperlipidemia type: mixed hyperlipidemia Qualified Code(s): E78.2 - Mixed hyperlipidemia Plan: LDL at goal less than 70 mg/dL. Plan: -continue atorvastatin 80 mg daily (5) Elevated blood pressure reading: Code(s): R03.0 - Elevated blood-pressure reading, without diagnosis of hypertension Category: Medical Plan: His blood pressure was noted to be elevated today at 158 systolic. Otherwise he has always had blood pressures in the 130 systolic. I have advised him to buy a blood pressure monitor for home and monitor blood pressures. We will recheck again at next appointment, if continues to have elevated blood pressure readings, we will prescribe Gabriel/Arb. No history of microalbuminuria. Plan: -advised to monitor blood pressure at home Plan I spent 60 minutes in reviewing the record, seeing the patient and documenting in the medical record. Orders: Referrals Bariatric Surgery Referral E66.01 - Morbid (severe) obesity due to excess calories Podiatry Referral E11.9 - Type 2 diabetes mellitus without complications Diabetes Education Referral E11.9 - Type 2 diabetes mellitus without complications Bottom Loader Nutrition Referral E11.9 - Type 2 diabetes mellitus without complications Medications: New semaglutide (Ozempic) After completing initial 4 weeks of 0.25 mg weekly go up to this 0.5 mg weekly dose 0.5 mg (0.736 mL) subcut QWEEK 9 mL 3RF blood-glucose meter,continuous (FreeStyle Atul 3 [place]) As directed 1 ea 0RF semaglutide (Ozempic) for 4 weeks 0.25 mg (0.368 mL) subcut QWEEK 3 mL 0RF blood-glucose sensor (FreeStyle Atul 3 Sensor device) As directed 6 ea 3RF Changed From insulin glargine (Lantus Solostar U-100 Insulin) 20 units (0.2 mL) subcut QPM 15 mL 0RF To insulin glargine (Lantus Solostar U-100 Insulin) 22 units (0.22 mL) subcut QPM 15 mL 4RF Patient Instructions: Start ozempic 0.25 mg weekly for 4 weeks and then go up to 0.5 mg weekly Continue metformin 1000 mg twice daily Increase lantus to 22 units daily if blood sugars still above 140 mg/dl fasting increase to 24 units daily Stop glipizide I have prescribed a sensor let me know if not covered we can try another one See educator and butritionist Placed referral to Bariatric surgery See eye doctor annually See dog races manager referral placed Monitor blood sugars daily till you get sensor with fingersticks twice a day at least Fasting target 90 to 120 mg /gl 2 hours post meal < 140 mg /dl Get blood pressure monitor and maintain a log of blood pressures twice a week Weight loss counselling ? Limit added sugars to less than 25 grams daily. There are 4.2 grams of sugar per teaspoon of sugar. A teaspoon of honey has 6 grams of sugar! Bread also can have more sugar than you think-check labels ? No soda or juices. Drink water, unsweetened iced tea or seltzer ? Limit eating out/take out or prepared meals to twice weekly at most ? Avoid red meat, hot dogs, villatoro and deli meat. Substitute plant protein for animal protein as much as you can. Beans, nuts, tofu, soy milk ? Limit cheese to 1 ounce a few times weekly ? Eat high fiber foods like beans, apples and green veggies, salsa is a great snack with whole grain cracker like Wasa ? Look for the whole grain stamp when choosing bread etc. Aim for 48 grams of whole grains daily. Whole wheat does not equal whole grains! ? Don't keep tempting treats in the house. Go out once in a while for a treat. ? Don't eat anything deep fried or cream based-no sour cream Coding Level of Care Code New Pt Level 5 (70370) Complex EM visit Add On G2211 Diagnoses Type 2 diabetes mellitus with hyperglycemia, with long-term current use of insulin E11.65; Z79.4 Diabetes mellitus type: type 2 Diabetes mellitus halfway insulin use: with ferry terminal agent use Diabetes mellitus complication status: with hyperglycemia Morbid obesity due to excess calories E66.01 Multinodular thyroid E04.2 Mixed hyperlipidemia E78.2 Hyperlipidemia type: mixed hyperlipidemia Elevated blood pressure reading R03.0 Time Spent (min) 60
[2024-07-16 09:19] LABS: Glucose, Whole Blood 295 mg/dL (60-115)
== END 2024-07-16 10:06 | disposition home or self-care (01) ==
LOC: HO.ENCR 09:04
PROVIDERS: PCP Internal Medicine; Visit Provider Student in an Organized Health Care Education/Training Program
DX: E11.65 Type 2 diabetes mellitus with hyperglycemia (principal); Z79.4 Long term (current) use of insulin; E04.2 Nontoxic multinodular goiter; E66.813 Obesity, class 3; Z68.43 Body mass index [BMI] 50.0-59.9, adult
CPT/HCPCS: 99215; G2211

== ENCOUNTER → 2024-07-16 09:03 | Outpatient (BNVA) | payer OTHER, SELFPAY | PROVIDERS: PCP Internal Medicine; Visit Provider Student in an Organized Health Care Education/Training Program | DX: E04.2 Nontoxic multinodular goiter (principal); E78.2 Mixed hyperlipidemia; E11.65 Type 2 diabetes mellitus with hyperglycemia; E66.01 Morbid (severe) obesity due to excess calories; R03.0 Elevated blood-pressure reading, without diagnosis of hypertension; Z71.3 Dietary counseling and surveillance; Z68.43 Body mass index [BMI] 50.0-59.9, adult; Z79.4 Long term (current) use of insulin | CPT/HCPCS: 82947; 99212 ==

== ENCOUNTER → 2024-07-26 08:54 | Outpatient (BNVA) | payer OTHER, SELFPAY | PROVIDERS: PCP Internal Medicine; Visit Provider Physician Assistant Surgical ==

== ENCOUNTER 2024-08-05 07:53 | Outpatient (AMB) | payer OTHER, SELFPAY ==
--- NOTE | 2024-08-05 08:09 | A.OFFVIS_ITS ---
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 Allergies No Known Allergies Allergy (Unknown, Verified 08/05/24 08:09) UNKNOWN Medication List - Last Reconciled 08/05/24 by Lacho Estrella MD albuterol sulfate 90 mcg/actuation 2 puffs inhalation Q4-6H PRN atorvastatin 80 mg PO DAILY blood sugar diagnostic (OneTouch Verio test strips) check blood sugars twice daily blood-glucose meter (SopheonTouch Verio Flex Meter) check blood sugars twice daily blood-glucose meter,continuous (FreeStyle Atul 3 Sunol) As directed blood-glucose sensor (FreeStyle Atul 3 Sensor device) As directed bupropion HCl SR 150 mg PO BID cholecalciferol (vitamin D3) 1,250 mcg PO QWEEK cyanocobalamin (vitamin B-12) 1,000 mcg PO DAILY furosemide 40 mg PO DAILY PRN gabapentin 300 mg PO DAILY insulin glargine (Lantus Solostar U-100 Insulin) 22 units (0.22 mL) subcut QPM lancets (SopheonTouch Delica Plus Lancet) check blood sugars twice daily metformin 1,000 mg PO BID methadone 125 mg PO DAILY pen needle, diabetic (BD Mahi 2nd Gen Pen Needle) As directed semaglutide (Ozempic) 0.5 mg (0.736 mL) subcut QWEEK semaglutide (Ozempic) 0.25 mg (0.368 mL) subcut QWEEK HPI 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: Details: Start time: 7.59am, End time: 8.44am ?I spent 40 minutes speaking with the patient on the phone plus an additional 5 minutes reviewing and updating records for a total of 45 minutes HPI Comments Details: Previous weight loss efforts: self diets Wakes up: 7am, Sleeps: 11pm Breakfast: 8am (eggs, sausage, toast) Lunch: skips Dinner: 7pm (pasta, burgers, pork chops) Snacks: 8pm (chips) Exercise: none Fluids: Coffee: 2-3/wk (sugar), tea: none, soda: none, juice: <1/wk, ETOH: none PFSH Medical History (Updated 08/05/24 @ 08:21 by Lacho Estrella MD) Elevated blood pressure reading HLD (hyperlipidemia) Methadone maintenance therapy patient Nicotine dependence, cigarettes, uncomplicated Multinodular thyroid (~2021) Supraclavicular mass Morbid obesity due to excess calories Wears partial dentures Full dentures Arthritis Diabetes (~2016) Depression Sleep apnea Shortness of breath on exertion Chronic venous stasis Hypertension Surgical History Status post phlebectomy History of wisdom tooth extraction History of carpal tunnel surgery of left wrist Status post ablation of incompetent vein using laser History of retained foreign body fully removed History of arthroscopic knee surgery History of umbilical hernia repair Family History Father Diabetes Mother Diabetes 1.5, managed as type 2 HTN (hypertension) Hypercholesteremia Paternal Grandmother Diabetes 1.5, managed as type 2 Maternal Grandmother Lung cancer Maternal Grandfather Prostate cancer Sister No problems noted. Daughter No problems noted. Daughter No problems noted. Daughter No problems noted. Daughter No problems noted. Social History Alcohol intake: never Patient Tobacco Use Status: Current everyday Tobacco user Tobacco use type: Cigarette Cigarette Packs Per Day: 0.5 Cigarettes Per Day: 10.0 Years Smoked: (current smoker - onset 13yo - 1/2-1ppd x 39yrs - 30pyh) Substance Use Type: Marijuana Current occupational status: disabled Current occupation: right handed Telehealth Telehealth Telehealth Platform: Telephone Location of provider rendering services: practice address Location of patient: address on file Patient Identification confirmed using: Name, : Yes Telehealth method: voice only Patient verbally consented to treatment: Yes Patient verbally consented to billing insurance company: Yes Patient informed of any privacy concerns related to visit: Yes Minutes spent on Phone/Video with Pt.: 45 Assessment & Plan Assessment & Plan (1) Morbid obesity due to excess calories: Code(s): E66.01 - Morbid (severe) obesity due to excess calories Category: Medical Plan: 1.? Plan for lap sleeve gastrectomy. If diaphragmatic or ventral hernias are present at time of surgery, these will be repaired laparoscopically as well. Risks and complications include possible conversion to an open procedure, anastomotic leak, bleeding requiring transfusion, small bowel obstruction, , DVT and pulmonary embolism, cardiac, or pulmonary complications, as supervisor long goods complications such as anastomotic ulcer, insufficient weight loss and vitamin deficiencies. I emphasized the importance of close follow-up, adherence to instructions and good communication. 2. You will receive a link of our software pennie to generate an individualized nutritional and exercise plan specific for you. Please send me a screenshot of the plans you will generate Meal to include lean meat (beef, fish, pork, turkey, chicken), or romansh yogurt, or egg whites, or beans with a salad with olive oil and fruits (berries, pears, apples, kiwi). Avoid salt, breads, potatoes, rice, pasta, desserts. ?3. If you choose shakes, each shake would be drunk slowly, like coffee in a period of 2 hours. ?4. If you choose bars, cut each bar in 4 pieces and eat each piece in 30min ?to make each bar last 2 hours. ?5. I emphasized the importance of measuring accurately the food portion and measure it when serving the food in plate ?6. The meal portions include a specific number of forks of meat and salad. You always eat the meat portion but you can replace up to half of salad/vegetables portion with rice, potatoes or pasta, or a fruit ?if you like. The less you do it the better weight loss will be. ?7. One full-size fork is what it can be scooped on the fork without falling aside and not what can be bit with the fork. Use regular forks like those you find in a typical restaurant. ?8.? Please send me weight measurements as soon as possible and then once a week. Always include your diet and exercise plan. 9. The best choice would be to purchase a stationary bike, elliptical or treadmill at home that can track calories. Let me know if you do so I can give you an exercise plan. ?10.?Goal is to lose at least 1.5-2lbs per week ?12. Goal to lose 10% of your weight before surgery, which is about 36lbs. Ultimate weight goal: 330lbs before surgery 13. Please follow the diet plan exactly without any change. If you don't like something about the plan or you feel hungry you need to communicate with me so I can help you revise the plan. You should not change the plan yourself. 14. To be scheduled for EGD to assess the stomach's anatomy. The possibility of biopsies was discussed. Patient needs to avoid use of NSAIDs and aspirin for 1 week prior to EGD. Risks of perforation and bleeding was discussed with the patient. This will be an outpatient procedure with IV sedation. Orders: Orders Insulin Today E11.65 - Type 2 diabetes mellitus with hyperglycemia, E66.01 - Morbid (severe) obesity due to excess calories, G47.30 - Sleep apnea, unspecified, I10 - Essential (primary) hypertension, Z79.4 - petroleum terminal plant operator (current) use of insulin H Pylori Breath Test Today E11.65 - Type 2 diabetes mellitus with hyperglycemia, E66.01 - Morbid (severe) obesity due to excess calories, G47.30 - Sleep apnea, unspecified, I10 - Essential (primary) hypertension, Z79.4 - petroleum terminal plant operator (current) use of insulin Complete Blood Count Auto Diff Today E11.65 - Type 2 diabetes mellitus with hyperglycemia, E66.01 - Morbid (severe) obesity due to excess calories, G47.30 - Sleep apnea, unspecified, I10 - Essential (primary) hypertension, Z79.4 - retirement (current) use of insulin Comprehensive Met. Panel Today E11.65 - Type 2 diabetes mellitus with hyperglycemia, E66.01 - Morbid (severe) obesity due to excess calories, G47.30 - Sleep apnea, unspecified, I10 - Essential (primary) hypertension, Z79.4 - retirement (current) use of insulin Vitamin B12 and Folate Today E11.65 - Type 2 diabetes mellitus with hyperglycemia, E66.01 - Morbid (severe) obesity due to excess calories, G47.30 - Sleep apnea, unspecified, I10 - Essential (primary) hypertension, Z79.4 - petroleum terminal plant operator (current) use of insulin C Reactive Protein Today E11.65 - Type 2 diabetes mellitus with hyperglycemia, E66.01 - Morbid (severe) obesity due to excess calories, G47.30 - Sleep apnea, unspecified, I10 - Essential (primary) hypertension, Z79.4 - retirement (current) use of insulin Vitamin B1 Today E11.65 - Type 2 diabetes mellitus with hyperglycemia, E66.01 - Morbid (severe) obesity due to excess calories, G47.30 - Sleep apnea, unspecified, I10 - Essential (primary) hypertension, Z79.4 - petroleum terminal plant operator (current) use of insulin Vitamin A Today E11.65 - Type 2 diabetes mellitus with hyperglycemia, E66.01 - Morbid (severe) obesity due to excess calories, G47.30 - Sleep apnea, unspecified, I10 - Essential (primary) hypertension, Z79.4 - petroleum terminal plant operator (current) use of insulin TSH reflex Free T4 Today E11.65 - Type 2 diabetes mellitus with hyperglycemia, E66.01 - Morbid (severe) obesity due to excess calories, G47.30 - Sleep apnea, unspecified, I10 - Essential (primary) hypertension, Z79.4 - petroleum terminal plant operator (current) use of insulin Ferritin Today E11.65 - Type 2 diabetes mellitus with hyperglycemia, E66.01 - Morbid (severe) obesity due to excess calories, G47.30 - Sleep apnea, unspecified, I10 - Essential (primary) hypertension, Z79.4 - retirement (current) use of insulin Vitamin D 25-OH Total Today E11.65 - Type 2 diabetes mellitus with hyperglycemia, E66.01 - Morbid (severe) obesity due to excess calories, G47.30 - Sleep apnea, unspecified, I10 - Essential (primary) hypertension, Z79.4 - petroleum terminal plant operator (current) use of insulin US abdomen comp w elastography Today E11.65 - Type 2 diabetes mellitus with hyperglycemia, E66.01 - Morbid (severe) obesity due to excess calories, G47.30 - Sleep apnea, unspecified, I10 - Essential (primary) hypertension, Z79.4 - petroleum terminal plant operator (current) use of insulin FL upper GI w air Today E11.65 - Type 2 diabetes mellitus with hyperglycemia, E66.01 - Morbid (severe) obesity due to excess calories, G47.30 - Sleep apnea, unspecified, I10 - Essential (primary) hypertension, Z79.4 - retirement (current) use of insulin Hemoglobin A1c Today E11.65 - Type 2 diabetes mellitus with hyperglycemia, E66.01 - Morbid (severe) obesity due to excess calories, G47.30 - Sleep apnea, unspecified, I10 - Essential (primary) hypertension, Z79.4 - retirement (current) use of insulin Lipid Panel Today E11.65 - Type 2 diabetes mellitus with hyperglycemia, E66.01 - Morbid (severe) obesity due to excess calories, G47.30 - Sleep apnea, unspecified, I10 - Essential (primary) hypertension, Z79.4 - retirement (current) use of insulin IRON PROFILE Today E11.65 - Type 2 diabetes mellitus with hyperglycemia, E66.01 - Morbid (severe) obesity due to excess calories, G47.30 - Sleep apnea, unspecified, I10 - Essential (primary) hypertension, Z79.4 - retirement (current) use of insulin Zinc Today E11.65 - Type 2 diabetes mellitus with hyperglycemia, E66.01 - Morbid (severe) obesity due to excess calories, G47.30 - Sleep apnea, unspecified, I10 - Essential (primary) hypertension, Z79.4 - retirement (current) use of insulin XR chest 2V Today E11.65 - Type 2 diabetes mellitus with hyperglycemia, E66.01 - Morbid (severe) obesity due to excess calories, G47.30 - Sleep apnea, unspecified, I10 - Essential (primary) hypertension, Z79.4 - retirement (current) use of insulin ECG 12 lead EKG Today E11.65 - Type 2 diabetes mellitus with hyperglycemia, E66.01 - Morbid (severe) obesity due to excess calories, G47.30 - Sleep apnea, unspecified, I10 - Essential (primary) hypertension, Z79.4 - retirement (current) use of insulin RT home sleep study Today E11.65 - Type 2 diabetes mellitus with hyperglycemia, E66.01 - Morbid (severe) obesity due to excess calories, G47.30 - Sleep apnea, unspecified, I10 - Essential (primary) hypertension, Z79.4 - retirement (current) use of insulin Referrals Behavioral Health Referral E11.65 - Type 2 diabetes mellitus with hyperglycemia, E66.01 - Morbid (severe) obesity due to excess calories, G47.30 - Sleep apnea, unspecified, I10 - Essential (primary) hypertension, Z79.4 - retirement (current) use of insulin Nutrition/Dietitian Referral E11.65 - Type 2 diabetes mellitus with hyperglycemia, E66.01 - Morbid (severe) obesity due to excess calories, G47.30 - Sleep apnea, unspecified, I10 - Essential (primary) hypertension, Z79.4 - petroleum terminal plant operator (current) use of insulin
[2024-08-05 08:15] VITALS: BMI 49.7
== END 2024-08-05 08:45 | disposition home or self-care (01) ==
LOC: HO.HBS 07:53
PROVIDERS: PCP Internal Medicine; Visit Provider Surgery
DX: E66.01 Morbid (severe) obesity due to excess calories (principal); E66.813 Obesity, class 3; Z68.42 Body mass index [BMI] 45.0-49.9, adult
CPT/HCPCS: 99443

== ENCOUNTER → 2024-08-05 07:53 | Outpatient (BNVA) | payer OTHER, SELFPAY | PROVIDERS: PCP Internal Medicine; Visit Provider Surgery ==

== ENCOUNTER 2024-08-06 08:53 | Outpatient (AMB) | payer OTHER, SELFPAY ==
[2024-08-06 09:05] VITALS: BMI 48.9
--- NOTE | 2024-08-06 09:05 | A.OFFVIS_ITS ---
VS Expanded 08/06/24 09:05 08/14/24 13:50 Height 6 ft 6 ft Weight 360 lb 10.82 oz 361 lb BMI 48.9 49.0 Intake Visit Reasons: DM/LVM Allergies No Known Allergies Allergy (Unknown, Verified 08/05/24 08:09) UNKNOWN Nutrition Presentation Details: Pt presents for MNT for T2DM with morbid obesity Pt is interested in surgical weight loss and has had initial consultation with bariatric surgeon who referred him for MNT food frequency fruits: 0-1/d veg 4 x/wk dairy 10 +/d starches > 40 serving/d fish not including fried foods : 2-3 x/wk sweets: daily physical activity: daily life activities Pt reports having stopped soda and juices, choosing water or low sugar/fruit infused beverages and has switched to low sugar cereals. A1c 10.4 % on 06/2024 BS Monitoring Most Recent Diabetes Results: Cholesterol 132 mg/dL (<200) 08/22/24 HDL Cholesterol 33 mg/dL (>40) L 08/22/24 Triglycerides 203 mg/dL (<150) H 08/22/24 Creatinine 0.83 mg/dL (0.5-1.4) 08/22/24 Blood Urea Nitrogen 9 mg/dL (9-16) 08/22/24 Sodium 140 mmol/L (135-145) 08/22/24 Potassium 4.0 mmol/L (3.3-5.1) 08/22/24 Chloride 103 mmol/L (96-108) 08/22/24 Carbon Dioxide 29 mmol/L (22-29) 08/22/24 Calcium 9.7 mg/dL (8.4-10.2) 08/22/24 AST 41 U/L (5-37) H 08/22/24 ALT 69 U/L (0-40) H 08/22/24 Total Protein 7.1 g/dL (6.5-8.0) 08/22/24 Albumin 3.9 g/dL (3.5-5.0) 08/22/24 DVG-Hpyxuzt-Gn.Jeor Equation Height: 6 ft Weight: 361 lb Resting Metabolic Rate: 2527.99 Calculated Activity Level: Sedentary Calories Needed to Maintain Weight: 3033.59 Diagnosis Nutrition problem #1: food nutri know defi As related to (etiology) #1: diagnosis As evidenced by (sign/symptom) #1: knowledge deficit of diet [facility] Medical History (Updated 08/07/24 @ 14:29 by Azucena Ibarra, RD, LDN) Elevated blood pressure reading HLD (hyperlipidemia) Methadone maintenance therapy patient Nicotine dependence, cigarettes, uncomplicated Multinodular thyroid (~2021) Supraclavicular mass Morbid obesity due to excess calories Wears partial dentures Full dentures Arthritis Diabetes (~2016) Depression Sleep apnea Shortness of breath on exertion Chronic venous stasis Hypertension Surgical History Status post phlebectomy History of wisdom tooth extraction History of carpal tunnel surgery of left wrist Status post ablation of incompetent vein using laser History of retained foreign body fully removed History of arthroscopic knee surgery History of umbilical hernia repair Family History Father Diabetes Mother Diabetes 1.5, managed as type 2 HTN (hypertension) Hypercholesteremia Paternal Grandmother Diabetes 1.5, managed as type 2 Maternal Grandmother Lung cancer Maternal Grandfather Prostate cancer Sister No problems noted. Daughter No problems noted. Daughter No problems noted. Daughter No problems noted. Daughter No problems noted. Social History Alcohol intake: never Patient Tobacco Use Status: Current everyday Tobacco user Tobacco use type: Cigarette Cigarette Packs Per Day: 0.5 Cigarettes Per Day: 10.0 Years Smoked: (current smoker - onset 13yo - 1/2-1ppd x 39yrs - 30pyh) Substance Use Type: Marijuana Current occupational status: disabled Current occupation: right handed Assessment & Plan Assessment & Plan (1) Diabetes: Onset Date: ~2016 Comment: (T2DM - dx 2017, morbid obesity Code(s): E11.9 - Type 2 diabetes mellitus without complications Category: Medical Qualifiers: Diabetes mellitus complication status: with hyperglycemia Diabetes mellitus half-way insulin use: with half-way use Diabetes mellitus type: type 2 Qualified Code(s): E11.65 - Type 2 diabetes mellitus with hyperglycemia; 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 Plan: Wt: 164Kg ( 08/04 ) Est kcal needs as per MSJ: 3000 (40% carb, 30% protein/fat) Est fluid needs as per 25-30 ml/d: 4900 Est prot per day as per 1 g/kg bw: 164 Recommend fiber intake : 8-10 g per day and gradually increase to 25-28 g per day for women and 35-38 g for men or as tolerated Recommend sodium intake per day : less than 2300 mg Educated patient on: ( R = reviewed V = verbalizes understanding N/R = needs review N/A = not applicable * Food sources of carbohydrate, adequate serving sizes and its role in various health conditions: R * Differences between complex carbohydrates a simple carbohydrates, role of fiber in diet: R V N/R * Lean protein sources of foods: R * Differences between types of fats and role in diet (mono on saturated fat fatty acids, saturated fatty acids, trans fats): R V N/R * Food sources of sodium in salt and healthy modifications for heart health in kidney health: R V R/V * Vitamins and minerals: R V N/R * Healthy plate method concept: R V N/R * Physical activity: Benefits a precaution: R V N/R * Hypoglycemia protocol (rule of 15): R V N/R * Dietary prevention of Hyperglycemia: R Patient Instructions: Practice mindful eating Work on reducing sugars (beverages, pastries, added sugars in general ) Reduce total carbs to than 100 g per meal following healthy plate method and snack to 0-20 g carbs 2-3 snacks/day Keep hydrated by choosing water, fruit/herb infused water, low sugar beverages as established Coding Level of Care Code Nutr Indiv Intake (68978) Diagnoses Type 2 diabetes mellitus with hyperglycemia, with long-term current use of insulin E11.65; Z79.4 Diabetes mellitus complication status: with hyperglycemia Diabetes mellitus exterminator helper insulin use: with exterminator helper use Diabetes mellitus type: type 2 Time Spent (min) 30
[2024-08-26 13:17] VITALS: BMI 49.0
== END 2024-08-06 09:48 | disposition home or self-care (01) ==
PROVIDERS: PCP Internal Medicine; Visit Provider Dietitian, Registered
DX: E11.65 Type 2 diabetes mellitus with hyperglycemia (principal); Z79.4 Long term (current) use of insulin

== ENCOUNTER → 2024-08-06 08:53 | Outpatient (BNVA) | payer OTHER, SELFPAY | PROVIDERS: PCP Internal Medicine; Visit Provider Dietitian, Registered | DX: E11.65 Type 2 diabetes mellitus with hyperglycemia (principal); E66.01 Morbid (severe) obesity due to excess calories; F17.210 Nicotine dependence, cigarettes, uncomplicated; Z71.3 Dietary counseling and surveillance; Z79.4 Long term (current) use of insulin; Z68.42 Body mass index [BMI] 45.0-49.9, adult | CPT/HCPCS: 97802 ==

== ENCOUNTER 2024-08-15 08:34 | Outpatient (AMB) | payer OTHER, SELFPAY ==
--- NOTE | 2024-08-15 09:18 | A.OFFVIS_ITS ---
Intake Intake Visit Reasons: DM-confirmed Allergies No Known Allergies Allergy (Unknown, Verified 08/05/24 08:09) UNKNOWN HPI Comprehensive Diabetes Asmnt Most Recent Diabetes Results: Hemoglobin A1c 7.3 % 04/16/19 Microalb/Creat Ratio 5.7 ug/mg cr (<30) 07/02/24 Cholesterol 134 mg/dL (<200) 02/22/24 HDL Cholesterol 36 mg/dL (>40) L 02/22/24 Triglycerides 141 mg/dL (<150) 02/22/24 Creatinine 0.91 mg/dL (0.5-1.4) 07/02/24 Blood Urea Nitrogen 10 mg/dL (9-16) 07/02/24 Sodium 137 mmol/L (135-145) 07/02/24 Potassium 4.5 mmol/L (3.3-5.1) 07/02/24 Chloride 100 mmol/L (96-108) 07/02/24 Carbon Dioxide 30 mmol/L (22-29) H 07/02/24 Calcium 9.4 mg/dL (8.4-10.2) 07/02/24 AST 36 U/L (5-37) 07/02/24 ALT 60 U/L (0-40) H 07/02/24 Total Protein 7.0 g/dL (6.5-8.0) 07/02/24 Albumin 3.9 g/dL (3.5-5.0) 07/02/24 [facility] Medical History (Updated 08/07/24 @ 14:29 by Azucena Ibarra, RD, LDN) Elevated blood pressure reading HLD (hyperlipidemia) Methadone maintenance therapy patient Nicotine dependence, cigarettes, uncomplicated Multinodular thyroid (~2021) Supraclavicular mass Morbid obesity due to excess calories Wears partial dentures Full dentures Arthritis Diabetes (~2017) Depression Sleep apnea Shortness of breath on exertion Chronic venous stasis Hypertension Surgical History Status post phlebectomy History of wisdom tooth extraction History of carpal tunnel surgery of left wrist Status post ablation of incompetent vein using laser History of retained foreign body fully removed History of arthroscopic knee surgery History of umbilical hernia repair Family History Father Diabetes Mother Diabetes 1.5, managed as type 2 HTN (hypertension) Hypercholesteremia Paternal Grandmother Diabetes 1.5, managed as type 2 Maternal Grandmother Lung cancer Maternal Grandfather Prostate cancer Sister No problems noted. Daughter No problems noted. Daughter No problems noted. Daughter No problems noted. Daughter No problems noted. Social History Alcohol intake: never Patient Tobacco Use Status: Current everyday Tobacco user Tobacco use type: Cigarette Cigarette Packs Per Day: 0.5 Cigarettes Per Day: 10.0 Years Smoked: (current smoker - onset 13yo - 1/2-1ppd x 39yrs - 30pyh) Substance Use Type: Marijuana Current occupational status: disabled Current occupation: right handed Assessment & Plan Assessment & Plan (1) Diabetes: Onset Date: ~2016 Comment: (T2DM - dx 2017, morbid obesity Code(s): E11.9 - Type 2 diabetes mellitus without complications Qualifiers: Diabetes mellitus type: type 2 Diabetes mellitus mcfp insulin use: with ocean transportation intermediary use Diabetes mellitus complication status: with hyperglycemia Qualified Code(s): E11.65 - Type 2 diabetes mellitus with hyperglycemia; Z79.4 - watermaster (current) use of insulin Plan: Diabetes self-management education and support participation record Assessment/scale: 1= needs instructed? 2= needs review? 3= comprehend keep point? 4= demonstrates understanding/ competent? NC= Not Covered Topics Learning Objective: Initial visit Initial or post srvc Initial or post srvc Initial or post srvc Initial or post srvc Initial or post srvc Post srvc Comments Pre Edu-assessment/plan Outcome or reassess Outcome or reassess Outcome or reassess Outcome or reassess Outcome or reassess Outcome or reassess Diabetes pathophysiology Healthy eating Being active Taking medication Monitoring glucose Acute complication Chronic complicated Lifestyle and healthy coping Diabetes distress in support ?Diabetes pathophysiology: ?Defined diabetes med identify own type of diabetes; list 3 options for treating diabetes Healthy eating: ?Described effect of type, amount and ?timing of food on blood glucose; list 3 methods for planning meal Being active: ?State effect of exercise on blood glucose level Taking medication: ?State effect of diabetes medications on diabetes; name diabetes medications taking, action and side effects Monitoring glucose: ?Identify recommended blood glucose targets and personal target Acute complication: ?List symptoms and treatment of hyper and hypoglycemia, DKA, sick day guidelines and guidelines for severe weather or situations of crisis and diabetes supply manage Chronic complication: ?To find the relationship of blood glucose levels to long- term complications of diabetes in screening and preventative measures Lifestyle and healthy coping: ?Described lifestyle and healthy coping strategies to rule out diabetes self-management Diabetes to stress and support: ?Recognize Diabetes to stress and be able to identified support options Learning objectives: The patient was provided with verbal and written education on the following topics as outlined below. The patient met all learning objectives and was able to verbalize understanding and provide teach back of education topics discussed . The patient was provided with the opportunity to ask questions and all questions were answered. Patient Assessment Assess patient education level/literacy/barriers, patient is currently participating in bariatric program Patient questions/concerns, diagnosed in 2017 with type 2 diabetes, recalls having little Diabetes Education at that time. Patient's last A1c on 07/02/2024 10.5% What is Diabetes? Pathophysiology How the body produces and uses insulin Identify type of DM Risk factors Signs of Diabetes Brief overview of Diabetes Management Monitoring blood sugar Following a meal plan Regular exercise Maintaining a healthy weight Taking medication as needed Members of the care team (PCP, RN, MA, RD, CDE, panelbeater) Introduction to Nutrition Importance of healthy diet in managing DM Diet is personalized to individual preference Review patient?s regular diet/food preferences Who prepares meals/does food shopping/ Dining out?/ Barriers? How diet effects glucose Eating 3 balanced meals a day with small, healthy snacks between meals Review food groups Carbohydrates: What is a carbohydrate/Which food/food groups are considered carbohydrates Effect of carbohydrates on blood glucose Portion sizes Reading food labels Basic carb counting (if applicable per nursing assessment) Plate method Meal planning Recommendations: Follow plate method, consistent carbs and read nutritional labels. Smart Goal: Educational Materials: The patient was provided with the following written educational materials: Planning Healthy Meals Handout Patient Response to instructions: Comprehension of Instructions: Fair Readiness to make changes: Contemplation How confident they feel about making changes: Positive Patient at visit to set up an insert Atul 3 sensor, with cellphone pennie Instructed patient sensors water proof you can shower, or swim do not submerge sensor in water for over 30 minutes Is sensor falls off cannot put back in you need to replace sensor, customer service number given to patient for sensor replacement Sensor placed on the back of right arm Patient left visit with sensor in warmup Reviewed how to interpret trend arrows Reminded patient that to check finger sticks if symptoms do not match sensor reading. Discussed lag time between finger stick and sensor data.? Instructed patient she should always keep blood glucometer for backup testing if needed Reviewed delay of CGM from fingersticks Reminded pt that if symptoms do not match sensor still needs to check fingersticks. Patient Instructions: Patient instruction: CGM provides information on blood glucose control throughout the day, including hyperglycemia and hypoglycemia. ? Continue to monitor blood glucose as instructed. Follow nutrition guidelines provided. Report any discomfort promptly to health care provider. ?Stay well-hydrated. You can bathe ,shower, swim and exercise while wearing the glucose sensor. Do not submerge glucose sensor in water for more than 30 minutes. Follow-up with ems educator in 2 weeks Coding Level of Care Code Est Pt Level 1 (51270) Diagnoses Type 2 diabetes mellitus with hyperglycemia, with long-term current use of insulin E11.65; Z79.4 Diabetes mellitus type: type 2 Diabetes mellitus mcfp insulin use: with ocean transportation intermediary use Diabetes mellitus complication status: with hyperglycemia
--- OUTSIDE RECORDS SUMMARY | 2024-08-21 00:24 | XMS_ITS ---
Author Organization Abe Rivero DO, FACP Address [address] [place], [place] [id number] Care Team Providers Care Blueprint Tracer Name Role Phone Abe Rivero Primary Care Provider ALLERGIES No Known Allergies REASON FOR REFERRAL Reason Obstructive sleep ap roxy Diagnosis 1 Obstructive sleep ap roxy (G47.33) Referral Organization Abe Sinclair FACP Referring Provider First Name Abe Referring Provider Last Name Josefa Referring Provider Speciality Internal edicine Referred Provider Alexi Soriano Referred Provider Specialty Pulmonary Di seases General Notes Lindsey Cat 12:35:01 PM EDT > referral faxed; specialist's office will call patient; pateint aware. Referral Priority Routine Referral Appointment Date 07/31/2024 Reason DM Morbid obesity Diagnosis 1 Type 2 diabetes teresa itus with diabetic polyneuropathy (E11.42) Referral Organization Abe Sinclair FACP Referring Provider First Name Abe Referring Provider Alex Name Josefa Referring Provider Speciality Internal edicine Referred Provider Abe Thomas Referred Provider Specialty Endocrinolog y General Notes Lindsey Cat 01:26:38 PM EDT > referral manually faxed Referral Priority Routine Reason CEE Diabetic retinal exam Diagnosis 1 Type 2 diabetes teresa itus with diabetic polyneuropathy (E11.42) Referral Organization Abe Sinclair FACP Referring Provider First Name Abe Referring Provider Alex Name Josefa Referring Provider Speciality Internal edicine Referred Provider Bulmaro Penn Referred Provider Specialty Roustabout General Notes Lindsey Cat 12:35:44 PM EDT > PATIENT WILL CALL YOUR OFFICE TO SCHEDULE AN APPOINTMENT., Lindsey Cat 07/03/2024 12:35:56 PM EDT > referral faxed. Referral Priority Routine REASON FOR VISIT 3 month f/u, Follow up type II diabetes mellitus MEDICATIONS Medication SIG (Take, Route, Frequency, Duration) Notes Start Date End Date Status Furosemide 20 MG 1 tablet Orally Once a day Active Cyanocobalamin 1000 MCG 1 tablet Orally Once a day Active Vitamin D (Ergocalciferol) 1.25 MG (67365 UT) 1 capsule Orally Twice a week Active Nystatin 184349 UNIT/GM 1 application Ex ternally Twice a day for 30 days 12/05/2023 Active Gabapentin 300 MG 2 capsules Orally Tw ice a day Active Lantus SoloStar 100 UNIT/ML 18 units Sub cutaneous Once a day Active NovoFine Plus Pen Needle 32G X 4 MM as directed Subcutaneous Once a day Active glipiZIDE 10 MG 1 tablet Orally Twic e a day Active FreeStyle Lite Test - 1 strip as directe d In Vitro Twice a day Active Atorvastatin Calcium 80 MG 1 tablet Oral ly Once a day Active Albuterol Sulfate HFA 108 (90 Base) MCG/ACT 1 puff as needed Inhalation every 4 hrs Active metFORMIN HCl 1000 MG 1 tablet with a me al Orally Twice a day Active buPROPion HCl ER (SR) 150 MG 1 tablet Orally Twice a day Active SOCIAL HISTORY Tobacco Use: Social History Observation Description Date Details (start date - stop date) Current Smoker NA - NA Sex Assigned At : Social History Observation Description Sex Assigned At Unknown Tobacco Use/Smoking Question Answer Notes Patient is a current smoker How often do you smoke cigarettes? every day How many cigarettes a day do you smoke? 6-10 How soon after you wake up d o you smoke your first cigarette? 31-60 minutes Are you interested in quitting? Ready to quit Additional Findings: Tobacco User Curren t cigarette smoker, not currently using another form of tobacco Alcohol Screen Question Answer Notes Did you have a drink containing alcohol in the p ast year? No Points 0 Interpretation Negative VITAL SIGNS Blood pressure systolic 114 mm Hg 07/03/20 24 Blood pressure diastolic 56 mm Hg 024 Height 72 in 07/03/2024 Encounters Encounter Location Date Provider Diagnosis Abe Rivero DO, FACP [address] [place] [id number] 07/03/2024 Abe Rivero Type 2 diabetes mellitus with diabetic polyneuropathy E11.42 ; Morbid obesity due to excess calories E66.01 ; Obstructive sleep apnea G47.33 and Depression, unspecified depression type F32.9 ASSESSMENTS Encounter Date Diagnosis Assessment Notes Treatment Notes Treatment Clinical Notes 07/03/2024 Type 2 diabetes mellitus with diabetic polyneuropathy (ICD-10 - E11.42) 07/03/2024 Morbid obesity due t o excess calories (ICD-10 - E66.01) 07/03/2024 Obstructive sleep apnea (ICD-10 - G47.33) 07/03/2024 Depression, unspecified depression type (ICD-10 - F32.9) PLAN OF TREATMENT Medication Medication Name Sig Start Date Stop Date Notes Furosemide 20 MG 1 tablet Orally Once a day Cyanocobalamin 1000 MCG 1 tablet Orally Once a day Vitamin D (Ergocalciferol) 1.25 MG (09239 UT) 1 capsule Orally Twice a week Nystatin 026769 UNIT/GM 1 application Ex ternally Twice a day for 30 days 12/05/2023 Gabapentin 300 MG 2 capsules Orally Tw ice a day Lantus SoloStar 100 UNIT/ML 18 units Sub cutaneous Once a day NovoFine Plus Pen Needle 32G X 4 MM as directed Subcutaneous Once a day glipiZIDE 10 MG 1 tablet Orally Twice a day FreeStyle Lite Test - 1 strip as directe d In Vitro Twice a day Atorvastatin Calcium 80 MG 1 tablet Orally Once a day Albuterol Sulfate HFA 108 (9 0 Base) MCG/ACT 1 puff as needed Inhalation every 4 hrs metFORMIN HCl 1000 MG 1 tablet with a me al Orally Twice a day buPROPion HCl ER (SR) 150 MG 1 tablet Orally Twice a day Referrals Referral Date Details 07/31/2024 07/31/2024, Obstruct celia sleep apnea, Alexi Soriano DM Morbid obesity, R fidel PAL Diabetic retinal exam, Bulmaro Penn Next Appt Details Follow Up: 3 Months, Reason: follow up visit Provider Name:Abe rodriguez, 10/02/2024 11:30:00 AM, [address] [place] [address], [phone], Progress Notes * Examination Category Sub-Category Detail Notes General Examination GENERAL APPEARANCE: in no ac [place] distress, well developed, well nourished HEAD: normocephalic, atrau matic HEART: no murmurs, regular rate and rhythm, S1, S2 normal LUNGS: clear to auscultatio n bilaterally ABDOMEN: obese, soft SKIN: warm and dry EXTREMITIES: no edema PSYCH: alert, oriented, cog nitive function intact PODIATRIC: Consultation Request Notes Referral Date Referring Provider Referred Provider Not es 07/03/2024 Abe Rivero Mohammad Obstructi ve sleep apnea 07/03/2024 Abe Rivero Robert DM Morbid obesity 07/03/2024 Abe Rivero David CEE Diabeti c retinal exam
--- OUTSIDE RECORDS SUMMARY | 2024-08-21 00:24 | XMS_ITS ---
Author Organization Abe Rivero DO, [facility] Address [address] [place], [place] [phone] Care Team Providers Care Set Up Mechanic Coating Machines Name Role Phone Abe Rivero Primary Care Provider REASON FOR VISIT FYI only Encounters Encounter Location Date Provider Diagnosis Abe Rivero DO, FACP [address] [place], [place] [phone] 05/06/2024 Abe Rivero PLAN OF TREATMENT Next Appt Details Provider Name:Abe rodriguez, 10/02/2024 11:30:00 AM, [address] [place], [place], [phone],
--- OUTSIDE RECORDS SUMMARY | 2024-08-21 00:24 | XMS_ITS ---
Author Organization Abe Rivero DO, [facility] Address [address] [place], [place] [phone] Care Team Providers Care Social Science Instructor Name Role Phone Abe Rivero Primary Care Provider REASON FOR VISIT FYI only Encounters Encounter Location Date Provider Diagnosis Abe Rivero DO, FACP [address] [place], [place] [phone] 04/29/2024 Abe Rivero PLAN OF TREATMENT Next Appt Details Provider Name:Abe rodriguez, 10/02/2024 11:30:00 AM, [address] [place], [place], [phone],
--- OUTSIDE RECORDS SUMMARY | 2024-08-21 00:25 | XMS_ITS | Patient Health Record ---
Author Organization Abe Carlos Josefa CAMERON, FACP Address [address], [place] [id number] Care Team Providers Care Home Theatre Technician Name Role Phone Abe Rivero Primary Care Provider [phone] ALLERGIES No Known Allergies RESULTS Component Value Reference Range Notes US venous duplex LE BI Reviewed date:01/18/2024 01:36:28 PM Interpretation:Abnormal Performing Lab: Notes/Report: [address] [address] Ultrasound Report Signed Patient: Louis Cazares MR#: [id number] : 1970 Acct:[id number] Age/Sex: 53 / M ADM Date: 01/04/24 Loc: .US Attending Dr: Todd Gagnon MD Ordering Physician: Todd Gagnon MD Date of Service: 01/04/24 Procedure(s): US venous duplex LE BI Accession Number(s): [id number] cc: Abe Rivero DO; Todd Gagnon MD EXAMINATION: US LOWER EXTREMITY VENOUS (REFLUX EXAM), BILATERAL CLINICAL INDICATION: Chronic venous insufficiency with lower extremity varicose veins and inflammation. History of prior great saphenous vein ablation COMPARISON: Multiple prior ultrasounds including , 09/01/2021 and 07/26/2021 TECHNIQUE: Color flow triplex imaging and compression Doppler was performed to evaluate both the deep and the superficial systems bilaterally. To evaluate the superficial system, the examination was performed in the upright position. Color-flow Doppler ultrasound and compression ultrasound were utilized. In addition, maneuvers were utilized to demonstrate reflux. FINDINGS: 1. DEEP VENOUS ULTRASOUND OF THE RIGHT LOWER EXTREMITY: Common Femoral Vein: Compressible, normal respiratory variation and augmented flow. Femoral Vein: Compressible, normal color flow and augmentation. Popliteal Vein: Compressible, normal augmentation. Deep Reflux: Deep venous reflux seen in the common femoral vein measuring 1004 ms and within the popliteal vein measuring 2696 ms There is a De Santiago's cyst in the popliteal fossa measuring 2.4 x 6.2 x 1.2 cm Enlarged lymph node in the right groin measuring 4.5 x 1.0 x 1.8 cm per 2. SUPERFICIAL ULTRASOUND WITH DOPPLER OF RIGHT LOWER EXTREMITY: GREAT SAPHENOUS VEIN: Saphenofemoral Junction: 1.0 cm; Reflux: 0 ms Proximal Thigh: 0.3 cm; occluded Mid Thigh: Not visualized Above Knee: 0.2 cm; occluded At Knee: 0.4 cm; occluded Below Knee: 1.2 cm; Reflux: 2376 ms Mid Calf: 0.4 cm; Reflux: 2252 ms. Partially compressible with wall adherent thrombus Ankle: 0.3 cm; Reflux: 1324 ms. Partially compressible with wall adherent thrombus DUPLICATED MEDIAL GREAT SAPHENOUS VEIN: Diameter: None imaged Reflux: NA DUPLICATED LATERAL GREAT SAPHENOUS VEIN: Diameter: 0.8 cm Reflux: 2432 ms SMALL SAPHENOUS VEIN: Saphenopopliteal Junction: 0.4 cm; Reflux: 0 ms Proximal: 0.4 cm; Reflux: 0 ms Distal: 0.4 cm; Reflux: 0 ms VEIN OF GIACOMINI: Size: NA Reflux: NA PERFORATORS: Location: Proximal and distal calf Size: Ranging from 0.2 to 0.5 cm Reflux: Ranging from 792 ms to 1556 ms VARICOSITIES: Location: Posterior knee directly off the popliteal vein Size: 1.4 cm Reflux: 1828 ms Location: Mid thigh off the lateral duplicated saphenous vein Size: 0.3 to 1.0 cm Reflux: 2500 ms Location: Medial knee, throughout the calf Size: 0.6 to 0.8 cm Reflux: Ranging from 1040 ms to 2648 ms 3. DEEP VENOUS ULTRASOUND OF THE LEFT LOWER EXTREMITY: Common Femoral Vein: Compressible, normal respiratory variation and augmented flow. Femoral Vein: Compressible, normal color flow and augmentation. Popliteal Vein: Compressible, normal augmentation. Deep Reflux: Deep venous reflux seen in the superficial femoral vein measuring 1724 ms and in the popliteal vein measuring 1792 ms There is no evidence of a De Santiago's cyst. 4. SUPERFICIAL ULTRASOUND WITH DOPPLER OF LEFT LOWER EXTREMITY: GREAT SAPHENOUS VEIN: Saphenofemoral Junction: 0.7 cm; Reflux: 2528 ms Proximal Thigh: 1.0 cm; Reflux: 2136 ms Mid Thigh: 0.3 cm; occluded Above Knee: Not visualized At Knee: 0.1 cm; Reflux: 0 ms Below Knee: 0.3 cm; Reflux: 2160 ms Mid Calf: 0.4 cm; Reflux: 1972 ms Ankle: 0.3 cm; Reflux: 824 ms DUPLICATED MEDIAL GREAT SAPHENOUS VEIN: Diameter: None imaged Reflux: NA DUPLICATED LATERAL GREAT SAPHENOUS VEIN: Diameter: None imaged Reflux: NA SMALL SAPHENOUS VEIN: Saphenopopliteal Junction: 0.3 cm; Reflux: 836 ms Proximal: 0.4 cm; Reflux: 1160 ms Distal: 0.4 cm; Reflux: 812 ms VEIN OF GIACOMINI: Size: NA Reflux: NA PERFORATORS: Location: Proximal mid calf extending to the great saphenous vein and varicose veins Size: Ranging from 0.3 to 0.6 cm Reflux: Ranging from 1940 ms to 2444 ms VARICOSITIES: Location: Posterior calf off the proximal, mid and distal small saphenous vein Size: 0.3 to 0.5 cm Reflux: Ranging from 1272 ms to 2548 ms Location: Proximal thigh arising from the residual great saphenous vein extending through the mid and distal thigh Size: 0.4 to 0.5 seconds Reflux: 2464 ms Location: Medial proximal and mid calf from the residual great saphenous vein and animal control specialist veins Size: Ranging from 0.3 to 0.4 cm Reflux: Ranging from 2032 ms to 2484 ms US/US venous duplex LE BI IMPRESSION: Right: Great saphenous vein within the proximal thigh to the knee is occluded consistent with prior ablation. Residual great saphenous vein in the calf demonstrates severe reflux. There is also severe reflux in the lateral duplicated great saphenous vein in the thigh. Deep venous reflux is seen in the right lower extremity as described above. Multiple refluxing varicose veins throughout the right lower extremity as described above Left: Great saphenous vein in the mid to distal thigh is occluded. Residual great saphenous vein in the proximal thigh and calf with severe reflux as described above. Severe reflux in the left small saphenous vein. Deep venous reflux in the left lower extremity as described above. Multiple refluxing varicose veins throughout the left lower extremity as described above Dictated By: Arya Mora MD Signed By: <Electronically signed by Arya Mora MD in OV> 01/18/24 1125 DD/ 1213 TD/TT: Industrial Photographer: Complete Blood Count Auto Di ff Reviewed date:02/22/2024 10:55:59 AM Interpretation:Abnormal Performing Lab:[facility], [address] [place] [phone] Notes/Report: White Blood Count 6.6 4.8-10.8 X10*3/uL Red Blood Count 4.56 4.60-5.80 X10*6/uL Hemoglobin 13.7 14.0-18.0 g/dl Hematocrit 41.6 42.0-52.0 % Mean Corpuscular Volume 91.2 80.0-98.0 fL Mean Corpuscular Hemoglobin 30.0 27.0-33.0 pg Mean Corpuscular HGB Conc 32.9 31.0-36.0 g/dl Red Cell Distribution Width 13.8 11.0-16.0 % Platelet Count 180 160-400 X10*3/uL Mean Platelet Volume 11.7 9.4-12.4 fL Neutrophils Percent Auto 58.1 45-73 % Imm Gran Pct Auto 0.8 0.0-0.4 % Lymphocytes Percent Auto 29.8 20-40 % Monocytes Percent Auto 7.6 2-11 % Eosinophils Percent Auto 3.5 0-4 % Basophils Percent Auto 0.2 0-2 % NRBC Pct Auto 0.0 0.0-0.2 /100WBC Neutrophils Absolute Auto 3.8 2.0-8.3 x10*3/u L Imm Gran Abs Auto 0.05 0.00-0.03 X10*3/uL Lymphocytes Absolute Auto 2.0 1.2-4.9 X10*3/u L Monocytes Absolute Auto 0.5 0.1-1.2 X10*3/uL Eosinophils Absolute Auto 0.2 0.0-0.4 X10*3/u L Basophils Absolute Auto 0.0 0.0-0.2 X10*3/uL NRBC Abs Auto 0.000 0.0-0.012 X10*3/uL Urinalysis and Microscopic Reviewed date:02/22/2024 11:54:08 AM Interpretation:Abnormal Performing Lab:[facility], [address] [place] [phone] Notes/Report: Color Urine Dark Yellow Appearance Urine Clear PH 5.5 5.0-9.0 Glucose Urine UA >=1000 Negative mg/dL Urine Blood Negative Negative Specific [place] - Urine >= 1.030 1.005-1.025 Urine Protein Negative Neg-Trace mg/dL Urine Ketones Negative Negative mg/dL Nitrite Urine Negative Negative Leukocyte Esterase Urine Negative Negative RBC Urine 0-2 0-2 /HPF WBC Urine 0-5 0-5 /HPF Squamous Epithelial Cell Urine 3-5 0-2 /HPF Bacteria Urine None Seen None Seen Hyaline Casts Urine 0-2 0-2 /LPF Comprehensive [place]. Panel Fa Reviewed date:02/23/2024 09:03:53 AM Interpretation:Abnormal Performing Lab:[facility], [address] [place] [phone] Notes/Report: Sodium 137 135-145 mmol/L Potassium 4.4 3.3-5.1 mmol/L Chloride 100 96-108 mmol/L Carbon Dioxide 30 22-29 mmol/L Anion Gap 11 12-20 Blood Urea Nitrogen 7 9-16 mg/dL Creatinine 0.84 0.5-1.4 mg/dL Estimated Glomerular Filt Rate > 60 NOTE: For -Guyanese individuals, multiply the result by 1.210. Chronic Kidney Disease: Estimated GFR < 60 mL/min/1.73m2 Severe Kidney Disease: Estimated GFR < 15 mL/min/1.73m2 Glucose Fasting 297 60-99 mg/dL A fasting glucose of 126 mg/dl or greater on more than one occasion is considered diagnostic of diabetes. Calcium 8.7 8.4-10.2 mg/dL Bilirubin Total 0.3 0.0-1.0 mg/dL Aspartate Amino Transferase 22 5-37 U/L Alanine Aminotransferase 36 0-40 U/L Total Protein 6.5 6.5-8.0 g/dL Albumin Level 3.8 3.5-5.0 g/dL Alkaline Phosphatase 106 39-117 U/L Lipid Panel Reviewed date:02/22/2024 11:54:08 AM Interpretation:Abnormal Performing Lab:[facility], [address] [place] [phone] Notes/Report: Triglycerides 141 <150 mg/dL Desirable Triglyceride: less than 150 mg/dL Borderline High Triglyceride 150-199 mg/dL High Triglyceride: 200-499 mg/dL Very High Triglyceride: greater than or equal to 5OO mg/dL Cholesterol 134 <200 mg/dL Desirable Cholesterol: less than 200 mg/dL Borderline High Cholesterol: 200-239 mg/dL High Cholesterol: greater than 239 mg/dL LDL Cholesterol Calculated 70 <100 mg/dL Desirable LDL: less than 100 mg/dL Near Optimal/Above Optimal LDL: 110-129 mg/dL Borderline High LDL: 130-159 mg/dL High LDL: 160-189 mg/dL Very High LDL: greater than or equal to 190 mg/dL HDL Cholesterol 36 >40 mg/dL Desirable HDL: greater than 40 mg/dL Note: This HDL assay may give artificially low results in patients with liver disease. Vitamin D 25-OH Total Reviewed date:02/23/2024 09:03:53 AM Interpretation:Abnormal Performing Lab:[address] [address] Notes/Report: Vitamin D 25-OH Total 16.3 >30 ng/mL Health Based Reference Values* < 20 ng/mL Deficient 20-30 ng/mL Insufficient > 30 ng/mL Sufficient *Kamla PERDOMO. N Engl J Med. 2007;357:266-280 Care must be taken in interpreting Vitamin D results from different laboratories and methodologies. Published data demonstrated that results from patients undergoing hemodialysis may show a negative bias when tested with various automated 25-OH vitamin D assays when compared to LC-MS/MS. When testing samples from patients whose predominant form of Vitamin D is Vitamin D2, such as patients receiving Vitamin D2 supplementation, results that are subtherapeutic should be confirmed with another method such as LC-MS/MS. Thyroid Stimulating Hormone Reviewed date:02/22/2024 11:54:08 AM Interpretation:Normal Performing Lab:[address] [address] Notes/Report: Thyroid Stimulating Hormone 1.20 0.32-4.0 uIU/ mL TSH 3rd Generation ([facility]) Microalbumin, Random Reviewed date:02/22/2024 11:54:08 AM Interpretation:Normal Performing Lab:[address] [phone] Notes/Report: Creatinine Urine 177.67 Microalbumin Urine 9.0 Microalbum/Creatinine Ratio Ur 5.0 <30 ug/mg cr Albumin/Creatinine Ratio Reference Ranges: Normal: < 30 ug/mg creatinine Microalbuminuria: 30 - 300 ug/mg creatinine Clinical Albuminuria: > 300 ug/mg creatinine Hemoglobin A1c Reviewed date:02/22/2024 10:55:28 AM Interpretation:Abnormal Performing Lab:[facility], [address] [place] [phone] Notes/Report: Hemoglobin A1c % 9.0 <6.0 % Hemoglobin A1C Reference Range Adults: 4.8 - 6.0 % Non diabetic: < 6.0 % Goal: < 7.0 % Additional Action Suggested: > 8.0 % Note: Hemoglobin A1c results are invalid for patients with abnormal amounts of HbF. Blood transfusions may impact the HbA1c concentration in the patient sample. Estimated Average Glucose 212 eAG = Estimated average glucose which is %A1C expressed as average glucose, using the formula of the Y0H-Ozkteru Average Glucose study (ADAG), Diabetes Care, Vol.31,#8, Apr. 2007 Complete Blood Count Auto Di ff Reviewed date:07/02/2024 02:18:20 PM Interpretation:Normal Performing Lab:[facility], [address] [place] [phone] Notes/Report: White Blood Count 8.0 4.8-10.8 X10*3/uL Red Blood Count 4.93 4.60-5.80 X10*6/uL Hemoglobin 14.5 14.0-18.0 g/dl Hematocrit 43.8 42.0-52.0 % Mean Corpuscular Volume 88.8 80.0-98.0 fL Mean Corpuscular Hemoglobin 29.4 27.0-33.0 pg Mean Corpuscular HGB Conc 33.1 31.0-36.0 g/dl Red Cell Distribution Width 14.3 11.0-16.0 % Platelet Count 175 160-400 X10*3/uL Mean Platelet Volume 12.1 9.4-12.4 fL Neutrophils Percent Auto 62.3 45-73 % Imm Gran Pct Auto 0.6 0.0-0.4 % Lymphocytes Percent Auto 27.4 20-40 % Monocytes Percent Auto 7.4 2-11 % Eosinophils Percent Auto 2.0 0-4 % Basophils Percent Auto 0.3 0-2 % NRBC Pct Auto 0.0 0.0-0.2 /100WBC Neutrophils Absolute Auto 5.0 2.0-8.3 x10*3/u L Imm Gran Abs Auto 0.05 0.00-0.03 X10*3/uL Lymphocytes Absolute Auto 2.2 1.2-4.9 X10*3/u L Monocytes Absolute Auto 0.6 0.1-1.2 X10*3/uL Eosinophils Absolute Auto 0.2 0.0-0.4 X10*3/u L Basophils Absolute Auto 0.0 0.0-0.2 X10*3/uL NRBC Abs Auto 0.000 0.0-0.012 X10*3/uL Urinalysis and Microscopic Reviewed date:07/02/2024 02:18:20 PM Interpretation:Abnormal Performing Lab:[facility], [address] [place] [phone] Notes/Report: Color Urine Yellow Appearance Urine Clear PH 5.5 5.0-9.0 Glucose Urine UA >=1000 Negative mg/dL Urine Blood Negative Negative Specific [place] - Urine >= 1.030 1.005-1.025 Urine Protein Negative Neg-Trace mg/dL Urine Ketones Negative Negative mg/dL Nitrite Urine Negative Negative Leukocyte Esterase Urine Negative Negative RBC Urine 0-2 0-2 /HPF WBC Urine 0-5 0-5 /HPF Squamous Epithelial Cell Urine 6-10 0-2 /HPF Bacteria Urine None Seen None Seen Hyaline Casts Urine 0-2 0-2 /LPF Comprehensive [place]. Panel Fa st Reviewed date:07/02/2024 02:18:20 PM Interpretation:Abnormal Performing Lab:[facility], [address] [place] [phone] Notes/Report: Sodium 137 135-145 mmol/L Potassium 4.5 3.3-5.1 mmol/L Chloride 100 96-108 mmol/L Carbon Dioxide 30 22-29 mmol/L Anion Gap 12 12-20 Blood Urea Nitrogen 10 9-16 mg/dL Creatinine 0.91 0.5-1.4 mg/dL Estimated Glomerular Filt Rate > 60 NOTE: For -Guyanese individuals, multiply the result by 1.210. Chronic Kidney Disease: Estimated GFR < 60 mL/min/1.73m2 Severe Kidney Disease: Estimated GFR < 15 mL/min/1.73m2 Glucose Fasting 344 60-99 mg/dL A fasting glucose of 126 mg/dl or greater on more than one occasion is considered diagnostic of diabetes. Calcium 9.4 8.4-10.2 mg/dL Bilirubin Total 0.5 0.0-1.0 mg/dL Aspartate Amino Transferase 36 5-37 U/L Alanine Aminotransferase 60 0-40 U/L Total Protein 7.0 6.5-8.0 g/dL Albumin Level 3.9 3.5-5.0 g/dL Alkaline Phosphatase 104 39-117 U/L Vitamin D 25-OH Total Reviewed date:07/02/2024 02:18:20 PM Interpretation:Normal Performing Lab:[address] [phone] Notes/Report: Vitamin D 25-OH Total 41.3 >30 ng/mL Health Based Reference Values* < 20 ng/mL Deficient 20-30 ng/mL Insufficient > 30 ng/mL Sufficient *Kamla PERDOMO. N Engl J Med. 2007;357:266-280 Care must be taken in interpreting Vitamin D results from different laboratories and methodologies. Published data demonstrated that results from patients undergoing hemodialysis may show a negative bias when tested with various automated 25-OH vitamin D assays when compared to LC-MS/MS. When testing samples from patients whose predominant form of Vitamin D is Vitamin D2, such as patients receiving Vitamin D2 supplementation, results that are subtherapeutic should be confirmed with another method such as LC-MS/MS. Microalbumin, Random Reviewed date:07/02/2024 02:18:20 PM Interpretation:Normal Performing Lab:[address] [address] Notes/Report: Creatinine Urine 138.63 Microalbumin Urine 8.0 Microalbum/Creatinine Ratio Ur 5.7 <30 ug/mg cr Albumin/Creatinine Ratio Reference Ranges: Normal: < 30 ug/mg creatinine Microalbuminuria: 30 - 300 ug/mg creatinine Clinical Albuminuria: > 300 ug/mg creatinine Hemoglobin A1c Reviewed date:07/02/2024 02:18:35 PM Interpretation:Abnormal Performing Lab:[facility], [address] [place] [phone] Notes/Report: Hemoglobin A1c % 10.5 <6.0 % Hemoglobin A1C Reference Range Adults: 4.8 - 6.0 % Non diabetic: < 6.0 % Goal: < 7.0 % Additional Action Suggested: > 8.0 % Note: Hemoglobin A1c results are invalid for patients with abnormal amounts of HbF. Blood transfusions may impact the HbA1c concentration in the patient sample. Estimated Average Glucose 255 eAG = Estimated average glucose which is %A1C expressed as average glucose, using the formula of the M9L-Cljyaec Average Glucose study (ADAG), Diabetes Care, Vol.31,#8, Apr. 2007 MR lumbar spine wo con Reviewed date:07/15/2024 01:26:16 PM Interpretation:Abnormal Performing Lab: Notes/Report: [address] [address] Magnetic Resonance Report Signed Patient: Louis Cazares MR#: [id number] : 1970 Acct:[id number] Age/Sex: 54 / M ADM Date: 07/15/24 Loc: HO.MRI Attending Dr: Jamaal Lorenz MD Ordering Physician: Jamaal Lorenz MD Date of Service: 07/15/24 Procedure(s): MR lumbar spine wo con Accession Number(s): [id number] cc: Abe Rivero DO; Jamaal Lorenz MD EXAMINATION: MR LUMBAR SPINE WITHOUT CONTRAST CLINICAL INFORMATION: Lower extremity weakness and numbness. Spinal stenosis, lumbar spine without neurogenic claudication. COMPARISON: None available. TECHNIQUE: MRI of the lumbar spine was obtained using routine sequences without contrast. FINDINGS: Last rib-bearing vertebra labeled T12. No bone marrow STIR signal abnormality. Modic type II endplate changes, L1-2. Multilevel marginal osteophyte formation and disc desiccation more conspicuous at L1-2. Grade 1 retrolisthesis, L1 to and L4-5. Grade 1 anterolisthesis, L5-S1. Conus medullaris ends at inferior endplate of T12 with normal signal. T11-12: Broad-based disc bulging. Facet joint hypertrophy. No compression upon neural elements. T12-L1: No compression upon neural elements. L1-2: Facet joint and ligamentum flavum hypertrophy. Broad-based disc bulging. No central spinal canal stenosis. Right neural foramina narrowing on a degenerative basis. L2-3: Broad-based disc bulging. Facet joint and ligamentum flavum hypertrophy. Reduced AP diameter of the thecal sac and bilateral neuroforamina narrowing. L3-4: Broad-based disc bulging. Facet joint hypertrophy as well as ligamentum flavum. Reduced AP diameter of the thecal sac. Bilateral neuroforamina narrowing encroaching the exiting nerve roots. L4-5: Broad-based disc bulging. Facet joint and ligamentum flavum hypertrophy. Reduced AP and matter of the thecal sac and bilateral neuroforamina narrowing encroaching the exiting nerve roots. L5-S1: Bilateral neuroforamina stenosis compressing the exiting nerve roots. Facet joint hypertrophy. No central spinal canal stenosis. No prevertebral compartment hematoma, mass or fluid collection. MR/MR lumbar spine wo con IMPRESSION: Multilevel spondylosis from L1-L2 to L5-S1 compressing the L5 and encroaching the S1 nerve roots and encroaching the L3 and L4 exiting nerve roots. Electronically signed by: Silas العلي MD 07/15/2024 09:50 AM [facility] Dictated By: Silas Centeno Signed By: <Electronically signed by Silas Ayala in OV> 07/15/24 0950 DD/ TD/TT: 07/15/24 0806 Industrial Photographer: Glucose, Whole Blood Reviewed date:07/16/2024 12:07:06 PM Interpretation:Abnormal Performing Lab:[facility], [address] [place] [phone] Notes/Report: Glucose, Whole Blood 295 60-115 mg/dL METER #: [id number] Testing performed in the [facility]in[facility] , [address], [place]. REASON FOR REFERRAL Reason DM-2 Onychomycosis Diagnosis 1 Type 2 diabetes teresa itus with diabetic polyneuropathy (E11.42) Referral Organization Abe Sinclair, FACP Referring Provider First Name Abe Referring Provider Last Name Josefa Referring Provider Speciality Internal M edicine Referred Provider Roland Campbell Referred Provider Specialty Podiatry General Notes Page,Alysha 4 02:36:54 PM EDT > Referral sent prior to scheduling and patient is aware he needs to make this appointment and was given the telephone number. Referral Priority Routine Referral Appointment Date 08/13/2024 Reason Low back pain Diagnosis 1 Left-sided low back pain without sciatica, unspecified chronicity (M54.50) Referral Organization Abe Sinclair FACP Referring Provider First Name Abe Referring Provider Alex Name Josefa Referring Provider [facility] Internal edicine Referred Provider [facility], Management Referred Provider Specialty Pain Medicin e General Notes Page,Alysha 4 02:38:19 PM EDT > Referral sent prior to scheduling Referral Priority Routine Reason Obstructive sleep ap roxy Diagnosis 1 Obstructive sleep ap roxy (G47.33) Referral Organization Abe Sinclair FACP Referring Provider First Name Abe Referring Provider Alex Name Josefa Referring Provider [facility] Referred Provider Alexi Soriano Referred Provider Specialty Pulmonary Di seases General Notes Lindsey Cat 12:35:01 PM EDT > referral faxed; specialist's office will call patient; pateint aware. Referral Priority Routine Referral Appointment Date 07/31/2024 Reason DM Morbid obesity Diagnosis 1 Type 2 diabetes teresa itus with diabetic polyneuropathy (E11.42) Referral Organization Abe Sinclair FACP Referring Provider First Name Abe Referring Provider Alex Rivero Referring Provider [facility] Referred Provider Abe Thomas Referred Provider Specialty Endocrinolog y General Notes Lindsey Cat 01:26:38 PM EDT > referral manually faxed Referral Priority Routine Reason CEE Diabetic retinal exam Diagnosis 1 Type 2 diabetes teresa itus with diabetic polyneuropathy (E11.42) Referral Organization Abe Sinclair FACP Referring Provider First Name Abe Referring Provider Alex Name Josefa Referring Provider [facility] edicine Referred Provider Bulmaro Penn Referred Provider Specialty Intellectual Property Legal Assistant General Notes Lindsey Cat 12:35:44 PM EDT > PATIENT WILL CALL YOUR OFFICE TO SCHEDULE AN APPOINTMENT., Lindsey Cat 07/03/2024 12:35:56 PM EDT > referral faxed. Referral Priority Routine MEDICATIONS Medication SIG (Take, Route, Frequency, Duration) Notes Start Date End Date Status buPROPion HCl ER (SR) 150 MG 1 tablet Orally Twice a day Active glipiZIDE 10 MG 1 tablet Orally Twic e a day for 90 days Active Vitamin B-12 1000 MCG TAKE 1 TABLET BY M OUTH EVERY DAY for 90 Active Furosemide 20 MG 1 tablet Orally Once a day Active Albuterol Sulfate HFA 108 (90 Base) MCG/ACT 1 puff as needed Inhalation every 4 hrs Active Lantus SoloStar 100 UNIT/ML 18 units Subcutaneous Once a day Active NovoFine Plus Pen Needle 32G X 4 MM as directed Subcutaneous Once a day Active metFORMIN HCl 1000 MG 1 tablet with a me al Orally Twice a day Active Vitamin D (Ergocalciferol) 1.25 MG (88511 UT) 1 capsule Orally Twice a week Active Atorvastatin Calcium 80 MG 1 tablet Oral ly Once a day for 90 days Active Nystatin 324973 UNIT/GM 1 application Ex ternally Twice a day for 30 days 12/05/2023 Active Gabapentin 300 MG 2 capsules Orally Tw a day Active FreeStyle Lite Test - 1 strip as directe d In Vitro Twice a day Active IMMUNIZATIONS Vaccine Route Administration Date Status Comme nts Influenza Quad IM Intramuscular 09/25/2015 Administered Influenza Quad IM Intramuscular 05/24/2016 Administered Influenza Quad IM Intramuscular 08/18/2017 Administered Influenza Quad IM Intramuscular 08/12/2021 Administered Pneumococcal - PPSV23 IM Intramuscular 08/12/2021 Administ ered COVID-19 Pfizer BioNTech Unknown 08/12/2021 Administere d COVID-19 Pfizer BioNTech Unknown 02/01/2021 Administere d Influenza Quad Unknown 06/14/2019 Administered Influenza Quad IM Intramuscular 06/07/2023 Administered SOCIAL HISTORY Tobacco Use: Social History Observation [...] Ready to quit Additional Findings: Tobacco User Glen t cigarette smoker, not currently using another form of tobacco Alcohol Screen Question Answer Notes Did you have a drink containing alcohol in the p ast year? No Points 0 Interpretation Negative PROBLEMS Problem Type ICD Code Onset Dates Problem Status W/U Status Risk SNOMED Code Notes Problem Type 2 diabetes mellitus with diabetic polyneuropathy (E11.42) Active confirmed 56942177 Problem Chronic maxillary sinusitis (J32.0) Active confirmed 44088189 Problem Localized edema (R60.0) Active confirmed Localized edema (1088099) Problem Mild intermittent asthma without complication (J45.20) Active confirmed 872587906 Problem Obstructive sleep apnea (G47.33) Active confirmed 45408965 Problem Morbid obesity due to excess calories (E66.01) Active confirmed 030905361 Problem Depression, unspecified depression type (F32.9) Active confirmed 79616984 Problem Substance abuse (F19.10) Active confirmed 06345394 Problem Tear of right rotator cuff, unspecified tear extent (M75.101) Active confirmed 554387587 Problem Thyroid nodule (E04.1) Active confirmed Thyroid nodule (103141705) Problem Injury of left knee, initial encounter (S89.92XA) Active confirmed 724313380 Problem Penile pain (N48.89) Active confirmed 236050235 Problem Terminal ileitis without complication (K50.00) Active confirmed 738333672 Problem Hepatomegaly (R16.0) Active confirmed 99365163 Problem 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) Active confirmed 33760568 VITAL SIGNS Blood pressure diastolic 56 mm Hg 07/03/2024 Height 72 in 07/03/2024 Blood pressure systolic 114 mm Hg 07/03/2024 Encounters Encounter Location Date Provider Diagnosis Abe Rivero DO, [address] [id number] 12/05/2023 Abe Rivero Type 2 diabetes mellitus with diabetic polyneuropathy E11.42 ; Morbid obesity due to excess calories E66.01 ; Substance abuse F19.10 ; Depression, unspecified depression type F32.9 ; Localized edema R60.0 ; Conjunctivitis of both eyes, unspecified conjunctivitis type H10.9 and Left lower quadrant abdominal pain R10.32 Abe Rivero DO, [facility] [address] [place], [place] [id number] 01/10/2024 Abe Rivero DO, [address] [id number] 04/10/2024 Abe Rivero Type 2 diabetes mellitus with diabetic polyneuropathy E11.42 ; Morbid obesity due to excess calories E66.01 ; Depression, unspecified depression type F32.9 ; Left-sided low back pain without sciatica, unspecified chronicity M54.50 and Localized edema R60.0 Abe Rivero DO, [facility] [address] [place], [place] [id number] 07/03/2024 Abe Rivero Type 2 diabetes mellitus with diabetic polyneuropathy E11.42 ; Morbid obesity due to excess calories E66.01 ; Obstructive sleep apnea G47.33 and Depression, unspecified depression type F32.9 Abe Rivero DO, [facility] [address] [place], [place] [id number] 11/29/2023 Abe Rivero DO, [facility] [address], [place] [id number] 12/06/2023 Abe Rivero Left lower quadrant abdominal pain R10.32 Abe Rivero DO, [facility] [address], [place] [id number] 12/26/2023 Abe Rivero Conjunctivitis of roney th eyes, unspecified conjunctivitis type H10.9 Abe Rivero DO, [facility] [address] [place], [place] [id number] 02/23/2024 Abe Rivero DO, [facility] [address], [place] [id number] 04/29/2024 Abe Rivero DO, [facility] [address], [place] [id number] 05/06/2024 Abe Rivero DO, [facility] [address], [place] [id number] 03/11/2024 Abe Rivero ASSESSMENTS Encounter Date Diagnosis Assessment Notes Treatment Notes Treatment Clinical Notes 12/05/2023 Type 2 diabetes mellitus with diabetic polyneuropathy (ICD-10 - E11.42) 12/05/2023 Morbid obesity due t o excess calories (ICD-10 - E66.01) 04/10/2024 Type 2 diabetes mellitus with diabetic polyneuropathy (ICD-10 - E11.42) 04/10/2024 Morbid obesity due t o excess calories (ICD-10 - E66.01) Refer to [facility] 07/03/2024 Type 2 diabetes mellitus with diabetic polyneuropathy (ICD-10 - E11.42) 07/03/2024 Morbid obesity due t o excess calories (ICD-10 - E66.01) 12/06/2023 Left lower quadrant abdominal pain (ICD-10 - R10.32) 12/26/2023 Conjunctivitis of both eyes, unspecified conjunctivitis type (ICD-10 - H10.9) 12/05/2023 Substance abuse (ICD-10 - F19.10) 04/10/2024 Depression, unspecified depression type (ICD-10 - F32.9) 07/03/2024 Obstructive sleep apnea (ICD-10 - G47.33) 12/05/2023 Depression, unspecified depression type (ICD-10 - F32.9) 04/10/2024 Left-sided low back pain without sciatica, unspecified chronicity (ICD-10 - M54.50) 07/03/2024 Depression, unspecified depression type (ICD-10 - F32.9) 12/05/2023 Localized edema (ICD-10 - R60.0) 04/10/2024 Localized edema (ICD-10 - R60.0) 12/05/2023 Conjunctivitis of both eyes, unspecified conjunctivitis type (ICD-10 - H10.9) 12/05/2023 Left lower quadrant abdominal pain (ICD-10 - R10.32) PLAN OF TREATMENT Pending Test Test Name Order Date CT ABD & PELVIS WITH CONTRAST 12/06/2023 CT ABD & PELVIS WWO CONTRAST 12/05/2023 XR chest 2V 07/20/2022 Next Appt Details Provider Name:Abe rodriguez, 10/02/2024 11:30:00 AM, [address] [place] [address], [id number], Insurance Providers Payer Name Payer Address Payer Phone Subscriber Number Group Number Insured Name Patient Relationship to Insured Coverage Start Date Coverage End Date [facility] [address] [place] [id number] Louis Cazares Self - patient is the insured [facility] [address] [place] [id number] Louis Cazares Self - patient is the insured MEDICARE [address] [facility] [place] [address] [id number] Louis Cazares Self - patient is the insured MEDICAL (GENERAL) HISTORY Medical History History ICD Code type II diabetes mellitus obesity degenerative joint disease osteoarthritis neuropathy carpal tunnel syndrome asthma - mild intermittent posttraumatic stress disorder depression substance abuse on methadone abdominal aortic aneurysm obstructive sleep apnea Hepatomegaly R16.0 Surgical History Surgery Date(Month/Year) left knee arthroscopy carpal tunnel release, left wrist herniorraphy vasectomy wisdom teeth extraction
--- OUTSIDE RECORDS SUMMARY | 2024-08-21 00:25 | XMS_ITS ---
Author Organization [facility] Address [address] [place] [address] Care Team Providers Care Garageman Name Role Phone Josefa MAYFIELD, Abe Primary Care Provider Unavail Radha Patino Unavailable [phone] Huong Huitron Unavailable [phone] Encounters Encounter Location Date Provider Diagnosis [address] [address] 08/13/2024 Huong Huitron Plan Of Treatment Next Appt Details Provider Name:Radha nelson, 09/16/2024 08:30:00 AM, [address] [place], [address], Progress Notes * DONTA, LouisDOB:1970 (54 yo M)Acc No.[id number]:08/13/2024 Progress Notes Patient:?Louis LONGO Provider:?Huong Huitron DPM :1970???Age:54 Y???Sex:Male Darrel e:08/13/2024 Address:[address] [place], [place] [id number] Pcp:Abe Rivero MD Subjective: * Chief Complaints: * ??? * Medical History:? Objective: * Vitals:? Assessment: Plan: * Treatment: * Images: * The named appointment provid er may or may not be the originator of this progress note, and it is not deemed complete until electronically signed by the appointment provider. Sign off status: Pending * Provider:?Huong Huitron DPM Date:?11/2023 Generated for Дмитрий rojo/Julius/eTransmitting on:?08/21/2024 12:24 AM EST
--- OUTSIDE RECORDS SUMMARY | 2024-08-21 00:25 | XMS_ITS ---
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 Generated for Printi alia/Julius/eTransmitting on:?08/21/2024 12:24 AM EST
--- OUTSIDE RECORDS SUMMARY | 2024-08-21 00:25 | XMS_ITS | Patient Health Record ---
Author Organization [facility] Address [address] [place] [address] Care Team Providers Care Knit Goods Washer Name Role Phone Abe Rivero MD Primary Care Provider Unavail able Radha Tran Unavailable [phone] Huong Huitron Unavailable [phone] Reason For Referral No Information Encounters Encounter Location Date Provider Diagnosis [facility] [address] [place] [address] 08/07/2024 Huong Huitron Plan Of Treatment Next Appt Details Provider Name:Radha nelson, 09/16/2024 08:30:00 AM, [address] [place], [address], Insurance Providers Payer Name Payer Address Payer Phone Subscriber Number Group Number Insured Name Patient Relationship to Insured Coverage Start Date Coverage End Date [facility] [employer] Claims [address] [place] [address] [id number] Louis Cazares Self - patient is the insured
== END 2024-08-15 09:20 | disposition home or self-care (01) ==
PROVIDERS: PCP Internal Medicine; Visit Provider Registered Nurse Diabetes Educator
DX: E11.65 Type 2 diabetes mellitus with hyperglycemia (principal); Z79.4 Long term (current) use of insulin

== ENCOUNTER → 2024-08-15 08:34 | Outpatient (BNVA) | payer OTHER, SELFPAY | PROVIDERS: PCP Internal Medicine; Visit Provider Registered Nurse Diabetes Educator | DX: E11.65 Type 2 diabetes mellitus with hyperglycemia (principal); Z79.4 Long term (current) use of insulin | CPT/HCPCS: 99211 ==

== ENCOUNTER 2024-08-22 08:21 | Outpatient (REF) | payer OTHER, SELFPAY ==
--- NOTE | 2024-08-22 08:27 | ECG_ITS ---
Test Reason : e66.01 Blood Pressure : / mmHG Vent. Rate : 049 BPM Atrial Rate : 049 BPM P-R Int : 144 ms QRS Dur : 100 ms QT Int : 464 ms P-R-T Axes : 016 047 044 degrees QTc Int : 419 ms Sinus bradycardia Nonspecific T wave abnormality Abnormal ECG When compared with ECG of 24-MAY-2021 22:13, No significant change was found Referred By: Lacho Estrella Electronically Signed By:CECELIA CA MD
--- OUTSIDE RECORDS SUMMARY | 2024-08-22 08:34 | XMS_ITS ---
Author Organization Abe Rivero DO, FACP Address [address] [place], [place] [phone] Care Team Providers Care Records Management Clerk Name Role Phone Abe Rivero Primary Care [...] Referred Provider Bulmaro Penn Referred Provider Specialty Medical Or Surgical Instrument Maker General Notes Lindsey Cat 12:35:44 PM EDT [...] day Active Vitamin D (Ergocalciferol) 1.25 MG (55245 UT) 1 capsule Orally Twice a week Active Nystatin 301551 UNIT/GM 1 application Ex ternally Twice a [...] Date Provider Diagnosis Abe Rivero DO, FACP [address] [place] [phone] 07/03/2024 Abe Rivero Type 2 diabetes mellitus [...] a day Vitamin D (Ergocalciferol) 1.25 MG (60430 UT) 1 capsule Orally Twice a week Nystatin 345600 UNIT/GM 1 application Ex ternally Twice a [...] visit Provider Name:Abe rodriguez, 10/02/2024 11:30:00 AM, [address] [place] [address], [phone], Progress Notes * Examination Category Sub-Category Detail Notes General Examination GENERAL APPEARANCE: in no ac [place] distress, well developed, well nourished HEAD: normocephalic, [...]
--- OUTSIDE RECORDS SUMMARY | 2024-08-22 08:34 | XMS_ITS ---
Author Organization Abe Rivero DO, [facility] Address [address] [place], [place] [phone] Care Team Providers Care Product Developer Name Role Phone Abe Rivero Primary Care Provider [phone] REASON FOR VISIT FYI only Encounters Encounter Location Date Provider Diagnosis Abe Rivero DO, FACP [address] [place], [place] [phone] 05/06/2024 Abe Rivero PLAN OF TREATMENT Next Appt Details Provider Name:Abe rodriguez, 10/02/2024 11:30:00 AM, [address] [place], [place], [phone],
--- OUTSIDE RECORDS SUMMARY | 2024-08-22 08:35 | XMS_ITS ---
Author Organization Abe Rivero DO, [facility] Address [address] [place], [place] [phone] Care Team Providers Care Production Weigher Name Role Phone Abe Rivero Primary Care Provider [phone] REASON FOR VISIT FYI only Encounters Encounter Location Date Provider Diagnosis Abe Rivero DO, FACP [address] [place], [place] [phone] 04/29/2024 Abe Rivero PLAN OF TREATMENT Next Appt Details Provider Name:Abe rodriguez, 10/02/2024 11:30:00 AM, [address] [place], [place], [phone],
--- OUTSIDE RECORDS SUMMARY | 2024-08-22 08:36 | XMS_ITS ---
Author Organization [facility] Address [address] [place] [address] Care Team Providers Care Volleyball Assembler Name Role Phone Abe Rivero MD Primary Care Provider Unavail able Radha Tran Unavailable [phone] Huong Huitron Unavailable [phone] REASON FOR VISIT r/s FABRIC SOURCER 08/13 Encounters Encounter Location Date Provider Diagnosis [address] [address] 08/07/2024 Huong Huitron Plan Of Treatment Next Appt Details Provider Name:Radha nelson, 09/16/2024 08:30:00 AM, [address] [place], [address], Progress Notes * Louis LONGODOB:1970 (54 yo M)Acc No.[id number]:08/07/2024 Patient:?Louis LONGO :1970???Age:54 Y???Sex:Male Address:[facility] [place] [address] * true * Date:? Generated for Printi alia/Julius/eTransmitting on:?08/22/2024 08:35 AM EST
--- OUTSIDE RECORDS SUMMARY | 2024-08-22 08:36 | XMS_ITS | Patient Health Record ---
Author Organization [facility] Address [address] [place] [address] Care Team Providers Care Setter Helper Name Role Phone Abe Rivero MD Primary Care Provider Unavail able Radha Tran Unavailable [phone] Huong Huitron Unavailable [phone] Reason For Referral No Information Encounters Encounter Location Date Provider Diagnosis [facility] [address] [place] [address] 08/07/2024 Huong Huitron Plan Of Treatment Next Appt Details Provider Name:Radha nelson, 09/16/2024 08:30:00 AM, [address] [place], [address], Insurance Providers Payer Name Payer Address Payer Phone Subscriber Number Group Number Insured Name Patient Relationship to Insured Coverage Start Date Coverage End Date Count Includes [facility] [place] [employer] Claims [address] [place] [id number] Louis Cazares Self - patient is the insured
--- OUTSIDE RECORDS SUMMARY | 2024-08-22 08:36 | XMS_ITS | Patient Health Record ---
Author Organization Abe Carlos Josefa CAMERON, FACP Address [address], [place] [address] Care Team Providers Care Flavor Maker Name Role Phone Abe Rivero Primary Care Provider [phone] ALLERGIES No Known Allergies RESULTS Component Value Reference Range Notes US venous duplex LE BI Reviewed date:01/18/2024 01:36:28 PM Interpretation:Abnormal Performing Lab: Notes/Report: [address] [address] Ultrasound Report Signed Patient: Louis Cazares MR#: [id number] : 1970 Acct:[id number] Age/Sex: 53 / M ADM Date: 01/04/24 Loc: .US Attending Dr: Todd Gagnon MD Ordering Physician: Todd Gagnon MD Date of Service: 01/04/24 Procedure(s): US venous duplex LE BI Accession Number(s): [id number] cc: Abe Rivero DO; Todd Gagnon MD [...] from the residual great saphenous vein and nursing informatics analyst veins Size: Ranging from 0.3 to 0.4 [...] in OV> 01/18/24 1125 DD/ 1213 TD/TT: Active Directory Specialist: Complete Blood Count Auto Di ff Reviewed date:02/22/2024 10:55:59 AM Interpretation:Abnormal Performing Lab:[facility], [address] [place] [phone] Notes/Report: White Blood Count 6.6 4.8-10.8 X10*3/uL [...] Microscopic Reviewed date:02/22/2024 11:54:08 AM Interpretation:Abnormal Performing Lab:[facility], [address] [place] [phone] Notes/Report: Color Urine Dark Yellow Appearance Urine Clear PH 5.5 5.0-9.0 Glucose Urine UA >=1000 Negative mg/dL Urine Blood Negative Negative Specific [place] - Urine >= 1.030 1.005-1.025 Urine Protein Negative Neg-Trace mg/dL Urine Ketones Negative Negative mg/dL Nitrite Urine Negative Negative Leukocyte Esterase Urine Negative Negative RBC Urine 0-2 0-2 /HPF WBC Urine 0-5 0-5 /HPF Squamous Epithelial Cell Urine 3-5 0-2 /HPF Bacteria Urine None Seen None Seen Hyaline Casts Urine 0-2 0-2 /LPF Comprehensive [place]. Panel Fa Reviewed date:02/23/2024 09:03:53 AM Interpretation:Abnormal Performing Lab:[facility], [address] [place] [phone] Notes/Report: Sodium 137 135-145 mmol/L Potassium 4.4 3.3-5.1 mmol/L Chloride 100 96-108 mmol/L Carbon Dioxide 30 22-29 mmol/L Anion Gap 11 12-20 Blood Urea Nitrogen 7 9-16 mg/dL Creatinine 0.84 0.5-1.4 mg/dL Estimated Glomerular Filt Rate > 60 NOTE: For -[place] individuals, multiply the result by 1.210. Chronic [...] Panel Reviewed date:02/22/2024 11:54:08 AM Interpretation:Abnormal Performing Lab:[facility], [address] [place] [phone] Notes/Report: Triglycerides 141 <150 mg/dL Desirable Triglyceride: [...] Total Reviewed date:02/23/2024 09:03:53 AM Interpretation:Abnormal Performing Lab:[address] [address] Notes/Report: Vitamin D 25-OH Total 16.3 >30 [...] Hormone Reviewed date:02/22/2024 11:54:08 AM Interpretation:Normal Performing Lab:[address] [address] Notes/Report: Thyroid Stimulating Hormone 1.20 0.32-4.0 uIU/ mL TSH 3rd Generation ([facility]) Microalbumin, Random Reviewed date:02/22/2024 11:54:08 AM Interpretation:Normal Performing Lab:[address] [address] Notes/Report: Creatinine Urine 177.67 Microalbumin Urine 9.0 Microalbum/Creatinine Ratio Ur 5.0 <30 ug/mg cr Albumin/Creatinine Ratio Reference Ranges: Normal: < 30 ug/mg creatinine Microalbuminuria: 30 - 300 ug/mg creatinine Clinical Albuminuria: > 300 ug/mg creatinine Hemoglobin A1c Reviewed date:02/22/2024 10:55:28 AM Interpretation:Abnormal Performing Lab:[facility], [address] [place] [phone] Notes/Report: Hemoglobin A1c % 9.0 <6.0 % [...] average glucose, using the formula of the U9J-Opollyx Average Glucose study (ADAG), Diabetes Care, Vol.31,#8, Apr. 2007 Complete Blood Count Auto Di ff Reviewed date:07/02/2024 02:18:20 PM Interpretation:Normal Performing Lab:[facility], [address] [place] [address] Notes/Report: White Blood Count 8.0 4.8-10.8 X10*3/uL [...] Microscopic Reviewed date:07/02/2024 02:18:20 PM Interpretation:Abnormal Performing Lab:[facility], [address] [place] [address] Notes/Report: Color Urine Yellow Appearance Urine Clear PH 5.5 5.0-9.0 Glucose Urine UA >=1000 Negative mg/dL Urine Blood Negative Negative Specific [place] - Urine >= 1.030 1.005-1.025 Urine Protein Negative Neg-Trace mg/dL Urine Ketones Negative Negative mg/dL Nitrite Urine Negative Negative Leukocyte Esterase Urine Negative Negative RBC Urine 0-2 0-2 /HPF WBC Urine 0-5 0-5 /HPF Squamous Epithelial Cell Urine 6-10 0-2 /HPF Bacteria Urine None Seen None Seen Hyaline Casts Urine 0-2 0-2 /LPF Comprehensive [place]. Panel Fa st Reviewed date:07/02/2024 02:18:20 PM Interpretation:Abnormal Performing Lab:[facility], [address] [place] [address] Notes/Report: Sodium 137 135-145 mmol/L Potassium 4.5 3.3-5.1 mmol/L Chloride 100 96-108 mmol/L Carbon Dioxide 30 22-29 mmol/L Anion Gap 12 12-20 Blood Urea Nitrogen 10 9-16 mg/dL Creatinine 0.91 0.5-1.4 mg/dL Estimated Glomerular Filt Rate > 60 NOTE: For -[place] individuals, multiply the result by 1.210. Chronic [...] Total Reviewed date:07/02/2024 02:18:20 PM Interpretation:Normal Performing Lab:[address] [address] Notes/Report: Vitamin D 25-OH Total 41.3 >30 [...] Random Reviewed date:07/02/2024 02:18:20 PM Interpretation:Normal Performing Lab:[address] [address] Notes/Report: Creatinine Urine 138.63 Microalbumin Urine 8.0 Microalbum/Creatinine Ratio Ur 5.7 <30 ug/mg cr Albumin/Creatinine Ratio Reference Ranges: Normal: < 30 ug/mg creatinine Microalbuminuria: 30 - 300 ug/mg creatinine Clinical Albuminuria: > 300 ug/mg creatinine Hemoglobin A1c Reviewed date:07/02/2024 02:18:35 PM Interpretation:Abnormal Performing Lab:[facility], [address] [place] [address] Notes/Report: Hemoglobin A1c % 10.5 <6.0 % [...] average glucose, using the formula of the X5E-Rcczdhv Average Glucose study (ADAG), Diabetes Care, Vol.31,#8, Apr. 2007 MR lumbar spine wo con Reviewed date:07/15/2024 01:26:16 PM Interpretation:Abnormal Performing Lab: Notes/Report: [address] [address] Magnetic Resonance Report Signed Patient: Louis Cazares MR#: [id number] : 1970 Acct:[id number] Age/Sex: 54 / M ADM Date: 07/15/24 Loc: HO.MRI Attending Dr: Jamaal Lorenz MD Ordering Physician: Jamaal Lorenz MD Date of Service: 07/15/24 Procedure(s): MR lumbar spine wo con Accession Number(s): [id number] cc: Abe Rivero DO; Jamaal Lorenz MD [...] by: Silas العلي MD 07/15/2024 09:50 AM [facility] Dictated By: Silas Centeno Signed By: <Electronically signed by Silas Ayala in OV> 07/15/24 0950 DD/ TD/TT: 07/15/24 0806 Active Directory Specialist: Glucose, Whole Blood Reviewed date:07/16/2024 12:07:06 PM Interpretation:Abnormal Performing Lab:[facility], [address] [place] [address] Notes/Report: Glucose, Whole Blood 295 60-115 mg/dL METER #: [id number] Testing performed in the [facility]in[facility] , [address], [place]. REASON FOR REFERRAL Reason DM-2 Onychomycosis Diagnosis 1 Type 2 diabetes teresa itus with diabetic polyneuropathy (E11.42) Referral Organization Abe Sinclair, FACP Referring Provider First Name Abe Referring Provider Last Name Josefa Referring Provider Speciality Internal M edicine Referred Provider Roland Campbell Referred Provider Specialty Podiatry General Notes Page,Alysah 4 02:36:54 PM EDT > Referral sent [...] Referring Provider Alex Name Josefa Referring Provider [facility] Internal edicine Referred Provider [facility] Pain, Management Referred Provider Specialty Pain Medicin e General Notes Page,Alysha 4 02:38:19 PM EDT > Referral sent prior to scheduling Referral Priority Routine Reason Obstructive sleep ap roxy Diagnosis 1 Obstructive sleep ap roxy (G47.33) Referral Organization Abe Sinclair FACP Referring Provider First Name Abe Referring Provider Alex Name Josefa Referring Provider [facility] Referred Provider Alexi Soriano Referred Provider Specialty [...] Abe Referring Provider Alex Rivero Referring Provider [facility] Referred Provider Abe Thomas Referred Provider Specialty Endocrinolog y General Notes Lindsey Cat 01:26:38 PM EDT > referral manually faxed Referral Priority Routine Reason CEE Diabetic retinal exam Diagnosis 1 Type 2 diabetes teresa itus with diabetic polyneuropathy (E11.42) Referral Organization Abe Sinclair FACP Referring Provider First Name Abe Referring Provider Alex Name Josefa Referring Provider [facility] edicine Referred Provider Bulmaro Penn Referred Provider Specialty Configuration Analyst General Notes Lindsey Cat 12:35:44 PM EDT [...] day Active Vitamin D (Ergocalciferol) 1.25 MG (06359 UT) 1 capsule Orally Twice a week Active Atorvastatin Calcium 80 MG 1 tablet Oral ly Once a day for 90 days Active Nystatin 628450 UNIT/GM 1 application Ex ternally Twice a [...] mellitus with diabetic polyneuropathy (E11.42) Active confirmed 82767088 Problem Chronic maxillary sinusitis (J32.0) Active confirmed 22491376 Problem Localized edema (R60.0) Active confirmed Localized edema (8031716) Problem Mild intermittent asthma without complication (J45.20) Active confirmed 061087016 Problem Obstructive sleep apnea (G47.33) Active confirmed 67978354 Problem Morbid obesity due to excess calories (E66.01) Active confirmed 864400196 Problem Depression, unspecified depression type (F32.9) Active confirmed 44432423 Problem Substance abuse (F19.10) Active confirmed 71631746 Problem Tear of right rotator cuff, unspecified tear extent (M75.101) Active confirmed 378573196 Problem Thyroid nodule (E04.1) Active confirmed Thyroid nodule (141263339) Problem Injury of left knee, initial encounter (S89.92XA) Active confirmed 483008309 Problem Penile pain (N48.89) Active confirmed 337172313 Problem Terminal ileitis without complication (K50.00) Active confirmed 297602834 Problem Hepatomegaly (R16.0) Active confirmed 35818209 Problem 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) Active confirmed 94136097 VITAL SIGNS Blood pressure diastolic 56 mm Hg 07/03/2024 Height 72 in 07/03/2024 Blood pressure systolic 114 mm Hg 07/03/2024 Encounters Encounter Location Date Provider Diagnosis Abe Rivero DO, [address] [id number] 12/05/2023 Abe Rivero Type 2 diabetes mellitus with diabetic polyneuropathy E11.42 ; Morbid obesity due to excess calories E66.01 ; Substance abuse F19.10 ; Depression, unspecified depression type F32.9 ; Localized edema R60.0 ; Conjunctivitis of both eyes, unspecified conjunctivitis type H10.9 and Left lower quadrant abdominal pain R10.32 Abe Rivero DO, [facility] [address], [place] [id number] 01/10/2024 Abe Rivero DO, [address] [id number] 04/10/2024 Abe Rivero Type 2 diabetes mellitus with diabetic polyneuropathy E11.42 ; Morbid obesity due to excess calories E66.01 ; Depression, unspecified depression type F32.9 ; Left-sided low back pain without sciatica, unspecified chronicity M54.50 and Localized edema R60.0 Abe Rivero DO, [facility] [address], [place] [id number] 07/03/2024 Abe Rivero Type 2 diabetes mellitus with diabetic polyneuropathy E11.42 ; Morbid obesity due to excess calories E66.01 ; Obstructive sleep apnea G47.33 and Depression, unspecified depression type F32.9 Abe Rivero DO, [facility] [address], [place] [id number] 11/29/2023 Abe Rivero DO, [facility] [address], [place] [id number] 12/06/2023 Abe Rivero Left lower quadrant abdominal pain R10.32 Abe Rivero DO, [facility] [address], [place] [id number] 12/26/2023 Abe Rivero Conjunctivitis of roney th eyes, unspecified conjunctivitis type H10.9 Abe Rivero DO, [facility] [address], [place] [id number] 02/23/2024 Abe Rivero DO, [facility] [address], [place] [id number] 04/29/2024 Abe Rivero DO, [facility] [address], [place] [id number] 05/06/2024 Abe Rivero DO, [facility] [address], [place] [id number] 03/11/2024 Abe Rivero ASSESSMENTS Encounter Date Diagnosis Assessment Notes Treatment Notes Treatment Clinical Notes 12/05/2023 Type 2 diabetes mellitus with diabetic polyneuropathy (ICD-10 - E11.42) 12/05/2023 Morbid obesity due t o excess calories (ICD-10 - E66.01) 04/10/2024 Type 2 diabetes mellitus with diabetic polyneuropathy (ICD-10 - E11.42) 04/10/2024 Morbid obesity due t o excess calories (ICD-10 - E66.01) Refer to [facility] 07/03/2024 Type 2 diabetes mellitus [...] Details Provider Name:Abe rodriguez, 10/02/2024 11:30:00 AM, [address] [place] [address], [phone], Insurance Providers Payer Name Payer Address Payer Phone Subscriber Number Group Number Insured Name Patient Relationship to Insured Coverage Start Date Coverage End Date [facility] [address] [place] [id number] Louis Cazares Self - patient is the insured [facility] [address] [place] [id number] Louis Cazares Self - patient is the insured MEDICARE [address] [facility] [place] [address] [id number] Louis Cazares Self - patient is the [...]
--- OUTSIDE RECORDS SUMMARY | 2024-08-22 08:36 | XMS_ITS ---
Author Organization [facility] Address [address] [place] [address] Care Team Providers Care Audio Production Engineer Name Role Phone Josefa MAYFIELD, Abe Primary Care Provider Unavail Radha Patino Unavailable [phone] Huong Huitron Unavailable [phone] Encounters Encounter Location Date Provider Diagnosis [address] [address] 08/13/2024 Huong Huitron Plan Of Treatment Next Appt Details Provider Name:Radha nelson, 09/16/2024 08:30:00 AM, [address] [place], [address], Progress Notes * DONTA, LouisDOB:1970 (54 yo M)Acc No.[id number]:08/13/2024 Progress Notes Patient:?Louis LONGO Provider:?Huong Huitron DPM :1970???Age:54 Y???Sex:Male Darrel e:08/13/2024 Address:[address] [place], [place] [phone] Pcp:Abe Rivero MD Subjective: * Chief Complaints: [...] Huitron DPM Date:?11/2023 Generated for Дмитрий rojo/Julius/eTransmitting on:?08/22/2024 08:35 AM EST
[2024-08-22 09:12] LABS: MANUAL DIFF FLAG SCAN
[2024-08-22 09:18] LABS: Estimated Average Glucose 200 mg/dL; Hemoglobin A1C 260.8664 umol/L; Hemoglobin A1c % 8.6 % (<6.0); Total Hemoglobin (HGBA1C) 3680.5286 umol/L
[2024-08-22 09:41] LABS: Alanine Aminotransferase 69 U/L (0-40); Albumin Level 3.9 g/dL (3.5-5.0); Alkaline Phosphatase 89 U/L (39-117); Anion Gap 12 (12-20); Aspartate Amino Transferase 41 U/L (5-37); Bilirubin Total 0.4 mg/dL (0.0-1.0); Blood Urea Nitrogen 9 mg/dL (9-16); Calcium 9.7 mg/dL (8.4-10.2); Carbon Dioxide 29 mmol/L (22-29); Chloride 103 mmol/L (96-108); Cholesterol 132 mg/dL (<200); Estimated Glomerular Filt Rate > 60; Glucose Random 99 mg/dL (60-115); HDL Cholesterol 33 mg/dL (>40); Iron 75 mcg/dL (45-160); LDL Cholesterol Calculated 59 mg/dL (<100); Percent Iron Saturation 26 % (15-50); Sodium 140 mmol/L (135-145); Total Iron Binding Capacity 286 mcg/dL (228-428); Total Protein 7.1 g/dL (6.5-8.0); Triglycerides 203 mg/dL (<150); Unsaturated Iron Binding 211 ug/dL
[2024-08-22 10:07] LABS: Ferritin 207 ng/mL (20-250); TSH reflex Free T4 1.95 uIU/mL (0.32-4.0); Vitamin D 25-OH Total 35.4 ng/mL (>30)
[2024-08-22 10:09] LABS: Folate 9.8 ng/mL (> or = 4.0); Vitamin B12 635 pg/mL (200-900)
[2024-08-22 10:21] LABS: Basophils Percent Auto 0.3 % (0-2); Eosinophils Absolute Auto 0.2 X10*3/uL (0.0-0.4); Eosinophils Percent Auto 3.2 % (0-4); Hematocrit 44.2 % (42.0-52.0); Hemoglobin 14.8 g/dl (14.0-18.0); Imm Gran Abs Auto 0.05 X10*3/uL (0.00-0.03); Imm Gran Pct Auto 0.8 % (0.0-0.4); Lymphocytes Absolute Auto 2.1 X10*3/uL (1.2-4.9); Lymphocytes Percent Auto 34.1 % (20-40); Mean Corpuscular HGB Conc 33.5 g/dl (31.0-36.0); Mean Corpuscular Hemoglobin 29.7 pg (27.0-33.0); Mean Corpuscular Volume 88.8 fL (80.0-98.0); Mean Platelet Volume 12.5 fL (9.4-12.4); Monocytes Absolute Auto 0.5 X10*3/uL (0.1-1.2); Monocytes Percent Auto 7.3 % (2-11); Neutrophils Absolute Auto 3.4 x10*3/uL (2.0-8.3); Neutrophils Percent Auto 54.3 % (45-73); PLT CLUMP 1; Red Blood Count 4.98 X10*6/uL (4.60-5.80); Red Cell Distribution Width 14.4 % (11.0-16.0); SCAN SMEAR FLAG 1
[2024-08-22 10:22] LABS: White Blood Count 6.3 X10*3/uL (4.8-10.8)
[2024-08-22 10:23] LABS: Platelet Count 128 X10*3/uL (160-400)
[2024-08-22 10:24] LABS: SLIDE REVIEW VERIFIED
[2024-08-22 11:36] LABS: Insulin 20 uU/mL (2-29)
[2024-08-27 02:53] LABS: Vitamin A 53 mcg/dL (38-98)
[2024-08-29 06:09] LABS: Vitamin B1 8 nmol/L (8-30)
== END 2024-08-22 08:22 | disposition home or self-care (01) ==
LOC: HO.XRAY 08:21
PROVIDERS: PCP Internal Medicine; Visit Provider Surgery
DX: E66.01 Morbid (severe) obesity due to excess calories (principal); E11.65 Type 2 diabetes mellitus with hyperglycemia; Z79.4 Long term (current) use of insulin; G47.30 Sleep apnea, unspecified; I10 Essential (primary) hypertension
CPT/HCPCS: 36415; 71046; 80053; 80061; 82306; 82607; 82728; 82746; 83036; 83525; 83540; 84425; 84443; 84590; 84630; 85025; 86140; 93005

== ENCOUNTER → 2024-08-22 08:27 | Outpatient (BNV) | payer OTHER, SELFPAY | PROVIDERS: PCP Internal Medicine; Visit Provider Internal Medicine Cardiovascular Disease | DX: R00.1 Bradycardia, unspecified (principal); R94.31 Abnormal electrocardiogram [ECG] [EKG] | CPT/HCPCS: 93010 ==

== ENCOUNTER 2024-08-27 09:24 | Outpatient (REF) | payer OTHER, SELFPAY ==
--- OUTSIDE RECORDS SUMMARY | 2024-08-27 09:26 | XMS_ITS | Patient Health Record ---
Author Organization [facility] Address [address] [place] [address] Care Team Providers Care Dance Director Name Role Phone Abe Rivero MD Primary Care Provider Unavail able Radha Tran Unavailable [phone] Huong Huitron Unavailable [phone] Reason For Referral No Information Social History Tobacco Use: Social History Observation Description Date Details (start date - stop date) Current Smoker NA - NA Tobacco Control (Standard) Question Answer Notes Tobacco use: Current smoker AUDIT-C (Standard) Question Answer Notes Did you have a drink containing alcohol in the p ast year? No Points 0 Interpretation Negative Encounters Encounter Location Date Provider Diagnosis [facility] [address] [place] [address] 08/07/2024 Huong Huitron Plan Of Treatment Next Appt Details Provider Name:Radha Brittney nelson, 09/16/2024 08:30:00 AM, [address] [place], [address], Insurance Providers Payer Name Payer Address Payer Phone Subscriber Number Group Number Insured Name Patient Relationship to Insured Coverage Start Date Coverage End Date [facility] [employer] Claims [address] [place] [id number] Louis Cazares Self - patient is the insured Medical (General) History Medical History History ICD Code Chicken pox
--- OUTSIDE RECORDS SUMMARY | 2024-08-27 09:26 | XMS_ITS ---
Author Organization Abe Rivero DO, [facility] Address [address] [place], [place] [phone] Care Team Providers Care Gerentological Physiotherapist Name Role Phone Abe Rivero Primary Care Provider [phone] REASON FOR VISIT FYI only Encounters Encounter Location Date Provider Diagnosis Abe Rivero DO, FACP [address] [place], [place] [phone] 04/29/2024 Abe Rivero PLAN OF TREATMENT Next Appt Details Provider Name:Abe rodriguez, 10/02/2024 11:30:00 AM, [address] [place], [place], [phone],
--- OUTSIDE RECORDS SUMMARY | 2024-08-27 09:26 | XMS_ITS ---
Author Organization [facility] Address [address] [place] [address] Care Team Providers Care Door Opener Name Role Phone Josefa MAYFIELD, Abe Primary Care Provider Unavail able Radha Tran Unavailable [phone] Huong Huitron Unavailable [phone] Encounters Encounter Location Date Provider Diagnosis [address] [address] 08/13/2024 Huong Huitron Plan Of Treatment Next Appt Details Provider Name:Radha nelson, 09/16/2024 08:30:00 AM, [address] [place], [address], Progress Notes * Louis LONGO ADOB: [birth year] (54 yo M)Acc No.[id number]:08/13/2024 Progress Notes Patient:?Louis LONGO Provider:?Huong Huitron DPM :1970???Age:54 Y???Sex:Male Darrel e:08/13/2024 Address:[address] [place] [address] Pcp:Abe Rivero MD Subjective: * Chief Complaints: * ??? * Medical History:? Objective: * Vitals:? Assessment: Plan: * Treatment: * Images: * The named appointment provid er may or may not be the originator of this progress note, and it is not deemed complete until electronically signed by the appointment provider. Sign off status: Pending * Provider:?Huong Huitron DPM Date:?11/2023 Generated for Дмитрий rojo/Julius/Kira on:?08/27/2024 09:25 AM EST
--- OUTSIDE RECORDS SUMMARY | 2024-08-27 09:26 | XMS_ITS ---
Author Organization [facility] Address [address] [place] [address] Care Team Providers Care Senior Data Analyst Name Role Phone Abe Rivero MD Primary Care Provider Unavail able Radha Tran Unavailable [phone] Huong Huitron Unavailable [phone] REASON FOR VISIT r/s CDL SERVICE TECHNICIAN 08/13 Encounters Encounter Location Date Provider Diagnosis [address] [address] 08/07/2024 Huong Huitron Plan Of Treatment Next Appt Details Provider Name:Radha nelson, 09/16/2024 08:30:00 AM, [address] [place], [address], Progress Notes * Louis LONGODOB:1970 (54 yo M)Acc No.[id number]:08/07/2024 Patient:?Louis LONGO :1970???Age:54 Y???Sex:Male Address:[address] [place] [address] * true * Date:? Generated for Printi ng/Familadg/eTransmitting on:?08/27/2024 09:26 AM EST
--- OUTSIDE RECORDS SUMMARY | 2024-08-27 09:26 | XMS_ITS ---
Author Organization Abe Rivero DO, [facility] Address [address] [place], [place] [phone] Care Team Providers Care It Application Architect Name Role Phone Abe Rivero Primary Care Provider REASON FOR VISIT FYI only Encounters Encounter Location Date Provider Diagnosis Abe Rivero DO, FACP [address] [place], [place] [phone] 05/06/2024 Abe Rivero PLAN OF TREATMENT Next Appt Details Provider Name:Abe rodriguez, 10/02/2024 11:30:00 AM, [address] [place], [place], [phone],
--- OUTSIDE RECORDS SUMMARY | 2024-08-27 09:26 | XMS_ITS ---
Author Organization Abe Rivero DO, FACP Address [address] [place], [place] [phone] Care Team Providers Care Technical Product Manager Name Role Phone Abe Rivero Primary Care [...] Referred Provider Bulmaro Penn Referred Provider Specialty Trail Construction Worker General Notes Lindsey Cat 12:35:44 PM EDT [...] day Active Vitamin D (Ergocalciferol) 1.25 MG (29603 UT) 1 capsule Orally Twice a week Active Nystatin 385554 UNIT/GM 1 application Ex ternally Twice a [...] Date Provider Diagnosis Abe Rivero DO, FACP [address] [place] [phone] 07/03/2024 Abe Rivero Type 2 diabetes mellitus [...] a day Vitamin D (Ergocalciferol) 1.25 MG (03644 UT) 1 capsule Orally Twice a week Nystatin 399247 UNIT/GM 1 application Ex ternally Twice a [...] visit Provider Name:Abe rodriguez, 10/02/2024 11:30:00 AM, [address] [place] [address], [phone], Progress Notes * Examination Category Sub-Category Detail Notes General Examination GENERAL APPEARANCE: in no ac otoe-[place] distress, well developed, well nourished HEAD: normocephalic, [...]
--- OUTSIDE RECORDS SUMMARY | 2024-08-27 09:27 | XMS_ITS | Patient Health Record ---
Author Organization Abe Carlos Josefa CAMERON, FACP Address [address], [place] [id number] Care Team Providers Care Armature Straightener Name Role Phone Abe Rivero Primary Care Provider ALLERGIES No Known Allergies RESULTS Component Value Reference Range Notes US venous duplex LE BI Reviewed date:01/18/2024 01:36:28 PM Interpretation:Abnormal Performing Lab: Notes/Report: [address] [address] Ultrasound Report Signed Patient: Louis Cazares MR#: [id number] : 1970 Acct:[id number] Age/Sex: 53 / M ADM Date: 01/04/24 Loc: .US Attending Dr: Todd Gagnon MD Ordering Physician: Todd Gagnon MD Date of Service: 01/04/24 Procedure(s): US venous duplex LE BI Accession Number(s): [id number] cc: Abe Rivero DO; Todd Gagnon MD [...] from the residual great saphenous vein and batt packer veins Size: Ranging from 0.3 to 0.4 [...] in OV> 01/18/24 1125 DD/ 1213 TD/TT: Correspondent: Complete Blood Count Auto Di ff Reviewed date:02/22/2024 10:55:59 AM Interpretation:Abnormal Performing Lab:[facility], [address] [place] [phone] Notes/Report: White Blood Count 6.6 4.8-10.8 X10*3/uL [...] Microscopic Reviewed date:02/22/2024 11:54:08 AM Interpretation:Abnormal Performing Lab:[facility], [address] [place] [phone] Notes/Report: Color Urine Dark Yellow Appearance Urine Clear PH 5.5 5.0-9.0 Glucose Urine UA >=1000 Negative mg/dL Urine Blood Negative Negative Specific [place] - Urine >= 1.030 1.005-1.025 Urine Protein Negative Neg-Trace mg/dL Urine Ketones Negative Negative mg/dL Nitrite Urine Negative Negative Leukocyte Esterase Urine Negative Negative RBC Urine 0-2 0-2 /HPF WBC Urine 0-5 0-5 /HPF Squamous Epithelial Cell Urine 3-5 0-2 /HPF Bacteria Urine None Seen None Seen Hyaline Casts Urine 0-2 0-2 /LPF Comprehensive [place]. Panel Fa Reviewed date:02/23/2024 09:03:53 AM Interpretation:Abnormal Performing Lab:[facility], [address] [place] [phone] Notes/Report: Sodium 137 135-145 mmol/L Potassium 4.4 3.3-5.1 mmol/L Chloride 100 96-108 mmol/L Carbon Dioxide 30 22-29 mmol/L Anion Gap 11 12-20 Blood Urea Nitrogen 7 9-16 mg/dL Creatinine 0.84 0.5-1.4 mg/dL Estimated Glomerular Filt Rate > 60 NOTE: For -Honduran individuals, multiply the result by 1.210. Chronic [...] Panel Reviewed date:02/22/2024 11:54:08 AM Interpretation:Abnormal Performing Lab:[facility], [address] [place] [phone] Notes/Report: Triglycerides 141 <150 mg/dL Desirable Triglyceride: [...] Total Reviewed date:02/23/2024 09:03:53 AM Interpretation:Abnormal Performing Lab:[address] [phone] Notes/Report: Vitamin D 25-OH Total 16.3 >30 [...] Hormone Reviewed date:02/22/2024 11:54:08 AM Interpretation:Normal Performing Lab:[address] [phone] Notes/Report: Thyroid Stimulating Hormone 1.20 0.32-4.0 uIU/ mL TSH 3rd Generation ([facility]) Microalbumin, Random Reviewed date:02/22/2024 11:54:08 AM Interpretation:Normal Performing Lab:[address] [address] Notes/Report: Creatinine Urine 177.67 Microalbumin Urine 9.0 Microalbum/Creatinine Ratio Ur 5.0 <30 ug/mg cr Albumin/Creatinine Ratio Reference Ranges: Normal: < 30 ug/mg creatinine Microalbuminuria: 30 - 300 ug/mg creatinine Clinical Albuminuria: > 300 ug/mg creatinine Hemoglobin A1c Reviewed date:02/22/2024 10:55:28 AM Interpretation:Abnormal Performing Lab:[facility], [address] [place] [phone] Notes/Report: Hemoglobin A1c % 9.0 <6.0 % [...] average glucose, using the formula of the S8E-Oabhbsz Average Glucose study (ADAG), Diabetes Care, Vol.31,#8, Apr. 2007 Complete Blood Count Auto Di ff Reviewed date:07/02/2024 02:18:20 PM Interpretation:Normal Performing Lab:[facility], [address] [place] [phone] Notes/Report: White Blood Count 8.0 4.8-10.8 X10*3/uL [...] Microscopic Reviewed date:07/02/2024 02:18:20 PM Interpretation:Abnormal Performing Lab:[facility], [address] [place] [phone] Notes/Report: Color Urine Yellow Appearance Urine Clear PH 5.5 5.0-9.0 Glucose Urine UA >=1000 Negative mg/dL Urine Blood Negative Negative Specific [place] - Urine >= 1.030 1.005-1.025 Urine Protein Negative Neg-Trace mg/dL Urine Ketones Negative Negative mg/dL Nitrite Urine Negative Negative Leukocyte Esterase Urine Negative Negative RBC Urine 0-2 0-2 /HPF WBC Urine 0-5 0-5 /HPF Squamous Epithelial Cell Urine 6-10 0-2 /HPF Bacteria Urine None Seen None Seen Hyaline Casts Urine 0-2 0-2 /LPF Comprehensive [place]. Panel Fa st Reviewed date:07/02/2024 02:18:20 PM Interpretation:Abnormal Performing Lab:[facility], [address] [place] [phone] Notes/Report: Sodium 137 135-145 mmol/L Potassium 4.5 3.3-5.1 mmol/L Chloride 100 96-108 mmol/L Carbon Dioxide 30 22-29 mmol/L Anion Gap 12 12-20 Blood Urea Nitrogen 10 9-16 mg/dL Creatinine 0.91 0.5-1.4 mg/dL Estimated Glomerular Filt Rate > 60 NOTE: For -Honduran individuals, multiply the result by 1.210. Chronic [...] Total Reviewed date:07/02/2024 02:18:20 PM Interpretation:Normal Performing Lab:[address] [phone] Notes/Report: Vitamin D 25-OH Total 41.3 >30 [...] Random Reviewed date:07/02/2024 02:18:20 PM Interpretation:Normal Performing Lab:[address] [phone] Notes/Report: Creatinine Urine 138.63 Microalbumin Urine 8.0 Microalbum/Creatinine Ratio Ur 5.7 <30 ug/mg cr Albumin/Creatinine Ratio Reference Ranges: Normal: < 30 ug/mg creatinine Microalbuminuria: 30 - 300 ug/mg creatinine Clinical Albuminuria: > 300 ug/mg creatinine Hemoglobin A1c Reviewed date:07/02/2024 02:18:35 PM Interpretation:Abnormal Performing Lab:[facility], [address] [place] [phone] Notes/Report: Hemoglobin A1c % 10.5 <6.0 % [...] average glucose, using the formula of the O3V-Bimbnet Average Glucose study (ADAG), Diabetes Care, Vol.31,#8, Apr. 2007 MR lumbar spine wo con Reviewed date:07/15/2024 01:26:16 PM Interpretation:Abnormal Performing Lab: Notes/Report: [address] [address] Magnetic Resonance Report Signed Patient: Louis Cazares MR#: [id number] : 1970 Acct:[id number] Age/Sex: 54 / M ADM Date: 07/15/24 Loc: HO.MRI Attending Dr: Jamaal Lorenz MD Ordering Physician: Jamaal Lorenz MD Date of Service: 07/15/24 Procedure(s): MR lumbar spine wo con Accession Number(s): [id number] cc: Abe Rivero DO; Jamaal Lorenz MD [...] by: Silas العلي MD 07/15/2024 09:50 AM [facility] Dictated By: Silas Centeno Signed By: <Electronically signed by Silas Ayala in OV> 07/15/24 0950 DD/ 0720 TD/TT: 07/15/24 0806 Correspondent: Glucose, Whole Blood Reviewed date:07/16/2024 12:07:06 PM Interpretation:Abnormal Performing Lab:[facility], [address] [place] [phone] Notes/Report: Glucose, Whole Blood 295 60-115 mg/dL METER #: [id number] Testing performed in the [facility]ocrin[facility], [place]. Complete Blood Count Auto Di ff Reviewed date:08/22/2024 03:16:17 PM Interpretation:Abnormal Performing Lab:[facility], [address] [place] [phone] Notes/Report: White Blood Count 6.3 4.8-10.8 X10*3/uL Red Blood Count 4.98 4.60-5.80 X10*6/uL Hemoglobin 14.8 14.0-18.0 g/dl Hematocrit 44.2 42.0-52.0 % Mean Corpuscular Volume 88.8 80.0-98.0 fL Mean Corpuscular Hemoglobin 29.7 27.0-33.0 pg Mean Corpuscular HGB Conc 33.5 31.0-36.0 g/dl Red Cell Distribution Width 14.4 11.0-16.0 % Platelet Count 128 160-400 X10*3/uL Mean Platelet Volume 12.5 9.4-12.4 fL Neutrophils Percent Auto 54.3 45-73 % Imm Gran Pct Auto 0.8 0.0-0.4 % Lymphocytes Percent Auto 34.1 20-40 % Monocytes Percent Auto 7.3 2-11 % Eosinophils Percent Auto 3.2 0-4 % Basophils Percent Auto 0.3 0-2 % NRBC Pct Auto 0.0 0.0-0.2 /100WBC Neutrophils Absolute Auto 3.4 2.0-8.3 x10*3/u L Imm Gran Abs Auto 0.05 0.00-0.03 X10*3/uL Lymphocytes Absolute Auto 2.1 1.2-4.9 X10*3/u L Monocytes Absolute Auto 0.5 0.1-1.2 X10*3/uL Eosinophils Absolute Auto 0.2 0.0-0.4 X10*3/u L Basophils Absolute Auto 0.0 0.0-0.2 X10*3/uL NRBC Abs Auto 0.000 0.0-0.012 X10*3/uL White Blood Count 6.3 4.8-10.8 X10*3/uL Red Blood Count 4.98 4.60-5.80 X10*6/uL Hemoglobin 14.8 14.0-18.0 g/dl Hematocrit 44.2 42.0-52.0 % Mean Corpuscular Volume 88.8 80.0-98.0 fL Mean Corpuscular Hemoglobin 29.7 27.0-33.0 pg Mean Corpuscular HGB Conc 33.5 31.0-36.0 g/dl Red Cell Distribution Width 14.4 11.0-16.0 % Platelet Count 128 160-400 X10*3/uL Mean Platelet Volume 12.5 9.4-12.4 fL Neutrophils Percent Auto 54.3 45-73 % Imm Gran Pct Auto 0.8 0.0-0.4 % Lymphocytes Percent Auto 34.1 20-40 % Monocytes Percent Auto 7.3 2-11 % Eosinophils Percent Auto 3.2 0-4 % Basophils Percent Auto 0.3 0-2 % NRBC Pct Auto 0.0 0.0-0.2 /100WBC Neutrophils Absolute Auto 3.4 2.0-8.3 x10*3/u L Imm Gran Abs Auto 0.05 0.00-0.03 X10*3/uL Lymphocytes Absolute Auto 2.1 1.2-4.9 X10*3/u L Monocytes Absolute Auto 0.5 0.1-1.2 X10*3/uL Eosinophils Absolute Auto 0.2 0.0-0.4 X10*3/u L Basophils Absolute Auto 0.0 0.0-0.2 X10*3/uL NRBC Abs Auto 0.000 0.0-0.012 X10*3/uL Comprehensive Met. Panel Reviewed date:08/22/2024 03:16:00 PM Interpretation:Abnormal Performing Lab:[facility], [address] [place] [phone] Notes/Report: Sodium 140 135-145 mmol/L Potassium 4.0 3.3-5.1 mmol/L Chloride 103 96-108 mmol/L Carbon Dioxide 29 22-29 mmol/L Anion Gap 12 12-20 Blood Urea Nitrogen 9 9-16 mg/dL Creatinine 0.83 0.5-1.4 mg/dL Estimated Glomerular Filt Rate > 60 Chronic Kidney Disease: Estimated GFR < 60 mL/min/1.73m2 Severe Kidney Disease: Estimated GFR < 15 mL/min/1.73m2 Glucose Random 99 60-115 mg/dL Calcium 9.7 8.4-10.2 mg/dL Bilirubin Total 0.4 0.0-1.0 mg/dL Aspartate Amino Transferase 41 5-37 U/L Alanine Aminotransferase 69 0-40 U/L Total Protein 7.1 6.5-8.0 g/dL Albumin Level 3.9 3.5-5.0 g/dL Alkaline Phosphatase 89 39-117 U/L IRON PROFILE Reviewed date:08/22/2024 03:15:27 PM Interpretation:Normal Performing Lab:[facility], [address] [place] [phone] Notes/Report: Iron 75 45-160 mcg/dL Total Iron Binding Capacity 286 228-428 mcg/d L Percent Iron Saturation 26 15-50 % Unsaturated Iron Binding 211 Ferritin Reviewed date:08/22/2024 03:15:27 PM Interpretation:Normal Performing Lab:[facility], [address] [place] [phone] Notes/Report: Ferritin 207 20-250 ng/mL C Reactive Protein Reviewed date:08/22/2024 03:15:27 PM Interpretation:Normal Performing Lab:[facility], [address] [place] [phone] Notes/Report: C Reactive Protein 0.20 < or = 0.50 mg/dL Lipid Panel Reviewed date:08/22/2024 03:15:28 PM Interpretation:Abnormal Performing Lab:[facility], [address] [place] [phone] Notes/Report: Triglycerides 203 <150 mg/dL Desirable Triglyceride: less than 150 mg/dL Borderline High Triglyceride 150-199 mg/dL High Triglyceride: 200-499 mg/dL Very High Triglyceride: greater than or equal to 5OO mg/dL Cholesterol 132 <200 mg/dL Desirable Cholesterol: less than 200 mg/dL Borderline High Cholesterol: 200-239 mg/dL High Cholesterol: greater than 239 mg/dL LDL Cholesterol Calculated 59 <100 mg/dL Desirable LDL: less than 100 mg/dL Near Optimal/Above Optimal LDL: 110-129 mg/dL Borderline High LDL: 130-159 mg/dL High LDL: 160-189 mg/dL Very High LDL: greater than or equal to 190 mg/dL HDL Cholesterol 33 >40 mg/dL Desirable HDL: greater than 40 mg/dL Note: This HDL assay may give artificially low results in patients with liver disease. Vitamin B12 and Folate Reviewed date:08/22/2024 03:15:27 PM Interpretation:Normal Performing Lab:[facility], [address] [place] [phone] Notes/Report: Vitamin B12 635 200-900 pg/mL NORMAL 200-900 PG/ML INDETERMINATE 160-199 PG/ML DEFICIENT < 160 PG/ML Folate 9.8 > or = 4.0 ng/mL Reference Values: > or = 4.0 ng/mL < 4.0 ng/mL suggests folate deficiency Methotrexate, aminopterin and folinic acid (leucovorin) are chemotherapeutic agents whose molecular structures are similar to folate; therefore, the Stock Chaser folate assay cannot be used for patients using these drugs. Vitamin D 25-OH Total Reviewed date:08/22/2024 03:15:28 PM Interpretation:Normal Performing Lab:[address] [address] Notes/Report: Vitamin D 25-OH Total 35.4 >30 ng/mL Health Based Reference Values* < [...] confirmed with another method such as LC-MS/MS. TSH reflex Free T4 Reviewed date:08/22/2024 03:15:28 PM Interpretation:Normal Performing Lab:[facility], [address] [place] [phone] Notes/Report: TSH reflex Free T4 1.95 0.32-4.0 uIU/mL Hemoglobin A1c Reviewed date:08/22/2024 03:15:27 PM Interpretation:Abnormal Performing Lab:[facility], [address] [place] [phone] Notes/Report: Hemoglobin A1c % 8.6 <6.0 % Hemoglobin A1C Reference Range Adults: 4.8 - 6.0 % Non diabetic: < 6.0 % Goal: < 7.0 % Additional Action Suggested: > 8.0 % Note: Hemoglobin A1c results are invalid for patients with abnormal amounts of HbF. Blood transfusions may impact the HbA1c concentration in the patient sample. Estimated Average Glucose 200 eAG = Estimated average glucose which is %A1C expressed as average glucose, using the formula of the Q2U-Qaphopb Average Glucose study (ADAG), Diabetes Care, Vol.31,#8, 2007 SLIDE REVIEW Reviewed date:08/22/2024 03:15:27 PM Interpretation:Verified Performing Lab:[facility], [address] [place] [phone] Notes/Report: SLIDE REVIEW VERIFIED Insulin Reviewed date:08/22/2024 03:15:28 PM Interpretation:Normal Performing Lab:[facility], [address] [place] [phone] Notes/Report: Insulin 20 2-29 uU/mL This test was performed using the Lee chemiluminescent method. Values obtained from different assay methods cannot be used interchangeably. This insulin assay shows a possible cross-reactivity with antibodies generated against insulin (immunoreactive insulin and some patients treated with bovine or porcine insulin). Insulin levels may be measured lower in patients with insulin autoimmune syndrome or familial high pro-insulinemia. REASON FOR REFERRAL Reason DM-2 Onychomycosis Diagnosis 1 Type 2 diabetes teresa itus with diabetic polyneuropathy (E11.42) Referral Organization Abe Sinclair FACP Referring Provider First Name Abe Referring Provider Last Name Josefa Referring Provider [facility] Internal edicine Referred Provider Roland Campbell Referred Provider Specialty Podiatry General Notes PageAlysha 4 02:36:54 PM EDT > Referral sent [...] Referring Provider Alex Name Josefa Referring Provider [facility] edicine Referred Provider [facility] Pain, Management Referred Provider Specialty Pain Medicin e General Notes PageAlysha 4 02:38:19 PM EDT > Referral sent prior to scheduling Referral Priority Routine Reason Obstructive sleep ap roxy Diagnosis 1 Obstructive sleep ap roxy (G47.33) Referral Organization Abe Sinclair FACP Referring Provider First Name Abe Referring Provider Last Name Josefa [facility] Referred Provider Alexi Soriano Referred [...] Referred Provider Bulmaro Penn Referred Provider Specialty Veneer Clipper General Notes Lindsey Cat 12:35:44 PM EDT [...] day Active Vitamin D (Ergocalciferol) 1.25 MG (82209 UT) 1 capsule Orally Twice a week Active Atorvastatin Calcium 80 MG 1 tablet Oral ly Once a day for 90 days Active Nystatin 342938 UNIT/GM 1 application Ex ternally Twice a day for 30 days 12/05/2023 Active Gabapentin 300 MG 2 capsules Orally Tw ice a day Active FreeStyle Lite Test - [...] mellitus with diabetic polyneuropathy (E11.42) Active confirmed 35130760 Problem Chronic maxillary sinusitis (J32.0) Active confirmed 76090054 Problem Localized edema (R60.0) Active confirmed Localized edema (2905673) Problem Mild intermittent asthma without complication (J45.20) Active confirmed 797467841 Problem Obstructive sleep apnea (G47.33) Active confirmed 62193366 Problem Morbid obesity due to excess calories (E66.01) Active confirmed 819718312 Problem Depression, unspecified depression type (F32.9) Active confirmed 79124219 Problem Substance abuse (F19.10) Active confirmed 56631112 Problem Tear of right rotator cuff, unspecified tear extent (M75.101) Active confirmed 973987670 Problem Thyroid nodule (E04.1) Active confirmed Thyroid nodule (086043666) Problem Injury of left knee, initial encounter (S89.92XA) Active confirmed 224879045 Problem Penile pain (N48.89) Active confirmed 318932413 Problem Terminal ileitis without complication (K50.00) Active confirmed 385281891 Problem Hepatomegaly (R16.0) Active confirmed 80157464 Problem 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) Active confirmed 26883883 VITAL SIGNS Blood pressure diastolic 56 mm Hg 07/03/2024 Height 72 in 07/03/2024 Blood pressure systolic 114 mm Hg 07/03/2024 Encounters Encounter Location Date Provider Diagnosis Abe Rivero DO, [address] [id number] 12/05/2023 Abe Rivero Type 2 diabetes mellitus with diabetic polyneuropathy E11.42 ; Morbid obesity due to excess calories E66.01 ; Substance abuse F19.10 ; Depression, unspecified depression type F32.9 ; Localized edema R60.0 ; Conjunctivitis of both eyes, unspecified conjunctivitis type H10.9 and Left lower quadrant abdominal pain R10.32 Abe Rivero DO, [address] [id number] 01/10/2024 Abe Rivero DO, [address] [id number] 04/10/2024 Abe Rivero Type 2 diabetes mellitus with diabetic polyneuropathy E11.42 ; Morbid obesity due to excess calories E66.01 ; Depression, unspecified depression type F32.9 ; Left-sided low back pain without sciatica, unspecified chronicity M54.50 and Localized edema R60.0 Abe Rivero DO, [address] [id number] 07/03/2024 Abe Rivero Type 2 diabetes mellitus with diabetic polyneuropathy E11.42 ; Morbid obesity due to excess calories E66.01 ; Obstructive sleep apnea G47.33 and Depression, unspecified depression type F32.9 Abe Rivero DO, [address] [id number] 11/29/2023 Abe Rivero DO, [address] [id number] 12/06/2023 Abe Rivero Left lower quadrant abdominal pain R10.32 Abe Rivero DO, [address] [id number] 12/26/2023 Abe Rivero Conjunctivitis of roney th eyes, unspecified conjunctivitis type H10.9 Abe Rivero DO, [facility] [address] [place], [place] [id number] 02/23/2024 Abe Fish Carlos Josefa CAMERON, [address] [id number] 04/29/2024 Abe Rivero DO, [address] [id number] 05/06/2024 Abe Rivero DO, [address] [id number] 03/11/2024 Abe Rivero ASSESSMENTS Encounter Date Diagnosis Assessment Notes Treatment Notes Treatment Clinical Notes 12/05/2023 Type 2 diabetes mellitus with diabetic polyneuropathy (ICD-10 - E11.42) 12/05/2023 Morbid obesity due t o excess calories (ICD-10 - E66.01) 04/10/2024 Type 2 diabetes mellitus with diabetic polyneuropathy (ICD-10 - E11.42) 04/10/2024 Morbid obesity due t o excess calories (ICD-10 - E66.01) Refer to [facility] Metabolic Clinic 07/03/2024 Type 2 diabetes mellitus [...] 2V 07/20/2022 Next Appt Details Provider Name:Abe Thompson michael, 10/02/2024 11:30:00 AM, [address] [place] [address], [phone], Insurance Providers Payer Name Payer Address Payer Phone Subscriber Number Group Number Insured Name Patient Relationship to Insured Coverage Start Date Coverage End Date [employer] [facility] [address] [place] [address] [id number] Louis Cazares Self - patient is the insured [facility] [address] [place] [id number] Louis Cazares Self - patient is the insured MEDICARE [address] [facility] [address] [phone] [id number] Louis Cazares Self - patient is the [...]
== END 2024-08-27 09:25 | disposition home or self-care (01) ==
LOC: HO.US 09:24
PROVIDERS: PCP Internal Medicine; Visit Provider Surgery
DX: E66.01 Morbid (severe) obesity due to excess calories (principal); E11.65 Type 2 diabetes mellitus with hyperglycemia; I10 Essential (primary) hypertension; G47.30 Sleep apnea, unspecified; Z79.4 Long term (current) use of insulin
CPT/HCPCS: 76700; 76981

== ENCOUNTER → 2024-08-27 09:25 | Outpatient (BNV) | payer OTHER, SELFPAY | PROVIDERS: PCP Internal Medicine; Visit Provider Radiology Diagnostic Radiology | DX: K76.0 Fatty (change of) liver, not elsewhere classified (principal); R16.2 Hepatomegaly with splenomegaly, not elsewhere classified | CPT/HCPCS: 76700 ==

== ENCOUNTER 2024-09-10 08:45 | Outpatient (AMB) | payer OTHER, SELFPAY ==
--- NOTE | 2024-09-10 08:51 | MHC.OFFVIS ---
Vital Signs 09/10/24 08:53 Height 6 ft Weight 357 lb 2.382 oz BMI 48.4 BP 120/80 Blood Pressure Location Rt brachial Position Sitting Pulse 60 Pulse Source Pulse Oximeter Intake Visit Reasons: DM Intake Note: Patient presents today for a follow-up on Type 2 Diabetes Mellitus: Last Diabetic eye exam was on: OVER DUE Last Podiatry exam was on: Does not see a Hand Weaver Most recent HbA1c: 8.6%, 08/22/2024 Random Glucose- 132 mg/dL, Today Hospitality Aide Required: No Accompanied by: Self / Same As Patient Allergies No Known Allergies Allergy (Unknown, Verified 08/05/24 08:09) UNKNOWN HPI Comments Details: 54-year-old male coming in today for initial evaluation of type 2 diabetes mellitus. Type 2 diabetes mellitus History of diabetes Diagnosed , on regular blood work Was initially just on oral meds, started on insulin in 2020 when A1c hit 11.9% Was able to go down to 7% in 2022 and then summer 2023 A1c went up to 9% in 03/04 , with lots of health issues recently and he wasnt getting a chnace to take care of himself Prior therapy: No other tried meds Current regimen: Metformin 1000 BID Lantus 22 units HS Ozempic 0.5 mg weekly (2 injections since went up to 0.25 mg weekly) , tolerating it well Getting evaluated by bariatric surgery in 2020, was still smoking so couldnt through with it apparently Now smoking half a pack a day Uses smokes marijuana as well Denies alcohol use Morbid obesity, BMI 48.4 down from 50.1 kg per m2. Current weight 357 lbs down from 369 lb. in 1 month lost 12 lbs Weight has fluctuated around 360 to 370 lb in the past few months. Diet : Breakfast at 7 AM: sausage egg and cheese on croissant , sometimes eggs and toast , sometimes toast and eggs , coffee with non dairy cream and one teaspoon sugar USually snack on yogurt ( low fat ) or oatmeal around noon Supper at 6 PM : chicken paaties , chicken soup , chilli , with potatoes , rice , not so much veggies Exercise : walks 2 city blocks daily , does work on disability , but active around the house Lives with , has been taking care of her Denies any symptoms of hyperglycemia including polyphagia, polyuria, polydipsia. Denies any hypoglycemic symptoms. SMBG's Fastings: 110 to 130 Pre dinner : 100 to 105 CGM data CGM August 15 to Deceme2023 Average glucose 111, G CT 6% Glucose variability 22.7% Time CGM active 50% Within target range 99% Above target 1% Patterns noted: He had a few episodes less than 70 mg/dL of hypoglycemia with blood sugars in the 60s around 2 or 16:00. Otherwise much improved glycemic control with the mostly within target range the rest of the time. He does have a hyperglycemic excursion mostly after breakfast. Random Glucose: 295 mg/dl HgA1c: 10.5% 07/02/24 HbA1c: 8.6%, 08/22/2024 Interval history Random Glucose- 132___ mg/dL, Today SAw CDE : 08/15/24 Saw nutrition : 08/06/24 Saw weight management 08/05/24, plan for sleeve gastrectomy Complications Last Diabetic Eye exam: Over 2 years ago, he has referral just has to make appointment , no retinopathy Last Podiatry Visit: Doesn't have one Gabapaetnine 300 mg twice daily for neuropathy , really helps Kidney disease: no history of kidney disease Macrovascular complications: No history of macrovascular complications. Statin: on atorvastain 80 mg daily NADIA/ARB: none No history of HTN BP elevated tpday at 158 systolic but prior visits was normal at 130 systolic , no microalbuminuria He is on Lasix for pedal edema. Has chronic venous stasis. He tells me gets an annual echocardiogram at at the methadone clinic which was okay per patient He has never had any hospitalizations for hypoglycemia. No history of DKA Multinodular goiter/ PSeudonodules: no need to follow unless has clinical changes He has been seen in our practice in the past in [address] Ring. Was initially diagnosed with multinodular thyroid in 2021 after he began complaining of dysphagia. Dr. Ring repeated his US of the thyroid myself 12/01/2022, and this revealed a diffusely heterogenous thyroid gland with no true nodules, only pseudnodules. He was mentioning dysphagia and hoarseness of voice. A CT of the neck in 2021 was completed which was largely WNL. TSH 1.2 03/04 He denies any compressive sx Denies any history of head or neck irradiation. Denies any family history of thyroid cancer. Physical exam General: sitting comfortably in no acute distress HEENT: normocephalic/atraumatic, , moist oral mucosa Neck: supple, symmetrical, no thyromegaly , no dorsocervical or supraclavicular fat pads Cardiac: normal heart sounds Pulm: normal breath sounds B/L, no added breath sounds Abd: not distended, no tenderness Extremities: B/L pitting edema, chronic venous tstais skin chnages noted Neuro: AAO x3, Speech: normal, no facial droop, moving all 4 extremities Skin: no rash Foot exam: Novemeb2023: diminshed sensation to monofilament, intact pulses, intact vibration Laboratory Tests 01/07/21 01/12/22 07/11/22 10:16 12:01 15:13 Plt Count Creatinine Estimated GFR Fasting Glucose Hemoglobin A1c % 11.9 6.4 AST ALT Triglycerides Cholesterol LDL Cholesterol, Calc HDL Cholesterol TSH 1.28 Urine Creatinine Urine Microalbumin Microalb/Creat Ratio 03/08/23 02/22/24 07/02/24 07:48 08:38 10:51 Plt Count 175 Creatinine Estimated GFR Fasting Glucose 297 H Hemoglobin A1c % 6.9 9.0 H 10.5 H AST ALT Triglycerides 141 Cholesterol 134 LDL Cholesterol, Calc 70 HDL Cholesterol 36 L TSH 1.20 Urine Creatinine 138.63 Urine Microalbumin 8.0 Microalb/Creat Ratio 5.7 07/02/24 10:57 Plt Count Creatinine 0.91 Estimated GFR > 60 Fasting Glucose 344 H Hemoglobin A1c % AST 36 ALT 60 H Triglycerides Cholesterol LDL Cholesterol, Calc HDL Cholesterol TSH Urine Creatinine Urine Microalbumin Microalb/Creat Ratio Laboratory Tests 07/02/24 08/22/24 09/10/24 10:51 08:45 08:58 Plt Count 128 L D Creatinine 0.83 Estimated GFR > 60 Glucose (Clinic) 132 H Estimat Average Glucose 255 200 Hemoglobin A1c % 10.5 H 8.6 H AST 41 H ALT 69 H Triglycerides 203 H Cholesterol 132 LDL Cholesterol, Calc 59 HDL Cholesterol 33 L 25-OH Vitamin D Total 35.4 TSH 1.95 Urine Creatinine 138.63 Urine Microalbumin 8.0 Microalb/Creat Ratio 5.7 Imaging Thyroid US: 12/01/2022 Right Thyroid Lobe: 5.3 x 2.2 x 2.1 cm, volume 12.8 mL. Parenchyma: The gland echotexture is diffusely heterogenous. Thyroid vascularity is normal. Left Thyroid Lobe: 4.7 x 2.0 x 2.3 cm, volume 11.3 mL. Parenchyma: The gland echotexture is diffusely heterogenous. Thyroid vascularity is normal. Isthmus: 0.5 cm in maximum AP dimension. There are no nodules visualized. NODES: No lymph nodes were assessed during today's visit. US THYROID 05/27/22 CLINICAL INFORMATION: Right supraclavicular mass. COMPARISON: None TECHNIQUE: Linear transducer grayscale and color Doppler examination with attention to the region of the thyroid. FINDINGS: SIZE: Measurements of the thyroid lobes and nodules are given in sagittal, anteroposterior and transverse dimensions respectively. Right Thyroid Lobe: 5.08 x 2.60 x 1.14 cm, volume 7.92 mL. Parenchyma: The gland echotexture is homogeneous. Thyroid vascularity is normal. Left Thyroid Lobe: 4.92 x 2.01 x 1.99 cm, volume 10.3 mL. Parenchyma: The gland echotexture is homogeneous. Thyroid vascularity is normal. Isthmus: 0.79 cm in maximum AP dimension. Estimated total number of nodules greater than or equal to 1 cm: 1. Supervisor Electronics Inspection nodules are described as follows: 1. Location: Right superior. Size: 1.2 x 1.01 x 1.33 cm, volume 0.83 mL. Nodule characteristics: Composition: Cannot be determined (2). Echogenicity: Very hypoechoic (3). Shape: Not taller than wide (0). Margins: Smooth (0). Echogenic Foci: Peripheral calcifications (2). ACR TI-RADS total points: 7 ACR TI-RADS category: 5 NODES: No lymphadenopathy is seen in the tissue surrounding the thyroid gland. CT SOFT TISSUE NECK WITHOUT CONTRAST 07/18/22 CLINICAL INFORMATION: Nontoxic multinodular goiter. COMPARISON: Thyroid ultrasound 05/27/2022. TECHNIQUE: Helical imaging was performed in the axial plane with generation of coronal and sagittal reformatted images. This CT examination was performed using dose optimization techniques as appropriate, variously including the following: *Automated exposure control *Adjustment of mA and/or kV according to patient size (this includes techniques or standardized protocols for targeted exams where dose is matched to indication/reason for exam; i.e. extremities or head) *Use of iterative reconstruction technique FINDINGS: Limited noncontrast CT of the neck. A right thyroid lobe nodule seen on the prior thyroid ultrasound is not well appreciated on this noncontrast neck CT. Artifact significantly obscures the visceral space of the neck. There is no pathologic size criteria lymphadenopathy within the neck. There is no mass effect on the trachea nor the esophagus. The unenhanced submandibular glands, parotid glands, and orbital soft tissues are unremarkable. Calcified tonsilloliths within the palatine tonsils bilaterally. Atherosclerotic calcification involving the carotid bifurcations bilaterally. The orbital soft tissues are unremarkable. There is multilevel cervical spondylosis. There is significant rightward deviation of the nasal septum. There is mild mucosal thickening throughout the ethmoid air cells bilaterally. Chronic traumatic deformity of the right lamina papyracea. Imaged upper lungs are clear. Imaged upper mediastinum is unremarkable. CT/CT soft tissue neck wo IV con IMPRESSION: - Limited noncontrast CT of the neck. A right thyroid lobe nodule seen on the prior thyroid ultrasound is not well appreciated on this noncontrast neck CT. Artifact significantly obscures the visceral space of the neck. There is no pathologic size criteria lymphadenopathy within the neck. There is no mass effect on the trachea nor the esophagus. - A palpable marker has been placed within the right supraclavicular region above the level of the thyroid. No definite discrete mass lesion is identified in this location though assessment is limited without contrast. Consider a postcontrast neck CT for further assessment as clinically indicated. US/US thyroid IMPRESSION: 1.3 cm TR 5 nodule of the right thyroid lobe. FNA recommended. [facility] Medical History (Updated 09/10/24 @ 09:22 by Ingrid Cooper MD) Metabolic dysfunction-associated steatotic liver disease (MASLD) Elevated blood pressure reading HLD (hyperlipidemia) Methadone maintenance therapy patient Nicotine dependence, cigarettes, uncomplicated Multinodular thyroid (~2021) Supraclavicular mass Morbid obesity due to excess calories Wears partial dentures Full dentures Arthritis Diabetes (~2016) Depression Sleep apnea Shortness of breath on exertion Chronic venous stasis Hypertension Surgical History Status post phlebectomy History of wisdom tooth extraction History of carpal tunnel surgery of left wrist Status post ablation of incompetent vein using laser History of retained foreign body fully removed History of arthroscopic knee surgery History of umbilical hernia repair Family History Father Diabetes Mother Diabetes 1.5, managed as type 2 HTN (hypertension) Hypercholesteremia Paternal Grandmother Diabetes 1.5, managed as type 2 Maternal Grandmother Lung cancer Maternal Grandfather Prostate cancer Sister No problems noted. Daughter No problems noted. Daughter No problems noted. Daughter No problems noted. Daughter No problems noted. Social History Alcohol intake: never Patient Tobacco Use Status: Current everyday Tobacco user Tobacco use type: Cigarette Cigarette Packs Per Day: 0.5 Cigarettes Per Day: 10.0 Years Smoked: (current smoker - onset 13yo - 1/2-1ppd x 39yrs - 30pyh) Substance Use Type: Marijuana Current occupational status: disabled Current occupation: right handed Physical Exam Vital Signs: Last Vital Signs Pulse 60 09/10/24 08:53 BP 120/80 09/10/24 08:53 BMI result Body Mass Index 48.4 Office Procedures Glucose Monitoring Details Details: see [facility] [address] - Glucose monitoring, continuous-physician I&R Procedure code (CPT) selection complete Results Reviewed Results Reviewed: Laboratory Last Values Glucose (Clinic) 132 mg/dL (60-115) H 09/10/24 08:58 Assessment & Plan Assessment & Plan (1) Diabetes: Onset Date: ~2016 Comment: (T2DM - dx 2017, morbid obesity Code(s): E11.9 - Type 2 diabetes mellitus without complications Category: Medical Qualifiers: Diabetes mellitus complication status: with hyperglycemia Diabetes mellitus care home insulin use: with care home use Diabetes mellitus type: type 2 Qualified Code(s): E11.65 - Type 2 diabetes mellitus with hyperglycemia; Z79.4 - rn long term care (current) use of insulin Plan: Patient with type 2 diabetes mellitus diagnosed in 2017 who is now on long-term insulin use. A1c from August 2024 down to 8.5% from June 2024 up at 10.5% . Much improved control with better adherence on current regimen an up titration of his regimen. CGM data shows blood sugars mostly within target now, he does have a post breakfast hyperglycemia consistently, we will plan to titrate of the dose of Ozempic in the next few weeks, currently just went up from 0.25 mg weekly to 0.5 mg weekly 2 weeks ago. I have asked him to reach out to me to increase this dose once he has had 4-6 injections of the 0.5 mg weekly dose. He is noted to have a few hypoglycemic episodes mostly in the afternoon. I will reduce his Lantus. Plan: -continue Ozempic 0.5 mg weekly, once done with 4-6 injections reach out for further up titration, -continue metformin 1000 b.i.d. -decrease Lantus to 20 units daily -he has not seen an technologies division chair in 2 years, he has a referral, advised to schedule eye visit -he has lymphedema, with a history of neuropathy on gabapentin, referral for podiatry placed last visit, he is waiting for appointment -lifestyle modification advised with 150 minutes of exercise per week -follow up in 3 months (2) Morbid obesity due to excess calories: Code(s): E66.01 - Morbid (severe) obesity due to excess calories Category: Medical Plan: Patient with BMI 48 point kg per m2. Weight has fluctuated in between 350-380 lb recently. He has been walking 2 blocks daily, plus trying to avoid excess calories. Lost 12 lb since last visit. We had placed referral for bariatric surgery, evaluated by them, plan for sleeve gastrectomy in the near future. Plan: Follow up with bariatric surgery -continue Ozempic 0.5 mg weekly, with plan for titrating up in the next 4-6 weeks to 1 mg weekly. (3) Multinodular thyroid: Onset Date: ~2021 Code(s): E04.2 - Nontoxic multinodular goiter Category: Medical Plan: Patient with a history of multinodular goiter diagnosed on thyroid ultrasound in 2021 and he was reporting dysphagia. Dr. Ring repeated the ultrasound herself in 2022 which only noted pseudonodules. No need to follow up on this unless he has any clinical changes. he denies any compressive symptoms, TSH was normal. (4) HLD (hyperlipidemia): Code(s): E78.5 - Hyperlipidemia, unspecified Category: Medical Qualifiers: Hyperlipidemia type: mixed hyperlipidemia Qualified Code(s): E78.2 - Mixed hyperlipidemia Plan: LDL at goal less than 70 mg/dL. Most recent LDL from August 2024 at 59 mg/dL. Plan: -continue atorvastatin 80 mg daily (5) Elevated blood pressure reading: Code(s): R03.0 - Elevated blood-pressure reading, without diagnosis of hypertension Category: Medical Plan: Blood pressure at goal. Continue current regimen. (6) Metabolic dysfunction-associated steatotic liver disease (MASLD): Code(s): K76.0 - Fatty (change of) liver, not elsewhere classified Category: Medical Plan: Fibrosis 4 risk score at 2.01, he needs further evaluation with Gastroenterology for assessing for fibrosis. Gastroenterology referral placed. Continue atorvastatin. We have also already placed him on Ozempic plan for up titration of his dose in the next few weeks. Plan I spent 30 minutes in reviewing the record, seeing the patient and documenting in the medical record. 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, if any issues with putting it on, reach out to our office Follow up in 3 months Gastroenterology referral placed See eye doctor Coding Level of Care Code Est Pt Level 4 (61304) Diagnoses Type 2 diabetes mellitus with hyperglycemia, with long-term current use of insulin E11.65; Z79.4 Diabetes mellitus complication status: with hyperglycemia Diabetes mellitus rn long term care insulin use: with rn long term care use Diabetes mellitus type: type 2 Morbid obesity due to excess calories E66.01 Multinodular thyroid E04.2 Mixed hyperlipidemia E78.2 Hyperlipidemia type: mixed hyperlipidemia Elevated blood pressure reading R03.0 Metabolic dysfunction-associated steatotic liver disease (MASLD) K76.0 CPT Codes Details - CPT: 81331 - Glucose monitoring, continuous-physician I&R ([id number]) Time Spent (min) 30
--- OUTSIDE RECORDS SUMMARY | 2024-09-10 08:52 | XMS_ITS ---
Author Organization [facility] Address [address] [place] [address] Care Team Providers Care Hand Cloth Folder Name Role Phone Josefa MAYFIELD, Abe Primary Care Provider Unavail able Radha Tran Unavailable [phone] Huong Huitron Unavailable [phone] Encounters Encounter Location Date Provider Diagnosis [address] [address] 08/13/2024 Huong Huitron Plan Of Treatment Next Appt Details Provider Name:Radha nelson, 09/16/2024 08:30:00 AM, [address] [place], [address], Progress Notes * Louis LONGO ADOB: 2 (54 yo M)Acc No.[id number]:08/13/2024 Progress Notes Patient:?Louis LONGO Provider:?Huong Huitron DPM :1970???Age:54 Y???Sex:Male Darrel e:08/13/2024 Address:[address] [place] [address] Pcp:Abe Rivero MD Subjective: * Chief Complaints: [...] Huitron DPM Date:?11/2023 Generated for Дмитрий rojo/Julius/Kira on:?09/10/2024 08:52 AM EST
[2024-09-10 08:53] VITALS: BP 120/80; PULSE 60; BMI 48.4
--- OUTSIDE RECORDS SUMMARY | 2024-09-10 08:53 | XMS_ITS ---
Author Organization Abe Rivero DO, [facility] Address [address] [place], [place] [id number] Care Team Providers Care Barn Manager Name Role Phone Abe Rivero Primary Care Provider REASON FOR VISIT FYI only Encounters Encounter Location Date Provider Diagnosis Abe Rivero DO, FACP [address] [place], [place] [id number] 05/06/2024 Abe Rivero PLAN OF TREATMENT No Information
--- OUTSIDE RECORDS SUMMARY | 2024-09-10 08:53 | XMS_ITS | Patient Health Record ---
Author Organization [facility] Address [address] [place] [address] Care Team Providers Care Panel Monitor Name Role Phone Abe Rivero MD Primary Care Provider Unavail able Radha Tran Unavailable [phone] Huong Huitron Unavailable [phone] Reason For Referral No Information Social History Tobacco Use: Social History Observation Description Date Details (start date - stop date) Current Smoker NA - NA Tobacco Control (Standard) Question Answer Notes Tobacco use: Current smoker AUDIT-C (Standard) Question Answer Notes Did you have a drink containing alcohol in the p ast year? No Points 0 Interpretation Negative Encounters Encounter Location Date Provider Diagnosis [facility] [address] [place] [address] 08/07/2024 Huong Huitron Plan Of Treatment Next Appt Details Provider Name:Radha Brittney nelson, 09/16/2024 08:30:00 AM, [address] [place], [address], Insurance Providers Payer Name Payer Address Payer Phone Subscriber Number Group Number Insured Name Patient Relationship to Insured Coverage Start Date Coverage End Date [facility] [employer] Claims [address] [place] [id number] Louis Cazares Self - patient is the insured Medical (General) History Medical History History ICD Code Chicken pox
--- OUTSIDE RECORDS SUMMARY | 2024-09-10 08:53 | XMS_ITS ---
Author Organization Abe Rivero DO, FACP Address [address] [place], [place] [id number] Care Team Providers Care Sales Research Analyst Name Role Phone Abe Rivero Primary Care [...] Referred Provider Bulmaro Penn Referred Provider Specialty Circle Cutting Saw Operator General Notes Lindsey Cat 12:35:44 PM EDT [...] day Active Vitamin D (Ergocalciferol) 1.25 MG (39753 UT) 1 capsule Orally Twice a week Active Nystatin 659239 UNIT/GM 1 application Ex ternally Twice a [...] Date Provider Diagnosis Abe Rivero DO, FACP [address] [place] [phone] 07/03/2024 Abe Rivero Type 2 diabetes mellitus [...] a day Vitamin D (Ergocalciferol) 1.25 MG (19740 UT) 1 capsule Orally Twice a week Nystatin 679216 UNIT/GM 1 application Ex ternally Twice a [...] Up: 3 Months, Reason: follow up visit Progress Notes * Examination Category Sub-Category Detail Notes General Examination GENERAL APPEARANCE: in no ac josse distress, well developed, well nourished HEAD: normocephalic, [...]
--- OUTSIDE RECORDS SUMMARY | 2024-09-10 08:53 | XMS_ITS ---
Author Organization [facility] Address [address] [place] [address] Care Team Providers Care Bottom Wheeler Name Role Phone Abe Rivero MD Primary Care Provider Unavail able Radha Tran Unavailable [phone] Huong Huitron Unavailable [phone] REASON FOR VISIT r/s RUBBER DOWN 08/13 Encounters Encounter Location Date Provider Diagnosis [address] [address] 08/07/2024 Huong Huitron Plan Of Treatment Next Appt Details Provider Name:Radha nelson, 09/16/2024 08:30:00 AM, [address] [place], [address], Progress Notes * Louis LONGODOB:1970 (54 yo M)Acc No.[id number]:08/07/2024 Patient:?Louis LONGO :1970???Age:54 Y???Sex:Male Address:[address] [place] [address] * true * Date:? Generated for Printi ng/Familadg/eTransmitting on:?09/10/2024 08:52 AM EST
--- OUTSIDE RECORDS SUMMARY | 2024-09-10 08:54 | XMS_ITS | Patient Health Record ---
Author Organization Abe Carlos Josefa CAMERON, FACP Address [address], [place] [id number] Care Team Providers Care Bookkeeper Assistant Name Role Phone Abe Rivero Primary Care Provider ALLERGIES No Known Allergies RESULTS Component Value Reference Range Notes US venous duplex LE BI Reviewed date:01/18/2024 01:36:28 PM Interpretation:Abnormal Performing Lab: Notes/Report: [address] [address] Ultrasound Report Signed Patient: Louis Cazares MR#: [id number] : 1970 Acct:[id number] Age/Sex: 53 / M ADM Date: 01/04/24 Loc: .US Attending Dr: Todd Gagnon MD Ordering Physician: Todd Gagnon MD Date of Service: 01/04/24 Procedure(s): US venous duplex LE BI Accession Number(s): [id number] cc: Abe Rivero DO; Todd Gagnon MD [...] from the residual great saphenous vein and screw supervisor veins Size: Ranging from 0.3 to 0.4 [...] in OV> 01/18/24 1125 DD/ 1213 TD/TT: Rubber Goods Tester: Complete Blood Count Auto Di ff Reviewed date:02/22/2024 10:55:59 AM Interpretation:Abnormal Performing Lab:[facility], [address] [place] [phone] Notes/Report: White Blood Count 6.6 4.8-10.8 X10*3/uL [...] Microscopic Reviewed date:02/22/2024 11:54:08 AM Interpretation:Abnormal Performing Lab:[facility], [address] [place] [phone] Notes/Report: Color Urine Dark Yellow Appearance Urine Clear PH 5.5 5.0-9.0 Glucose Urine UA >=1000 Negative mg/dL Urine Blood Negative Negative Specific [place] - Urine >= 1.030 1.005-1.025 Urine Protein Negative Neg-Trace mg/dL Urine Ketones Negative Negative mg/dL Nitrite Urine Negative Negative Leukocyte Esterase Urine Negative Negative RBC Urine 0-2 0-2 /HPF WBC Urine 0-5 0-5 /HPF Squamous Epithelial Cell Urine 3-5 0-2 /HPF Bacteria Urine None Seen None Seen Hyaline Casts Urine 0-2 0-2 /LPF Comprehensive [place]. Panel Fa Reviewed date:02/23/2024 09:03:53 AM Interpretation:Abnormal Performing Lab:[facility], [address] [place] [phone] Notes/Report: Sodium 137 135-145 mmol/L Potassium 4.4 3.3-5.1 mmol/L Chloride 100 96-108 mmol/L Carbon Dioxide 30 22-29 mmol/L Anion Gap 11 12-20 Blood Urea Nitrogen 7 9-16 mg/dL Creatinine 0.84 0.5-1.4 mg/dL Estimated Glomerular Filt Rate > 60 NOTE: For -British individuals, multiply the result by 1.210. Chronic [...] Panel Reviewed date:02/22/2024 11:54:08 AM Interpretation:Abnormal Performing Lab:[facility], [address] [place] [phone] Notes/Report: Triglycerides 141 <150 mg/dL Desirable Triglyceride: [...] Total Reviewed date:02/23/2024 09:03:53 AM Interpretation:Abnormal Performing Lab:[address] [phone] Notes/Report: Vitamin D 25-OH Total 16.3 >30 [...] Hormone Reviewed date:02/22/2024 11:54:08 AM Interpretation:Normal Performing Lab:[address] [phone] Notes/Report: Thyroid Stimulating Hormone 1.20 0.32-4.0 uIU/ mL TSH 3rd Generation ([facility]) Microalbumin, Random Reviewed date:02/22/2024 11:54:08 AM Interpretation:Normal Performing Lab:[address] [phone] Notes/Report: Creatinine Urine 177.67 Microalbumin Urine 9.0 Microalbum/Creatinine Ratio Ur 5.0 <30 ug/mg cr Albumin/Creatinine Ratio Reference Ranges: Normal: < 30 ug/mg creatinine Microalbuminuria: 30 - 300 ug/mg creatinine Clinical Albuminuria: > 300 ug/mg creatinine Hemoglobin A1c Reviewed date:02/22/2024 10:55:28 AM Interpretation:Abnormal Performing Lab:[facility], [address] [place] [phone] Notes/Report: Hemoglobin A1c % 9.0 <6.0 % [...] average glucose, using the formula of the P5A-Tbibukv Average Glucose study (ADAG), Diabetes Care, Vol.31,#8, Apr. 2007 Complete Blood Count Auto Di ff Reviewed date:07/02/2024 02:18:20 PM Interpretation:Normal Performing Lab:[facility], [address] [place] [phone] Notes/Report: White Blood Count 8.0 4.8-10.8 X10*3/uL [...] Microscopic Reviewed date:07/02/2024 02:18:20 PM Interpretation:Abnormal Performing Lab:[facility], [address] [place] [phone] Notes/Report: Color Urine Yellow Appearance Urine Clear PH 5.5 5.0-9.0 Glucose Urine UA >=1000 Negative mg/dL Urine Blood Negative Negative Specific [place] - Urine >= 1.030 1.005-1.025 Urine Protein Negative Neg-Trace mg/dL Urine Ketones Negative Negative mg/dL Nitrite Urine Negative Negative Leukocyte Esterase Urine Negative Negative RBC Urine 0-2 0-2 /HPF WBC Urine 0-5 0-5 /HPF Squamous Epithelial Cell Urine 6-10 0-2 /HPF Bacteria Urine None Seen None Seen Hyaline Casts Urine 0-2 0-2 /LPF Comprehensive [place]. Panel Fa st Reviewed date:07/02/2024 02:18:20 PM Interpretation:Abnormal Performing Lab:[facility], [address] [place] [phone] Notes/Report: Sodium 137 135-145 mmol/L Potassium 4.5 3.3-5.1 mmol/L Chloride 100 96-108 mmol/L Carbon Dioxide 30 22-29 mmol/L Anion Gap 12 12-20 Blood Urea Nitrogen 10 9-16 mg/dL Creatinine 0.91 0.5-1.4 mg/dL Estimated Glomerular Filt Rate > 60 NOTE: For -British individuals, multiply the result by 1.210. Chronic [...] Total Reviewed date:07/02/2024 02:18:20 PM Interpretation:Normal Performing Lab:[address] [phone] Notes/Report: Vitamin D 25-OH Total 41.3 >30 [...] Random Reviewed date:07/02/2024 02:18:20 PM Interpretation:Normal Performing Lab:[address] [phone] Notes/Report: Creatinine Urine 138.63 Microalbumin Urine 8.0 Microalbum/Creatinine Ratio Ur 5.7 <30 ug/mg cr Albumin/Creatinine Ratio Reference Ranges: Normal: < 30 ug/mg creatinine Microalbuminuria: 30 - 300 ug/mg creatinine Clinical Albuminuria: > 300 ug/mg creatinine Hemoglobin A1c Reviewed date:07/02/2024 02:18:35 PM Interpretation:Abnormal Performing Lab:[facility], [address] [place] [phone] Notes/Report: Hemoglobin A1c % 10.5 <6.0 % [...] average glucose, using the formula of the C2B-Nxzjazr Average Glucose study (ADAG), Diabetes Care, Vol.31,#8, Apr. 2007 MR lumbar spine wo con Reviewed date:07/15/2024 01:26:16 PM Interpretation:Abnormal Performing Lab: Notes/Report: [address] [address] Magnetic Resonance Report Signed Patient: Louis Cazares MR#: [id number] : 1970 Acct:[id number] Age/Sex: 54 / M ADM Date: 07/15/24 Loc: HO.MRI Attending Dr: Jamaal Lorenz MD Ordering Physician: Jamaal Lorenz MD Date of Service: 07/15/24 Procedure(s): MR lumbar spine wo con Accession Number(s): [id number] cc: Abe Rivero DO; Jamaal Lorenz MD [...] by: Silas العلي MD 07/15/2024 09:50 AM [facility] Dictated By: Silas Centeno Signed By: <Electronically signed by Silas Ayala in OV> 07/15/24 0950 DD/ 0720 TD/TT: 07/15/24 0806 Rubber Goods Tester: Glucose, Whole Blood Reviewed date:07/16/2024 12:07:06 PM Interpretation:Abnormal Performing Lab:[facility], [address] [place] [phone] Notes/Report: Glucose, Whole Blood 295 60-115 mg/dL METER #: [id number] Testing performed in the [facility], [place]. Complete Blood Count Auto Di ff Reviewed date:08/22/2024 03:16:17 PM Interpretation:Abnormal Performing Lab:[facility], [address] [place] [phone] Notes/Report: White Blood Count 6.3 4.8-10.8 X10*3/uL [...] Panel Reviewed date:08/22/2024 03:16:00 PM Interpretation:Abnormal Performing Lab:[facility], [address] [place] [phone] Notes/Report: Sodium 140 135-145 mmol/L Potassium 4.0 [...] PROFILE Reviewed date:08/22/2024 03:15:27 PM Interpretation:Normal Performing Lab:[facility], [address] [place] [phone] Notes/Report: Iron 75 45-160 mcg/dL Total Iron Binding Capacity 286 228-428 mcg/d L Percent Iron Saturation 26 15-50 % Unsaturated Iron Binding 211 Ferritin Reviewed date:08/22/2024 03:15:27 PM Interpretation:Normal Performing Lab:[facility], [address] [place] [phone] Notes/Report: Ferritin 207 20-250 ng/mL C Reactive Protein Reviewed date:08/22/2024 03:15:27 PM Interpretation:Normal Performing Lab:[facility], [address] [place] [phone] Notes/Report: C Reactive Protein 0.20 < or = 0.50 mg/dL Lipid Panel Reviewed date:08/22/2024 03:15:28 PM Interpretation:Abnormal Performing Lab:[facility], [address] [place] [phone] Notes/Report: Triglycerides 203 <150 mg/dL Desirable Triglyceride: [...] Folate Reviewed date:08/22/2024 03:15:27 PM Interpretation:Normal Performing Lab:[facility], [address] [place] [phone] Notes/Report: Vitamin B12 635 200-900 pg/mL NORMAL 200-900 PG/ML INDETERMINATE 160-199 PG/ML DEFICIENT < 160 PG/ML Folate 9.8 > or = 4.0 ng/mL Reference Values: > or = 4.0 ng/mL < 4.0 ng/mL suggests folate deficiency Methotrexate, aminopterin and folinic acid (leucovorin) are chemotherapeutic agents whose molecular structures are similar to folate; therefore, the Digital Marketing Manager folate assay cannot be used for patients using these drugs. Vitamin A Reviewed date:08/29/2024 11:34:53 AM Interpretation:Normal Performing Lab:[facility], [address] [place] [phone] Notes/Report: Vitamin A 53 38-98 mcg/dL Vitamin supplementation within 24 hours prior to blood draw may affect the accuracy of the results. This test was developed and its analytical performance characteristics have been determined by [facility] [place], [place]. It has not been cleared or approved by the U.S. Food and Drug Administration. This assay has been validated pursuant to the CLIA regulations and is used for clinical purposes. THIS TEST WAS PERFORMED AT: [facility] [address] PEG ZAVALA MD,PHD Vitamin B1 Reviewed date:08/29/2024 11:34:53 AM Interpretation:Normal Performing Lab:[address] [phone] Notes/Report: Vitamin B1 8 8-30 nmol/L Vitamin supplementation within 24 hours prior to blood draw may affect the accuracy of the results. This test was developed and its analytical performance characteristics have been determined by [facility] [place], [place]. It has not been cleared or approved by the U.S. Food and Drug Administration. This assay has been validated pursuant to the CLIA regulations and is used for clinical purposes. THIS TEST WAS PERFORMED AT: [email or web address] [address] PEG ZAVALA MD,PHD Vitamin D 25-OH Total Reviewed date:08/22/2024 03:15:28 PM Interpretation:Normal Performing Lab:[facility], [address] [place] [phone] Notes/Report: Vitamin D 25-OH Total 35.4 >30 [...] T4 Reviewed date:08/22/2024 03:15:28 PM Interpretation:Normal Performing Lab:[address] [address] Notes/Report: TSH reflex Free T4 1.95 0.32-4.0 uIU/mL Hemoglobin A1c Reviewed date:08/22/2024 03:15:27 PM Interpretation:Abnormal Performing Lab:[address] [address] Notes/Report: Hemoglobin A1c % 8.6 <6.0 % [...] average glucose, using the formula of the I2F-Ubstsmp Average Glucose study (ADAG), Diabetes Care, Vol.31,#8, Apr. 2007 SLIDE REVIEW Reviewed date:08/22/2024 03:15:27 PM Interpretation:Verified Performing Lab:[address] [address] Notes/Report: SLIDE REVIEW VERIFIED Insulin Reviewed date:08/22/2024 03:15:28 PM Interpretation:Normal Performing Lab:[address] [phone] Notes/Report: Insulin 20 2-29 uU/mL This test [...] Abe Referring Provider Alex Rivero Referring Provider [facility] edicine Referred Provider Roland Campbell Referred Provider [...] Abe Referring Provider Alex Rivero Referring Provider [facility] edicine Referred Provider [facility] Pain, Management Referred Provider Specialty Pain Medicin e General Notes Page,Alysha 4 02:38:19 PM EDT > Referral sent prior to scheduling Referral Priority Routine Reason Obstructive sleep ap roxy Diagnosis 1 Obstructive sleep ap roxy (G47.33) Referral Organization Abe Sinclair FACP Referring Provider First Name Abe Referring Provider Alex Rivero Referring Provider [facility] edicine Referred Provider Alexi Soriano Referred Provider Specialty Pulmonary Di seases General Notes Lindsey Cat 024 12:35:01 PM EDT > referral faxed; specialist's office will call patient; pateint aware. Referral Priority Routine Referral Appointment Date 07/31/2024 Reason DM Morbid obesity Diagnosis 1 Type 2 diabetes teresa itus with diabetic polyneuropathy (E11.42) Referral Organization Abe Sinclair FACP Referring Provider First Name Abe Referring Provider Alex Rivero [facility] Referred Provider Abe Thomas Referred Provider Specialty Endocrinolog y General Notes Lindsey Cat 024 01:26:38 PM EDT > referral manually faxed Referral Priority Routine Reason CEE Diabetic retinal exam Diagnosis 1 Type 2 diabetes teresa itus with diabetic polyneuropathy (E11.42) Referral Organization Abe Adame O, FACP Referring Provider First Name Abe Referring Provider Last Name Josefa Referring Provider Speciality Internal M edicine Referred Provider Bulmaro Penn Referred Provider Specialty Refinery Pipeline Operator General Notes Lindsey Cat 024 12:35:44 PM EDT > PATIENT WILL CALL [...] day Active Vitamin D (Ergocalciferol) 1.25 MG (11121 UT) 1 capsule Orally Twice a week Active Atorvastatin Calcium 80 MG 1 tablet Oral ly Once a day for 90 days Active Nystatin 968621 UNIT/GM 1 application Ex ternally Twice a [...] mellitus with diabetic polyneuropathy (E11.42) Active confirmed 96035303 Problem Chronic maxillary sinusitis (J32.0) Active confirmed 82926986 Problem Localized edema (R60.0) Active confirmed Localized edema (1795562) Problem Mild intermittent asthma without complication (J45.20) Active confirmed 162506589 Problem Obstructive sleep apnea (G47.33) Active confirmed 70012855 Problem Morbid obesity due to excess calories (E66.01) Active confirmed 457906340 Problem Depression, unspecified depression type (F32.9) Active confirmed 56560884 Problem Substance abuse (F19.10) Active confirmed 21256787 Problem Tear of right rotator cuff, unspecified tear extent (M75.101) Active confirmed 368945886 Problem Thyroid nodule (E04.1) Active confirmed Thyroid nodule (687393736) Problem Injury of left knee, initial encounter (S89.92XA) Active confirmed 377335435 Problem Penile pain (N48.89) Active confirmed 044171440 Problem Terminal ileitis without complication (K50.00) Active confirmed 495465216 Problem Hepatomegaly (R16.0) Active confirmed 18168823 Problem 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) Active confirmed 21067755 VITAL SIGNS Blood pressure diastolic 56 mm Hg 07/03/2024 Height 72 in 07/03/2024 Blood pressure systolic 114 mm Hg 07/03/2024 Encounters Encounter Location Date Provider Diagnosis Abe Rivero DO, FACP [address] [place] [id number] 12/05/2023 Abe Rivero Type 2 diabetes mellitus with diabetic polyneuropathy E11.42 ; Morbid obesity due to excess calories E66.01 ; Substance abuse F19.10 ; Depression, unspecified depression type F32.9 ; Localized edema R60.0 ; Conjunctivitis of both eyes, unspecified conjunctivitis type H10.9 and Left lower quadrant abdominal pain R10.32 Abe Rivero DO, [facility] [address], [place] [id number] 01/10/2024 Abe Rivero DO, [address] [id number] 04/10/2024 Abe Rivero Type 2 diabetes mellitus with diabetic polyneuropathy E11.42 ; Morbid obesity due to excess calories E66.01 ; Depression, unspecified depression type F32.9 ; Left-sided low back pain without sciatica, unspecified chronicity M54.50 and Localized edema R60.0 Abe Rivero DO, [facility] [address], [place] [phone] 07/03/2024 Abe Rivero Type 2 diabetes mellitus with diabetic polyneuropathy E11.42 ; Morbid obesity due to excess calories E66.01 ; Obstructive sleep apnea G47.33 and Depression, unspecified depression type F32.9 Abe Rivero DO, [facility] [address], [place] [phone] 11/29/2023 Abe Rivero DO, [address] [id number] 12/06/2023 Abe Rivero Left lower quadrant abdominal pain R10.32 Abe Rivero DO, [address] [id number] 12/26/2023 Abe Rivero Conjunctivitis of roney th eyes, unspecified conjunctivitis type H10.9 Abe Rivero DO, [facility] [address], [place] [id number] 02/23/2024 Abe Rivero DO, [address] [id number] 04/29/2024 Abe Rivero DO, [address] [id number] 05/06/2024 Abe Rivero DO, [address] [phone] 03/11/2024 Abe Josefa ASSESSMENTS Encounter Date Diagnosis Assessment Notes Treatment Notes Treatment Clinical Notes 12/05/2023 Type 2 diabetes mellitus with diabetic polyneuropathy (ICD-10 - E11.42) 12/05/2023 Morbid obesity due t o excess calories (ICD-10 - E66.01) 04/10/2024 Type 2 diabetes mellitus with diabetic polyneuropathy (ICD-10 - E11.42) 04/10/2024 Morbid obesity due t o excess calories (ICD-10 - E66.01) Refer to [facility] Metabolic Clinic 07/03/2024 Type 2 diabetes mellitus [...] WWO CONTRAST 12/05/2023 XR chest 2V 07/20/2022 Insurance Providers Payer Name Payer Address Payer Phone Subscriber Number Group Number Insured Name Patient Relationship to Insured Coverage Start Date [facility]age End Date [facility] [address] [place] [address] [phone] [id number] Debora Louis Self - patient is the insured [facility] [address] [place] [id number] Debora Louis Self - patient is the insured MEDICARE [address] [place] [phone] [id number] Louis Cazares Self - patient is the [...]
--- OUTSIDE RECORDS SUMMARY | 2024-09-10 08:54 | XMS_ITS ---
Author Organization Abe Rivero DO, [facility] Address [address], [place] [phone] Care Team Providers Care Tool Crib Lead Name Role Phone Abe Rivero Primary Care Provider REASON FOR VISIT FYI only Encounters Encounter Location Date Provider Diagnosis Abe Rivero DO, FACP [address], [place] [phone] 04/29/2024 Abe Rivero PLAN OF TREATMENT No Information
[2024-09-10 09:02] LABS: Glucose, Whole Blood 132 mg/dL (60-115)
== END 2024-09-10 09:26 | disposition home or self-care (01) ==
PROVIDERS: PCP Internal Medicine; Visit Provider Student in an Organized Health Care Education/Training Program
DX: E11.65 Type 2 diabetes mellitus with hyperglycemia (principal); Z79.4 Long term (current) use of insulin; E66.01 Morbid (severe) obesity due to excess calories; E04.2 Nontoxic multinodular goiter; E78.2 Mixed hyperlipidemia; R03.0 Elevated blood-pressure reading, without diagnosis of hypertension; K76.0 Fatty (change of) liver, not elsewhere classified
CPT/HCPCS: 95251; 99214

== ENCOUNTER → 2024-09-10 08:45 | Outpatient (BNVA) | payer OTHER, SELFPAY | PROVIDERS: PCP Internal Medicine; Visit Provider Student in an Organized Health Care Education/Training Program | DX: E11.65 Type 2 diabetes mellitus with hyperglycemia (principal); E66.01 Morbid (severe) obesity due to excess calories; E04.2 Nontoxic multinodular goiter; E78.2 Mixed hyperlipidemia; R03.0 Elevated blood-pressure reading, without diagnosis of hypertension; K76.0 Fatty (change of) liver, not elsewhere classified; Z79.4 Long term (current) use of insulin; Z68.42 Body mass index [BMI] 45.0-49.9, adult | CPT/HCPCS: 82947; 99212 ==

== ENCOUNTER 2024-10-02 11:36 | Outpatient (AMB) | payer OTHER, SELFPAY ==
--- NOTE | 2024-10-02 10:42 | MHC.PC.OV ---
Vital Signs 10/02/24 12:00 BP not taken reason Medical Reason Pulse 56 Temp 97.5 F Pulse Oximetry (%) 92 Intake Visit Reasons: 3 month follow up Intake Note: Persistent fungal infection, groin area, Dr. Rivero had Rx'd topical, which is no longer effective. [employer] started patient on Allergies No Known Allergies Allergy (Unknown, Verified 10/02/24 13:19) UNKNOWN Medication List - Last Reconciled 10/02/24 by Chata Stringer PA-C albuterol sulfate 90 mcg/actuation 2 puffs inhalation Q4-6H PRN atorvastatin 80 mg PO DAILY blood sugar diagnostic (OneTouch Verio test strips) check blood sugars twice daily blood-glucose meter (OneTouch Verio Flex Meter) check blood sugars twice daily blood-glucose meter,continuous (FreeStyle Atul 3 [place]) As directed blood-glucose meter,continuous (FreeStyle Atul 3 [place]) As directed blood-glucose sensor (FreeStyle Atul 3 Plus Sensor device) As directed blood-glucose sensor (FreeStyle Atul 3 Sensor device) As directed bupropion HCl SR 150 mg PO BID clotrimazole 1% 1 appl topical TID cyanocobalamin (vitamin B-12) 1,000 mcg PO DAILY fluconazole 150 mg PO Q3D 2 doses furosemide 20 mg PO DAILY PRN gabapentin 300 mg PO TID 90 days insulin glargine (Lantus Solostar U-100 Insulin) 22 units (0.22 mL) subcut QPM lancets (OneTouch Delica Plus Lancet) check blood sugars twice daily metformin 1,000 mg PO BID methadone 125 mg PO DAILY pen needle, diabetic (BD Mahi 2nd Gen Pen Needle) As directed semaglutide (Ozempic) 0.5 mg (0.736 mL) subcut QWEEK semaglutide (Ozempic) 0.25 mg (0.368 mL) subcut QWEEK HPI 3 month follow up HPI Details This is a 54-year-old male with a past medical history of type 2 diabetes, obesity, degenerative joint disease, osteoarthritis, neuropathy, carpal tunnel syndrome, asthma that is mild and intermittent, PTSD disorder, depression, substance abuse on methadone, abdominal aortic aneurysm, obstructive sleep apnea, hepatomegaly who is presenting to the primary care clinic for follow-up regarding his chronic medical conditions. He reports for his diabetes he is currently being followed by stripper printed circuit [employer] Dr. Ingrid Cooper and recently had a Dexcom placed in his arm. He was also started on Ozempic weekly. Patient is also on Lantus 20 units every night. Patient is also on metformin 1000 mg b.i.d.. For the patient's neuropathy he is currently on gabapentin 300 mg daily although reports he has restless legs and at nighttime his neuropathy is worsened. He reports he is interested in having a higher dose for his neuropathy with the gabapentin. For patient's hyperlipidemia history patient is currently on atorvastatin 80 mg taking as prescribed daily. For the patient's asthma he has albuterol inhaler. He denies any cough, chest pain, shortness of breath, wheezing or any pulmonary related complaints. He is requesting a refill for his albuterol inhalers. Patient reports he is being followed by electric truck crane operator for fungus to his feet and is requesting a fungal cream for his feet and his toenails. Patient had a Cologuard last year which was negative. Does not have repeat until next year. Patient reports he has not had a visual exam although he will call an stock plan administrator to make an appointment. He denies any visual changes or any difficulty seen. Patient denies any other complaints or concerns. [facility] Medical History Metabolic dysfunction-associated steatotic liver disease (MASLD) Elevated blood pressure reading HLD (hyperlipidemia) Methadone maintenance therapy patient Nicotine dependence, cigarettes, uncomplicated Multinodular thyroid (~2021) Supraclavicular mass Morbid obesity due to excess calories Wears partial dentures Full dentures Arthritis Diabetes (~2016) Depression Sleep apnea Shortness of breath on exertion Chronic venous stasis Hypertension Surgical History Status post phlebectomy History of wisdom tooth extraction History of carpal tunnel surgery of left wrist Status post ablation of incompetent vein using laser History of retained foreign body fully removed History of arthroscopic knee surgery History of umbilical hernia repair Family History Father Diabetes Mother Diabetes 1.5, managed as type 2 HTN (hypertension) Hypercholesteremia Paternal Grandmother Diabetes 1.5, managed as type 2 Maternal Grandmother Lung cancer Maternal Grandfather Prostate cancer Sister No problems noted. Daughter No problems noted. Daughter No problems noted. Daughter No problems noted. Daughter No problems noted. Social History Alcohol intake: never Patient Tobacco Use Status: Current everyday Tobacco user Tobacco use type: Cigarette Cigarette Packs Per Day: 0.5 Cigarettes Per Day: 10.0 Years Smoked: (current smoker - onset 13yo - 1/2-1ppd x 39yrs - 30pyh) Substance Use Type: Marijuana Current occupational status: disabled Current occupation: right handed Review of Systems Const All systems reviewed & are unremarkable except as noted in HPI and below Physical exam (Primary Care) Vital Signs: Last Vital Signs Temp 97.5 F 10/02/24 12:00 Pulse 56 10/02/24 12:00 Pulse Ox 92 10/02/24 12:00 Care Plan Goal for BP management: Goal is 130 over 80 although unable to obtain blood pressure today due to not having large enough cough Unable to monitor the patient's weight due to scale we have. Prior BMI is have been high. BMI Assessment/Plan discussion: High BMI High, discussed plan: lifestyle, weight reduction, dietary, physical activity and alcohol moderation Tobacco/Smoking Status: Tobacco use Status Patient Tobacco Use Status Current everyday Tobacco 10/02/24 10:43 Tobacco use type Cigarette 10/02/24 10:43 Const Other: Appearance: Alert. Oriented X3. No acute distress. Head: Normal external exam. Normocephalic. Atraumatic. Eyes: Conjunctiva and sclera normal. Eyelids normal. ENT: MMM. Normal voice. Neck: Normal inspection. Neck supple. FROM. No adenopathy. Thyroid Normal. No meningeal signs. No neck mass noted. CVS: Normal heart rate and rhythm. Heart sound normal. Pulses normal throughout. No murmurs/rales/gallops. Respiratory: No respiratory distress. Painless inspiration. Breath sounds normal. No wheezes/rales/rhonchi noted. Chest nontender. No crepitus is noted. No accessory muscle usage noted or decreased air movement noted. No signs of trauma. Abdomen: Soft and nontender. Nondistended. No guarding. No rigidity. Bowel sounds normal in all 4 quadrants. No distention noted. No organomegaly noted. No visible injury noted. No rebound tenderness. Back: Full range of motion noted. Skin: Skin warm and dry. Normal skin color. Normal skin turgor. No rashes/lesions/lacerations noted. Extremities: + b/l lower extremity edema. No calf tenderness is noted. Extremities exhibit normal range of motion and nontender. Neuro: Oriented X 3. Moving all extremities. Normal steady gait. No focal neuro deficits noted. Vascular: + radial pulses b/l. Normal cap refill. No cyanosis noted. Coding Level of Care Code New Pt Level 4 (19817) Complex EM visit Add On G2211 Diagnoses Mixed hyperlipidemia E78.2 Hyperlipidemia type: mixed hyperlipidemia Type 2 diabetes mellitus with hyperglycemia, with long-term current use of insulin E11.65; Z79.4 Diabetes mellitus complication status: with hyperglycemia Diabetes mellitus nursing home insulin use: with watermelon inspector use Diabetes mellitus type: type 2 Morbid obesity due to excess calories E66.01 Vitamin D deficiency E55.9 Portal hypertension K76.6 Tinea B35.9 Assessment & Plan Assessment & Plan (1) HLD (hyperlipidemia): Code(s): E78.5 - Hyperlipidemia, unspecified Category: Medical Qualifiers: Hyperlipidemia type: mixed hyperlipidemia Qualified Code(s): E78.2 - Mixed hyperlipidemia Plan: For patient's hyperlipidemia history patient is currently on atorvastatin 80 mg taking as prescribed daily. Will reassess lipid panel with ordering labs. Condition is chronic and stable will continue to monitor. (2) Diabetes: Onset Date: ~2016 Comment: (T2DM - dx 2017, morbid obesity Code(s): E11.9 - Type 2 diabetes mellitus without complications Category: Medical Qualifiers: Diabetes mellitus complication status: with hyperglycemia Diabetes mellitus nursing home insulin use: with watermelon inspector use Diabetes mellitus type: type 2 Qualified Code(s): E11.65 - Type 2 diabetes mellitus with hyperglycemia; Z79.4 - detention (current) use of insulin Plan: For his diabetes he is currently being followed by stripper printed circuit [employer] Dr. Ingrid Cooper and recently had a Dexcom placed in his arm. He was also started on Ozempic weekly. Patient is also on Lantus 20 units every night. Patient is also on metformin 1000 mg b.i.d.. A1c level is 8.6. Recent medication adjustments by stripper printed circuit boards therefore at this time will continue current regimen and reassess at next visit in 3-6 months. Condition is chronic and stable will continue to monitor. (3) Morbid obesity due to excess calories: Code(s): E66.01 - Morbid (severe) obesity due to excess calories Category: Medical Plan: Patient will continue diet and exercise and condition is chronic and stable will continue to monitor. (4) Vitamin D deficiency: Code(s): E55.9 - Vitamin D deficiency, unspecified Category: Medical Plan: Will reassess the patient's vitamin-D levels have been normal in the last labs on 08/22/2024. Condition is chronic and stable will continue to monitor. (5) Portal hypertension: Code(s): K76.6 - Portal hypertension Category: Medical Plan: Patient is currently on furosemide 20 mg daily PRN. Condition is chronic and stable continue to monitor. (6) Tinea: Code(s): B35.9 - Dermatophytosis, unspecified Category: Medical Plan: Patient to be prescribed antifungals. Will continue to monitor at next visit. Plan For the patient's diabetes: followed by stripper printed circuit [employer] Dr. Ingrid Cooper and recently had a Dexcom placed in his arm. He was also started on Ozempic weekly. Patient is also on Lantus 20 units every night. Patient is also on metformin 1000 mg b.i.d.. A1c level 8.8. Will reassess at next visit in 3-6 months and keep current regimen. For the patient's neuropathy he is currently on gabapentin 300 mg daily although reports he has restless legs and at nighttime his neuropathy is worsened. He reports he is interested in having a higher dose for his neuropathy with the gabapentin. Will increase gabapentin to 300 mg t.i.d.. For patient's hyperlipidemia history patient is currently on atorvastatin 80 mg taking as prescribed daily. Will reassess labs. Will continue current regimen. For the patient's asthma he has albuterol inhaler. He denies any cough, chest pain, shortness of breath, wheezing or any pulmonary related complaints. He is requesting a refill for his albuterol inhalers. Will refill the patient's albuterol inhaler. Will continue to monitor. Patient reports he is being followed by electric truck crane operator for fungus to his feet and is requesting a fungal cream for his feet and his toenails. Will prescribe Diflucan and topical antifungals and reassess at next visit. Patient should make an appointment for an eye exam with an stock plan administrator. Orders: Orders Comprehensive [place]. Panel Fast Today E11.65 - Type 2 diabetes mellitus with hyperglycemia, E55.9 - Vitamin D deficiency, unspecified, E66.01 - Morbid (severe) obesity due to excess calories, E78.2 - Mixed hyperlipidemia, Z79.4 - rn long term care (current) use of insulin Complete Blood Count Auto Diff Today E11.65 - Type 2 diabetes mellitus with hyperglycemia, E55.9 - Vitamin D deficiency, unspecified, E66.01 - Morbid (severe) obesity due to excess calories, E78.2 - Mixed hyperlipidemia, K76.6 - Portal hypertension, Z79.4 - rn long term care (current) use of insulin Microalbumin, Random (w Creat) Today E11.9 - Type 2 diabetes mellitus without complications PSA,Total (Free>4and<10) Today E55.9 - Vitamin D deficiency, unspecified, E66.01 - Morbid (severe) obesity due to excess calories, E78.2 - Mixed hyperlipidemia TSH reflex Free T4 Today E11.65 - Type 2 diabetes mellitus with hyperglycemia, E55.9 - Vitamin D deficiency, unspecified, E66.01 - Morbid (severe) obesity due to excess calories, E78.2 - Mixed hyperlipidemia, Z79.4 - detention (current) use of insulin Vitamin D 25-OH Total Today E11.65 - Type 2 diabetes mellitus with hyperglycemia, E55.9 - Vitamin D deficiency, unspecified, E66.01 - Morbid (severe) obesity due to excess calories, E78.2 - Mixed hyperlipidemia, Z79.4 - detention (current) use of insulin Erythrocyte Sedimentation Rate Today E11.65 - Type 2 diabetes mellitus with hyperglycemia, E55.9 - Vitamin D deficiency, unspecified, E66.01 - Morbid (severe) obesity due to excess calories, E78.2 - Mixed hyperlipidemia, Z79.4 - rn long term care (current) use of insulin Hemoglobin A1c Today E11.65 - Type 2 diabetes mellitus with hyperglycemia, E55.9 - Vitamin D deficiency, unspecified, E66.01 - Morbid (severe) obesity due to excess calories, E78.2 - Mixed hyperlipidemia, Z79.4 - rn long term care (current) use of insulin B Type Natriuretic Peptide Today R60.0 - Localized edema Lipid Panel Today E11.65 - Type 2 diabetes mellitus with hyperglycemia, E55.9 - Vitamin D deficiency, unspecified, E66.01 - Morbid (severe) obesity due to excess calories, E78.2 - Mixed hyperlipidemia, Z79.4 - detention (current) use of insulin Magnesium Today E11.65 - Type 2 diabetes mellitus with hyperglycemia, E55.9 - Vitamin D deficiency, unspecified, E66.01 - Morbid (severe) obesity due to excess calories, E78.2 - Mixed hyperlipidemia, Z79.4 - detention (current) use of insulin Liver Panel Today E11.65 - Type 2 diabetes mellitus with hyperglycemia, E55.9 - Vitamin D deficiency, unspecified, E66.01 - Morbid (severe) obesity due to excess calories, E78.2 - Mixed hyperlipidemia, Z79.4 - rn long term care (current) use of insulin Vitamin B12 and Folate Today E11.65 - Type 2 diabetes mellitus with hyperglycemia, E55.9 - Vitamin D deficiency, unspecified, E66.01 - Morbid (severe) obesity due to excess calories, E78.2 - Mixed hyperlipidemia, Z79.4 - rn long term care (current) use of insulin Medications: New albuterol sulfate 90 mcg/actuation 2 puffs inhalation Q4-6H PRN 8.5 grams 3RF Shortness Of Breath clotrimazole 1% 1 appl topical TID 56.7 grams 3RF fungal infection fluconazole 150 mg PO Q3D 2 doses 2 tabs 1RF fungal infection Changed From gabapentin 300 mg PO DAILY To gabapentin 300 mg PO TID 90 days 270 caps 1RF Discontinued cholecalciferol (vitamin D3) Discontinued Reason: Patient no longer taking 1,250 mcg PO QWEEK 4 caps 2RF E55.9 - Vitamin D deficiency, unspecified
[2024-10-02 12:00] VITALS: PULSE 56; TEMP 36.4; O2SAT 92
--- OUTSIDE RECORDS SUMMARY | 2024-10-02 13:21 | XMS_ITS ---
[facility] Organization [facility] Address [address] [facility] [place] [address] Care Team Providers Care Stockroom Supervisor Name Role Phone Abe Rivero MD Primary Care Provider Unavail able Radha Tran Unavailable [phone] REASON FOR VISIT Toe Irritation, Fungal Nails, At Risk Footcare Medications Medication SIG (Take, Route, Frequency, Duration) Notes Start Date End Date Status Atorvastatin Calcium 80 MG 1 tablet Orally Once a day Active metFORMIN HCl 1000 MG 1 tablet with a me al Orally Once a day Active Bupropion & Diet Manage Prod Active Extra Depth Orthopedic Shoes (1 Pair) with Customized Heat Molded Multidensity Innersoles (3 Pair) as directed Dx: NIDDM/Polyneuropathy (E11.42), Hammertoe Foot Deformity (M20.41,M20.42), Preulcerative Skin Lesion(s) (L85.1 09/16/2024 Active Methadone HCl Active Ozempic Active Vitamin D Active Vitamin B Complex Ac tive glipiZIDE 10 MG 1 tablet 30 minutes before breakfast Orally Once a day Not-Taking Social History Tobacco Use: Social History Observation Description Date Details (start date - stop date) Current Smoker NA - NA Tobacco Control (Standard) Question Answer Notes Tobacco use: Current smoker AUDIT-C (Standard) Question Answer Notes Did you have a drink containing alcohol in the p ast year? No Points 0 Interpretation Negative Problems Problem Type SNOMED Code ICD Code Onset Dates Problem Status W/U Status Risk Notes Problem Polyneuropathy due to type 2 diabetes mellitus (163362889) Type 2 diabetes mellitus with diabetic polyneuropathy (E11.42) Active confirmed Vital Signs Height 6ft 1inch in 09/16/2024 Weight 370 lbs 09/16/2024 BMI 48.81 kg/m2 09/16/2024 Blood pressure systolic 130 mm Hg 09/16/19 25 Blood pressure diastolic 70 mm Hg 025 Procedures Procedure Date Ordered Date Performed Result Body Sit e 03440-USMNMWC NAIL, 6 OR MORE 09/16/2024 N/A 44832-DCZZ SKIN LESIONS, 2 TO 4 09/16/2024 N/A Encounters Encounter Location Date Provider Diagnosis [facility] [place] [address] [place] [address] 09/16/2024 Radha Tran Other hammer toe(s) (acquired), right foot M20.41 ; Other hammer toe(s) (acquired), left foot M20.42 ; Onychomycosis B35.1 and Type 2 diabetes mellitus with diabetic polyneuropathy E11.42 Assessments Encounter Date Diagnosis (ICD Code) Assessment Notes Treatment Notes Treatment Clinical Notes Section Notes 09/16/2024 Other hammer toe(s) (acquired), right foot (ICD-10 - M20.41) Patient Educated with: DIABETIC FOOT CARE INSTRUCTIONS. pdf (DIABETIC FOOT CARE INSTRUCTIONS. pdf) 09/16/2024 Other hammer toe(s) (acquired), left foot (ICD-10 - M20.42) 09/16/2024 Onychomycosis (ICD-10 - B35.1) 09/16/2024 Type 2 diabetes mellitus with diabetic polyneuropathy (ICD-10 - E11.42) Plan Of Treatment Medication Medication Name Sig Start Date Stop Date Notes Extra Depth Orthopedic Shoes (1 Pair) with Customized Heat Molded Multidensity Innersoles (3 Pair) as directed Dx: NIDDM/Polyneuropathy (E11.42), Hammertoe Foot Deformity (M20.41,M20.42), Preulcerative Skin Lesion(s) (L85.1 09/16/2024 Treatment Notes Assessment Notes Other hammer toe(s) (acquired), right fo ot Patient Educated with: DIABETIC FOOT CARE INSTRUCTIONS.pdf (DIABETIC FOOT CARE INSTRUCTIONS.pdf) Pending Test Test Name Order Date *Liver Function Test (LFT) 09/16/2024 18216-FZOZNYG NAIL, 6 OR MORE 09/16/2024 47584-OPQC SKIN LESIONS, 2 TO 4 09/16/19 25 Next Appt Details Follow Up: 3 Months, Reason: Provider Name:Radha nelson, 01/20/2025 11:15:00 AM, [address] [place] [address], [id number], Procedure Notes * Category Sub-Category Detail Notes Debride Nail 6-10 Nail debridement Due to the cl inical pathology outlined in the exam findings, performance of this nail treatment is medically necessary as its management by an unskilled/untrained nonprofessional would put this patients foot and overall health at risk. Therefore, debridement to affected nail(s), as described in exam ( TA, T1, T2, T3, T4, T5, T6, T7, T8, T9, ), was performed exclusively by the physician of record to reduce/remove overall nail length, girth, thickness, subungual debris, and necrotic tissue, by manual and/or electrical means through the use of a nail nipper and/or dremel-type glaze grinder, to a more viable healthy nail plate or bed tissue 6-10 nails in total. Silver nitrate was used for any petechial bleeding as necessary. Definitive antifungal treatment options, both pharmaceutical and surgical, have been reviewed and discussed with the patient. The patient solely prefers the use of intermittent/as needed professional debridement services for their nail condition and understands the need for additional periodic treatments to maintain effectiveness in symptomatic relief - 13307 Keratoma Treatment Parring or Cutting o f Benign Hyperkeratotic Lesion(s) (-56) 2-4 Lesions - Due to the at risk nature of the patients medical condition as documented in the exam findings, performance of this keratoderma treatment is medically necessary as its management by an unskilled/untrained nonprofessional would put this patients foot and overall health at risk. Therefore, the benign hyperkeratotic lesions, (4 ) in total, locations as stated and described in the exam ( sub 1st metatarsal head B/L, plantar heels B/L), were pared, and/or cut utilizing a sterile 15 blade, tissue nippers, and/or power dremel instrumentation by the physician of record - [id number] Progress Notes * Louis LONGO ADOB: [birth year] (54 yo M)Acc No.[id number]:09/16/2024 Progress Notes Patient:?DONTA, Louis A Provider:?Radha Tran DPM :1970???Age:54 Y???Sex:Male Darrel e:09/16/2024 Address:[facility] [address] [id number] Pcp:Abe Rivero MD Subjective: * Chief Complaints: * ???Toe IrritationFungal Nail sAt Risk Footcare * HPI: ???Toe pain:?Location:?B/L feet.?Duration:?several years.?Course:?worse.?Aggravated by:?shoes, any pressure.?Treatments:?change in shoes.?Painful Nails:?Nature:?tender, discolored, thick.?Location:?Both feet, all toes.?Duration:?several years.?Course:?worse.?Aggravated by:?shoegear causing difficulty standing/walking.?Treatments:?none.?At Risk footcare:?Pt States Last PCP Visit:?Date?07/24/2024 * ROS:?General/Constitutional:?Nausea?denies.?Vomiting?denies.?Hunger Thirst?denies.?Loss appetite?denies.?Chills?denies.?Fatigue?denies.?Fever?denies.?Night Sweats?denies.?Unexplained weight loss?denies.?Unexplained weight gain?denies.?HEENTM:?Dentures?denies.?Dizziness?denies.?Glasses/contacts?denies.?Retinopathy?de nies.?Blurred/double vision?denies.?TMJ?denies.?Discharge/drainage?denies.?Implants?denies.?Sore throat?denies.?Dental implants?denies.?Hard of hearing ?denies.?Difficulty chewing/swallowing/speaking?denies.?Nose bleeds?denies.?Sore mouth?denies.?Respiratory:?On Oxygen?denies.?Pneumonia/pleurisy?denies.?Bronchitis?denies.?Emphysema?denies.?C oughing?denies.?Cough blood?denies.?Shortness of breath?denies.?Wheezing?denies.?Cardiovascular:?Pacemaker?denies.?MVP?denies.?WPW?denies.?CHF?denies.?Heart attack?denies.?Septal defect?denies.?Rapid beat?denies.?Chest pain ?denies.?Atrial Fib.?denies.?Murmur/Palpitations?denies.?Gastrointestinal:?Hemorrhoids?denies.?Stomach/Abdominal pain?denies.?Dark blood stool?denies.?Irritable bowel ?denies.?Constipation?denies.?Diarrhea?denies.?Hematology:?Swelling?admits.?Clots?denies.?Varicose Veins?admits.?Bruising?denies.?Bleeding problem?denies.?Genitourinary:?Blood urine?denies.?Frequent/Painfu/urination/bladder control?denies.?Kidney stones?denies.?Infection (UTI)?denies.?Nephropathy?denies.?sex trans dis (STD)?denies.?Prostate?denies.?Musculoskeletal:?Hammertoes?denies.?Bunions?denies.?Back Pain?denies.?Muscle Cramps/ Resting?denies.?Muscle cramps / walking?denies.?Generalized aches and pains?denies.?Weakness?denies.?Integ.:?Rose?denies.?Scars?denies.?Corns/calluses?denies.?Ingrown nails?denies.?Painful nails?admits.?Open Sores?denies.?Rashes?denies.?Neurologic:?Difficulty sleeping?denies.?Brain disorder?denies.?Numbness?admits.?Balance trouble?denies.?Confusion?denies.?Fainting/blackouts?denies.?Tingling?denies.?Tr emors?denies.? * Medical History:? * Surgical History:?Denies Pas t Surgical History * Hospitalization/Major Diagno stic Procedure:?Denies Past Hospitalization * Family History:?Mother: jovan day, diagnosed with Diabetic - NIDDM, Unspecified heart disease.?Father: , diagnosed with Unspecified heart disease, Unspecified cerebral artery occlusion with cerebral infarction, Diabetic - NIDDM.?Maternal Grand Mother: diagnosed with Other malignant neoplasm of unspecified site, Unspecified heart disease.? * Social History:?Tobacco Use:?Tobacco Control (Standard)?Tobacco use:?Current smoker ???Drugs/Alcohol:?Drugs?Have you used drugs other than those for medical reasons in the past 12 months??Yes ?Marijuana??Yes ???Miscellaneous:?Caffeine: yes, frequency:. ?Exercise: no. ?Marital status: . ?Occupation: disable. ???Drug/Alcohol:?AUDIT-C (Standard)?Did you have a drink containing alcohol in the past year??No ?Points?0 ?Interpretation?Negative * Medications:?TakingOzempic V itamin D Vitamin B Complex Atorvastatin Calcium 80 MG Tablet 1 tablet Orally Once a day metFORMIN HCl 1000 MG Tablet 1 tablet with a meal Orally Once a day Bupropion & Diet Manage Prod Methadone HCl Taking Ozempic Taking Vitamin D Taking Vitamin B Complex Taking Atorvastatin Calcium 80 MG Tablet 1 tablet Orally Once a day Taking metFORMIN HCl 1000 MG Tablet 1 tablet with a meal Orally Once a day Taking Bupropion & Diet Manage Prod Taking Methadone HCl Not-Taking/PRNglipiZIDE 10 MG Tablet 1 tablet 30 minutes before breakfast Orally Once a day Not-Taking/PRN glipiZIDE 10 MG Tablet 1 tablet 30 minutes before breakfast Orally Once a day * Allergies:?yes[Allergies Prabhjot ified] Objective: * Vitals:?Ht: 6ft 1inch, Wt:37 0, BMI:48.81, Shoe size: 11.5, BP:130/70mm Hg, BS:101, Ht-cm: 185.42 cm, Wt-k.83 kg. * ???Past Orders: ???Lab:HEMOGLOBIN A1C (GLYCO HEMOGLOBIN) (Order Date - 09/16/2024) (Collection Date & Time - 08/12/2024 09:25 AM) ? Value Reference Range ?HEMOGLOBIN A1C % (HH) 8.6 * Examination: ???Ophthalmology Referral: ?DIABETES EYE EXAM?Orthopedic: ?MUSCLE STRENGTH:?5/5 all groups in a symmetrical fashion, B/L.?DIGITAL DEFORMITIES:?Digital contracture, PIPJ, 2-5 B/L, incompl-reducible to push-up test, no over, nor underlapping,?there is?evidence of shoe producing skin irritation.?FOOTWEAR:?worn, non-supportive, shoe gear properties exacerbate patient's foot/toe deformity.?General Examination: ?GENERAL APPEARANCE:?Reveals a pleasant, alert, well nourished, well- developed, well hydrated individual, who demonstrates proper attention to hygiene/body habitus, and is in no acute distress, Pt serves as own historian for office visit today.?ORIENTED:?person, place, and time.?FOOT EXAM:?Footwear Evaluation?Nails: ?NAILS are:?Elongated, overgrown, dystrophic, lytic, greater than 3mm thick, discolored and friable with crumbly malodorous subungual debris, with dull to no pain on palpation due to neuropathy, TA, T1, T2, T3, T4, T5, T6, T7, T8, T9.?Neurological: ?SENSORY:? Neurological exam demonstrates, reduced light touch sensation, reduced sharp/dull pin prick discrimination , B/L, 5.07 monofilament test performed at plantar aspects of 5 varied sites per foot shows sensation, reduced , B/L.?Dermatologic: ?SKIN FINDINGS:?Skin exam reveals Keratotic lesion(s) located at sub 1st metatarsal head B/L, plantar heels B/L.?Vascular: ?DP PULSES (B):?2/4, B/L.?PT PULSES (B):?1/4, B/L, 1/4, B/L, difficult to palpate secondary to edema.?CAPILLARY FILL TIME:?3 secs. per digit.?TROPHIC CONDITION-TEXTURE/ELASTICITY/TURGOR/HAIR GROWTH (B):?normal, B/L.?TEMPERTURE GRADIENT (C):?normal, warm to cool, proximal to distal, B/L.?PIGMENTATION:?normal, B/L.?EDEMA (C):?3/4, pitting, without aching pain, Ankle(s), Leg(s), Foot, B/L.? Assessment: * Assessment: 1.?Other hammer toe(s) (acqu ired), right foot - M20.41 (Primary)???Specify :Chronic problem, Worse (4),Rx Management (4)???2.?Other hammer toe(s) (acquired), left foot - M20.42???Specify :Chronic problem, Worse (4),Rx Management (4)???3.?Onychomycosis - B35.1???4.?Type 2 diabetes mellitus with diabetic polyneuropathy - E11.42??? Plan: * Treatment: 2.?Onychomycosis?LAB: *Liver Function Test (LFT) 3.?Type 2 diabetes mellitus with diabetic polyneuropathy?Procedure: 13471-OPVWHZC NAIL, 6 OR MORE ?Procedure: 84642-RPGQ SKIN LESIONS, 2 TO 4 * Procedures:?Debride Nail 6-10:?Nail debridement?Due to the clinical pathology outlined in the exam findings, performance of this nail treatment is medically necessary as its management by an unskilled/untrained nonprofessional would put this patients foot and overall health at risk. Therefore, debridement to affected nail(s), as described in exam ( TA, T1, T2, T3, T4, T5, T6, T7, T8, T9, ), was performed exclusively by the physician of record to reduce/remove overall nail length, girth, thickness, subungual debris, and necrotic tissue, by manual and/or electrical means through the use of a nail nipper and/or dremel-type glaze grinder, to a more viable healthy nail plate or bed tissue 6- 10 nails in total. Silver nitrate was used for any petechial bleeding as necessary. Definitive antifungal treatment options, both pharmaceutical and surgical, have been reviewed and discussed with the patient. The patient solely prefers the use of intermittent/as needed professional debridement services for their nail condition and understands the need for additional periodic treatments to maintain effectiveness in symptomatic relief - 69753.?Keratoma Treatment:?Parring or Cutting of Benign Hyperkeratotic Lesion(s)?(-56) 2-4 Lesions - Due to the at risk nature of the patients medical condition as documented in the exam findings, performance of this keratoderma treatment is medically necessary as its management by an unskilled/untrained nonprofessional would put this patients foot and overall health at risk. Therefore, the benign hyperkeratotic lesions, (4 ) in total, locations as stated and described in the exam ( sub 1st metatarsal head B/L, plantar heels B/L), were pared, and/or cut utilizing a sterile 15 blade, tissue nippers, and/or power dremel instrumentation by the physician of record - 71426.? * Procedure Codes:?23831 DEBRI DE NAIL, 6 OR MORE, Modifiers: XS 16307 TRIM SKIN LESIONS, 2 TO 4, Modifiers: XS * Preventive Medicine:? ??Counseling:?Discussion:?-04: Office or other outpatient visit for the evaluation and management of a new patient, which required a medically appropriate history and/or examination and MODERATE level of DECISION MAKING for: 1 OR MORE CHRONIC PROBLEM(S) THATS WORSENING, 2 STABLE CHRONIC PROBLEMS, A NEWLY DIAGNOSED PROBLEM WITH UNCERTAIN PROGNOSIS, AN ACUTE COMPLICATED INJURY WITH MULTIPLE TREATMENT OPTIONS, OR AN ACUTE PROBLEM WITH ACCOMPANYING SYSTEMIC SYMPTOMS, THAT POSE(S) A MODERATE RISK OF MORBIDITY. THIS CONDITION MAY ALSO INCLUDE RX DRUG MANAGEMENT, OR A DECISON FOR MINOR SURGERY. The visit on the day of the encounter encompassed interpreting the data and educating the patient as to the nature of their condition, treatment options available according to their individual PMH, meds, allergies, and overall health/living conditions, as well as any potential risks or complications that may occur from a failure to adhere to, and participate in, the recommended course of therapy. The discussion included a complete verbal, and/or written explanation of the examination results, any x-rays taken, the proposed diagnosis, and outline of the treatment plan. A schedule for future care needs was also explained. The patient verbalized an understanding of the instructions at this time and agreed to be an active participant in their treatment. If the patient should think of any questions or concerns after the visit, I have encouraged the patient to call the office.?Digital Surgery:?Digital surgery was discussed with the patient, We elected to try conservative treatment at the present time, due to the patients medical history and increased asssociated post-operative risks.?Digital Treatment:?HT- I explained to the patient the possible etiologies of Hammertoes, including genetics/foot type/shoegear/activity level/exercise routine and the risks/benefits of all the different treatment options for their pain including: No treatment at all, Rest, Ice, New/supportive/wider/deeper Shoegear, Digital Padding/Strapping/Taping/Bracing/Gel protective sleeves, Foot/Ankle AFO Bracing, Stretching exercises, Deep Tissue Massage, Arch support/shoe inserts with splay metatarsal padding, and Custom orthoses. I insisted that any digital devices be removed daily and not worn overnight for safety. The patient is to carefully examine the toes daily for any skin irritation while using any splinting or padding device. The advantages and disadvantages of each option were discussed and the patients questions re: shoegear, padding, custom vs prefabricated inserts, activity level, and consistency in home treatment regimens for optimal success were answered to their verbally confirmed satisfaction.?Fungal Nail Counseling:?The patient was counseled on the diagnosis, potential etiologies (including, but not limited to, environmental factors, genetic, immune deficiency), and the multiple treatment options for Onychomycosis. We discussed the risks and benefits of each option from performing no treatment, to ultraviolet light shoe treatment, to laser nail treatment, to applying topical antifungals, to taking oral antifungal medication, to surgical removal of the involved nail(s) with or without performing a matricectomy, or any combination thereof. We discussed the advantages and disadvantages of each of possible treatment and importance for adherence to all the recommended therapies for optimum success. This includes the necessity for weekly emery board self nail home debridements, and control the nail and skin environment as much as possible by only using a fresh, dry pair of shoes/socks each day, as well as keeping the skin as dry as possible through the use of sprays/powders if necessary. The patient was instructed to discard the emery board after use to prevent reinfection of the involved nail(s). We discussed the mycological and visual clinical effectiveness of topical vs oral antifungal treatments as well as each ones potential side effects and/or any patient- specific medication interactions. We discussed the reasons behind the important requirement of regular liver function testing with oral antifungal therapy for safety. Patient questions regarding use, dosage, successful outcomes, blood tests, and possible pharmaceutical interactions were reviewed and the patient verbalized that all answers were clearly understood , An LFT was ordered in preparation for Lamisil prescription therapy.?Shoe Gear Counseling:?SHOE Rx - The patient was counseled in great detail on their muscoloskeletal foot and toe deformities which coincided with the dermatological presentations visualized on exam. We discussed how their deformities put the integrity of their feet at risk for potential pedal complications which makes the accomidative diabetic shoes and cutomizable inserts medically necessary. We discussed the different shoe and insert treatment types and options, as well as the important advantages for adhering to regularly wearing these accomidative devices daily. The patient was made aware of the fact that a failure to abide by these recommedations may be deleterious to their foot health as they are able to prevent many pedal complications such as skin irritation, skin ulceration, infection, and even loss of toe/foot/leg/or life. Time was also spent with the patient dispensing and discussing proper diabetic footcare techniques including daily skin moisturization, daily foot inspection for any interruption in skin integrity including open lesions, or sign of infection such as redness/malodor/drainage/swelling. Also discussed and recommended were procedures regarding daily shoe inspection for the presence of internal foreign bodies as well as any visualized irregular shoe or insert wear. Patient questions re: shoes, inserts, and self foot inspections were answered to their satisfaction as the patient verbally confirmed a full understanding of the above information. A Rx for Extra Depth Orthopedic Shoes with 3 pair of custom heat-molded inserts was dispensed.? ??Screening/Special Tests:?Fall Risk?Screening:?No falls in the past year ?FALLS: Screening for Future Fall Risk?Have you had any falls with injury in the past year??No * Follow Up:?3 Months * Images: * Sign off status: Completed true * Provider:?Radha Tran DPM Date:?0 09/16/2024 Generated for Дмитрий rojo/Julius/Nachosmitting on:?10/02/2024 01:21 PM EST History and Physical Notes * HPI (History of Present Illness) Category Sub-Category Detail Notes Category Not es Toe pain Location: B/L feet Duration: several years Course: worse Aggravated by: shoes, any pressure Treatments: change in shoes Painful Nails Aggravated by: shoegear causing difficul ty standing/walking Course: worse Duration: several years Location: Both feet, all toes Nature: tender, discolored, thick Treatments: none At Risk footcare Pt States Last PCP Visit: Date: 4 Examination Category Sub-Category Detail Notes Category Not es Neurological SENSORY: Neurological exa m demonstrates, reduced light touch sensation, reduced sharp/dull pin prick discrimination , B/L, 5.07 monofilament test performed at plantar aspects of 5 varied sites per foot shows sensation, reduced , B/L Dermatologic SKIN FINDINGS: Skin exam reveal s Keratotic lesion(s) located at sub 1st metatarsal head B/L, plantar heels B/L Orthopedic FOOTWEAR: worn, non-suppor tive, shoe gear properties exacerbate patient's foot/toe deformity DIGITAL DEFORMITIES: Digital contracture , PIPJ, 2-5 B/L, incompl-reducible to push-up test, no over, nor underlapping, there is evidence of shoe producing skin irritation MUSCLE STRENGTH: 5/5 all groups in a symmetrical fashion, B/L General Examination GENERAL APPEARANCE: Reveals a pleasant, alert, well nourished, well-developed, well hydrated individual, who demonstrates proper attention to hygiene/body habitus, and is in no acute distress, Pt serves as own historian for office visit today FOOT EXAM: Lower Extremity Neurological Exa m performed:: Yes Date: 09/16/24 Visual exam of foot performed:: Yes Date: 09/16/2024 Sensory testing performed:: sensations d iminished Sensory and motor testing performed:: [facility] normal Pedal pulse taking performed:: 1+ ORIENTED: person, place, and t jen Footwear Evaluation Footwear Evaluation performe d:: Yes Ophthalmology Referral DIABETES EYE EXAM Procedure Perform ed:: No Findings of Diabetic Eye Exam:: no retin opathy Vascular DP PULSES (B): 2/4, B/L PT PULSES (B): 1/4, B/L, 1/4, B/L, difficult to palpate secondary to edema CAPILLARY FILL TIME: 3 secs. per digit TEMPERTURE GRADIENT (C): normal, warm to cool, proximal to distal, B/L TROPHIC CONDITION-TEXTURE/ELASTICITY/TURGOR/HAIR GROWTH (B): normal, B/L EDEMA (C): 3/4, pitting, withou t aching pain, Ankle(s), Leg(s), Foot, B/L TELANGECTASIA: ELEV. PALOR: CLAUDICATION (C): REST PAIN: PIGMENTATION: normal, B/L PARESTHESIA (C): BURNING (C): Nails NAILS are: Elongated, overg rown, dystrophic, lytic, greater than 3mm thick, discolored and friable with crumbly malodorous subungual debris, with dull to no pain on palpation due to neuropathy, TA, T1, T2, T3, T4, T5, T6, T7, T8, T9
--- OUTSIDE RECORDS SUMMARY | 2024-10-02 13:22 | XMS_ITS ---
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 Generated for Printi alia/Julius/eTransmitting on:?10/02/2024 01:21 PM EST
--- OUTSIDE RECORDS SUMMARY | 2024-10-02 13:22 | XMS_ITS ---
Author Organization [facility] Address [address] [place] [address] Care Team Providers Care Gasser Machine Operator Name Role Phone Josefa MAYFIELD, Abe Primary Care Provider Unavail able Radha Tran Unavailable [phone] Huong Huitron Unavailable [phone] Encounters Encounter Location Date Provider Diagnosis [address] [address] 08/13/2024 Huong Huitron Plan Of Treatment Next Appt Details Provider Name:Radha nelson, 01/20/2025 11:15:00 AM, [address] [place], [address], Progress Notes * Louis LONGO ADOB: [birth year] (54 yo M)Acc No.[id number]:08/13/2024 Progress Notes Patient:?Louis LONGO Provider:?Huong Huitron DPM :1970???Age:54 Y???Sex:Male Darrel e:08/13/2024 Address:[address] [place] [address] Pcp:Abe Rivero MD Subjective: * Chief Complaints: [...] Huitron DPM Date:?11/2023 Generated for Дмитрий rojo/Julius/Kira on:?10/02/2024 01:21 PM EST
--- OUTSIDE RECORDS SUMMARY | 2024-10-02 13:22 | XMS_ITS | Patient Health Record ---
Author Organization [facility] Address [address] [place] [address] Care Team Providers Care Sped Teacher Name Role Phone Abe Rivero MD Primary Care Provider Unavail able Radha Tran Unavailable [phone] RonnellHuong olivo Unavailable [phone] Results Component Value Reference Range Notes HEMOGLOBIN A1C (GLYCOHEMOGLO BIN) Reviewed date:09/16/2024 09:26:32 AM Interpretation: Performing Lab: Notes/Report: HEMOGLOBIN A1C % (HH) 8.6 Reason For Referral No Information Medications Medication SIG (Take, Route, Frequency, Duration) Notes Start Date End Date Status Ozempic Active Vitamin D Active Vitamin B Complex Ac tive glipiZIDE 10 MG 1 tablet 30 minutes before breakfast Orally Once a day Not-Taking Atorvastatin Calcium 80 MG 1 tablet Orally [...] Lesion(s) (L85.1 09/16/2024 Active Methadone HCl Active Social History Tobacco Use: Social History Observation [...] Polyneuropathy due to type 2 diabetes mellitus (686689299) Type 2 diabetes mellitus with diabetic polyneuropathy (E11.42) Active confirmed Vital Signs Blood pressure diastolic 70 mm Hg 09/16/2024 Height 6ft 1inch in 09/16/2024 Blood pressure systolic 130 mm Hg 09/16/2024 Weight 370 lbs 09/16/2024 BMI 48.81 kg/m2 09/16/2024 Procedures Procedure Date Ordered Date Performed Result Body Sit e 71151-NIHPBCF NAIL, 6 OR MORE 09/16/2024 N/A 66983-OCGO SKIN LESIONS, 2 TO 4 09/16/2024 N/A Encounters Encounter Location Date [facility] [address] 09/16/2024 Radha Tran Other hammer toe(s) (acquired), right foot M20.41 ; Other hammer toe(s) (acquired), left foot M20.42 ; Onychomycosis B35.1 and Type 2 diabetes mellitus with diabetic polyneuropathy E11.42 [facility] [address] 08/07/2024 Huong Huitron Assessments Encounter Date Diagnosis (ICD Code) Assessment [...] polyneuropathy (ICD-10 - E11.42) Plan Of Treatment Pending Test Test Name Order Date *Liver Function Test (LFT) 09/16/2024 38124-NBBOBDY NAIL, 6 OR MORE 09/16/2024 53990-OZGP SKIN LESIONS, 2 TO 4 09/16/19 25 Next Appt Details Provider Name:Radha nelson, 01/20/2025 11:15:00 AM, [address] [place] [address], [address], Insurance Providers Payer Name Payer Address Payer Phone Subscriber Number Group Number Insured Name Patient Relationship to Insured Coverage Start Date Coverage End Date [facility] [employer] Claims [address] [place] [id number] [phone] [id number] Louis Cazares Self - patient is the insured Medical (General) History Medical History History ICD Code Chicken pox
== END 2024-10-02 12:14 | disposition home or self-care (01) ==
LOC: HO.HMCSH 11:36
PROVIDERS: PCP Internal Medicine; Visit Provider Physician Assistant Medical
DX: E78.2 Mixed hyperlipidemia (principal); E11.65 Type 2 diabetes mellitus with hyperglycemia; Z79.4 Long term (current) use of insulin; E66.01 Morbid (severe) obesity due to excess calories; E55.9 Vitamin D deficiency, unspecified; K76.6 Portal hypertension; B35.9 Dermatophytosis, unspecified

== ENCOUNTER → 2024-10-02 11:36 | Outpatient (BNVA) | payer OTHER, SELFPAY | PROVIDERS: PCP Internal Medicine; Visit Provider Physician Assistant Medical | DX: E78.2 Mixed hyperlipidemia (principal); E11.65 Type 2 diabetes mellitus with hyperglycemia; Z79.4 Long term (current) use of insulin; E66.01 Morbid (severe) obesity due to excess calories; E55.9 Vitamin D deficiency, unspecified; B35.9 Dermatophytosis, unspecified; K76.6 Portal hypertension | CPT/HCPCS: 99202 ==